=== PATIENT | male | born 1935 | race Caucasian/White ===

== ENCOUNTER 2017-01-20 17:25 | Inpatient (IN) ==
[2017-01-20 19:16] LABS: Bilirubin,Urine Negative (Negative); Blood,Urine Negative (Negative); Clarity,Urine Clear (Clear); Color,Urine Yellow (Yellow); Glucose,Urine (UA) Normal (Normal); Ketones,Urine Negative (Negative); Leukocyte Esterase,Urine Negative (Negative); Nitrite,Urine Negative (Negative); PH,Urine 5.5 pH Units (5.0-8.0); Protein,Urine Negative (Neg-Trace); Urobilinogen,Urine Normal (Normal)
[2017-01-20] MEDS ORDERED: 0.9 % Sodium Chloride 1,000 ML IVC ONE ×2 (19:27→20:50)
[2017-01-20 20:10] LABS: Basophils % 0.1 %; Eosinophils % 0.2 %; Hematocrit 43.6 % (37.5-50.1); Hemoglobin 13.7 g/dL (12.9-16.9); Immature Granulocytes % 0.8 % (0-4); Immature Platelets 3.8 % (1.1-6.1); Lymphocytes # 0.7 K/mcL (0.6-4.6); Lymphocytes % 7.2 %; Mean Corpuscular HGB Conc 31.4 g/dL (31.6-35.5); Mean Corpuscular Hemoglobin 28.7 pg (28.0-33.3); Mean Corpuscular Volume 91.4 fL (83.0-100.0); Mean Platelet Volume 9.4 fL (9.4-12.4); Monocytes # 0.4 K/mcL (0.0-1.3); Monocytes % 4.6 %; Neutrophils # 8.3 K/mcL (1.6-8.9); Platelet Count 202 K/mcL (140-400); Red Blood Count 4.77 M/mcL (4.19-5.50); Segmented Neutrophils % 87.1 %
[2017-01-20 20:21] LABS: Activated Partial Thrombo Time 44.4 Seconds (26.0-36.0)
[2017-01-20 20:22] LABS: Prothrombin Time 63.8 Seconds (9.4-12.1)
[2017-01-20 20:23] LABS: INR 5.6
[2017-01-20 20:25] LABS: Albumin 3.6 g/dL (3.5-5.0); Albumin/Globulin Ratio 1.1 (1.1-2.2); Bilirubin,Direct 0.4 mg/dL (0.0-0.5); Bilirubin,Indirect 0.3 mg/dL (0.0-1.2); Bilirubin,Total 0.7 mg/dL (0.2-1.2); Calcium 8.6 mg/dL (8.6-10.8); Globulin 3.3 g/dL (2.4-3.5); Total Protein 6.9 g/dL (6.0-8.3)
--- NOTE | 2017-01-20 20:48 | Emergency Department Note ---
Disposition Clinical Impression: Elevated INR, Dehydration Acute renal failure Qualifiers: Acute renal failure type: unspecified Qualified Code(s): N17.9 - Acute kidney failure, unspecified Disposition: Admitted As Inpatient Condition: Good Time of Disposition: 22:11 Nausea/Vomiting/Diarrhea HPI - General Chief complaint: ED Nausea/Vomiting/Diarrhea Stated complaint: General Time Seen by Provider: 01/20/17 20:40 Source: patient Limitations: no limitations Nursing Notes Reviewed: Yes Vital Signs Reviewed: Yes - History of Present Illness HPI Narrative: 81 year old male with HX of rate controlled atrial fibrillation has been experiencing 3 days of diarrhea NBNB associated with nausea and no vomitting or fevers. Patient has not been around other individuals with simliar symptoms and states that he is passing watery diarrhea every 15 minutes since Wednesday at 1000 without relief. Patient states that this is a first time occurance and is not experiencing increased abdominal pain and describes it as cramps. Michael states he has not tried over the counter medications to help with his diarrhea and overall feels dehydrated and weak. Caprice otherwise has a CAD historu but is not experiencing chest pain or shortness of breath. Denies uti symptoms or bloody stools. - Related Data Home Medications Medication Instructions Recorded Confirmed Ascorbate Calcium [Vitamin C] 1,000 mg PO QAM 12/23/15 01/20/17 Aspirin [Adult Low Dose Aspirin EC] 81 mg PO QPM 12/23/15 01/20/17 Budesonide/Formoterol 80/4.5 2 puff IH BID 12/23/15 01/20/17 [Symbicort 80/4.5] Fenofibrate [Lofibra] 160 mg PO QAM 12/23/15 01/20/17 Lisinopril [Zestril] 20 mg PO QAM 12/23/15 01/20/17 Lovastatin 40 mg PO QAM 12/23/15 01/20/17 Multivit-Min/FA/Lycopen/Lutein 1 each PO QAM 12/23/15 01/20/17 [Centrum Silver Tablet] Omeprazole [PriLOSEC] 20 mg PO QAM 12/23/15 01/20/17 Warfarin [Coumadin] 2 mg PO SUMOTUWESA 12/23/15 01/20/17 Albuterol Sulfate [Ventolin Hfa] 2 puff IH Q4H PRN 01/20/17 01/20/17 Furosemide [Lasix] 60 mg PO DAILY 01/20/17 01/20/17 Isosorbide MONOnitrate (24 HR) 30 mg PO DAILY 01/20/17 01/20/17 [Imdur] Latanoprost [Xalatan] 1 drop BOTH EYES HS 01/20/17 01/20/17 PredniSONE [PredniSONE] 20 mg PO DAILY 01/20/17 01/20/17 Warfarin [Coumadin] 1 mg PO TH 01/20/17 01/20/17 Warfarin [Coumadin] 3 mg PO FR 01/20/17 01/20/17 Allergies Allergy/AdvReac Type Severity Reaction Status Date / Time No Known Allergies Allergy Verified 01/05/17 07:31 Constitutional: Denies: fever, chills, weakness, weight change Eyes: Denies: eye pain, eye discharge, vision change ENT ED: Denies: ear pain, throat pain, dental pain, hearing loss, epistaxis, congestion, dysphagia Cardiovascular: Denies: chest pain, palpitations, dyspnea on exertion, edema, syncope Respiratory: Denies: cough, dyspnea, wheezes, hemoptysis, stridor Gastrointestinal: Reports: abdominal pain, nausea, diarrhea. Denies: vomiting, constipation, hematemesis, melena, hematochezia Genitourinary: Denies: urgency, dysuria, frequency, hematuria Musculoskeletal: Denies: back pain, neck pain, arthralgia, myalgia Integumentary: Denies: rash, abrasion, lesions Neurological: Denies: headache, weakness, numbness, paresthesias, confusion, abnormal gait, vertigo Psychiatric: Denies: anxiety, depression, suicidal thoughts, homicidal thoughts , auditory hallucinations, visual hallucinations Endocrine: Denies: fatigue Hematological/Lymphatic: Denies: easy bleeding, easy bruising Allergic/Immunologic: Denies: facial swelling, urticaria Past Medical History - Past Medical History Medical history: Reports: CHF, COPD, DVT, hypertension, myocardial infarction, pulmonary embolus Surgical history: Reports: appendectomy, colectomy, knee replacement, LE stent(s ), sinus surgery Psychiatric history: Reports: no psych history - Social History Smoking Status: Never smoker Smokeless Tobacco Status: No Alcohol use: Reports: none Drug use: Reports: none Physical Exam - General Limitations: no limitations General appearance: alert - Head Head exam: atraumatic, normocephalic, normal inspection - Eye Eye exam: Present: normal appearance, PERRL, EOMI - Expanded Eye Exam Pupils: Left: reactive - ENT ENT exam: normal exam, normal oropharynx, mucous membranes moist - Expanded ENT Exam External ear exam: Present: normal external inspection Mouth exam: Present: normal external inspection Teeth exam: Present: normal inspection Throat exam: Present: normal inspection - Neck Neck exam: Present: normal inspection, full ROM, trachea midline - Chest Chest inspection: Present: normal inspection, symmetric chest wall rise - Respiratory Respiratory exam: Present: normal lung sounds bilaterally - Cardiovascular Cardiovascular exam: Present: regular rate, normal rhythm, normal heart sounds - Abdominal Exam Abdominal exam: Present: soft, Non-Tender. Absent: tenderness, distention, guarding, rebound, rigidity - Rectal Exam Rectal exam: Present: normal inspection, normal rectal tone, heme (-) stool - Extremities Exam Extremities exam: Present: normal inspection, full ROM. Absent: tenderness, pedal edema - Expanded Upper Extremity Exam Shoulder exam: Present: normal inspection, full ROM Arm exam: Present: normal inspection, full ROM Elbow exam: Present: normal inspection, full ROM Forearm/Wrist exam: Present: normal inspection, full ROM Hand exam: Present: normal inspection, full ROM Vascular exam: Normal: capillary refill, radial pulse - Expanded Lower Extremity Exam Hip/Pelvis exam: Present: normal inspection, full ROM Upper leg exam: Present: normal inspection, full ROM Knee exam: Present: normal inspection, full ROM Lower leg exam: Present: normal inspection, full ROM Ankle exam: Present: normal inspection, full ROM Foot/toe exam: Present: normal inspection, full ROM Neurovascular/Tendon exam: Absent: motor deficit, sensory deficit, tendon deficit - Back Exam Back exam: Present: normal inspection, full ROM. Absent: tenderness - Neurological Exam Neurological exam: Present: alert, oriented X3 - Expanded Neurological Exam Patient oriented to: Present: person, place, time Coma Scale Eye Opening: Spontaneous Coma Scale Motor Response: Obeys Commands Coma Scale Verbal Response: Oriented Coma Scale Total: 15 - Psychiatric Psychiatric exam: Present: normal affect, normal mood - Skin Skin exam: Present: warm, dry, intact, normal color Course Course Narrative: we will do abdominal labs with ABCT for futher evaluation due to elevated INR and CRN. likely from dehydration. will do a rectal exam to assess for rectal bleeding. - Consultations Consultation #1: Dr. Rodríguez accepts patient to his service. Time: 22:11 Vital Signs Temperature 97.3 F L 01/20/17 17:31 Pulse Rate 71 01/20/17 17:31 Respiratory Rate 16 01/20/17 17:31 Blood Pressure 96/64 01/20/17 17:31 O2 Sat by Pulse Oximetry 96 01/20/17 17:31 Temperature 97.3 F L 01/20/17 17:31 Pulse Rate 73 01/20/17 19:12 Respiratory Rate 18 01/20/17 19:12 Blood Pressure 120/53 01/20/17 19:12 O2 Sat by Pulse Oximetry 97 01/20/17 19:12 Oxygen Delivery Oxygen Delivery Room Air Nausea/Vomiting/Diarrhea - Lab Data Result diagrams: 01/20/17 20:03 01/20/17 20:03 Lab Results 01/20/17 01/20/17 01/20/17 Range/Units 19:08 20:03 20:03 WBC 9.6 (4.3-11.1) K/mcL RBC 4.77 (4.19-5.50) M/mcL Hgb 13.7 (12.9-16.9) g/dL Hct 43.6 (37.5-50.1) % MCV 91.4 (83.0-100.0) fL MCH 28.7 (28.0-33.3) pg MCHC 31.4 L (31.6-35.5) g/dL RDW 14.0 (11.5-14.5) % Plt Count 202 (140-400) K/mcL MPV 9.4 (9.4-12.4) fL Immature Gran % 0.8 (0-4) % Seg Neutrophils % 87.1 % Lymphocytes % 7.2 % Monocytes % 4.6 % Eosinophils % 0.2 % Basophils % 0.1 % Neutrophils # 8.3 (1.6-8.9) K/mcL Lymphocytes # 0.7 (0.6-4.6) K/mcL Monocytes # 0.4 (0.0-1.3) K/mcL Eosinophils # 0.0 (0.0-0.6) K/mcL Basophils # 0.0 (0.0-0.2) K/mcL Immature Plt Fraction 3.8 (1.1-6.1) % PT 63.8 H* (9.4-12.1) Seconds INR 5.6 H* APTT 44.4 H (26.0-36.0) Seconds Sodium (136-145) mEq/L Potassium (3.5-4.5) mEq/L Chloride (98-109) mEq/L Carbon Dioxide (19-29) mEq/L BUN (8-26) mg/dL Creatinine (0.72-1.25) mg/dL Est GFR ( Amer) (> 60) Est GFR (Non-Af Amer) (> 60) BUN/Creatinine Ratio (6-26) Glucose (70-99) mg/dL Calculated Osmolality (280-300) Lactic Acid (0.5-2.2) mmol/L Calcium (8.6-10.8) mg/dL Total Bilirubin (0.2-1.2) mg/dL Direct Bilirubin (0.0-0.5) mg/dL Indirect Bilirubin (0.0-1.2) mg/dL AST (5-34) Units/L ALT (0-55) Units/L Alkaline Phosphatase (38-126) Units/L Troponin I (0-0.03) ng/mL Serum Total Protein (6.0-8.3) g/dL Albumin (3.5-5.0) g/dL Globulin (2.4-3.5) g/dL Albumin/Globulin Ratio (1.1-2.2) Amylase (25-125) Units/L Lipase (8-78) Units/L Urine Color Yellow (Yellow) Urine Clarity Clear (Clear) Urine pH 5.5 (5.0-8.0) pH Units Ur Specific Central 1.020 (1.010-1.025) Urine Protein Negative (Neg-Trace) mg/dL Urine Glucose (UA) Normal (Normal) mg/dL Urine Ketones Negative (Negative) mg/dL Urine Blood Negative (Negative) Urine Nitrite Negative (Negative) Urine Bilirubin Negative (Negative) Urine Urobilinogen Normal (Normal) mg/dL Ur Leukocyte Esterase Negative (Negative) Ur Culture Indicated? NO (NO) 01/20/17 01/20/17 01/20/17 Range/Units 20:03 20:03 20:03 WBC (4.3-11.1) K/mcL RBC (4.19-5.50) M/mcL Hgb (12.9-16.9) g/dL Hct (37.5-50.1) % MCV (83.0-100.0) fL MCH (28.0-33.3) pg MCHC (31.6-35.5) g/dL RDW (11.5-14.5) % Plt Count (140-400) K/mcL MPV (9.4-12.4) fL Immature Gran % (0-4) % Seg Neutrophils % % Lymphocytes % % Monocytes % % Eosinophils % % Basophils % % Neutrophils # (1.6-8.9) K/mcL Lymphocytes # (0.6-4.6) K/mcL Monocytes # (0.0-1.3) K/mcL Eosinophils # (0.0-0.6) K/mcL Basophils # (0.0-0.2) K/mcL Immature Plt Fraction (1.1-6.1) % PT (9.4-12.1) Seconds INR APTT (26.0-36.0) Seconds Sodium 135 L (136-145) mEq/L Potassium 4.0 (3.5-4.5) mEq/L Chloride 105 (98-109) mEq/L Carbon Dioxide 21 (19-29) mEq/L BUN 71 H (8-26) mg/dL Creatinine 2.21 H (0.72-1.25) mg/dL Est GFR ( Amer) 35 L (> 60) Est GFR (Non-Af Amer) 29 L (> 60) BUN/Creatinine Ratio 32 H (6-26) Glucose 152 H (70-99) mg/dL Calculated Osmolality 304 H (280-300) Lactic Acid 0.9 (0.5-2.2) mmol/L Calcium 8.6 (8.6-10.8) mg/dL Total Bilirubin 0.7 (0.2-1.2) mg/dL Direct Bilirubin 0.4 (0.0-0.5) mg/dL Indirect Bilirubin 0.3 (0.0-1.2) mg/dL AST 29 (5-34) Units/L ALT 29 (0-55) Units/L Alkaline Phosphatase 43 (38-126) Units/L Troponin I 0.01 (0-0.03) ng/mL Serum Total Protein 6.9 (6.0-8.3) g/dL Albumin 3.6 (3.5-5.0) g/dL Globulin 3.3 (2.4-3.5) g/dL Albumin/Globulin Ratio 1.1 (1.1-2.2) Amylase 81 (25-125) Units/L Lipase 46 (8-78) Units/L Urine Color (Yellow) Urine Clarity (Clear) Urine pH (5.0-8.0) pH Units Ur Specific Central (1.010-1.025) Urine Protein (Neg-Trace) mg/dL Urine Glucose (UA) (Normal) mg/dL Urine Ketones (Negative) mg/dL Urine Blood (Negative) Urine Nitrite (Negative) Urine Bilirubin (Negative) Urine Urobilinogen (Normal) mg/dL Ur Leukocyte Esterase (Negative) Ur Culture Indicated? (NO) - EKG Data EKG attestation: Yes I reviewed and interpreted this EKG. EKG results narrative: atrial fibrillation with rate of 62. NO STEMI. LAD. LBBB. no change from . 1946 Attestation Statement - Attestation Attestation: I performed a history and physical examination of the patient and discussed his management with the resident. I reviewed the residents note and agree with the documented findings and plan of care. This 81-year-old male with an persistent diarrhea for several days and was found to have some evidence of renal failure. He felt dehydrated. We have given him fluids. We have arranged for hospitalist admission.
--- NOTE | 2017-01-20 23:31 | Internal Med History&Physical ---
<Henry Moreira - Last Filed: 01/21/17 08:38> Date of Encounter: 01/20/17 Time of Encounter: 23:31 Assessment and Plan (1) Diarrhea Current visit: Yes Status: Acute -Stomach discomfort the day before diarrhea started, mild nausea, no vomiting, no fever. Symptoms are improving and he feels better today compared to yesterday. Will get stool studies. -Denies recent abx use and low WBC/symptoms improving. Cdiff low on ddx. -No critical electrolyte abnormalities, will continue to monitor -Been on finofibrate for years. -Unclear etiology of diarrhea -Will not prescribe antimotility agent because of risk of infectious source/ toxin. -Unknown last colonoscopy. Colectomy in 2005 for polyp. Unable to find other records -CT: diverticulosis without diverticulitis, hepatic steotosis. Plan -Lipid Panel -Stool studies-hemmocult, cdiff, stool culture -zofran for nausea -Consider out patient colonoscopy As a side note. Unable to add Hypertension to the CDI code. The System wont let me sign the chart with this diagnosis. Plan is we are going to start his home medications. Qualifiers: Diarrhea type: unspecified type Qualified Code(s): R19.7 - Diarrhea, unspecified (2) Acute renal failure Current visit: Yes Status: Acute -Likely secondary to dehydration -No CVA tenderness. Is producing "normal gold color urine" -2L bolus in ED Plan -Hold nephrotoxic agents: Lasixs, MINO -Get urine na and osmo -Continue fluids 125 for 1L Qualifiers: Acute renal failure type: unspecified Qualified Code(s): N17.9 - Acute kidney failure, unspecified (3) Elevated INR Current visit: Yes Status: Acute For abib, dvt, pe. -Seen in [facility] on 01/14 -Hold Coumadin -Patient not actively bleeding, H and H stable. No need for vitamin K Plan -Occult stool test -Hold Coumadin -Consult to Coumadin clinic-unable to order. Will call personally....spoke with coumadin clinic (the inspector outside [employer]), they are [facility]. Patient had appointment today. They will contact patient regarding rescheduling appointment. (4) Atrial fibrillation Current visit: Yes Status: Chronic -currently rate controlled -Excessive diarrhea. Concern for future electrolyte abnormality. Keep on Tele PLan -Tele -Resume home med. Qualifiers: Atrial fibrillation type: chronic Qualified Code(s): I48.2 - Chronic atrial fibrillation (5) COPD (chronic obstructive pulmonary disease) Current visit: Yes Status: Chronic Qualifiers: COPD type: chronic bronchitis Chronic bronchitis type: unspecified Qualified Code(s): J42 - Unspecified chronic bronchitis Internal Medicine - H&P: HPI Chief complaint: Diarrhea Admitted From: Emergency Dept Plans for Post Hospital Care: Home History of present illness: Mr. Sequeira is a 81 year old male, PMH Afib rate controlled, CHF, COPD, DVT, PE , HTN, OR, PE, being admitted for diarrhea, ANGEL, Elevated INR. Diarrhea Started a few days ago. Woke up from sleep. Going to the bathroom every 15-30 min. Worsen with eating and drinking. NOthing seems to help. Has not tried any OTC medications. Has not had this problem before. States the night before he felt like his "stomach was rumbling and growling". Abdominal pain described as diffused and cramping when he goes to the bathroom. Otherwise, not in pain. Admits to mild nausea. Denies F/V/PEREZ/Blurry vision or confusion/CP/SOB/Melena/ Hematochezia/excessive bruising. Denies recent travel, adventurous foods, recent abx use. Concerning ANGEL. States he has no known history of ANGEL. He feels dehyrdated and hasnt drank or eaten much the past few days. Is producing urine that is monroy brown. Denies hematuria. No dysuria or flank pain. Concerning INR elevation: On Coumadin for afib and DVT/PE hx. Previous admittance for elevated INR in 2016. Seen at [facility] on 01/14. Patient has had flu shot. Denies any medication changes. Is currently taking predisone for "a long problem or inflammation my PCP says", denies recent abx use or laxative. Taking Vitamin C because "my PCP told me too and I've been taking it for years". Past Med Surg Social Fam HX - Past Medical History Medical history: CHF, COPD, DVT, hypertension, myocardial infarction, pulmonary embolus Psychiatric history: no psych history - Past Surgical History Surgical History: appendectomy, colectomy, knee replacement, LE stent(s), sinus surgery - Social History Smoking Status: Never smoker Smokeless Tobacco Status: No Alcohol use: none Drug use: none - Family History Mother Living Status: Hx Family Cardiac Disorders: Yes Sister Living Status: Hx Family Cancer: Yes Father Hx Family Cardiac Disorders: Yes Internal Medicine - H&P: Meds Ascorbate Calcium [Vitamin C] 1,000 mg PO QAM 12/23/15 [History] Aspirin [Adult Low Dose Aspirin EC] 81 mg PO QPM 12/23/15 [History] Budesonide/Formoterol 80/4.5 [Symbicort 80/4.5] 2 puff IH BID 12/23/15 [History ] Fenofibrate [Lofibra] 160 mg PO QAM 12/23/15 [History] Lisinopril [Zestril] 20 mg PO QAM 12/23/15 [History] Lovastatin 40 mg PO QAM 12/23/15 [History] Multivit-Min/FA/Lycopen/Lutein [Centrum Silver Tablet] 1 each PO QAM 12/23/15 [ History] Omeprazole [PriLOSEC] 20 mg PO QAM 12/23/15 [History] Warfarin [Coumadin] 2 mg PO SUMOTUWESA 12/23/15 [History] Albuterol Sulfate [Ventolin Hfa] 2 puff IH Q4H PRN 01/20/17 [History] Furosemide [Lasix] 60 mg PO DAILY 01/20/17 [History] Isosorbide MONOnitrate (24 HR) [Imdur] 30 mg PO DAILY 01/20/17 [History] Latanoprost [Xalatan] 1 drop BOTH EYES HS 01/20/17 [History] PredniSONE [PredniSONE] 20 mg PO DAILY 01/20/17 [History] Warfarin [Coumadin] 1 mg PO TH 01/20/17 [History] Warfarin [Coumadin] 3 mg PO FR 01/20/17 [History] Allergies No Known Allergies Allergy (Verified 01/05/17 07:31) All Systems PM: A 10-system review of systems was performed and is negative for pertinent findings except as documented above in the HPI. - EENT Eyes: no change in vision, no discharge, no pain, no photophobia - Cardiovascular Cardiovascular ROS IM: irregular heart rhythm, no chest pain, no diaphoresis, no dyspnea, no lightheadedness, no palpitations, no syncope - Respiratory Respiratory: no cough, no dyspnea, no wheezing, no excessive phlegm production - Gastrointestinal Gastrointestinal: as per HPI - Genitourinary Genitourinary ROS male: as per HPI - Neurological Neurological ROS: no confusion, no convulsions, no focal weakness, no numbness, no tingling, no tremor(s) - Constitutional Vitals: Temp Pulse Resp BP Pulse Ox 97.3 F L 73 18 124/83 97 01/20/17 17:31 01/20/17 19:12 01/20/17 23:07 01/20/17 23:07 01/20/17 19:12 General appearance: Present: A&O X 3, pleasant, no acute distress, answers questions appropriately - Head Head exam: Present: atraumatic, normocephalic - Eye Eye exam: Present: PERRL, conjuntiva pink, sclera anicteric Pupils: Present: PERRL - Neck Neck exam general surgery: Present: supple, trachea midline. Absent: lymphadenopathy - Respiratory Respiratory exam: Present: CTAB. Absent: accessory muscle use, rales, rhonchi, wheezes - Cardiovascular Cardiovascular exam: Present: irregular rhythm - GI/Abdominal GI/Abdominal exam: Present: normal bowel sounds, soft, no peritoneal signs. Absent: distended, tenderness - Other Additional findings: No brusing, bleeding, open wounds noted. No petichi. Internal Med - H&P Results - Labs CBC & Chem 7: 01/21/17 06:42 01/21/17 06:42 <German Rodríguez - Last Filed: 01/21/17 10:39> Date of Encounter: 01/20/17 Internal Medicine - H&P: HPI History of present illness: Mr. Sequeira is a 81 year old male Patient was visited and interviewed and examined. I examined this patient and my medical decision-making was reviewed with the Resident Physician, Dr. Henry Moreira. For this encounter, I have reviewed the documentation, treatment plan, and medical decision making. I have had face to face time with this patient. Cumulative laboratory and radiographic database was reviewed, considered and discussed. I agree with the documented findings, disposition and treatment plan as described except to the extent set forth below. Given the patient's presenting concerns, past medical history, clinical findings and symptoms, he is admitted at this time to undergo further evaluation and disposition. Condition is serious. Prognosis is guarded. CODE STATUS is full. All Systems PM: A 10-system review of systems was performed and is negative for pertinent findings except as documented above in the HPI. - Constitutional Vitals: Temp Pulse Resp BP Pulse Ox 97.5 F L 63 16 121/76 94 01/21/17 06:55 01/21/17 06:55 01/21/17 08:32 01/21/17 06:55 01/21/17 08:32 Vital Signs Temp Pulse Resp BP Pulse Ox 01/21/17 08:32 16 94 01/21/17 06:55 97.5 F L 63 17 121/76 94 01/21/17 03:50 97.6 F 60 18 134/66 93 01/20/17 23:33 97.4 F L 63 16 139/60 97 01/20/17 23:07 18 124/83 01/20/17 19:12 73 18 120/53 97 01/20/17 17:31 97.3 F L 71 16 96/64 96 Intake and Output 01/20/17 01/21/17 01/21/17 23:59 07:59 15:59 Intake Total 1000 / 1000 1440 / 1440 970 / 970 Output Total 700 / 700 Balance 1000 / 1000 740 / 740 970 / 970 Intake: IV Fluids 1000 / 1000 440 / 440 610 / 610 0.9 % Sodium Chloride 1, 1000 / 1000 390 / 390 610 / 610 000 ML @ 125 mls/hr IVC . Q8H [facility] Rx#:[id number] Protonix 80 MG In 0.9 % 50 / 50 Sodium Chloride 50 ML @ 600 mls/hr IVPB ONCE STA Rx#:[id number] Oral 1000 / 1000 360 / 360 Output: Urine 700 / 700 Other: Meal Breakfast Percent of Meal Consumed 100% Stool Size Small Stool Color Brown Weight 105.778 kg Internal Med - H&P Results - Labs CBC & Chem 7: 01/21/17 06:42 01/21/17 06:42 Labs: Short CBC 01/21/17 01/21/17 Range/Units 01:10 06:42 WBC 10.2 (4.3-11.1) K/mcL Hgb 12.8 L 12.6 L (12.9-16.9) g/dL Hct 40.4 39.9 (37.5-50.1) % Plt Count 170 (140-400) K/mcL Neutrophils # 8.1 (1.6-8.9) K/mcL BMP 01/21/17 06:42 Sodium 139 Potassium 3.8 Chloride 111 H Carbon Dioxide 19 BUN 57 H Creatinine 1.53 H Glucose 99 Calcium 7.7 L Liver Function 01/21/17 Range/Units 01:10 Total Bilirubin 0.6 (0.2-1.2) mg/dL Direct Bilirubin 0.3 (0.0-0.5) mg/dL AST 24 (5-34) Units/L ALT 26 (0-55) Units/L Alkaline Phosphatase 40 (38-126) Units/L Albumin 3.2 L (3.5-5.0) g/dL Abnormal lab results Hgb 12.6 g/dL (12.9-16.9) L 01/21/17 06:42 PT 63.8 Seconds (9.4-12.1) H* 01/20/17 20:03 INR 5.6 H* 01/20/17 20:03 APTT 44.4 Seconds (26.0-36.0) H 01/20/17 20:03 VBG pCO2 33 mmHg (41-51) L 01/21/17 01:10 VBG pO2 115 mmHg (25-40) H 01/21/17 01:10 VBG HCO3 17.8 mEq/L (21-27) L 01/21/17 01:10 Chloride 111 mEq/L (98-109) H 01/21/17 06:42 BUN 57 mg/dL (8-26) H 01/21/17 06:42 Creatinine 1.53 mg/dL (0.72-1.25) H 01/21/17 06:42 Est GFR ( Amer) 53 (> 60) L 01/21/17 06:42 Est GFR (Non-Af Amer) 44 (> 60) L 01/21/17 06:42 BUN/Creatinine Ratio 37 (6-26) H 01/21/17 06:42 Calculated Osmolality 304 (280-300) H 01/21/17 06:42 Calcium 7.7 mg/dL (8.6-10.8) L 01/21/17 06:42 Ionized Calcium 1.07 mmol/L (1.15-1.35) L 01/21/17 01:10 Serum Total Protein 5.9 g/dL (6.0-8.3) L 01/21/17 01:10 Albumin 3.2 g/dL (3.5-5.0) L 01/21/17 01:10 Laboratory Results WBC 10.2 K/mcL (4.3-11.1) 01/21/17 06:42 RBC 4.35 M/mcL (4.19-5.50) 01/21/17 06:42 Hgb 12.6 g/dL (12.9-16.9) L 01/21/17 06:42 Hct 39.9 % (37.5-50.1) 01/21/17 06:42 MCV 91.7 fL (83.0-100.0) 01/21/17 06:42 MCH 29.0 pg (28.0-33.3) 01/21/17 06:42 MCHC 31.6 g/dL (31.6-35.5) 01/21/17 06:42 RDW 14.0 % (11.5-14.5) 01/21/17 06:42 Plt Count 170 K/mcL (140-400) 01/21/17 06:42 MPV 9.8 fL (9.4-12.4) 01/21/17 06:42 Immature Gran % 0.9 % (0-4) 01/21/17 06:42 Seg Neutrophils % 79.3 % 01/21/17 06:42 Lymphocytes % 11.2 % 01/21/17 06:42 Monocytes % 7.4 % 01/21/17 06:42 Eosinophils % 1.0 % 01/21/17 06:42 Basophils % 0.2 % 01/21/17 06:42 Neutrophils # 8.1 K/mcL (1.6-8.9) 01/21/17 06:42 Lymphocytes # 1.1 K/mcL (0.6-4.6) 01/21/17 06:42 Monocytes # 0.8 K/mcL (0.0-1.3) 01/21/17 06:42 Eosinophils # 0.1 K/mcL (0.0-0.6) 01/21/17 06:42 Basophils # 0.0 K/mcL (0.0-0.2) 01/21/17 06:42 Immature Plt Fraction 3.8 % (1.1-6.1) 01/20/17 20:03 PT 63.8 Seconds (9.4-12.1) H* 01/20/17 20:03 INR 5.6 H* 01/20/17 20:03 APTT 44.4 Seconds (26.0-36.0) H 01/20/17 20:03 VBG pH 7.34 pH Units (7.32-7.42) 01/21/17 01:10 VBG pCO2 33 mmHg (41-51) L 01/21/17 01:10 VBG pO2 115 mmHg (25-40) H 01/21/17 01:10 VBG HCO3 17.8 mEq/L (21-27) L 01/21/17 01:10 Sodium 139 mEq/L (136-145) 01/21/17 06:42 Potassium 3.8 mEq/L (3.5-4.5) 01/21/17 06:42 Chloride 111 mEq/L (98-109) H 01/21/17 06:42 Carbon Dioxide 19 mEq/L (19-29) 01/21/17 06:42 BUN 57 mg/dL (8-26) H 01/21/17 06:42 Creatinine 1.53 mg/dL (0.72-1.25) H 01/21/17 06:42 Est GFR ( Amer) 53 (> 60) L 01/21/17 06:42 Est GFR (Non-Af Amer) 44 (> 60) L 01/21/17 06:42 BUN/Creatinine Ratio 37 (6-26) H 01/21/17 06:42 Glucose 99 mg/dL (70-99) 01/21/17 06:42 Calculated Osmolality 304 (280-300) H 01/21/17 06:42 Lactic Acid 0.9 mmol/L (0.5-2.2) 01/20/17 20:03 Calcium 7.7 mg/dL (8.6-10.8) L 01/21/17 06:42 Ionized Calcium 1.07 mmol/L (1.15-1.35) L 01/21/17 01:10 Phosphorus 3.4 mg/dL (2.3-4.7) 01/21/17 06:42 Magnesium 1.9 mg/dL (1.6-2.6) 01/21/17 06:42 Total Bilirubin 0.6 mg/dL (0.2-1.2) 01/21/17 01:10 Direct Bilirubin 0.3 mg/dL (0.0-0.5) 01/21/17 01:10 Indirect Bilirubin 0.3 mg/dL (0.0-1.2) 01/21/17 01:10 AST 24 Units/L (5-34) 01/21/17 01:10 ALT 26 Units/L (0-55) 01/21/17 01:10 Alkaline Phosphatase 40 Units/L (38-126) 01/21/17 01:10 Troponin I 0.01 ng/mL (0-0.03) 01/20/17 20:03 Serum Total Protein 5.9 g/dL (6.0-8.3) L 01/21/17 01:10 Albumin 3.2 g/dL (3.5-5.0) L 01/21/17 01:10 Globulin 2.7 g/dL (2.4-3.5) 01/21/17 01:10 Albumin/Globulin Ratio 1.2 (1.1-2.2) 01/21/17 01:10 Amylase 81 Units/L (25-125) 01/20/17 20:03 Lipase 46 Units/L (8-78) 01/20/17 20:03 Urine Color Yellow (Yellow) 01/20/17 19:08 Urine Clarity Clear (Clear) 01/20/17 19:08 Urine pH 5.5 pH Units (5.0-8.0) 01/20/17 19:08 Ur Specific [place] 1.020 (1.010-1.025) 01/20/17 19:08 Urine Protein Negative mg/dL (Neg-Trace) 01/20/17 19:08 Urine Glucose (UA) Normal mg/dL (Normal) 01/20/17 19:08 Urine Ketones Negative mg/dL (Negative) 01/20/17 19:08 Urine Blood Negative (Negative) 01/20/17 19:08 Urine Nitrite Negative (Negative) 01/20/17 19:08 Urine Bilirubin Negative (Negative) 01/20/17 19:08 Urine Urobilinogen Normal mg/dL (Normal) 01/20/17 19:08 Ur Leukocyte Esterase Negative (Negative) 01/20/17 19:08 Ur Culture Indicated? NO (NO) 01/20/17 19:08 Impressions Chest X-Ray 01/20/17 19:27 IMPRESSION: Chronic interstitial lung disease. No gross consolidation or acute radiographic findings. D/ / 01/20/2017 20:11:23 Marguerite Prince MD / bcarter Interpreting Provider: Marguerite Prince MD Abdomen/Pelvis CT 01/20/17 20:33 IMPRESSION: 1. Colonic diverticulosis without evidence for acute diverticulitis. 2. Borderline hepatic steatosis. 3. Bilateral renal cysts measuring up to 4.9 cm. 4. Fibrotic changes at the lung bases with mild traction bronchiectasis. D/ / Natanael Starks MD / Natanael Starks MD Interpreting Provider: Natanael Starks MD - ABG Interpretation ABG results: 01/21/17 01:10 VBG pH 7.34 VBG pCO2 33 L VBG pO2 115 H VBG HCO3 17.8 L - Attending Attestation My signature below is to certify that this patient is under my care and that I, or Resident Physician working with me, has had a [id number] encounter with this patient.
[2017-01-21] MEDS ORDERED: Ondansetron 4 MG/2 ML VIAL IVP PRN (00:02)
[2017-01-21] MEDS ORDERED: Pantoprazole 80 MG in 0.9 % Sodium Chloride 50 ML IVPB STA (00:47)
[2017-01-21] MEDS: 0.9 % Sodium Chloride 1,000 ML IVC SCH ×3 (01:12→17:16)
[2017-01-21 01:19] LABS: Hematocrit 40.4 % (37.5-50.1); Hemoglobin 12.8 g/dL (12.9-16.9)
[2017-01-21 01:22] LABS: Ionized Calcium 1.07 mmol/L (1.15-1.35)
[2017-01-21 01:25] LABS: VBG HCO3 17.8 mEq/L (21-27); VBG PH 7.34 pH Units (7.32-7.42)
[2017-01-21 01:31] LABS: Albumin 3.2 g/dL (3.5-5.0); Albumin/Globulin Ratio 1.2 (1.1-2.2); Bilirubin,Direct 0.3 mg/dL (0.0-0.5); Bilirubin,Indirect 0.3 mg/dL (0.0-1.2); Bilirubin,Total 0.6 mg/dL (0.2-1.2); Globulin 2.7 g/dL (2.4-3.5); Total Protein 5.9 g/dL (6.0-8.3)
[2017-01-21 07:35] LABS: Calcium 7.7 mg/dL (8.6-10.8); Magnesium 1.9 mg/dL (1.6-2.6); Phosphorous 3.4 mg/dL (2.3-4.7); Potassium 3.8 mEq/L (3.5-4.5)
[2017-01-21 07:43] LABS: Basophils % 0.2 %; Eosinophils # 0.1 K/mcL (0.0-0.6); Hematocrit 39.9 % (37.5-50.1); Hemoglobin 12.6 g/dL (12.9-16.9); Immature Granulocytes % 0.9 % (0-4); Lymphocytes # 1.1 K/mcL (0.6-4.6); Lymphocytes % 11.2 %; Mean Corpuscular HGB Conc 31.6 g/dL (31.6-35.5); Mean Corpuscular Volume 91.7 fL (83.0-100.0); Mean Platelet Volume 9.8 fL (9.4-12.4); Monocytes # 0.8 K/mcL (0.0-1.3); Monocytes % 7.4 %; Neutrophils # 8.1 K/mcL (1.6-8.9); Platelet Count 170 K/mcL (140-400); Red Blood Count 4.35 M/mcL (4.19-5.50); Segmented Neutrophils % 79.3 %
[2017-01-21] MEDS: Fenofibrate 54 MG TABLET PO SCH (08:27)
[2017-01-21] MEDS: Isosorbide MONOnitrate (24 HR) 30 MG TAB.ER.24H PO SCH (08:28)
[2017-01-21] MEDS: predniSONE 20 MG TABLET PO SCH (08:28)
[2017-01-21] MEDS: Pantoprazole 40 MG VIAL IVP SCH (08:28)
[2017-01-21] MEDS: Budesonide/Formoterol 80/4.5 MDI IH SCH ×2 (08:32→19:43)
[2017-01-21] MEDS ORDERED: Lisinopril 20 MG TABLET PO SCH (09:00)
[2017-01-21] MEDS ORDERED: Furosemide 40 MG TABLET PO SCH (09:00)
[2017-01-21] MEDS ORDERED: Ascorbic Acid 500 MG TABLET PO SCH (09:00)
[2017-01-21] MEDS ORDERED: Acetaminophen 325 MG TABLET PO PRN (10:40)
[2017-01-21] MEDS ORDERED: *HR* Morphine 2 MG/ML SYRINGE IVP PRN (10:40)
[2017-01-21] MEDS ORDERED: Naloxone 0.4 MG/ML INJ IVP PRN (10:40)
[2017-01-21] MEDS ORDERED: *HR* OxyCODONE Immed Rel 5 MG TABLET PO PRN (10:40)
[2017-01-21 12:52] LABS: Activated Partial Thrombo Time 44.3 Seconds (26.0-36.0)
[2017-01-21] MEDS ORDERED: *HR* Phytonadione 5 MG TABLET PO ONE (12:57)
[2017-01-21 12:58] LABS: INR 5.5
[2017-01-21 13:06] LABS: Hemoglobin 12.8 g/dL (12.9-16.9)
[2017-01-21 14:30] LABS: Adenovirus F 40/41 PCR Not detected (Not detect); Astrovirus PCR ***DETECTED*** (Not detect); Campylobacter by PCR Not detected (Not detect); Cryptosporidium by PCR Not detected (Not detect); Cyclospora cayetanensis PCR Not detected (Not detect); E. coli O157 by PCR Not detected (Not detect); Entamoeba histolytica PCR Not detected (Not detect); Enteroaggregative E.coli(EAEC) Not detected (Not detect); Enteropathogenic E.coli(EPEC) Not detected (Not detect); Enterotoxigenic E.coli (ETEC) Not detected (Not detect); Giardia lamblia PCR Not detected (Not detect); Norovirus GI/GII PCR Not detected (Not detect); Plesiomonas shigelloides PCR Not detected (Not detect); Rotavirus A PCR Not detected (Not detect); Salmonella PCR Not detected (Not detect); Sapovirus PCR Not detected (Not detect); Shig/EnteroinvasiveE coli EIEC Not detected (Not detect); Shigalike tox-prod E coli STEC Not detected (Not detect); Vibrio PCR Not detected (Not detect); Vibrio cholerae PCR Not detected (Not detect); Yersinia enterocolitica PCR Not detected (Not detect)
--- NOTE | 2017-01-21 15:57 | Internal Med Progress Note ---
<Purvi Calzada Khurram - Last Filed: 01/21/17 16:54> Date of Encounter: 01/21/17 Time of Encounter: 10:00 - Assessment and plan (1) Diarrhea Current Visit: Yes Status: Acute Assessment and plan: Stool panel is positive for Astrovirus No leukocytosis Patient had one small brown stool today Will continue to monitor Qualifiers: Diarrhea type: unspecified type Qualified Code(s): R19.7 - Diarrhea, unspecified (2) [id number] kidney injury Current Visit: Yes Status: Acute Assessment and plan: Resolved Patient presented to hospital with Cr 2.21 likely elevated to dehydration secondary to diarrhea He was given IVF resuscitation Cr has decreased today to 1.53 Patient's baseline Cr is 1.5-1.6 Will continue to monitor (3) Chronic diastolic heart failure Current Visit: No Status: Chronic Assessment and plan: ECHO 12/10/16 LVEF 55%, normal LV size/function, indeterminate LV diastolic function, normal right ventricular size and function, mild TR, no pulmonary HTN Hold Lisinopril due to dehydration Continue ASA (4) GI bleeding Current Visit: No Status: Acute Assessment and plan: Stool occult is positive, however no gross blood visible in stool May be secondary to GI bleed versus swallowing of hemoptysis Will correct INR Will continue to monitor stools for signs of bleeding Qualifiers: GI bleed type/associated pathology: unspecified gastrointestinal hemorrhage type Qualified Code(s): K92.2 - Gastrointestinal hemorrhage, unspecified (5) COPD (chronic obstructive pulmonary disease) Current Visit: Yes Status: Chronic Assessment and plan: Patient follows with Dr. Lira Continue home medications Qualifiers: COPD type: chronic bronchitis Chronic bronchitis type: unspecified Qualified Code(s): J42 - Unspecified chronic bronchitis (6) Atrial fibrillation Current Visit: Yes Status: Chronic Qualifiers: Atrial fibrillation type: chronic Qualified Code(s): I48.2 - Chronic atrial fibrillation (7) DVT prophylaxis Current Visit: Yes Status: Acute Assessment and plan: SCIDs - Subjective Interval history: Patient states that he began having hemoptysis this morning. He previously had hemoptysis when INR was elevated. Coumadin was held at that time. Dr. Lira performed bronchioalveolar lavage on 01/05/17 which demonstrated inflammatory and bronchial cells. Patient states that he started having episode of watery diarrhea on the evening of 01/16/17 with occurrences every 15-30 minutes. Patient states that diarrhea continued to worsen. Patient states that diarrhea was bedoya-colored. He denies hematochezia or melena. Patient had a colectomy due to what patient calls a "perforated bowel". Although patient denies fever or chills. Denies abdominal pain. Denies hematuria. - Constitutional Vitals: Temp Pulse Resp BP Pulse Ox 97.8 F 66 20 115/70 97 01/21/17 14:18 01/21/17 14:18 01/21/17 14:18 01/21/17 14:18 01/21/17 14:18 General appearance: Present: A&O X 3, pleasant, no acute distress, answers questions appropriately - Head Head exam: Present: atraumatic, normocephalic - Eye Eye exam: Present: PERRL, conjuntiva pink, sclera anicteric - Neck Neck exam general surgery: Present: supple, trachea midline. Absent: lymphadenopathy - Respiratory Respiratory exam: Present: CTAB. Absent: accessory muscle use, rales, rhonchi, wheezes Additional comments: Patient coughing up nickel-sized amounts of bright-red blood during physical exam. - Cardiovascular Cardiovascular exam: Present: irregular rhythm, +S1, +S2. Absent: diastolic murmur, gallop, rubs, systolic murmur - GI/Abdominal GI/Abdominal exam: Present: normal bowel sounds, soft, no peritoneal signs. Absent: distended, tenderness - Extremities Exam Extremities exam: Present: warm, radial pulses palpable and symetrical. Absent : calf tenderness, cyanotic, pedal edema - Neurological Exam Neurological exam: Present: CN II-XII intact, oriented X3, no focal deficits. Absent: facial droop, speech deficit - Skin Skin exam: Present: dry, intact Internal Medicine: Result - Labs CBC & Chem 7: 01/21/17 12:31 01/21/17 06:42 Labs: Short CBC 01/21/17 01/21/17 01/21/17 Range/Units 01:10 06:42 12:31 WBC 10.2 (4.3-11.1) K/mcL Hgb 12.8 L 12.6 L 12.8 L (12.9-16.9) g/dL Hct 40.4 39.9 40.0 (37.5-50.1) % Plt Count 170 (140-400) K/mcL Neutrophils # 8.1 (1.6-8.9) K/mcL BMP 01/21/17 06:42 Sodium 139 Potassium 3.8 Chloride 111 H Carbon Dioxide 19 BUN 57 H Creatinine 1.53 H Glucose 99 Calcium 7.7 L Liver Function 01/21/17 Range/Units 01:10 Total Bilirubin 0.6 (0.2-1.2) mg/dL Direct Bilirubin 0.3 (0.0-0.5) mg/dL AST 24 (5-34) Units/L ALT 26 (0-55) Units/L Alkaline Phosphatase 40 (38-126) Units/L Albumin 3.2 L (3.5-5.0) g/dL - ABG Interpretation ABG results: PT/INR, D-dimer PT 63.0 Seconds (9.4-12.1) H* 01/21/17 12:31 - Impressions Chest X-Ray 01/20/17 19:27 IMPRESSION: Chronic interstitial lung disease. No gross consolidation or acute radiographic findings. D/ / 01/20/2017 20:11:23 Marguerite Prince MD / [email or web address] Interpreting Provider: Marguerite Prince MD Abdomen/Pelvis CT 01/20/17 20:33 IMPRESSION: 1. Colonic diverticulosis without evidence for acute diverticulitis. 2. Borderline hepatic steatosis. 3. Bilateral renal cysts measuring up to 4.9 cm. 4. Fibrotic changes at the lung bases with mild traction bronchiectasis. D/ / Natanael Starks MD / Natanael Starks MD Interpreting Provider: Natanael Starsk MD Consult Discharge Plan - Plan Referrals: Jose A Hernandez DO [Primary Care Provider] - <CharisseAbdoul - Last Filed: 01/21/17 18:54> Date of Encounter: 01/21/17 - Constitutional Vitals: Temp Pulse Resp BP Pulse Ox 97.8 F 66 14 115/70 94 01/21/17 14:18 01/21/17 14:18 01/21/17 16:39 01/21/17 14:18 01/21/17 16:39 Internal Medicine: Result - Labs CBC & Chem 7: 01/21/17 18:08 01/21/17 06:42 Labs: Short CBC 01/21/17 01/21/17 01/21/17 Range/Units 01:10 06:42 12:31 WBC 10.2 (4.3-11.1) K/mcL Hgb 12.8 L 12.6 L 12.8 L (12.9-16.9) g/dL Hct 40.4 39.9 40.0 (37.5-50.1) % Plt Count 170 (140-400) K/mcL Neutrophils # 8.1 (1.6-8.9) K/mcL 01/21/17 Range/Units 18:08 WBC (4.3-11.1) K/mcL Hgb 11.5 L (12.9-16.9) g/dL Hct 35.9 L (37.5-50.1) % Plt Count (140-400) K/mcL Neutrophils # (1.6-8.9) K/mcL BMP 01/21/17 06:42 Sodium 139 Potassium 3.8 Chloride 111 H Carbon Dioxide 19 BUN 57 H Creatinine 1.53 H Glucose 99 Calcium 7.7 L Liver Function 01/21/17 Range/Units 01:10 Total Bilirubin 0.6 (0.2-1.2) mg/dL Direct Bilirubin 0.3 (0.0-0.5) mg/dL AST 24 (5-34) Units/L ALT 26 (0-55) Units/L Alkaline Phosphatase 40 (38-126) Units/L Albumin 3.2 L (3.5-5.0) g/dL - ABG Interpretation ABG results: PT/INR, D-dimer PT 63.0 Seconds (9.4-12.1) H* 01/21/17 12:31 - Attending Attestation I examined this patient and my medical decision-making was reviewed with the Resident Physician, Dr Purvi Calzada. I agree with the documented findings, disposition and treatment plan as described except as detailed below. Patient requires inpatient admission for at least 2 midnights due to new onset of worsening hemoptysis. While was in the room he coughed up about a teaspoonful of sputum mixed with dark blood. He denies chest pain. He says he started this morning with small amounts of blood-streaked clear sputum and it has been getting worse over the last 6 hours. He does have a supratherapeutic INR of 5.6. He is at high risk of respiratory failure and massive hemoptysis if not treated in the hospital and they are sore for we will admit him as an inpatient. We will treat him with oral vitamin K 2.5 mg once and monitor clinically, monitor INR and hemoglobin daily. GI panel revealed Laci virus, making the diagnosis is viral gastroenteritis which also makes him at a high risk for dehydration, renal failure and coagulopathy in the context of Coumadin use.
[2017-01-21] MEDS: Aspirin Enteric Coated 81 MG Tablet PO SCH (17:15)
[2017-01-21 18:50] LABS: Hematocrit 35.9 % (37.5-50.1); Hemoglobin 11.5 g/dL (12.9-16.9)
[2017-01-21 18:58] LABS: INR 6.4; Prothrombin Time 72.8 Seconds (9.4-12.1)
--- NOTE | 2017-01-21 19:31 | Electrocardiograph Report ---
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
[2017-01-21] MEDS: Latanoprost 2.5 ML BOTTLE BOTH EYES SCH (21:47)
[2017-01-21] MEDS ORDERED: 0.9 % Sodium Chloride 250 ML ONE (22:56)
[2017-01-22] MEDS ORDERED: 0.9 % Sodium Chloride 250 ML ONE (02:18)
[2017-01-22 06:16] LABS: Basophils % 0.1 %; Eosinophils # 0.2 K/mcL (0.0-0.6); Eosinophils % 1.5 %; Hematocrit 33.9 % (37.5-50.1); Hemoglobin 10.9 g/dL (12.9-16.9); Immature Granulocytes % 0.9 % (0-4); Lymphocytes # 1.2 K/mcL (0.6-4.6); Lymphocytes % 10.2 %; Mean Corpuscular HGB Conc 32.2 g/dL (31.6-35.5); Mean Corpuscular Hemoglobin 29.5 pg (28.0-33.3); Mean Corpuscular Volume 91.6 fL (83.0-100.0); Mean Platelet Volume 9.9 fL (9.4-12.4); Monocytes # 0.7 K/mcL (0.0-1.3); Monocytes % 5.8 %; Neutrophils # 9.7 K/mcL (1.6-8.9); Platelet Count 144 K/mcL (140-400); Red Cell Distribution Width 14.2 % (11.5-14.5); Segmented Neutrophils % 81.5 %
[2017-01-22 06:21] LABS: INR 2.4
[2017-01-22 06:23] LABS: Activated Partial Thrombo Time 33.8 Seconds (26.0-36.0)
[2017-01-22 06:31] LABS: Alanine Aminotransferase 22 Units/L (0-55); Albumin/Globulin Ratio 1.1 (1.1-2.2); Alkaline Phosphatase 46 Units/L (38-126); Aspartate Amino Transferase 19 Units/L (5-34); BUN/Creatinine Ratio 27 (6-26); Bilirubin,Total 0.7 mg/dL (0.2-1.2); Calcium 8.3 mg/dL (8.6-10.8); Carbon Dioxide 22 mEq/L (19-29); Chloride 114 mEq/L (98-109); Globulin 2.7 g/dL (2.4-3.5); Glucose 99 mg/dL (70-99); Magnesium 2.1 mg/dL (1.6-2.6); Osmolality,Calculated 301 (280-300); Sodium 142 mEq/L (136-145); Total Protein 5.7 g/dL (6.0-8.3); eGFR For African Americans > 60 (> 60); eGFR For Non-African Americans > 60 (> 60)
[2017-01-22 06:32] LABS: Blood Urea Nitrogen 31 mg/dL (8-26)
[2017-01-22] MEDS: Budesonide/Formoterol 80/4.5 MDI IH SCH ×2 (08:01→19:49)
[2017-01-22] MEDS: 0.9 % Sodium Chloride 1,000 ML IVC SCH ×2 (08:10→08:13)
[2017-01-22] MEDS ORDERED: Sodium Phosphate 15 MMOL in D5% in Water 100 ML IVPB ONE (08:36)
[2017-01-22] MEDS: Isosorbide MONOnitrate (24 HR) 30 MG TAB.ER.24H PO SCH (08:56)
[2017-01-22] MEDS: Fenofibrate 54 MG TABLET PO SCH (08:56)
[2017-01-22] MEDS: Pantoprazole 40 MG VIAL IVP SCH (08:57)
[2017-01-22] MEDS: predniSONE 20 MG TABLET PO SCH (08:57)
--- NOTE | 2017-01-22 13:29 | Internal Med Progress Note ---
<Purvi Calzada Khurram - Last Filed: 01/22/17 18:31> Date of Encounter: 01/22/17 Time of Encounter: 09:30 - Assessment and plan (1) Hemoptysis Current Visit: Yes Status: Acute Assessment and plan: Patient began having hemoptysis yesterday with INR at 5.6 Patient has been seen by Dr. Guallap recently for hemoptysis Patient has received 2u FFP and 2.5mg Vitamin K INR is now 2.4, however patient continues to have episodes of hemoptysis Hb 10.9 today down from 11.5 yesterday Cough may be exacerbated by fluid overload CXR today demonstrates increased pulmonary vascular congestion Will give Lasix Iv 40mg once Will reevaluate tomorrow and consider restarted home dose of lasix (2) Diarrhea Current Visit: Yes Status: Acute Assessment and plan: Resolved Stool panel is positive for Astrovirus No leukocytosis Will continue to monitor Qualifiers: Diarrhea type: unspecified type Qualified Code(s): R19.7 - Diarrhea, unspecified (3) [id number] kidney injury Current Visit: Yes Status: Resolved Assessment and plan: Resolved Patient presented to hospital with Cr 2.21 likely elevated to dehydration secondary to diarrhea He was given IVF resuscitation Will continue to monitor (4) Chronic diastolic heart failure Current Visit: No Status: Chronic Assessment and plan: ECHO 12/10/16 LVEF 55%, normal LV size/function, indeterminate LV diastolic function, normal right ventricular size and function, mild TR, no pulmonary HTN Hold Lisinopril due to dehydration Continue ASA (5) GI bleeding Current Visit: No Status: Acute Assessment and plan: Stool occult is positive, however no gross blood visible in stool May be secondary to GI bleed versus swallowing of hemoptysis Will correct INR Will continue to monitor stools for signs of bleeding Qualifiers: GI bleed type/associated pathology: unspecified gastrointestinal hemorrhage type Qualified Code(s): K92.2 - Gastrointestinal hemorrhage, unspecified (6) COPD (chronic obstructive pulmonary disease) Current Visit: Yes Status: Chronic Assessment and plan: Patient follows with Dr. Guallpa Continue home medications Qualifiers: COPD type: chronic bronchitis Chronic bronchitis type: unspecified Qualified Code(s): J42 - Unspecified chronic bronchitis (7) Atrial fibrillation Current Visit: Yes Status: Chronic Qualifiers: Atrial fibrillation type: chronic Qualified Code(s): I48.2 - Chronic atrial fibrillation (8) DVT prophylaxis Current Visit: Yes Status: Acute Assessment and plan: SCIDs - Subjective Interval history: 01/22/17 Patient continues to have hemoptysis this morning. He is also complaining of increased dyspnea on exertion. He states that his oxygen desaturated while he walked a few feet to the bathroom. Admits an episode of diaphoresis last night. Admits abdominal pain due to cough. 01/21/17 Patient states that he began having hemoptysis this morning. He previously had hemoptysis when INR was elevated. Coumadin was held at that time. Dr. Lira performed bronchioalveolar lavage on 01/05/17 which demonstrated inflammatory and bronchial cells. Patient states that he started having episode of watery diarrhea on the evening of 01/16/17 with occurrences every 15-30 minutes. Patient states that diarrhea continued to worsen. Patient states that diarrhea was bedoya-colored. He denies hematochezia or melena. Patient had a colectomy due to what patient calls a "perforated bowel". Although patient denies fever or chills. Denies abdominal pain. Denies hematuria. - Constitutional Vitals: Temp Pulse Resp BP Pulse Ox 98.0 F 72 18 129/75 91 01/22/17 12:26 01/22/17 12:26 01/22/17 12:26 01/22/17 12:26 01/22/17 12:26 General appearance: Present: A&O X 3, pleasant, no acute distress, answers questions appropriately - Head Head exam: Present: atraumatic, normocephalic - Eye Eye exam: Present: PERRL, sclera anicteric Additional comments: Conjunctiva pale pink - Neck Neck exam general surgery: Present: supple, trachea midline. Absent: lymphadenopathy Additional comments: No carotid bruit - Respiratory Respiratory exam: Present: decreased breath sounds, prolonged expiratory phase. Absent: accessory muscle use, rales, rhonchi, wheezes Additional comments: Increased work of breathing, tachypnea, patient having multiple coughs productive of bright red blood during physical exam - Cardiovascular Cardiovascular exam: Present: irregular rhythm, +S1, +S2. Absent: diastolic murmur, gallop, rubs, systolic murmur - GI/Abdominal GI/Abdominal exam: Present: normal bowel sounds, soft, tenderness, no peritoneal signs. Absent: distended - Extremities Exam Extremities exam: Present: warm, radial pulses palpable and symetrical. Absent : calf tenderness, cyanotic, pedal edema - Neurological Exam Neurological exam: Present: CN II-XII intact, oriented X3, no focal deficits. Absent: facial droop, speech deficit - Skin Skin exam: Present: dry, intact Internal Medicine: Result - Labs CBC & Chem 7: 01/22/17 05:43 01/22/17 05:43 Labs: Short CBC 01/22/17 Range/Units 05:43 WBC 11.9 H (4.3-11.1) K/mcL Hgb 10.9 L (12.9-16.9) g/dL Hct 33.9 L (37.5-50.1) % Plt Count 144 (140-400) K/mcL Neutrophils # 9.7 H (1.6-8.9) K/mcL BMP 01/22/17 05:43 Sodium 142 Potassium 4.0 Chloride 114 H Carbon Dioxide 22 BUN 31 H D Creatinine 1.13 Glucose 99 Calcium 8.3 L Liver Function 01/22/17 Range/Units 05:43 Total Bilirubin 0.7 (0.2-1.2) mg/dL AST 19 (5-34) Units/L ALT 22 (0-55) Units/L Alkaline Phosphatase 46 (38-126) Units/L Albumin 3.0 L (3.5-5.0) g/dL - ABG Interpretation ABG results: PT/INR, D-dimer PT 27.0 Seconds (9.4-12.1) H D 01/22/17 05:43 Consult Discharge Plan - Plan Referrals: Jose A Hernandez DO [Primary Care Provider] - <Abdoul Mcqueen - Last Filed: 01/22/17 20:29> Date of Encounter: 01/22/17 - Constitutional Vitals: Temp Pulse Resp BP Pulse Ox 98.2 F 68 18 135/75 91 01/22/17 18:50 01/22/17 18:50 01/22/17 18:50 01/22/17 18:50 01/22/17 18:50 Internal Medicine: Result - Labs CBC & Chem 7: 01/22/17 05:43 01/22/17 05:43 Labs: Short CBC 01/22/17 Range/Units 05:43 WBC 11.9 H (4.3-11.1) K/mcL Hgb 10.9 L (12.9-16.9) g/dL Hct 33.9 L (37.5-50.1) % Plt Count 144 (140-400) K/mcL Neutrophils # 9.7 H (1.6-8.9) K/mcL BMP 01/22/17 05:43 Sodium 142 Potassium 4.0 Chloride 114 H Carbon Dioxide 22 BUN 31 H D Creatinine 1.13 Glucose 99 Calcium 8.3 L Liver Function 01/22/17 Range/Units 05:43 Total Bilirubin 0.7 (0.2-1.2) mg/dL AST 19 (5-34) Units/L ALT 22 (0-55) Units/L Alkaline Phosphatase 46 (38-126) Units/L Albumin 3.0 L (3.5-5.0) g/dL - ABG Interpretation ABG results: PT/INR, D-dimer PT 22.5 Seconds (9.4-12.1) H 01/22/17 16:09 - Impressions Impressions Chest X-Ray 01/22/17 16:32 IMPRESSION: Increasing vascular congestion is identified. Please correlate for any signs of heart failure. D/ / Marcus Pena / Marcus Pena Interpreting Provider: Marcus Pena - Attending Attestation I examined this patient and my medical decision-making was reviewed with the Resident Physician, Dr. Purvi Calzada. I agree with the documented findings, disposition and treatment plan as described except to the extent set forth below. Patient is in no acute distress. Heart is regular rate and rhythm S1-S2. Lungs are clear. Abdomen is soft. For hemoptysis will monitor INR. Hold Coumadin. Monitor clinically and check hemoglobin and hematocrit in the morning. Consult pulmonary service.
[2017-01-22 16:34] LABS: Prothrombin Time 22.5 Seconds (9.4-12.1)
[2017-01-22] MEDS: Aspirin Enteric Coated 81 MG Tablet PO SCH (17:17)
[2017-01-22] MEDS ORDERED: Furosemide 40 MG/4 ML VIAL IVP ONE (18:27)
[2017-01-22] MEDS: Latanoprost 2.5 ML BOTTLE BOTH EYES SCH (21:43)
[2017-01-23 04:08] LABS: Basophils % 0.1 %; Eosinophils # 0.1 K/mcL (0.0-0.6); Eosinophils % 0.4 %; Hematocrit 36.3 % (37.5-50.1); Hemoglobin 11.6 g/dL (12.9-16.9); Immature Granulocytes % 1.2 % (0-4); Immature Platelets 3.7 % (1.1-6.1); Lymphocytes # 0.8 K/mcL (0.6-4.6); Lymphocytes % 4.8 %; Mean Corpuscular Hemoglobin 28.9 pg (28.0-33.3); Mean Corpuscular Volume 90.5 fL (83.0-100.0); Mean Platelet Volume 9.5 fL (9.4-12.4); Monocytes # 0.7 K/mcL (0.0-1.3); Monocytes % 4.4 %; Neutrophils # 13.9 K/mcL (1.6-8.9); Platelet Count 159 K/mcL (140-400); Red Blood Count 4.01 M/mcL (4.19-5.50); Red Cell Distribution Width 14.1 % (11.5-14.5); Segmented Neutrophils % 89.1 %
[2017-01-23 04:13] LABS: INR 1.8; Prothrombin Time 20.1 Seconds (9.4-12.1)
[2017-01-23 04:23] LABS: BUN/Creatinine Ratio 19 (6-26); Blood Urea Nitrogen 21 mg/dL (8-26); Calcium 8.5 mg/dL (8.6-10.8); Carbon Dioxide 24 mEq/L (19-29); Chloride 108 mEq/L (98-109); Glucose 128 mg/dL (70-99); Osmolality,Calculated 295 (280-300); Potassium 3.5 mEq/L (3.5-4.5); Sodium 140 mEq/L (136-145); eGFR For African Americans > 60 (> 60); eGFR For Non-African Americans > 60 (> 60)
[2017-01-23] MEDS: Fenofibrate 54 MG TABLET PO SCH (07:47)
[2017-01-23] MEDS: predniSONE 20 MG TABLET PO SCH (07:48)
[2017-01-23] MEDS: Potassium Chloride Elixir 20 MEQ/15 ML UDC PO SCH ×2 (07:49→20:07)
[2017-01-23] MEDS: Isosorbide MONOnitrate (24 HR) 30 MG TAB.ER.24H PO SCH (07:49)
[2017-01-23] MEDS: Pantoprazole 40 MG VIAL IVP SCH (07:49)
[2017-01-23] MEDS: Budesonide/Formoterol 80/4.5 MDI IH SCH ×2 (08:07→19:42)
[2017-01-23] MEDS: Furosemide 40 MG/4 ML VIAL IVP SCH ×2 (12:35→20:07)
--- NOTE | 2017-01-23 13:32 | Pulmonology Consult Note ---
Date of Encounter: 01/23/17 Time of Encounter: 13:30 Assessment and Plan (1) Hemoptysis Current Visit: Yes Status: Acute Hemoptysis is multifactorial in etiology. I suspect that hemoptysis is in part related to mild pulmonary venous hypertension in this individual with diastolic heart disease and may also in part be due to occult pulmonary arterial hypertension. 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 I believe it is reasonable to provide empiric diuretic therapy for treatment of possible pulmonary venous hypertension due to acute decompensated diastolic congestive heart failure. I would recommend holding anticoagulation for an approximate 5-6 day. Once hemoptysis has resolved, reintroducing systemic anticoagulation given the need to provide the same in light of patient's atrial fibrillation risk factors for stroke and prior venous thromboembolic disease. In reference to interstitial lung disease, based on this patient's age and findings of limited views of the lung parenchyma at the bases (from review of the recent CT scan of the abdomen), more likely, this patient has IPF. Other than perhaps providing a several week course of prednisone with taper (assuming that perhaps he does currently have an exacerbation of the same), I do not believe he would be a candidate for any additional therapeutic trials of medication. Obviously, this could be reviewed with this patient in an upcoming outpatient evaluation with pulmonary service. Thank you for this consultation and please feel free to contact me should you have any questions E Dixie [phone] Code(s): R04.2 - Hemoptysis SNOMED Code(s): 99440928 History of Present Illness Consult date: 01/23/17 Chief complaint: Hemoptysis and dyspnea History of present illness: This is a pleasant 81-year-old male nonsmoker who was admitted to the hospital with complaints of dyspnea and hemoptysis. 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 Reportedly, his INR was fairly elevated at the time of admission, he experienced several episodes of bright red blood expectoration and in conjunction with this mild progressive worsening of exertional breathlessness. Given these findings and the patient's complaints , pulmonary consultation requested. I note that the patient was evaluated by outpatient pulmonary for hemoptysis during the earlier part of this month. A bronchoscopy was performed on January 08 which reportedly did not reveal any obvious endobronchial abnormalities as etiology for hemoptysis. The patient's a lifelong nonsmoker. However, he has had secondhand smoke exposure during his youth. During his work years, he was exposed to various chemicals and solvents but otherwise had no significant pulmonary or occupational exposures. Mr. Sequeira does admit to exertional breathlessness. He admits to intermittent nonproductive cough as well. Breathlessness and activity intolerance of worsened over the past several months. Past Med Surg Social Fam HX - Past Medical History Medical history: CHF, COPD, DVT, hypertension, myocardial infarction, pulmonary embolus Psychiatric history: no psych history - Past Surgical History Surgical History: appendectomy, colectomy, knee replacement, LE stent(s), sinus surgery - Social History Smoking Status: Never smoker Smokeless Tobacco Status: No Alcohol use: none Drug use: none - Family History Mother Living Status: Hx Family Cardiac Disorders: Yes Hx Family Cancer: Yes Sister Living Status: Hx Family Cancer: Yes Father Living Status: Hx Family Cardiac Disorders: Yes Medications and Allergies Ascorbate Calcium [Vitamin C] 1,000 mg PO QAM 12/23/15 [History] Aspirin [Adult Low Dose Aspirin EC] 81 mg PO QPM 12/23/15 [History] Budesonide/Formoterol 80/4.5 [Symbicort 80/4.5] 2 puff IH BID 12/23/15 [History ] Fenofibrate [Lofibra] 160 mg PO QAM 12/23/15 [History] Lisinopril [Zestril] 20 mg PO QAM 12/23/15 [History] Lovastatin 40 mg PO QAM 12/23/15 [History] Multivit-Min/FA/Lycopen/Lutein [Centrum Silver Tablet] 1 each PO QAM 12/23/15 [ History] Omeprazole [PriLOSEC] 20 mg PO QAM 12/23/15 [History] Warfarin [Coumadin] 2 mg PO SUMOTUWESA 12/23/15 [History] Albuterol Sulfate [Ventolin Hfa] 2 puff IH Q4H PRN 01/20/17 [History] Furosemide [Lasix] 60 mg PO DAILY 01/20/17 [History] Isosorbide MONOnitrate (24 HR) [Imdur] 30 mg PO DAILY 01/20/17 [History] Latanoprost [Xalatan] 1 drop BOTH EYES HS 01/20/17 [History] PredniSONE [PredniSONE] 20 mg PO DAILY 01/20/17 [History] Warfarin [Coumadin] 1 mg PO TH 01/20/17 [History] Warfarin [Coumadin] 3 mg PO FR 01/20/17 [History] Allergies No Known Allergies Allergy (Verified 01/05/17 07:31) All Systems: A 10-system review of systems was performed and is negative for pertinent findings except as documented above in the HPI. - Respiratory Respiratory: as per HPI Physical Examination Vital Signs: Vital Signs, Last 4 Hours Temp Pulse Resp BP Pulse Ox 01/23/17 12:26 92 01/23/17 11:40 14 89 01/23/17 10:41 98.0 F 74 18 118/65 93 General appearance: no acute distress, other (Elderly male moderately obese who appears his stated age, vitals reviewed) Eyes: nonicteric ENT: oropharynx moist Neck: no JVD Auscultation: bilateral: diminished breath sounds (I note very faint crackles over the lung bases left greater than right. The crackles have a somewhat Velcro nature appreciated during auscultation.) Cardiovascular: irregular rhythm Gastrointestinal: normoactive bowel sounds, non-distended Integumentary: normal Extremities: no cyanosis, edema (Trace lower extremity edema) normal mental status, non-focal exam Results - Laboratory Findings CBC and BMP: 01/23/17 03:36 01/23/17 03:36 PT/INR, D-dimer PT 20.1 Seconds (9.4-12.1) H 01/23/17 03:36 Abnormal lab findings: Abnormal lab results WBC 15.6 K/mcL (4.3-11.1) H 01/23/17 03:36 RBC 4.01 M/mcL (4.19-5.50) L 01/23/17 03:36 Hgb 11.6 g/dL (12.9-16.9) L 01/23/17 03:36 Hct 36.3 % (37.5-50.1) L 01/23/17 03:36 Neutrophils # 13.9 K/mcL (1.6-8.9) H 01/23/17 03:36 PT 20.1 Seconds (9.4-12.1) H 01/23/17 03:36 VBG pCO2 33 mmHg (41-51) L 01/21/17 01:10 VBG pO2 115 mmHg (25-40) H 01/21/17 01:10 VBG HCO3 17.8 mEq/L (21-27) L 01/21/17 01:10 Glucose 128 mg/dL (70-99) H 01/23/17 03:36 Calcium 8.5 mg/dL (8.6-10.8) L 01/23/17 03:36 Ionized Calcium 1.07 mmol/L (1.15-1.35) L 01/21/17 01:10 Phosphorus 2.1 mg/dL (2.3-4.7) L 01/22/17 16:09 Serum Total Protein 5.7 g/dL (6.0-8.3) L 01/22/17 05:43 Albumin 3.0 g/dL (3.5-5.0) L 01/22/17 05:43 Stool Occult Blood Positive (Negative) A 01/21/17 11:50 Stool Astrovirus (PCR) DETECTED (Not detect) A 01/21/17 11:50 - Diagnostic Findings Additional studies: I reviewed recently performed chest imaging as well as a recently performed CT scan of the abdomen. Of note, the chest x-ray for approximately 48 hours ago revealed mild cardiomegaly but in addition increased interstitial markings with peripheral location of cystic changes suggesting honeycomb lung. The follow-up chest radiograph revealed these findings but in addition mild prominence of interstitial pulmonary vascular markings suggesting mild pulmonary interstitial edema the abdominal CT scan, lower lung windows reviewed notable for cystic changes within the periphery suggestive of honeycomb lung mild interstitial prominence of septal lines and airway prominence suggesting circatricial bronchiectasis. In total, the chest radiographic findings in tempo with the auscultatory findings of the chest bespeak of interstitial fibrotic lung disease. - Clinical Findings Intake & Output: Intake & Output 01/22/17 01/23/17 01/23/17 23:59 07:59 15:59 Intake Total 1705 / 1705 640 / 640 Output Total 1850 / 1850 300 / 300 300 / 300 Balance -145 / -145 -300 / -300 340 / 340 Weight 103.419 kg Consult Discharge Plan - Plan Referrals: ColJose A more DO [Primary Care Provider] -
[2017-01-23 14:45] LABS: Hematocrit 39.7 % (37.5-50.1); Hemoglobin 12.7 g/dL (12.9-16.9); Mean Corpuscular Hemoglobin 29.1 pg (28.0-33.3); Mean Corpuscular Volume 90.8 fL (83.0-100.0); Mean Platelet Volume 9.9 fL (9.4-12.4); Platelet Count 177 K/mcL (140-400); Red Blood Count 4.37 M/mcL (4.19-5.50); Red Cell Distribution Width 14.2 % (11.5-14.5); Segmented Neutrophils % 92.8 %
[2017-01-23 14:46] LABS: Basophils % 0.1 %; Immature Granulocytes % 1.5 % (0-4); Lymphocytes # 0.5 K/mcL (0.6-4.6); Lymphocytes % 2.6 %; Monocytes # 0.6 K/mcL (0.0-1.3); Neutrophils # 17.7 K/mcL (1.6-8.9)
[2017-01-23] MEDS: Aspirin Enteric Coated 81 MG Tablet PO SCH (17:26)
--- NOTE | 2017-01-23 19:18 | Event Note ---
Date of Encounter: 01/23/17 Time of Encounter: 14:00 subjective: The patient continues to report small amounts of hemoptysis, diminished over the last 24 hours, without chest pain, no fever. He does report shortness of breath worse with minimal exertion such as sitting up in bed. Physical exam: Awake alert oriented 3. Heart irregular S1-S2, no murmurs. Lungs clear to auscultation bilaterally, abdomen soft nontender nondistended with normoactive bowel sounds. Extremities with 1+ pitting edema. Laboratory data: INR 1.8, creatinine 1.09 from 2.21 on admission, hemoglobin 12.2 Chest x-ray from yesterday and today was personally reviewed by myself shows increasing vascular congestion compared to the x-ray 2 days ago. There is no infiltrate or significant pleural effusion. Plan: #1: Hemoptysis: Continue to monitor clinically, hold anticoagulation, I appreciate pulmonary input. Continue with steroids. #2: Acute renal failure on chronic kidney disease stage III present on admission , now improved: Avoid nephrotoxins, restart Lasix. Monitor GFR. #3: Anticoagulation with Coumadin with supratherapeutic INR: Status post with vitamin K administration and FFP's, currently INR 1.8. Continue to hold Coumadin and monitor daily INR. #4: Acute hypoxic respiratory failure secondary to fluid overload in the context of chronic diastolic heart failure secondary to IV fluid resuscitation during this admission for acute renal failure: Continue with increased dose of Lasix 40 mg IV twice a day for diuresis. Continue with oxygen by nasal cannula to maintain saturation above 92%. Monitor kidney function closely. #5: DVT prophylaxis: We will use SCDs. Hold warfarin for now.
[2017-01-23] MEDS: Latanoprost 2.5 ML BOTTLE BOTH EYES SCH (20:07)
--- NOTE | 2017-01-23 21:08 | Internal Med Progress Note ---
<Kumar Marcelo - Last Filed: 01/23/17 21:06> Date of Encounter: 01/23/17 Time of Encounter: 14:05 - Assessment and plan (1) Other hemoptysis Current Visit: Yes Status: Acute Assessment and plan: Patient has mild hemoptysis. I do not think this is a posterior nose bleed. Likely the etiology is secondary to inlfamation in the setting of Supratherapeutic INR. May also have some bleeding from traction bronchiectesis/ ILD/ 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. Currently the patient is hemodynamically stable and Hg is trending up. I discussed this patient with Our De[employer] Cad[employer] Dr. Colin. We will plan to resume his anticoagulation 5 days after resolution of his bleeding. He dose have a history of spontaneous DVT and Has an IVC filter in place So I think he will have to resume anticoagulation. (2) Diarrhea Current Visit: Yes Status: Acute Assessment and plan: resolved (3) Ewxys-wz-abparoc kidney injury Current Visit: Yes Status: Acute Assessment and plan: resolved (4) Acute on chronic diastolic heart failure Current Visit: Yes Status: Acute Assessment and plan: likely from a combination of holding lasix, IV fluids and FFP. I have increased his Lasix. Strict I's and O's Fluid restriction O2 as needed. as this us diastolic heart failure we should focus on preventing exacerbation. Continue patient education. Blood pressure control. BRAYDEN testing if not performed in the past. Also likely has IPF and possibly Pulmonary HTN ( not commented on on last 2 echos) may consider repeat study as outpatient. (5) Heme positive stool Current Visit: Yes Status: Acute Assessment and plan: I think this is secondary to Hemoptysis. No active bleeding (6) Interstitial lung disease Current Visit: Yes Status: Acute Assessment and plan: Appears to have possible IPF Continue steroids at discharge and until he can follow up with pulmonology. (7) Atrial fibrillation Current Visit: Yes Status: Acute Assessment and plan: currently rate controlled (8) History of DVT (deep vein thrombosis) Current Visit: Yes Status: Acute Assessment and plan: will go back on Ac 5 days after resolution of hemoptysis. (9) Presence of IVC filter Current Visit: Yes Status: Acute (10) Acute hypoxemic respiratory failure Current Visit: Yes Status: Acute Assessment and plan: Likely from CHF and ILD. Diurese. O2 as needed. Patient dose have elvated WBC but has been afebrile. I am going to repeat CXR and have night team follow and start antibiotics if he has any consolidations. If WBC continue trending up in AM will start abx and atkins culture. Currently he is stable and recent steroids so we will hold off on adding antibitotics at this time. (11) Leukocytosis Current Visit: Yes Status: Acute Assessment and plan: as stated above. (12) Anemia Current Visit: Yes Status: Acute Assessment and plan: acute blood loss. Trending up (13) Astrovirus enteritis Current Visit: Yes Status: Acute Assessment and plan: resolved (14) Frail elderly Current Visit: Yes Status: Acute (15) DVT prophylaxis Current Visit: Yes Status: Acute Assessment and plan: EPCDs ordered. - Subjective Interval history: Today Mr. Sequeira states that he is feeling worse. He is having more dyspnea and also complaining of increasing lower extremity edema. He also complains of continued hemoptysis. He states this is a sputum strength and he has not coughed up large volumes of blood. He denies feeling low malaise, fevers, chills. Denies chest pain. He has no further complaints or concerns at this time. His daughter is here today and in the room. She is also updated with the plan care. - Constitutional Vitals: Temp Pulse Resp BP Pulse Ox 98.2 F 73 20 122/67 91 01/23/17 19:28 01/23/17 19:28 01/23/17 19:45 01/23/17 19:28 01/23/17 19:45 General appearance: Present: A&O X 3, pleasant, no acute distress, answers questions appropriately Exam: General: This is a 81 Year old male who is alert and orientated to person place time and situation. No acute distress. HEENT: Head is normocephalic atraumatic pupils are equally round reactive to light and accommodation, sclera are anicteric, nares are patent, normal external appearance of the nose and ears, the posterior pharynx is pink without cobblestoning or exudate. Uvula is midline, tongue is midline, dentition is intact. Specifically I do not see any bleeding blood in the back of the throat or any bleeding down the back of the throat I do not see any blood in the nose. Heart: Regular rate and rhythm without murmur rubs or gallops, S1, S2, without S3 or S4. Capillary refills less than 2 seconds. Radial pulses are 2 out of 4 and synchronous. No JVD with inspection of the neck. Lungs: He has a mildly increased work of breathing. He speaks in phrases. No accessory muscle use. Lungs do have some audible crepitus at the bases of the lungs bilaterally. Abdomen: Bowel sounds are normoactive, no bruits, abdomen is soft, no tenderness to palpation, no organomegaly noted, no guarding throughout the exam. Musculoskeletal: No gross deformity noted, moves all limbs without difficulty. Integument: Cool, dry, normal turgor, no edema. Internal Medicine: Result - Labs CBC & Chem 7: 01/23/17 14:20 01/23/17 03:36 Labs: Short CBC 01/23/17 01/23/17 Range/Units 03:36 14:20 WBC 15.6 H 19.1 H (4.3-11.1) K/mcL Hgb 11.6 L 12.7 L (12.9-16.9) g/dL Hct 36.3 L 39.7 (37.5-50.1) % Plt Count 159 177 (140-400) K/mcL Neutrophils # 13.9 H 17.7 H (1.6-8.9) K/mcL BMP 01/23/17 03:36 Sodium 140 Potassium 3.5 Chloride 108 Carbon Dioxide 24 BUN 21 D Creatinine 1.09 Glucose 128 H Calcium 8.5 L - ABG Interpretation ABG results: PT/INR, D-dimer PT 20.1 Seconds (9.4-12.1) H 01/23/17 03:36 Consult Discharge Plan - Plan Referrals: Jose A Hernandez DO [Primary Care Provider] - <Abdoul Mcqueen - Last Filed: 01/24/17 17:38> Date of Encounter: 01/23/17 - Constitutional Vitals: Temp Pulse Resp BP Pulse Ox 98.1 F 83 24 112/62 92 01/24/17 15:04 01/24/17 15:04 01/24/17 15:04 01/24/17 15:04 01/24/17 15:15 Internal Medicine: Result - Labs CBC & Chem 7: 01/24/17 02:31 01/24/17 02:31 Labs: Short CBC 01/23/17 01/24/17 Range/Units 21:41 02:31 WBC 15.9 H 15.6 H (4.3-11.1) K/mcL Hgb 12.2 L 11.8 L (12.9-16.9) g/dL Hct 38.1 36.4 L (37.5-50.1) % Plt Count 162 153 (140-400) K/mcL Neutrophils # 14.1 H 14.0 H (1.6-8.9) K/mcL BMP 01/23/17 01/24/17 21:41 02:31 Sodium 140 138 Potassium 4.2 4.0 Chloride 103 103 Carbon Dioxide 27 25 BUN 20 20 Creatinine 1.41 H 1.18 Glucose 171 H 152 H Calcium 9.2 9.0 - ABG Interpretation ABG results: PT/INR, D-dimer PT 20.1 Seconds (9.4-12.1) H 01/23/17 03:36 - Impressions Impressions Chest X-Ray 01/23/17 21:04 IMPRESSION: Stable hazy opacity throughout both lungs is felt to represent mild pulmonary edema, however, superimposed pneumonia is a diagnostic consideration. D/ / 01/23/2017 22:40:40 Tony Bran MD / joanne Interpreting Provider: Tony Bran MD - Attending Attestation I examined this patient and my medical decision-making was reviewed with the Resident Physician, Dr. Marcelo. I agree with the documented findings, disposition and treatment plan as described except to the extent set forth below. Please refer to the event note dictated on 01/23/2017.
[2017-01-23 21:50] LABS: Basophils % 0.1 %; Eosinophils # 0.1 K/mcL (0.0-0.6); Eosinophils % 0.4 %; Hematocrit 38.1 % (37.5-50.1); Hemoglobin 12.2 g/dL (12.9-16.9); Immature Granulocytes % 1.1 % (0-4); Lymphocytes % 6.5 %; Mean Corpuscular Volume 90.7 fL (83.0-100.0); Mean Platelet Volume 9.3 fL (9.4-12.4); Monocytes # 0.5 K/mcL (0.0-1.3); Monocytes % 3.3 %; Neutrophils # 14.1 K/mcL (1.6-8.9); Platelet Count 162 K/mcL (140-400); Red Cell Distribution Width 14.2 % (11.5-14.5); Segmented Neutrophils % 88.6 %
[2017-01-23 22:03] LABS: Calcium 9.2 mg/dL (8.6-10.8); Potassium 4.2 mEq/L (3.5-4.5)
[2017-01-24 02:52] LABS: Basophils % 0.1 %; Eosinophils # 0.1 K/mcL (0.0-0.6); Eosinophils % 0.3 %; Hematocrit 36.4 % (37.5-50.1); Hemoglobin 11.8 g/dL (12.9-16.9); Immature Granulocytes % 1.1 % (0-4); Lymphocytes # 0.8 K/mcL (0.6-4.6); Lymphocytes % 5.2 %; Mean Corpuscular HGB Conc 32.4 g/dL (31.6-35.5); Mean Corpuscular Hemoglobin 28.8 pg (28.0-33.3); Mean Corpuscular Volume 88.8 fL (83.0-100.0); Mean Platelet Volume 9.8 fL (9.4-12.4); Monocytes # 0.6 K/mcL (0.0-1.3); Monocytes % 3.8 %; Platelet Count 153 K/mcL (140-400); Red Cell Distribution Width 14.4 % (11.5-14.5); Segmented Neutrophils % 89.5 %
[2017-01-24 03:05] LABS: BUN/Creatinine Ratio 17 (6-26); Blood Urea Nitrogen 20 mg/dL (8-26); Carbon Dioxide 25 mEq/L (19-29); Chloride 103 mEq/L (98-109); Glucose 152 mg/dL (70-99); Osmolality,Calculated 292 (280-300); Sodium 138 mEq/L (136-145); eGFR For African Americans > 60 (> 60); eGFR For Non-African Americans 59 (> 60)
[2017-01-24] MEDS: Furosemide 40 MG/4 ML VIAL IVP SCH ×2 (07:22→21:23)
[2017-01-24] MEDS: predniSONE 20 MG TABLET PO SCH (07:22)
[2017-01-24] MEDS: Potassium Chloride Elixir 20 MEQ/15 ML UDC PO SCH ×2 (07:22→21:23)
[2017-01-24] MEDS: Fenofibrate 54 MG TABLET PO SCH (07:22)
[2017-01-24] MEDS: Isosorbide MONOnitrate (24 HR) 30 MG TAB.ER.24H PO SCH (07:22)
[2017-01-24] MEDS: Pantoprazole 40 MG VIAL IVP SCH (07:22)
[2017-01-24] MEDS: Budesonide/Formoterol 80/4.5 MDI IH SCH ×2 (11:24→20:28)
--- NOTE | 2017-01-24 15:28 | Internal Med Progress Note ---
<Kumar Marcelo - Last Filed: 01/24/17 15:20> Date of Encounter: 01/24/17 Time of Encounter: 11:15 - Assessment and plan (1) Other hemoptysis Current Visit: Yes Status: Acute Assessment and plan: Patient has mild hemoptysis. I do not think this is a posterior nose bleed. Likely the etiology is secondary to inlfamation in the setting of Supratherapeutic INR. May also have some bleeding from traction bronchiectesis/ ILD/ 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. Currently the patient is hemodynamically stable and Hg is trending down slowly. I discussed this patient with Our [employer] Dr. Colin. We will plan to resume his anticoagulation 5 days after resolution of his bleeding. He dose have a history of spontaneous DVT and Has an IVC filter in place So I think he will have to resume anticoagulation. (2) Diarrhea Current Visit: Yes Status: Acute Assessment and plan: resolved (3) Zcwcg-hz-ykdczbw kidney injury Current Visit: Yes Status: Acute Assessment and plan: resolved continue to monitor closely. (4) Acute on chronic diastolic heart failure Current Visit: Yes Status: Acute Assessment and plan: likely from a combination of holding lasix, IV fluids and FFP. I have increased his Lasix. He is diuresing well Strict I's and O's Fluid restriction O2 as needed. as this us diastolic heart failure we should focus on preventing exacerbation. Continue patient education. Blood pressure control. BRAYDEN testing if not performed in the past. Also likely has IPF and possibly Pulmonary HTN ( not commented on on last 2 echos) may consider repeat study as outpatient. (5) Heme positive stool Current Visit: Yes Status: Acute Assessment and plan: I think this is secondary to Hemoptysis. No active bleeding (6) Interstitial lung disease Current Visit: Yes Status: Acute Assessment and plan: Appears to have possible IPF Continue steroids at discharge and until he can follow up with pulmonology. (7) Atrial fibrillation Current Visit: Yes Status: Acute Assessment and plan: currently rate controlled (8) History of DVT (deep vein thrombosis) Current Visit: Yes Status: Acute Assessment and plan: will go back on Ac 5 days after resolution of hemoptysis. (9) Presence of IVC filter Current Visit: Yes Status: Acute (10) Acute hypoxemic respiratory failure Current Visit: Yes Status: Acute Assessment and plan: Likely from CHF and ILD. continue to Diurese. Oxygen requirement is trending down. O2 as needed. Patient dose have elvated WBC but has been afebrile. Also this is tending down. (11) Leukocytosis Current Visit: Yes Status: Acute Assessment and plan: trending down. (12) Anemia Current Visit: Yes Status: Acute Assessment and plan: acute blood loss. Trending down slightly (13) Astrovirus enteritis Current Visit: Yes Status: Acute Assessment and plan: resolved (14) Frail elderly Current Visit: Yes Status: Acute (15) DVT prophylaxis Current Visit: Yes Status: Acute Assessment and plan: EPCDs ordered. - Subjective Interval history: Today Mr. Sequeira states that he is feeling better. He is breathing a little better but not back to baseline yet. He admits to continued hemoptysis but states it has slowed down and is very little. He denies feeling low malaise, fevers, chills. Denies chest pain. He has no further complaints or concerns at this time. - Constitutional Vitals: Temp Pulse Resp BP Pulse Ox 98.1 F 83 24 112/62 86 01/24/17 15:04 01/24/17 15:04 01/24/17 15:04 01/24/17 15:04 01/24/17 15:04 General appearance: Present: A&O X 3, pleasant, no acute distress, answers questions appropriately - Head Head exam: Present: atraumatic, normal inspection, normocephalic - Eye Eye exam: Present: PERRL, conjuntiva pink, sclera anicteric Pupils: Present: PERRL - Neck Neck exam general surgery: Present: supple, trachea midline. Absent: lymphadenopathy - Respiratory Additional comments: bilateral crackles in the lower lung quintanilla. - Cardiovascular Cardiovascular exam: Present: RRR, +S1, +S2. Absent: diastolic murmur, gallop, rubs, systolic murmur - GI/Abdominal GI/Abdominal exam: Present: normal bowel sounds, soft, no peritoneal signs. Absent: distended, tenderness - Extremities Exam Extremities exam: Present: pedal edema (1+ to the level of the knee. improving. ), warm, radial pulses palpable and symetrical. Absent: calf tenderness, cyanotic Internal Medicine: Result - Labs CBC & Chem 7: 01/24/17 02:31 01/24/17 02:31 Labs: Short CBC 01/23/17 01/24/17 Range/Units 21:41 02:31 WBC 15.9 H 15.6 H (4.3-11.1) K/mcL Hgb 12.2 L 11.8 L (12.9-16.9) g/dL Hct 38.1 36.4 L (37.5-50.1) % Plt Count 162 153 (140-400) K/mcL Neutrophils # 14.1 H 14.0 H (1.6-8.9) K/mcL BMP 01/23/17 01/24/17 21:41 02:31 Sodium 140 138 Potassium 4.2 4.0 Chloride 103 103 Carbon Dioxide 27 25 BUN 20 20 Creatinine 1.41 H 1.18 Glucose 171 H 152 H Calcium 9.2 9.0 - ABG Interpretation ABG results: PT/INR, D-dimer PT 20.1 Seconds (9.4-12.1) H 01/23/17 03:36 - Impressions Impressions Chest X-Ray 01/23/17 21:04 IMPRESSION: Stable hazy opacity throughout both lungs is felt to represent mild pulmonary edema, however, superimposed pneumonia is a diagnostic consideration. D/ / 01/23/2017 22:40:40 Tony Bran MD / joanne Interpreting Provider: Tony Bran MD - VTE Documentation of Mechanical Device: Intermittent pneumatic compression device Consult Discharge Plan - Plan Referrals: Jose A Hernandez DO [Primary Care Provider] - <Abdoul Mcqueen - Last Filed: 01/24/17 17:24> Date of Encounter: 01/24/17 - Constitutional Vitals: Temp Pulse Resp BP Pulse Ox 98.1 F 83 18 112/62 88 01/24/17 15:04 01/24/17 15:04 01/24/17 16:33 01/24/17 15:04 01/24/17 16:33 Internal Medicine: Result - Labs CBC & Chem 7: 01/24/17 02:31 01/24/17 02:31 Labs: Short CBC 01/23/17 01/24/17 Range/Units 21:41 02:31 WBC 15.9 H 15.6 H (4.3-11.1) K/mcL Hgb 12.2 L 11.8 L (12.9-16.9) g/dL Hct 38.1 36.4 L (37.5-50.1) % Plt Count 162 153 (140-400) K/mcL Neutrophils # 14.1 H 14.0 H (1.6-8.9) K/mcL BMP 01/23/17 01/24/17 21:41 02:31 Sodium 140 138 Potassium 4.2 4.0 Chloride 103 103 Carbon Dioxide 27 25 BUN 20 20 Creatinine 1.41 H 1.18 Glucose 171 H 152 H Calcium 9.2 9.0 - ABG Interpretation ABG results: PT/INR, D-dimer PT 20.1 Seconds (9.4-12.1) H 01/23/17 03:36 - Impressions Impressions Chest X-Ray 01/23/17 21:04 IMPRESSION: Stable hazy opacity throughout both lungs is felt to represent mild pulmonary edema, however, superimposed pneumonia is a diagnostic consideration. D/ / 01/23/2017 22:40:40 Tony Bran MD / joanne Interpreting Provider: Tony Bran MD - Attending Attestation I examined this patient and my medical decision-making was reviewed with the Resident Physician, Dr. Marcelo. I agree with the documented findings, disposition and treatment plan as described except to the extent set forth below. Patient appears short of breath, speaking in short sentences, appears to. Says that his shortness of breath is worse over the last 2 days, stable since yesterday. He reports continued hemoptysis albeit lower amount. Examination reveals bilateral crackles two thirds up the lung quintanilla. Lower extremity 1+ pitting edema and heart exam with normal regular rate and rhythm with no systolic murmur. I will add daily weights. Continue with Lasix 40 mg IV twice a day for diuresis. Continue with condom catheter and strict I's and O's. I suggested fluid restriction of 1400 mL daily.
[2017-01-24] MEDS: Aspirin Enteric Coated 81 MG Tablet PO SCH (17:15)
[2017-01-24] MEDS: Latanoprost 2.5 ML BOTTLE BOTH EYES SCH (21:28)
[2017-01-25 04:50] LABS: Basophils % 0.1 %; Eosinophils # 0.2 K/mcL (0.0-0.6); Eosinophils % 1.3 %; Hematocrit 36.8 % (37.5-50.1); Hemoglobin 11.7 g/dL (12.9-16.9); Immature Granulocytes % 0.7 % (0-4); Lymphocytes % 6.3 %; Mean Corpuscular HGB Conc 31.8 g/dL (31.6-35.5); Mean Corpuscular Volume 91.3 fL (83.0-100.0); Mean Platelet Volume 10.5 fL (9.4-12.4); Monocytes # 0.5 K/mcL (0.0-1.3); Neutrophils # 13.3 K/mcL (1.6-8.9); Platelet Count 180 K/mcL (140-400); Red Blood Count 4.03 M/mcL (4.19-5.50); Red Cell Distribution Width 14.6 % (11.5-14.5); Segmented Neutrophils % 88.6 %
[2017-01-25 04:55] LABS: INR 1.3; Prothrombin Time 14.6 Seconds (9.4-12.1)
[2017-01-25 05:02] LABS: Calcium 9.6 mg/dL (8.6-10.8); Potassium 4.9 mEq/L (3.5-4.5)
[2017-01-25] MEDS: Budesonide/Formoterol 80/4.5 MDI IH SCH ×2 (07:33→20:01)
[2017-01-25] MEDS: Fenofibrate 54 MG TABLET PO SCH (07:51)
[2017-01-25] MEDS: Isosorbide MONOnitrate (24 HR) 30 MG TAB.ER.24H PO SCH (07:52)
[2017-01-25] MEDS: predniSONE 20 MG TABLET PO SCH (07:52)
[2017-01-25] MEDS: Furosemide 40 MG/4 ML VIAL IVP SCH ×2 (07:52→21:00)
[2017-01-25] MEDS: Pantoprazole 40 MG VIAL IVP SCH (07:52)
[2017-01-25] MEDS: Potassium Chloride Elixir 20 MEQ/15 ML UDC PO SCH (07:53)
--- NOTE | 2017-01-25 10:23 | Internal Med Progress Note ---
<Purvi Calzada Alve - Last Filed: 01/25/17 17:29> Date of Encounter: 01/25/17 Time of Encounter: 10:00 - Assessment and plan (1) Acute hypoxemic respiratory failure Current Visit: Yes Status: Acute Assessment and plan: Likely from CHF and ILD CT today shows worsening bilateral ground-glass opacities Oxygen requirement is trending up. Patient is tachypnic with increased work of breathing. There is concern for infection, pulmonary hemorrhage, ARDS, and hypersensitivity pneumonitis Start solu-medrol 60mg IV TID, Vancomycin (day#1), Levaquin (day#1) Sputum culture and Respiratory infection panel are pending Start CPAP, continue CPAP at night Will continue diuresis Patient is high risk for worsening respiratory failure given underlying lung disease We will transfer patient to when a bed becomes available (2) Hemoptysis Current Visit: Yes Status: Acute Assessment and plan: Patient continues to have mild hemoptysis Hb stable at 11.7 This may be multifactorial due to traction bronchiectasis, ILD, 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 He was seen by pulmonology, we appreciate recommendations Will hold coumadin until 5 days after resolution of hemoptysis (3) Chronic diastolic heart failure Current Visit: No Status: Chronic Assessment and plan: ECHO 12/10/16 LVEF 55%, normal LV size/function, indeterminate LV diastolic function, normal right ventricular size and function, mild TR, no pulmonary HTN Hold Lisinopril due to dehydration Patient with increased pulmonary edema from previous Continue IV diuresis Continue ASA (4) GI bleeding Current Visit: No Status: Acute Assessment and plan: Hemoccult positive Likely secondary to swallowing hemoptysis Qualifiers: GI bleed type/associated pathology: unspecified gastrointestinal hemorrhage type Qualified Code(s): K92.2 - Gastrointestinal hemorrhage, unspecified (5) Halfj-el-hwtyxuq kidney injury Current Visit: Yes Status: Resolved Assessment and plan: Resolved Will continue to monitor (6) Diarrhea Current Visit: Yes Status: Resolved Assessment and plan: Resolved Stool panel was positive for Astrovirus Will continue to monitor Qualifiers: Diarrhea type: unspecified type Qualified Code(s): R19.7 - Diarrhea, unspecified (7) COPD (chronic obstructive pulmonary disease) Current Visit: Yes Status: Chronic Assessment and plan: Patient follows with Dr. Guallpa Continue home medications Continue O2 supplementation Will qualify for home O2 upon discharge Qualifiers: COPD type: chronic bronchitis Chronic bronchitis type: unspecified Qualified Code(s): J42 - Unspecified chronic bronchitis (8) Atrial fibrillation Current Visit: Yes Status: Chronic Assessment and plan: Will hold coumadin until 5 days after resolution of hemoptysis Qualifiers: Atrial fibrillation type: chronic Qualified Code(s): I48.2 - Chronic atrial fibrillation (9) DVT prophylaxis Current Visit: Yes Status: Acute Assessment and plan: SCIDs - Subjective Interval history: Per nursing staff, patient's breathing is better this am. Patient continues to have hemoptysis and cough productive of mucus this morning. Patient states that dyspnea on exertion is worse. He states that his oxygen desaturates each time that he tries to stand and walk. He did have a condom catheter in place, but patient states that it feel off. Admits abdominal pain due to cough. Denies fever or chills. Denies pain to inspiration. - Constitutional Vitals: Temp Pulse Resp BP Pulse Ox 98.0 F 73 20 118/76 88 01/25/17 06:53 01/25/17 06:53 01/25/17 07:33 01/25/17 06:53 01/25/17 07:33 General appearance: Present: A&O X 3, pleasant, no acute distress, answers questions appropriately - Head Head exam: Present: atraumatic, normocephalic - Eye Eye exam: Present: EOMI, conjuntiva pink, sclera anicteric - Neck Neck exam general surgery: Present: supple, trachea midline. Absent: lymphadenopathy - Respiratory Respiratory exam: Present: prolonged expiratory phase, rales (at bilateral lung bases). Absent: accessory muscle use, rhonchi, wheezes - Cardiovascular Cardiovascular exam: Present: irregular rhythm, +S1, +S2. Absent: diastolic murmur, gallop, rubs, systolic murmur - GI/Abdominal GI/Abdominal exam: Present: distended (in infraumbillical region bladder is firm and distended), firm, normal bowel sounds, soft, no peritoneal signs. Absent: tenderness - Extremities Exam Extremities exam: Present: warm, radial pulses palpable and symetrical. Absent : calf tenderness, cyanotic, pedal edema - Neurological Exam Neurological exam: Present: CN II-XII intact, oriented X3, no focal deficits. Absent: facial droop, speech deficit - Skin Skin exam: Present: dry, intact - Other Additional findings: Abdomen/Pelvis CT 01/20/17 20:33 IMPRESSION: 1. Colonic diverticulosis without evidence for acute diverticulitis. 2. Borderline hepatic steatosis. 3. Bilateral renal cysts measuring up to 4.9 cm. 4. Fibrotic changes at the lung bases with mild traction bronchiectasis. D/ / Natanael Starks MD / Natanael Starks MD Interpreting Provider: Natanael Starks MD Chest X-Ray 01/23/17 21:04 IMPRESSION: Stable hazy opacity throughout both lungs is felt to represent mild pulmonary edema, however, superimposed pneumonia is a diagnostic consideration. D/ / 01/23/2017 22:40:40 Tony Bran MD / joanne Interpreting Provider: Tony Bran MD Chest CT 01/25/17 11:53 IMPRESSION: 1. Significant worsening of ground-glass opacities in the lungs bilaterally. Differential includes atypical infection, pulmonary hemorrhage, diffuse alveolar damage in the setting of ARDS, and hypersensitivity pneumonitis. 2. 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 3. Mild cardiomegaly. 4. Coronary artery disease. D/ / 01/25/2017 13:18:43 Gurpreet Galloway MD / Susana Vicnent Interpreting Provider: Gurpreet Galloway MD Internal Medicine: Result - Labs CBC & Chem 7: 01/25/17 04:19 01/25/17 04:19 Labs: Short CBC 01/25/17 Range/Units 04:19 WBC 15.0 H (4.3-11.1) K/mcL Hgb 11.7 L (12.9-16.9) g/dL Hct 36.8 L (37.5-50.1) % Plt Count 180 (140-400) K/mcL Neutrophils # 13.3 H (1.6-8.9) K/mcL BMP 01/25/17 04:19 Sodium 140 Potassium 4.9 H Chloride 103 Carbon Dioxide 31 H BUN 33 H D Creatinine 1.39 H Glucose 158 H Calcium 9.6 - ABG Interpretation ABG results: PT/INR, D-dimer PT 14.6 Seconds (9.4-12.1) H 01/25/17 04:19 - Impressions Abdomen/Pelvis CT 01/20/17 20:33 IMPRESSION: 1. Colonic diverticulosis without evidence for acute diverticulitis. 2. Borderline hepatic steatosis. 3. Bilateral renal cysts measuring up to 4.9 cm. 4. Fibrotic changes at the lung bases with mild traction bronchiectasis. D/ / Natanael Starks MD / Natanael Starks MD Interpreting Provider: Natanael Starks MD Chest X-Ray 01/23/17 21:04 IMPRESSION: Stable hazy opacity throughout both lungs is felt to represent mild pulmonary edema, however, superimposed pneumonia is a diagnostic consideration. D/ / 01/23/2017 22:40:40 Tony Bran MD / joanne Interpreting Provider: Tony Bran MD Chest CT 01/25/17 11:53 IMPRESSION: 1. Significant worsening of ground-glass opacities in the lungs bilaterally. Differential includes atypical infection, pulmonary hemorrhage, diffuse alveolar damage in the setting of ARDS, and hypersensitivity pneumonitis. 2. 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 3. Mild cardiomegaly. 4. Coronary artery disease. D/ / 01/25/2017 13:18:43 Gurpreet Galloway MD / Susana Vincent Interpreting Provider: Gurpreet Galloway MD - VTE Documentation of Mechanical Device: Intermittent pneumatic compression device Consult Discharge Plan - Plan Referrals: Jose A Hernandez DO [Primary Care Provider] - <Abdoul Mcqueen - Last Filed: 01/25/17 19:56> Date of Encounter: 01/25/17 - Constitutional Vitals: Temp Pulse Resp BP Pulse Ox 98.0 F 83 22 126/65 90 01/25/17 19:09 01/25/17 19:09 01/25/17 19:09 01/25/17 19:09 01/25/17 19:09 Internal Medicine: Result - Labs CBC & Chem 7: 01/25/17 04:19 01/25/17 04:19 Labs: Short CBC 01/25/17 Range/Units 04:19 WBC 15.0 H (4.3-11.1) K/mcL Hgb 11.7 L (12.9-16.9) g/dL Hct 36.8 L (37.5-50.1) % Plt Count 180 (140-400) K/mcL Neutrophils # 13.3 H (1.6-8.9) K/mcL BMP 01/25/17 04:19 Sodium 140 Potassium 4.9 H Chloride 103 Carbon Dioxide 31 H BUN 33 H D Creatinine 1.39 H Glucose 158 H Calcium 9.6 - ABG Interpretation ABG results: PT/INR, D-dimer PT 14.6 Seconds (9.4-12.1) H 01/25/17 04:19 - Impressions Impressions Chest CT 01/25/17 11:53 IMPRESSION: 1. Significant worsening of ground-glass opacities in the lungs bilaterally. Differential includes atypical infection, pulmonary hemorrhage, diffuse alveolar damage in the setting of ARDS, and hypersensitivity pneumonitis. 2. 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 3. Mild cardiomegaly. 4. Coronary artery disease. D/ / 01/25/2017 13:18:43 Gurpreet Galloway MD / Susana Vincent Interpreting Provider: Gurpreet Galloway MD - Attending Attestation I examined this patient and my medical decision-making was reviewed with the Resident Physician, Dr Purvi Calzada. I agree with the documented findings, disposition and treatment plan as described except to the extent set forth below. Patient appears more to, lung auscultation reveals bilateral crackles. Abdomen is soft nontender nondistended. Extremities have trace pitting edema, improved from yesterday. Patient requires more oxygen. A chest CT was done and showed bilateral infiltrates. I have discussed the case with pulmonary. We will start IV antibiotics. Increase IV steroids. We will consult pulmonary service. He is at high risk due to worsening respiratory failure and IV vancomycin which requires level monitoring for toxicity.
[2017-01-25] MEDS: Magnesium Oxide 400 MG TABLET PO SCH ×2 (10:55→21:00)
[2017-01-25] MEDS ORDERED: Levofloxacin 750 MG/150 ML 750 MG/150 ML BAG IVPB SCH (15:00)
[2017-01-25] MEDS ORDERED: Vancomycin 1,500 MG in D5% in Water 250 ML IVPB SCH (15:00)
[2017-01-25] MEDS ORDERED: Vancomycin 1,500 MG in D5% in Water 250 ML IVPB ONE (16:00)
--- NOTE | 2017-01-25 17:45 | Pulmonology Progress Note ---
Date of Encounter: 01/25/17 Time of Encounter: 17:43 Assessment and Plan (1) Acute hypoxemic respiratory failure Current Visit: Yes Status: Acute This is an 81-year-old gentleman with a PMHx of HFpEF, Afib/VTE on anticoagulation with acute hypoxemic respiratory failure, minor hemoptysis and evidence of bilateral opacities with a background of fibrotic lung disease. Overall picture is concerning for progressive diffuse alveolar damage pattern on CT scan which would be consistent with ARDS possibly from insult to the lung from recent viral infection complicated by elevated pulmonary pressures from heart failure with preserved ejection fraction and could also represent a "flare " of ILD for which IPF is high on the differential. Alternatively patient may be experiencing diffuse alveolar hemorrhage and a pulmonary renal syndrome is not excluded given ANGEL although it has improved it appears to be slightly worse today (a pattern not classic for PRS). Clearly the use of anticoagulation in the form of Coumadin is up possible trigger/ behavior support specialist of this process although the last INR that I see was within normal limits Patient is at high risk of continued deterioration and would recommend transfer to higher level acuities such as (SDU) for possibility of use of positive airway pressure to assist with work of breathing and hypoxemia I recommend increasing frequency of IV steroids to 60 mg Solu-Medrol every 6 hours I recommend checking the following labs including respiratory infectious panel along with basic inflammatory labs such as CRP ESR ANCA and RADHA It would be reasonable to start empiric antimicrobial therapy pending cultures with a respiratory fluoroquinolone such as Levaquin Would continue diuresis as tolerated by creatinine consider Godwin catheter placement. Prior to placement would send U/A to evaluate for hematuria. Keep NPO at midnight and will consider bronchoscopy based upon clinical course. I updated the primary medicine service with my evaluation and recommendations (2) Tycru-ya-rynivpy kidney injury Current Visit: Yes Status: Resolved (3) DVT prophylaxis Current Visit: Yes Status: Acute (4) Hemoptysis Current Visit: Yes Status: Acute (5) Acute on chronic diastolic heart failure Current Visit: Yes Status: Acute (6) Interstitial lung disease Current Visit: Yes Status: Acute (7) Astrovirus enteritis Current Visit: Yes Status: Acute Subjective Principal diagnosis: Acute Hypoxic Respiratory Failure Interval history: I was called to evaluate the patient by the primary medicine service for worsening respiratory status for which a CT scan of [place] was ordered earlier in the day. When I saw the patient he was saturating in mid to high 80s on 5 L supplemental oxygen via nasal cannula. He was able to speak in full sentences although his breathing was mildly labored. He continues to have a small amount of minor hemoptysis in fact had a coughing bruxism for which he brought up a small amount of blood-tinged sputum. He reports had more earlier in the day. He denies fevers or chills he also denies any joint pains or rash Objective PUL Vital signs: Last Vital Signs Temp 98.1 F 01/25/17 15:42 Pulse 81 01/25/17 15:42 Resp 24 01/25/17 15:48 BP 129/71 01/25/17 15:42 Pulse Ox 89 01/25/17 15:48 General appearance: no acute distress Eyes: nonicteric ENT: oropharynx moist Effort: mildly labored Auscultation: bilateral: wheezes, rales Cardiovascular: regular rate and rhythm Gastrointestinal: normoactive bowel sounds, soft Extremities: no clubbing, edema (b/l symmetric LE edema ) mood appropriate Results - Laboratory Findings CBC and BMP: 01/25/17 04:19 01/25/17 04:19 PT/INR, D-dimer PT 14.6 Seconds (9.4-12.1) H 01/25/17 04:19 Abnormal lab findings: Abnormal lab results WBC 15.0 K/mcL (4.3-11.1) H 01/25/17 04:19 RBC 4.03 M/mcL (4.19-5.50) L 01/25/17 04:19 Hgb 11.7 g/dL (12.9-16.9) L 01/25/17 04:19 Hct 36.8 % (37.5-50.1) L 01/25/17 04:19 RDW 14.6 % (11.5-14.5) H 01/25/17 04:19 Neutrophils # 13.3 K/mcL (1.6-8.9) H 01/25/17 04:19 ESR >= 130 mm/hr (0-10) H 01/25/17 16:18 PT 14.6 Seconds (9.4-12.1) H 01/25/17 04:19 VBG pCO2 33 mmHg (41-51) L 01/21/17 01:10 VBG pO2 115 mmHg (25-40) H 01/21/17 01:10 VBG HCO3 17.8 mEq/L (21-27) L 01/21/17 01:10 Potassium 4.9 mEq/L (3.5-4.5) H 01/25/17 04:19 Carbon Dioxide 31 mEq/L (19-29) H 01/25/17 04:19 BUN 33 mg/dL (8-26) H D 01/25/17 04:19 Creatinine 1.39 mg/dL (0.72-1.25) H 01/25/17 04:19 Est GFR (Non-Af Amer) 49 (> 60) L 01/25/17 04:19 Glucose 158 mg/dL (70-99) H 01/25/17 04:19 Calculated Osmolality 301 (280-300) H 01/25/17 04:19 Ionized Calcium 1.07 mmol/L (1.15-1.35) L 01/21/17 01:10 Phosphorus 2.1 mg/dL (2.3-4.7) L 01/22/17 16:09 Serum Total Protein 5.7 g/dL (6.0-8.3) L 01/22/17 05:43 Albumin 3.0 g/dL (3.5-5.0) L 01/22/17 05:43 Stool Occult Blood Positive (Negative) A 01/21/17 11:50 Stool Astrovirus (PCR) DETECTED (Not detect) A 01/21/17 11:50 - Diagnostic Findings Chest x-ray: image reviewed CT scan - chest: image reviewed - Clinical Findings Intake & Output: Intake & Output 01/25/17 01/25/17 01/25/17 07:59 15:59 23:59 Intake Total 600 / 600 Output Total 500 / 500 450 / 450 Balance -500 / -500 150 / 150 Weight 105.04 kg - VTE Documentation of Mechanical Device: Intermittent pneumatic compression device Consult Discharge Plan - Plan Referrals: ColopyJose A DO [Primary Care Provider] -
[2017-01-25 17:49] LABS: Adenovirus Not Detected (Not Detect); Bordetella Pertussis Not Detected (Not Detect); Chlamydophila pneumoniae Not Detected (Not Detect); Coronavirus 229E Not Detected (Not Detect); Coronavirus HKU1 Not Detected (Not Detect); Coronavirus NL63 Not Detected (Not Detect); Coronavirus OC43 Not Detected (Not Detect); Human Metapneumovirus Not Detected (Not Detect); Human Rhinovirus/Enterovirus Not Detected (Not Detect); Influenza A Subtype 2009 H1 Not Detected (Not Detect); Influenza A Untypeable Not Detected (Not Detect); Influenza B Not Detected (Not Detect); Mycoplasma pneumoniae Not Detected (Not Detect); Parainfluenza Virus 1 Not Detected (Not Detect); Parainfluenza Virus 2 Not Detected (Not Detect); Parainfluenza Virus 3 Not Detected (Not Detect); Parainfluenza Virus 4 Not Detected (Not Detect); Respiratory Syncytial Virus Not Detected (Not Detect)
[2017-01-25] MEDS: methylPREDNISolone 125 MG/2 ML VIAL IVP SCH ×2 (19:00→23:56)
[2017-01-25] MEDS: Levofloxacin 750 MG/150 ML 750 MG/150 ML BAG IVPB SCH (19:01)
[2017-01-25] MEDS: Aspirin Enteric Coated 81 MG Tablet PO SCH (19:02)
[2017-01-25] MEDS: Latanoprost 2.5 ML BOTTLE BOTH EYES SCH (20:59)
[2017-01-25 21:41] LABS: Bilirubin,Urine Negative (Negative); Blood,Urine Negative (Negative); Clarity,Urine Clear (Clear); Color,Urine Yellow (Yellow); Glucose,Urine (UA) 500 mg/dL (Normal); Ketones,Urine Negative (Negative); Leukocyte Esterase,Urine Negative (Negative); Nitrite,Urine Negative (Negative); Protein,Urine Trace mg/dL (Neg-Trace); Specific Gravity,Urine 1.018 (1.010-1.025); Urobilinogen,Urine Normal (Normal)
[2017-01-25 21:44] LABS: Bacteria,Urine None Seen per hpf (None-Few); Hyaline Casts,Urine None Seen per lpf (None-Few); RBC,Urine 0-3 per hpf (0-3); Squamous Epithelial Cell,Urine Moderate per lpf (None-Few); WBC,Urine 0-3 per hpf (0-3)
[2017-01-26 06:17] LABS: Basophils % 0.1 %; Hematocrit 37.4 % (37.5-50.1); Hemoglobin 11.9 g/dL (12.9-16.9); Immature Granulocytes % 1.3 % (0-4); Lymphocytes # 0.5 K/mcL (0.6-4.6); Lymphocytes % 4.5 %; Mean Corpuscular HGB Conc 31.8 g/dL (31.6-35.5); Mean Corpuscular Hemoglobin 29.2 pg (28.0-33.3); Mean Corpuscular Volume 91.7 fL (83.0-100.0); Mean Platelet Volume 10.4 fL (9.4-12.4); Monocytes # 0.1 K/mcL (0.0-1.3); Monocytes % 0.9 %; Neutrophils # 9.4 K/mcL (1.6-8.9); Platelet Count 212 K/mcL (140-400); Red Blood Count 4.08 M/mcL (4.19-5.50); Red Cell Distribution Width 14.5 % (11.5-14.5); Segmented Neutrophils % 93.2 %
[2017-01-26 06:27] LABS: Ionized Calcium 1.12 mmol/L (1.15-1.35)
[2017-01-26 06:34] LABS: Albumin 2.7 g/dL (3.5-5.0); Albumin/Globulin Ratio 0.6 (1.1-2.2); Bilirubin,Total 0.8 mg/dL (0.2-1.2); Calcium 9.5 mg/dL (8.6-10.8); Globulin 4.3 g/dL (2.4-3.5); Magnesium 2.4 mg/dL (1.6-2.6); Phosphorous 2.8 mg/dL (2.3-4.7); Potassium 4.5 mEq/L (3.5-4.5)
[2017-01-26] MEDS: Budesonide/Formoterol 80/4.5 MDI IH SCH ×2 (07:49→19:40)
[2017-01-26] MEDS: Fenofibrate 54 MG TABLET PO SCH (07:51)
[2017-01-26] MEDS: Isosorbide MONOnitrate (24 HR) 30 MG TAB.ER.24H PO SCH (07:51)
[2017-01-26] MEDS: Pantoprazole 40 MG VIAL IVP SCH (07:51)
[2017-01-26] MEDS: methylPREDNISolone 125 MG/2 ML VIAL IVP SCH ×4 (07:51→22:22)
[2017-01-26] MEDS: Magnesium Oxide 400 MG TABLET PO SCH ×2 (07:51→20:44)
[2017-01-26] MEDS: Furosemide 40 MG/4 ML VIAL IVP SCH (07:52)
--- NOTE | 2017-01-26 08:40 | Pulmonology Progress Note ---
Date of Encounter: 01/26/17 Time of Encounter: 08:40 Assessment and Plan (1) Acute hypoxemic respiratory failure Current Visit: Yes Status: Acute This is an 81-year-old gentleman with a PMHx of HFpEF, Afib/VTE on anticoagulation with acute hypoxemic respiratory failure, minor hemoptysis and evidence of bilateral opacities with a background of fibrotic lung disease. Overall picture is concerning for progressive diffuse alveolar damage pattern on CT scan which would be consistent with ARDS possibly from insult to the lung from recent viral infection complicated by elevated pulmonary pressures from heart failure with preserved ejection fraction and could also represent a "flare " of ILD for which IPF is high on the differential. Would continue her venous steroid administration throughout today likely can de- escalate to enteral steroids tomorrow Continue antimicrobials to complete 7 day course Given improvement in overall status no urgent need for bronchoscopy Wean FiO2 to keep oxygen saturation around 92% Given bump in creatinine would favor holding additional aggressive diuresis at current time and aim for a net neutral fluid status DVT prophylaxis mechanical at present. If no hemoptysis tomorrow would resart anticoagulation (2) Zpati-sk-lgcffqd kidney injury Current Visit: Yes Status: Resolved (3) DVT prophylaxis Current Visit: Yes Status: Acute (4) Hemoptysis Current Visit: Yes Status: Acute (5) Acute on chronic diastolic heart failure Current Visit: Yes Status: Acute (6) Interstitial lung disease Current Visit: Yes Status: Acute (7) Astrovirus enteritis Current Visit: Yes Status: Acute Subjective Principal diagnosis: Acute Hypoxic Respiratory Failure Interval history: Overall he has done very well overnight. Says that oxygen level has been decreased he had no further episodes of hemoptysis. He generally feels much better despite not having received positive airway pressure support overnight. Objective PUL Vital signs: Last Vital Signs Temp 97.7 F 01/26/17 03:35 Pulse 75 01/26/17 03:35 Resp 22 01/26/17 07:50 BP 116/76 01/26/17 03:35 Pulse Ox 91 01/26/17 08:00 General appearance: no acute distress Effort: normal Auscultation: bilateral: diminished breath sounds, rales Cardiovascular: regular rate and rhythm normal mental status, non-focal exam Results - Laboratory Findings CBC and BMP: 01/26/17 05:43 01/26/17 05:43 PT/INR, D-dimer PT 14.6 Seconds (9.4-12.1) H 01/25/17 04:19 Abnormal lab findings: Abnormal lab results RBC 4.08 M/mcL (4.19-5.50) L 01/26/17 05:43 Hgb 11.9 g/dL (12.9-16.9) L 01/26/17 05:43 Hct 37.4 % (37.5-50.1) L 01/26/17 05:43 Neutrophils # 9.4 K/mcL (1.6-8.9) H 01/26/17 05:43 Lymphocytes # 0.5 K/mcL (0.6-4.6) L 01/26/17 05:43 ESR >= 130 mm/hr (0-10) H 01/25/17 16:18 PT 14.6 Seconds (9.4-12.1) H 01/25/17 04:19 VBG pCO2 33 mmHg (41-51) L 01/21/17 01:10 VBG pO2 115 mmHg (25-40) H 01/21/17 01:10 VBG HCO3 17.8 mEq/L (21-27) L 01/21/17 01:10 BUN 50 mg/dL (8-26) H D 01/26/17 05:43 Creatinine 1.48 mg/dL (0.72-1.25) H 01/26/17 05:43 Est GFR ( Amer) 55 (> 60) L 01/26/17 05:43 Est GFR (Non-Af Amer) 46 (> 60) L 01/26/17 05:43 BUN/Creatinine Ratio 34 (6-26) H 01/26/17 05:43 Glucose 250 mg/dL (70-99) H 01/26/17 05:43 POC Glucose 216 (58-89) H 01/26/17 05:12 Calculated Osmolality 310 (280-300) H 01/26/17 05:43 Ionized Calcium 1.12 mmol/L (1.15-1.35) L 01/26/17 05:43 C-Reactive Protein 269 mg/L (Less than 5) H 01/25/17 16:18 Albumin 2.7 g/dL (3.5-5.0) L 01/26/17 05:43 Globulin 4.3 g/dL (2.4-3.5) H 01/26/17 05:43 Albumin/Globulin Ratio 0.6 (1.1-2.2) L 01/26/17 05:43 Urine Glucose (UA) 500 mg/dL (Normal) H 01/25/17 21:35 Ur Squamous Epith Cells Moderate per lpf (None-Few) H 01/25/17 21:35 Stool Occult Blood Positive (Negative) A 01/21/17 11:50 Stool Astrovirus (PCR) DETECTED (Not detect) A 01/21/17 11:50 - Microbiology Findings Microbiology Findings: Microbiology, Last 48 Hours 01/25/17 14:17 Sputum Culture - Final Sputum - Clinical Findings Intake & Output: Intake & Output 01/25/17 01/26/17 01/26/17 23:59 07:59 15:59 Intake Total 650 / 650 30 / 30 Output Total 450 / 450 700 / 700 275 / 275 Balance 200 / 200 -700 / -700 -245 / -245 Weight 106.4 kg - VTE Documentation of Mechanical Device: Intermittent pneumatic compression device Consult Discharge Plan - Plan Referrals: ColJose A more DO [Primary Care Provider] -
[2017-01-26] MEDS ORDERED: Aminoglycoside Consult 1 EACH MC ONE (09:07)
[2017-01-26] MEDS: Furosemide 20 MG/2 ML VIAL IVP SCH (15:41)
[2017-01-26] MEDS ORDERED: Albuterol 2.5 MG/3 ML NEBULIZER IH PRN (16:14)
[2017-01-26] MEDS ORDERED: D5% in Water 1,000 ML IVC PRN (16:15)
[2017-01-26] MEDS ORDERED: Dextrose Gel 15 GM PO PRN ×2 (16:15)
[2017-01-26] MEDS ORDERED: *HR* Dextrose 50 % in Water (Syg) 50 ML SYRINGE IVP PRN (16:15)
--- NOTE | 2017-01-26 16:44 | Internal Med Progress Note ---
<Purvi Calzada Alve - Last Filed: 01/26/17 17:08> Date of Encounter: 01/26/17 Time of Encounter: 08:30 - Assessment and plan (1) Acute hypoxemic respiratory failure Current Visit: Yes Status: Acute Assessment and plan: 01/26/17 Patient is clinically improved today Leukocytosis has resolved Will increase solu-medrol to 60mg IV q6hr Continue Vancomycin (day#2), Levaquin (day#2) Decrease diuresis to Lasix IV 20mg BID Will encourage patient to wear CPAP tonight ANCA and RADHA are pending Closely monitor 01/25/17 Likely from CHF and ILD CT today shows worsening bilateral ground-glass opacities Oxygen requirement is trending up. Patient is tachypnic with increased work of breathing. There is concern for infection, pulmonary hemorrhage, ARDS, and hypersensitivity pneumonitis Start solu-medrol 60mg IV TID, Vancomycin (day#1), Levaquin (day#1) Sputum culture and Respiratory infection panel are pending Start CPAP, continue CPAP at night Will continue diuresis Patient is high risk for worsening respiratory failure given underlying lung disease We will transfer patient to when a bed becomes available (2) Hemoptysis Current Visit: Yes Status: Acute Assessment and plan: 01/26/17 Hemoptysis improved today Will continue to monitor See plan as above 01/25/17 Patient continues to have mild hemoptysis Hb stable at 11.7 This may be multifactorial due to traction bronchiectasis, ILD, 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 He was seen by pulmonology, we appreciate recommendations Will hold coumadin until 5 days after resolution of hemoptysis (3) Chronic diastolic heart failure Current Visit: No Status: Chronic Assessment and plan: ECHO 12/10/16 LVEF 55%, normal LV size/function, indeterminate LV diastolic function, normal right ventricular size and function, mild TR, no pulmonary HTN Hold Lisinopril due to dehydration Decrease Lasix IV diuresis to 20mg BID Hold ASA due to hemoptysis (4) GI bleeding Current Visit: No Status: Acute Assessment and plan: Hemoccult positive Likely secondary to swallowing hemoptysis Qualifiers: GI bleed type/associated pathology: unspecified gastrointestinal hemorrhage type Qualified Code(s): K92.2 - Gastrointestinal hemorrhage, unspecified (5) Diabetes mellitus Current Visit: Yes Status: Acute Assessment and plan: Hyperglycemia this morning Will initiate SS low-dose insulin correction ACHS Qualifiers: Diabetes mellitus type: type 2 Diabetes mellitus complication detail: with chronic kidney disease Diabetes mellitus terminal worker insulin use: without terminal worker use Chronic kidney disease stage: stage 3 (moderate) Qualified Code(s) : E11.22 - Type 2 diabetes mellitus with diabetic chronic kidney disease; N18.3 - Chronic kidney disease, stage 3 (moderate) (6) Vpdpk-to-yazwkyh kidney injury Current Visit: Yes Status: Resolved Assessment and plan: Resolved Patient's Cr1.48 today, which has been patient's baseline since 2013 Patient has CKD, stage 3 Will continue to monitor (7) Diarrhea Current Visit: Yes Status: Resolved Assessment and plan: Resolved Stool panel was positive for Astrovirus Will continue to monitor Qualifiers: Diarrhea type: unspecified type Qualified Code(s): R19.7 - Diarrhea, unspecified (8) COPD (chronic obstructive pulmonary disease) Current Visit: Yes Status: Chronic Assessment and plan: Patient follows with Dr. Guallpa Continue home medications Continue O2 supplementation Will qualify for home O2 upon discharge Qualifiers: COPD type: chronic bronchitis Chronic bronchitis type: unspecified Qualified Code(s): J42 - Unspecified chronic bronchitis (9) Atrial fibrillation Current Visit: Yes Status: Chronic Assessment and plan: Will hold coumadin until 5 days after resolution of hemoptysis HR is well-controlled Qualifiers: Atrial fibrillation type: chronic Qualified Code(s): I48.2 - Chronic atrial fibrillation (10) DVT prophylaxis Current Visit: Yes Status: Acute Assessment and plan: SCIDs - Subjective Interval history: Per night nursing staff, patient's breathing improved overnight. Patient used high-flow O2, but refused to use CPAP. Patient is found sitting on side of bed grooming at time of patient interview. Patient's breathing is improved. Patient is in no distress at this time and has decreased work of breathing. Patient states that the hemoptysis has decreased in the past day. - Constitutional Vitals: Temp Pulse Resp BP Pulse Ox 98.3 F 76 18 114/70 94 01/26/17 14:59 01/26/17 14:59 01/26/17 15:32 01/26/17 14:59 01/26/17 15:32 General appearance: Present: A&O X 3, pleasant, no acute distress, answers questions appropriately - Head Head exam: Present: atraumatic, normocephalic - Eye Eye exam: Present: EOMI, sclera anicteric - Neck Neck exam general surgery: Present: supple, trachea midline. Absent: lymphadenopathy, thyromegaly - Respiratory Respiratory exam: Present: CTAB, rales (mild dry rales to bilateral lung bases) . Absent: accessory muscle use, rhonchi, wheezes - Cardiovascular Cardiovascular exam: Present: irregular rhythm, +S1, +S2. Absent: diastolic murmur, gallop, rubs, systolic murmur - GI/Abdominal GI/Abdominal exam: Present: normal bowel sounds, soft, no peritoneal signs. Absent: distended, tenderness - Extremities Exam Extremities exam: Present: pedal edema (trace bilateral pedal edema), warm, radial pulses palpable and symetrical. Absent: calf tenderness, cyanotic - Neurological Exam Neurological exam: Present: CN II-XII intact, oriented X3, no focal deficits. Absent: facial droop, speech deficit - Skin Skin exam: Present: dry, intact Internal Medicine: Result - Labs CBC & Chem 7: 01/26/17 05:43 01/26/17 05:43 Labs: Short CBC 01/26/17 Range/Units 05:43 WBC 10.1 (4.3-11.1) K/mcL Hgb 11.9 L (12.9-16.9) g/dL Hct 37.4 L (37.5-50.1) % Plt Count 212 (140-400) K/mcL Neutrophils # 9.4 H (1.6-8.9) K/mcL BMP 01/26/17 05:43 Sodium 139 Potassium 4.5 Chloride 100 Carbon Dioxide 27 BUN 50 H D Creatinine 1.48 H Glucose 250 H Calcium 9.5 Liver Function 01/26/17 Range/Units 05:43 Total Bilirubin 0.8 (0.2-1.2) mg/dL AST 11 (5-34) Units/L ALT 21 (0-55) Units/L Alkaline Phosphatase 53 (38-126) Units/L Albumin 2.7 L (3.5-5.0) g/dL Urine 01/25/17 Range/Units 21:35 Urine Color Yellow (Yellow) Urine Clarity Clear (Clear) Urine pH 6.0 (5.0-8.0) pH Units Ur Specific [place] 1.018 (1.010-1.025) Urine Protein Trace (Neg-Trace) mg/dL Urine Glucose (UA) 500 H (Normal) mg/dL - ABG Interpretation ABG results: PT/INR, D-dimer PT 14.6 Seconds (9.4-12.1) H 01/25/17 04:19 - VTE Documentation of Mechanical Device: Intermittent pneumatic compression device Consult Discharge Plan - Plan Referrals: Jose A Hernandez DO [Primary Care Provider] - <Abdoul Mcqueen - Last Filed: 01/26/17 18:09> Date of Encounter: 01/26/17 - Constitutional Vitals: Temp Pulse Resp BP Pulse Ox 98.3 F 76 18 114/70 94 01/26/17 14:59 01/26/17 14:59 01/26/17 15:32 01/26/17 14:59 01/26/17 15:32 Internal Medicine: Result - Labs CBC & Chem 7: 01/26/17 05:43 01/26/17 05:43 Labs: Short CBC 01/26/17 Range/Units 05:43 WBC 10.1 (4.3-11.1) K/mcL Hgb 11.9 L (12.9-16.9) g/dL Hct 37.4 L (37.5-50.1) % Plt Count 212 (140-400) K/mcL Neutrophils # 9.4 H (1.6-8.9) K/mcL BMP 01/26/17 05:43 Sodium 139 Potassium 4.5 Chloride 100 Carbon Dioxide 27 BUN 50 H D Creatinine 1.48 H Glucose 250 H Calcium 9.5 Liver Function 01/26/17 Range/Units 05:43 Total Bilirubin 0.8 (0.2-1.2) mg/dL AST 11 (5-34) Units/L ALT 21 (0-55) Units/L Alkaline Phosphatase 53 (38-126) Units/L Albumin 2.7 L (3.5-5.0) g/dL Urine 01/25/17 Range/Units 21:35 Urine Color Yellow (Yellow) Urine Clarity Clear (Clear) Urine pH 6.0 (5.0-8.0) pH Units Ur Specific [place] 1.018 (1.010-1.025) Urine Protein Trace (Neg-Trace) mg/dL Urine Glucose (UA) 500 H (Normal) mg/dL - ABG Interpretation ABG results: PT/INR, D-dimer PT 14.6 Seconds (9.4-12.1) H 01/25/17 04:19 - Attending Attestation I examined this patient and my medical decision-making was reviewed with the Resident Physician, Purvi Calzada. I agree with the documented findings, disposition and treatment plan as described except to the extent set forth below. Pt is NAD, b/l rales and ronchi. Heart is regular. LE edema Plan: iv steroids, Levaquin, f/u with pulmonary.
[2017-01-26] MEDS: Aspirin Enteric Coated 81 MG Tablet PO SCH (16:45)
[2017-01-26] MEDS ORDERED: Vancomycin 1,500 MG in D5% in Water 250 ML IVPB SCH (17:00)
[2017-01-26] MEDS: Saline Nasal Spray 44 ML BOTTLE NS PRN (17:28)
[2017-01-26] MEDS: Insulin LISPRO 300 UNITS/3 ML VIAL SQ SCH (17:58)
[2017-01-26] MEDS: Ipratropium/Albuterol Neb 3 ML IH SCH ×2 (19:34→19:40)
[2017-01-26] MEDS: Latanoprost 2.5 ML BOTTLE BOTH EYES SCH (20:44)
[2017-01-26] MEDS ORDERED: Insulin LISPRO 300 UNITS/3 ML VIAL SQ SCH (21:00)
[2017-01-27] MEDS: Ipratropium/Albuterol Neb 3 ML IH SCH ×7 (00:02→23:45)
[2017-01-27] MEDS: methylPREDNISolone 125 MG/2 ML VIAL IVP SCH ×3 (04:08→19:29)
[2017-01-27 05:38] LABS: Hematocrit 36.9 % (37.5-50.1); Hemoglobin 11.9 g/dL (12.9-16.9); Immature Granulocytes % 1.3 % (0-4); Lymphocytes # 0.7 K/mcL (0.6-4.6); Mean Corpuscular HGB Conc 32.2 g/dL (31.6-35.5); Mean Corpuscular Hemoglobin 29.7 pg (28.0-33.3); Mean Platelet Volume 10.2 fL (9.4-12.4); Monocytes # 0.3 K/mcL (0.0-1.3); Monocytes % 2.7 %; Platelet Count 226 K/mcL (140-400); Red Blood Count 4.01 M/mcL (4.19-5.50); Red Cell Distribution Width 14.3 % (11.5-14.5)
[2017-01-27 05:58] LABS: Albumin 2.7 g/dL (3.5-5.0); Albumin/Globulin Ratio 0.6 (1.1-2.2); Bilirubin,Total 0.9 mg/dL (0.2-1.2); Calcium 9.4 mg/dL (8.6-10.8); Globulin 4.2 g/dL (2.4-3.5); Potassium 4.6 mEq/L (3.5-4.5); Total Protein 6.9 g/dL (6.0-8.3)
[2017-01-27] MEDS: Budesonide/Formoterol 80/4.5 MDI IH SCH ×2 (07:44→20:08)
[2017-01-27] MEDS: Insulin LISPRO 300 UNITS/3 ML VIAL SQ SCH ×3 (08:22→20:44)
[2017-01-27] MEDS: Isosorbide MONOnitrate (24 HR) 30 MG TAB.ER.24H PO SCH (08:22)
[2017-01-27] MEDS: Furosemide 20 MG/2 ML VIAL IVP SCH (08:22)
[2017-01-27] MEDS: Pantoprazole 40 MG VIAL IVP SCH (08:22)
[2017-01-27] MEDS: Magnesium Oxide 400 MG TABLET PO SCH ×2 (08:22→19:50)
[2017-01-27] MEDS: Fenofibrate 54 MG TABLET PO SCH (08:22)
--- NOTE | 2017-01-27 08:55 | Pulmonology Progress Note ---
Date of Encounter: 01/27/17 Time of Encounter: 08:52 Assessment and Plan (1) Acute hypoxemic respiratory failure Current Visit: Yes Status: Acute This is an 81-year-old gentleman with a PMHx of HFpEF, Afib/VTE on anticoagulation with acute hypoxemic respiratory failure, minor hemoptysis and evidence of bilateral opacities with a background of fibrotic lung disease. Overall picture is concerning for progressive diffuse alveolar damage pattern on CT scan which would be consistent with ARDS possibly from insult to the lung from recent viral infection complicated by elevated pulmonary pressures from heart failure with preserved ejection fraction and could also represent a "flare " of ILD for which IPF is high on the differential. -Given deterioration in renal function I favor no further diuresis would stop vancomycin and encourage by mouth intake -Recommend continuing Levaquin for 1 week -Transition to enteral steroids tomorrow 40 mg of prednisone which can be tapered over 2 weeks back to 20 mg prednisone for which she could follow up in outpatient pulmonary clinic -Continue ambulation as tolerated AND incentive spirometry -From pulmonary standpoint re-challenging with anticoagulation is acceptable at this time Please call with any questions (2) Dqhyz-sc-xdzlesx kidney injury Current Visit: Yes Status: Resolved (3) DVT prophylaxis Current Visit: Yes Status: Acute (4) Hemoptysis Current Visit: Yes Status: Acute (5) Acute on chronic diastolic heart failure Current Visit: Yes Status: Acute (6) Interstitial lung disease Current Visit: Yes Status: Acute (7) Astrovirus enteritis Current Visit: Yes Status: Acute Subjective Principal diagnosis: Acute Hypoxic Respiratory Failure Interval history: Mr Sequeira continues to do well. Oxygen requirement is being weaned down his had no further episodes of hemoptysis overnight he has had some normal blood glucoses related to administration of steroids via IV Objective PUL Vital signs: Last Vital Signs Temp 97.4 F L 01/27/17 06:53 Pulse 85 01/27/17 06:53 Resp 14 01/27/17 07:46 BP 126/74 01/27/17 06:53 Pulse Ox 99 01/27/17 07:46 General appearance: no acute distress Auscultation: bilateral: rales Cardiovascular: regular rate and rhythm Gastrointestinal: normoactive bowel sounds Extremities: no edema Results - Laboratory Findings CBC and BMP: 01/27/17 04:56 01/27/17 04:56 PT/INR, D-dimer PT 14.6 Seconds (9.4-12.1) H 01/25/17 04:19 Abnormal lab findings: Abnormal lab results WBC 11.2 K/mcL (4.3-11.1) H 01/27/17 04:56 RBC 4.01 M/mcL (4.19-5.50) L 01/27/17 04:56 Hgb 11.9 g/dL (12.9-16.9) L 01/27/17 04:56 Hct 36.9 % (37.5-50.1) L 01/27/17 04:56 Neutrophils # 10.0 K/mcL (1.6-8.9) H 01/27/17 04:56 ESR >= 130 mm/hr (0-10) H 01/25/17 16:18 PT 14.6 Seconds (9.4-12.1) H 01/25/17 04:19 VBG pCO2 33 mmHg (41-51) L 01/21/17 01:10 VBG pO2 115 mmHg (25-40) H 01/21/17 01:10 VBG HCO3 17.8 mEq/L (21-27) L 01/21/17 01:10 Potassium 4.6 mEq/L (3.5-4.5) H 01/27/17 04:56 Carbon Dioxide 32 mEq/L (19-29) H 01/27/17 04:56 BUN 70 mg/dL (8-26) H D 01/27/17 04:56 Creatinine 1.69 mg/dL (0.72-1.25) H 01/27/17 04:56 Est GFR ( Amer) 48 (> 60) L 01/27/17 04:56 Est GFR (Non-Af Amer) 39 (> 60) L 01/27/17 04:56 BUN/Creatinine Ratio 41 (6-26) H 01/27/17 04:56 Glucose 253 mg/dL (70-99) H 01/27/17 04:56 POC Glucose 209 (58-89) H 01/27/17 07:12 Calculated Osmolality 315 (280-300) H 01/27/17 04:56 Ionized Calcium 1.12 mmol/L (1.15-1.35) L 01/26/17 05:43 C-Reactive Protein 269 mg/L (Less than 5) H 01/25/17 16:18 Albumin 2.7 g/dL (3.5-5.0) L 01/27/17 04:56 Globulin 4.2 g/dL (2.4-3.5) H 01/27/17 04:56 Albumin/Globulin Ratio 0.6 (1.1-2.2) L 01/27/17 04:56 Urine Glucose (UA) 500 mg/dL (Normal) H 01/25/17 21:35 Ur Squamous Epith Cells Moderate per lpf (None-Few) H 01/25/17 21:35 Stool Occult Blood Positive (Negative) A 01/21/17 11:50 Stool Astrovirus (PCR) DETECTED (Not detect) A 01/21/17 11:50 - Microbiology Findings Microbiology Findings: Microbiology, Last 48 Hours 01/25/17 13:49 Blood Culture - Preliminary Peripheral Venipuncture No growth. 01/25/17 13:49 Blood Culture - Preliminary Peripheral Venipuncture No growth. 01/25/17 14:01 Legionella Antigen - Final Urine,Catheterized Streptococcus pneumoniae Antigen (M - Final 01/25/17 14:17 Sputum Culture - Final Sputum - Clinical Findings Intake & Output: Intake & Output 01/26/17 01/27/17 01/27/17 23:59 07:59 15:59 Intake Total 550 / 550 60 / 60 Output Total 0 / 0 0 / 0 Balance 550 / 550 60 / 60 Weight 105.3 kg - VTE Documentation of Mechanical Device: Intermittent pneumatic compression device Consult Discharge Plan - Plan Referrals: ColJose A more DO [Primary Care Provider] -
--- NOTE | 2017-01-27 10:12 | Internal Med Progress Note ---
<Purvi Calzada Alve - Last Filed: 01/27/17 10:10> Date of Encounter: 01/27/17 Time of Encounter: 09:45 - Assessment and plan (1) Acute hypoxemic respiratory failure Current Visit: Yes Status: Acute Assessment and plan: 01/27/17 Patient continues to improve daily Slight increase in WBC from 10.1 to 11.2 Per Pulmonology recommendations, we will discontinue Vancomycin Continue Levaquin (day#3) Decrease lasix to 40po daily Decrease solu-medrol to 60mg TID ANCA and RADHA are pending Closely monitor 01/26/17 Patient is clinically improved today Leukocytosis has resolved Will increase solu-medrol to 60mg IV q6hr Continue Vancomycin (day#2), Levaquin (day#2) Decrease diuresis to Lasix IV 20mg BID Will encourage patient to wear CPAP tonight ANCA and RADHA are pending Closely monitor 01/25/17 Likely from CHF and ILD CT today shows worsening bilateral ground-glass opacities Oxygen requirement is trending up. Patient is tachypnic with increased work of breathing. There is concern for infection, pulmonary hemorrhage, ARDS, and hypersensitivity pneumonitis Start solu-medrol 60mg IV TID, Vancomycin (day#1), Levaquin (day#1) Sputum culture and Respiratory infection panel are pending Start CPAP, continue CPAP at night Will continue diuresis Patient is high risk for worsening respiratory failure given underlying lung disease We will transfer patient to when a bed becomes available (2) Hemoptysis Current Visit: Yes Status: Acute Assessment and plan: 01/27/17 Patient reports no episodes of hemoptysis today 01/26/17 Hemoptysis improved today Will continue to monitor See plan as above 01/25/17 Patient continues to have mild hemoptysis Hb stable at 11.7 This may be multifactorial due to traction bronchiectasis, ILD, 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 He was seen by pulmonology, we appreciate recommendations Will hold coumadin until 5 days after resolution of hemoptysis (3) Chronic diastolic heart failure Current Visit: No Status: Chronic Assessment and plan: ECHO 12/10/16 LVEF 55%, normal LV size/function, indeterminate LV diastolic function, normal right ventricular size and function, mild TR, no pulmonary HTN Hold Lisinopril due to dehydration Decrease Lasix to 40mg po daily Hold ASA due to hemoptysis (4) GI bleeding Current Visit: No Status: Acute Assessment and plan: Hemoccult positive Likely secondary to swallowing hemoptysis Qualifiers: GI bleed type/associated pathology: unspecified gastrointestinal hemorrhage type Qualified Code(s): K92.2 - Gastrointestinal hemorrhage, unspecified (5) [id number] kidney injury Current Visit: Yes Status: Acute Assessment and plan: Patient's Cr1.69 today, which has been patient's baseline since 2013 Patient has CKD, stage 3 Will stop vancomycin Decrease lasix to 40mg po daily Will continue to monitor (6) Hyperglycemia Current Visit: Yes Status: Acute Assessment and plan: Hyperglycemia this morning likely secondary to to steroids Fasting glucose 209 today Continue SS low-dose insulin correction ACHS (7) Diarrhea Current Visit: Yes Status: Resolved Assessment and plan: Resolved Stool panel was positive for Astrovirus Will continue to monitor Qualifiers: Diarrhea type: unspecified type Qualified Code(s): R19.7 - Diarrhea, unspecified (8) COPD (chronic obstructive pulmonary disease) Current Visit: Yes Status: Chronic Assessment and plan: Patient follows with Dr. Guallpa Continue home medications Continue O2 supplementation Will qualify for home O2 upon discharge Qualifiers: COPD type: chronic bronchitis Chronic bronchitis type: unspecified Qualified Code(s): J42 - Unspecified chronic bronchitis (9) Atrial fibrillation Current Visit: Yes Status: Chronic Assessment and plan: Will hold coumadin until 5 days after resolution of hemoptysis HR is well-controlled Qualifiers: Atrial fibrillation type: chronic Qualified Code(s): I48.2 - Chronic atrial fibrillation (10) DVT prophylaxis Current Visit: Yes Status: Acute Assessment and plan: SCIDs - Subjective Interval history: Patient's O2 requirement has decreased to 5.5L. Patient states that he slept well overnight. He denies difficulty breathing at this time. Denies hemoptysis today. States that coughing has decreased. - Constitutional Vitals: Temp Pulse Resp BP Pulse Ox 98.1 F 82 19 111/66 95 01/27/17 09:55 01/27/17 09:55 01/27/17 09:55 01/27/17 09:55 01/27/17 09:55 General appearance: Present: A&O X 3, pleasant, no acute distress, answers questions appropriately - Head Head exam: Present: atraumatic, normocephalic - Eye Eye exam: Present: EOMI, PERRL, conjuntiva pink, sclera anicteric - Neck Neck exam general surgery: Present: supple, trachea midline. Absent: lymphadenopathy Additional comments: No carotid bruit - Respiratory Respiratory exam: Present: prolonged expiratory phase, rales (dry rales to bilateral lung bases). Absent: accessory muscle use, rhonchi, wheezes - Cardiovascular Cardiovascular exam: Present: irregular rhythm, +S1, +S2. Absent: diastolic murmur, gallop, rubs, systolic murmur - GI/Abdominal GI/Abdominal exam: Present: normal bowel sounds, soft, no peritoneal signs. Absent: distended, tenderness - Extremities Exam Extremities exam: Present: warm, radial pulses palpable and symetrical. Absent : calf tenderness, cyanotic, pedal edema - Neurological Exam Neurological exam: Present: CN II-XII intact, oriented X3, no focal deficits. Absent: facial droop, speech deficit - Skin Skin exam: Present: dry, intact Internal Medicine: Result - Labs CBC & Chem 7: 01/27/17 04:56 01/27/17 04:56 Labs: Short CBC 01/27/17 Range/Units 04:56 WBC 11.2 H (4.3-11.1) K/mcL Hgb 11.9 L (12.9-16.9) g/dL Hct 36.9 L (37.5-50.1) % Plt Count 226 (140-400) K/mcL Neutrophils # 10.0 H (1.6-8.9) K/mcL BMP 01/27/17 04:56 Sodium 138 Potassium 4.6 H Chloride 98 Carbon Dioxide 32 H BUN 70 H D Creatinine 1.69 H Glucose 253 H Calcium 9.4 Liver Function 01/27/17 Range/Units 04:56 Total Bilirubin 0.9 (0.2-1.2) mg/dL AST 10 (5-34) Units/L ALT 22 (0-55) Units/L Alkaline Phosphatase 46 (38-126) Units/L Albumin 2.7 L (3.5-5.0) g/dL - ABG Interpretation ABG results: PT/INR, D-dimer PT 14.6 Seconds (9.4-12.1) H 01/25/17 04:19 - VTE Documentation of Mechanical Device: Intermittent pneumatic compression device Consult Discharge Plan - Plan Referrals: Jose A Hernandez DO [Primary Care Provider] - <Abdoul Mcqueen - Last Filed: 01/27/17 18:50> Date of Encounter: 01/27/17 - Constitutional Vitals: Temp Pulse Resp BP Pulse Ox 97.5 F L 87 16 130/69 94 01/27/17 14:51 01/27/17 14:51 01/27/17 16:13 01/27/17 14:51 01/27/17 16:13 Internal Medicine: Result - Labs CBC & Chem 7: 01/27/17 04:56 01/27/17 04:56 Labs: Short CBC 01/27/17 Range/Units 04:56 WBC 11.2 H (4.3-11.1) K/mcL Hgb 11.9 L (12.9-16.9) g/dL Hct 36.9 L (37.5-50.1) % Plt Count 226 (140-400) K/mcL Neutrophils # 10.0 H (1.6-8.9) K/mcL BMP 01/27/17 04:56 Sodium 138 Potassium 4.6 H Chloride 98 Carbon Dioxide 32 H BUN 70 H D Creatinine 1.69 H Glucose 253 H Calcium 9.4 Liver Function 01/27/17 Range/Units 04:56 Total Bilirubin 0.9 (0.2-1.2) mg/dL AST 10 (5-34) Units/L ALT 22 (0-55) Units/L Alkaline Phosphatase 46 (38-126) Units/L Albumin 2.7 L (3.5-5.0) g/dL - ABG Interpretation ABG results: PT/INR, D-dimer PT 14.6 Seconds (9.4-12.1) H 01/25/17 04:19 - Attending Attestation I examined this patient and my medical decision-making was reviewed with the Resident Physician, Dr Calzada. I agree with the documented findings, disposition and treatment plan as described except to the extent set forth below. Patient reports improvement and shortness of breath. Denies chest pain. Denies any more hemoptysis over the last 24 hours. He is in no acute distress speaking in full sentences. Lung exam with bilateral rales. No wheezes. Plan: Taper steroids. Continue azithromycin. Decrease his Lasix since he is becoming more euvolemic.
[2017-01-27] MEDS: Saline Nasal Spray 44 ML BOTTLE NS PRN ×2 (11:33→19:49)
[2017-01-27] MEDS ORDERED: Insulin LISPRO 300 UNITS/3 ML VIAL SQ SCH ×2 (12:01)
[2017-01-27] MEDS: Levofloxacin 750 MG/150 ML 750 MG/150 ML BAG IVPB SCH (17:05)
[2017-01-27 17:51] LABS: Hemoglobin A1C 7.4 %
[2017-01-27] MEDS ORDERED: Warfarin perPT PO PRN (18:00)
[2017-01-27] MEDS ORDERED: *HR* Warfarin 4 MG TABLET PO ONE (18:00)
[2017-01-27] MEDS: Latanoprost 2.5 ML BOTTLE BOTH EYES SCH (19:49)
[2017-01-27] MEDS: Insulin DETEMIR 100 UNIT/ML X5UNITS SQ SCH (20:44)
[2017-01-28] MEDS: methylPREDNISolone 125 MG/2 ML VIAL IVP SCH ×3 (00:39→20:13)
[2017-01-28] MEDS: Ipratropium/Albuterol Neb 3 ML IH SCH ×5 (04:41→19:58)
[2017-01-28 05:01] LABS: Basophils % 0.1 %; Hematocrit 37.6 % (37.5-50.1); Hemoglobin 12.1 g/dL (12.9-16.9); Immature Granulocytes % 1.5 % (0-4); Lymphocytes # 0.3 K/mcL (0.6-4.6); Lymphocytes % 2.6 %; Mean Corpuscular HGB Conc 32.2 g/dL (31.6-35.5); Mean Corpuscular Hemoglobin 29.6 pg (28.0-33.3); Mean Corpuscular Volume 91.9 fL (83.0-100.0); Mean Platelet Volume 10.3 fL (9.4-12.4); Monocytes # 0.5 K/mcL (0.0-1.3); Neutrophils # 11.3 K/mcL (1.6-8.9); Platelet Count 250 K/mcL (140-400); Red Blood Count 4.09 M/mcL (4.19-5.50); Red Cell Distribution Width 14.3 % (11.5-14.5); Segmented Neutrophils % 91.8 %
[2017-01-28 05:04] LABS: INR 1.3; Prothrombin Time 14.5 Seconds (9.4-12.1)
[2017-01-28 05:25] LABS: BUN/Creatinine Ratio 50 (6-26); Blood Urea Nitrogen 68 mg/dL (8-26); Calcium 9.5 mg/dL (8.6-10.8); Carbon Dioxide 32 mEq/L (19-29); Chloride 103 mEq/L (98-109); Glucose 169 mg/dL (70-99); Osmolality,Calculated 318 (280-300); Potassium 4.6 mEq/L (3.5-4.5); Sodium 142 mEq/L (136-145); eGFR For African Americans > 60 (> 60); eGFR For Non-African Americans 50 (> 60)
[2017-01-28 07:41] LABS: ANA IgG by ELISA NONE DETECTED (None Detected)
[2017-01-28] MEDS: Budesonide/Formoterol 80/4.5 MDI IH SCH ×2 (08:08→19:58)
[2017-01-28] MEDS: Fenofibrate 54 MG TABLET PO SCH (08:40)
[2017-01-28] MEDS: Pantoprazole 40 MG VIAL IVP SCH (08:40)
[2017-01-28] MEDS: Furosemide 40 MG TABLET PO SCH (08:40)
[2017-01-28] MEDS: Insulin LISPRO 300 UNITS/3 ML VIAL SQ SCH ×4 (08:41→20:12)
[2017-01-28] MEDS: Isosorbide MONOnitrate (24 HR) 30 MG TAB.ER.24H PO SCH (08:42)
[2017-01-28] MEDS: Insulin DETEMIR 100 UNIT/ML X5UNITS SQ SCH ×2 (09:24→20:13)
--- NOTE | 2017-01-28 14:34 | Internal Med Progress Note ---
<ZhengPurvi Bhaktironnie Paulson - Last Filed: 01/28/17 14:31> Date of Encounter: 01/28/17 Time of Encounter: 13:15 - Assessment and plan (1) Acute hypoxemic respiratory failure Current Visit: Yes Status: Acute Assessment and plan: 01/28/17 Much improvement noted in patient today He is out of bed and walking in the hallway Continue Levaquin (day#4) Continue lasix to 40po daily Decrease solu-medrol to 60mg [id number] RF and RADHA are negative ANCA is pending Closely monitor 01/27/17 Patient continues to improve daily Slight increase in WBC from 10.1 to 11.2 Per Pulmonology recommendations, we will discontinue Vancomycin Continue Levaquin (day#3) Decrease lasix to 40po daily Decrease solu-medrol to 60mg TID ANCA and RADHA are pending Closely monitor 01/26/17 Patient is clinically improved today Leukocytosis has resolved Will increase solu-medrol to 60mg IV q6hr Continue Vancomycin (day#2), Levaquin (day#2) Decrease diuresis to Lasix IV 20mg BID Will encourage patient to wear CPAP tonight ANCA and RADHA are pending Closely monitor 01/25/17 Likely from CHF and ILD CT today shows worsening bilateral ground-glass opacities Oxygen requirement is trending up. Patient is tachypnic with increased work of breathing. There is concern for infection, pulmonary hemorrhage, ARDS, and hypersensitivity pneumonitis Start solu-medrol 60mg IV TID, Vancomycin (day#1), Levaquin (day#1) Sputum culture and Respiratory infection panel are pending Start CPAP, continue CPAP at night Will continue diuresis Patient is high risk for worsening respiratory failure given underlying lung disease We will transfer patient to when a bed becomes available (2) Hemoptysis Current Visit: Yes Status: Acute Assessment and plan: 01/28/17 Improved 01/27/17 Patient reports no episodes of hemoptysis today 01/26/17 Hemoptysis improved today Will continue to monitor See plan as above 01/25/17 Patient continues to have mild hemoptysis Hb stable at 11.7 This may be multifactorial due to traction bronchiectasis, ILD, 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 He was seen by pulmonology, we appreciate recommendations Will hold coumadin until 5 days after resolution of hemoptysis (3) Chronic diastolic heart failure Current Visit: No Status: Chronic Assessment and plan: ECHO 12/10/16 LVEF 55%, normal LV size/function, indeterminate LV diastolic function, normal right ventricular size and function, mild TR, no pulmonary HTN Hold Lisinopril due to dehydration Lasix to 40mg po daily Hold ASA due to hemoptysis (4) GI bleeding Current Visit: No Status: Acute Assessment and plan: Hemoccult positive Likely secondary to swallowing hemoptysis Qualifiers: GI bleed type/associated pathology: unspecified gastrointestinal hemorrhage type Qualified Code(s): K92.2 - Gastrointestinal hemorrhage, unspecified (5) [id number] kidney injury Current Visit: Yes Status: Acute Assessment and plan: Patient's Cr1.37 today This has been patient's baseline since 2013 Patient has CKD, stage 3 We will continue Lasix to 40mg po daily Will continue to monitor (6) Hyperglycemia Current Visit: Yes Status: Acute Assessment and plan: Hyperglycemia this morning likely secondary to to steroids Fasting glucose 169 today Levemir 5u BID Increase to med-dose SS insulin TIDAC Increase to high-dose SS insulin HS (7) Diarrhea Current Visit: Yes Status: Resolved Assessment and plan: Resolved Stool panel was positive for Astrovirus Will continue to monitor Qualifiers: Diarrhea type: unspecified type Qualified Code(s): R19.7 - Diarrhea, unspecified (8) COPD (chronic obstructive pulmonary disease) Current Visit: Yes Status: Chronic Assessment and plan: Patient follows with Dr. Guallpa Continue home medications Continue O2 supplementation Will qualify for home O2 upon discharge Qualifiers: COPD type: chronic bronchitis Chronic bronchitis type: unspecified Qualified Code(s): J42 - Unspecified chronic bronchitis (9) Atrial fibrillation Current Visit: Yes Status: Chronic Assessment and plan: Will hold coumadin until 5 days after resolution of hemoptysis HR is well-controlled Qualifiers: Atrial fibrillation type: chronic Qualified Code(s): I48.2 - Chronic atrial fibrillation (10) DVT prophylaxis Current Visit: Yes Status: Acute Assessment and plan: SCIDs - Subjective Interval history: Patient's O2 requirement has decreased to 2L. Patient walked in the hallway today. He states that his O2 saturation decreased during the walk, but recovered when he started breathing O2 mask. We discussed that patient would need home O2 upon discharge. - Constitutional Vitals: Temp Pulse Resp BP Pulse Ox 97.5 F L 72 20 117/76 98 01/28/17 11:40 01/28/17 11:40 01/28/17 11:40 01/28/17 11:40 01/28/17 11:40 General appearance: Present: A&O X 3, pleasant, no acute distress, answers questions appropriately - Head Head exam: Present: atraumatic, normocephalic - Eye Eye exam: Present: EOMI, PERRL, conjuntiva pink, sclera anicteric - Neck Neck exam general surgery: Present: supple, trachea midline. Absent: lymphadenopathy - Respiratory Respiratory exam: Present: rales (dry rales bilaterally). Absent: accessory muscle use, rhonchi, wheezes - Cardiovascular Cardiovascular exam: Present: irregular rhythm, +S1, +S2. Absent: diastolic murmur, gallop, rubs, systolic murmur - GI/Abdominal GI/Abdominal exam: Present: normal bowel sounds, soft, no peritoneal signs. Absent: distended, tenderness - Extremities Exam Extremities exam: Present: warm, radial pulses palpable and symetrical. Absent : calf tenderness, cyanotic, pedal edema - Neurological Exam Neurological exam: Present: CN II-XII intact, oriented X3, no focal deficits. Absent: facial droop, speech deficit - Skin Skin exam: Present: dry, intact Internal Medicine: Result - Labs CBC & Chem 7: 01/28/17 04:16 01/28/17 04:16 Labs: Short CBC 01/28/17 Range/Units 04:16 WBC 12.4 H (4.3-11.1) K/mcL Hgb 12.1 L (12.9-16.9) g/dL Hct 37.6 (37.5-50.1) % Plt Count 250 (140-400) K/mcL Neutrophils # 11.3 H (1.6-8.9) K/mcL BMP 01/28/17 04:16 Sodium 142 Potassium 4.6 H Chloride 103 Carbon Dioxide 32 H BUN 68 H Creatinine 1.37 H Glucose 169 H Calcium 9.5 - ABG Interpretation ABG results: PT/INR, D-dimer PT 14.5 Seconds (9.4-12.1) H 01/28/17 04:16 - Impressions Impressions Chest CT 01/25/17 11:53 IMPRESSION: 1. Significant worsening of ground-glass opacities in the lungs bilaterally. Differential includes atypical infection, pulmonary hemorrhage, diffuse alveolar damage in the setting of ARDS, and hypersensitivity pneumonitis. 2. 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 3. Mild cardiomegaly. 4. Coronary artery disease. D/ / 01/25/2017 13:18:43 Gurpreet Galloway MD / Susana Vincent Interpreting Provider: Gurpreet Galloway MD - VTE Documentation of Mechanical Device: Intermittent pneumatic compression device Consult Discharge Plan - Plan Referrals: Jose A Hernandez DO [Primary Care Provider] - Prescriptions: Oxygen 1 each .ROUTE AD #1 each <Abdoul Mcqueen - Last Filed: 01/28/17 18:00> Date of Encounter: 01/28/17 - Constitutional Vitals: Temp Pulse Resp BP Pulse Ox 97.9 F 83 18 115/71 95 01/28/17 15:16 01/28/17 15:16 01/28/17 16:59 01/28/17 15:16 01/28/17 16:59 Internal Medicine: Result - Labs CBC & Chem 7: 01/28/17 04:16 01/28/17 04:16 Labs: Short CBC 01/28/17 Range/Units 04:16 WBC 12.4 H (4.3-11.1) K/mcL Hgb 12.1 L (12.9-16.9) g/dL Hct 37.6 (37.5-50.1) % Plt Count 250 (140-400) K/mcL Neutrophils # 11.3 H (1.6-8.9) K/mcL BMP 01/28/17 04:16 Sodium 142 Potassium 4.6 H Chloride 103 Carbon Dioxide 32 H BUN 68 H Creatinine 1.37 H Glucose 169 H Calcium 9.5 - ABG Interpretation ABG results: PT/INR, D-dimer PT 14.5 Seconds (9.4-12.1) H 01/28/17 04:16 - Impressions Impressions Chest CT 01/25/17 11:53 IMPRESSION: 1. Significant worsening of ground-glass opacities in the lungs bilaterally. Differential includes atypical infection, pulmonary hemorrhage, diffuse alveolar damage in the setting of ARDS, and hypersensitivity pneumonitis. 2. 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 3. Mild cardiomegaly. 4. Coronary artery disease. D/ / 01/25/2017 13:18:43 Gurpreet Galloway MD / Susana Vincent Interpreting Provider: Gurpreet Galloway MD - Attending Attestation I examined this patient and my medical decision-making was reviewed with the Resident Physician, Dr Calzada. I agree with the documented findings, disposition and treatment plan as described except to the extent set forth below. On exam he is in no acute distress. Heart exam reveals regular S1-S2 with no murmurs. Lung exam with bilateral crackles. Plan: Even though his respiratory status has improved he continues to require high dose of oxygen by nasal cannula and he is on high-dose IV steroids. We will start tapering IV steroids. Wean oxygen by nasal cannula as tolerated. Continue with antibiotics.
[2017-01-28] MEDS ORDERED: *HR* Warfarin 2 MG TABLET PO ONE (18:00)
[2017-01-28] MEDS: Latanoprost 2.5 ML BOTTLE BOTH EYES SCH (20:13)
[2017-01-28] MEDS: Saline Nasal Spray 44 ML BOTTLE NS PRN (20:15)
[2017-01-29] MEDS: Ipratropium/Albuterol Neb 3 ML IH SCH ×4 (00:50→11:14)
[2017-01-29 04:43] LABS: Basophils % 0.2 %; Hematocrit 34.7 % (37.5-50.1); Hemoglobin 11.1 g/dL (12.9-16.9); Immature Granulocytes % 1.9 % (0-4); Lymphocytes # 0.4 K/mcL (0.6-4.6); Lymphocytes % 2.8 %; Mean Corpuscular Hemoglobin 29.3 pg (28.0-33.3); Mean Corpuscular Volume 91.6 fL (83.0-100.0); Mean Platelet Volume 10.2 fL (9.4-12.4); Monocytes # 0.6 K/mcL (0.0-1.3); Monocytes % 4.8 %; Neutrophils # 11.5 K/mcL (1.6-8.9); Platelet Count 246 K/mcL (140-400); Red Blood Count 3.79 M/mcL (4.19-5.50); Red Cell Distribution Width 14.6 % (11.5-14.5); Segmented Neutrophils % 90.3 %
[2017-01-29 04:45] LABS: INR 1.5; Prothrombin Time 15.8 Seconds (9.4-12.1)
[2017-01-29 04:55] LABS: Calcium 9.1 mg/dL (8.6-10.8); Potassium 4.8 mEq/L (3.5-4.5)
[2017-01-29 07:16] VITALS: BP 125/80
[2017-01-29] MEDS: Budesonide/Formoterol 80/4.5 MDI IH SCH (07:31)
[2017-01-29] MEDS: Insulin LISPRO 300 UNITS/3 ML VIAL SQ SCH ×2 (07:38→11:49)
[2017-01-29] MEDS: methylPREDNISolone 125 MG/2 ML VIAL IVP SCH (07:42)
[2017-01-29] MEDS: Isosorbide MONOnitrate (24 HR) 30 MG TAB.ER.24H PO SCH (07:42)
[2017-01-29] MEDS: Fenofibrate 54 MG TABLET PO SCH (07:42)
[2017-01-29] MEDS: Furosemide 40 MG TABLET PO SCH (07:42)
[2017-01-29] MEDS: Insulin DETEMIR 100 UNIT/ML X5UNITS SQ SCH (07:54)
[2017-01-29 08:04] LABS: Myeloperoxidase Ab 3 AU/mL (0-19); Serine Protease-3 Antibody 0 AU/mL (0-19)
--- NOTE | 2017-01-29 10:32 | Discharge Summary ---
<Purvi Calzada Khurram - Last Filed: 01/29/17 10:30> Date of Encounter: 01/29/17 Time of Encounter: 10:00 - Discharge Diagnosis (1) Acute hypoxemic respiratory failure Priority: Primary Status: Acute (2) Hemoptysis Priority: Primary Status: Acute (3) Chronic diastolic heart failure Priority: Secondary Status: Chronic (4) GI bleeding Priority: Secondary Status: Acute Comments: Positive hemoccult likely secondary to swallowed hemoptysis No evidence of BRBPR or melena Qualifiers: GI bleed type/associated pathology: unspecified gastrointestinal hemorrhage type Qualified Code(s): K92.2 - Gastrointestinal hemorrhage, unspecified (5) [id number] kidney injury Priority: Primary Status: Acute (6) Hyperglycemia Priority: Secondary Status: Acute (7) Diarrhea Priority: Secondary Status: Resolved Qualifiers: Diarrhea type: unspecified type Qualified Code(s): R19.7 - Diarrhea, unspecified (8) COPD (chronic obstructive pulmonary disease) Priority: Secondary Status: Chronic Qualifiers: COPD type: chronic bronchitis Chronic bronchitis type: unspecified Qualified Code(s): J42 - Unspecified chronic bronchitis (9) Atrial fibrillation Priority: Secondary Status: Chronic Qualifiers: Atrial fibrillation type: chronic Qualified Code(s): I48.2 - Chronic atrial fibrillation (10) Diabetes mellitus type 2 in obese Priority: Secondary Status: Acute (11) Elevated INR Priority: Primary Status: Resolved (12) DVT prophylaxis Priority: Secondary Status: Acute - Discharge Medications Prescriptions: Albuterol Neb [Proventil Neb] 2.5 mg IH [id number] PRN 30 Days PRN Reason: Shortness Of Breath/Wheezing Blood Sugar Diagnostic [Glucose Test Strip] 1 each MC BID #60 strip Docusate [Colace] 100 mg PO BID PRN #30 capsule PRN Reason: Constipation Glimepiride [Amaryl] 2 mg PO 0800 #30 tablet GuaiFENesin/Dextromethorphan [Mucinex Dm ER 600-30 mg Tablet] 1 each PO BID #60 tab.er.12h Levofloxacin [Levaquin] 750 mg PO Q48H #3 tablet Miscellaneous Medical Supply [Attachment Set] 1 each MC AD #1 miscell Miscellaneous Medical Supply [Attachment Set] 1 each MC BID #60 miscell Nebulizer [Aeroeclipse] 1 each MC AD #1 each Oxygen 1 each .ROUTE AD #1 each PredniSONE 10 mg PO BIDWM #80 tablet Home Medications: Ascorbate Calcium [Vitamin C] 1,000 mg PO QAM 12/23/15 [History] Aspirin [Adult Low Dose Aspirin EC] 81 mg PO QPM 12/23/15 [History] Budesonide/Formoterol 80/4.5 [Symbicort 80/4.5] 2 puff IH BID 12/23/15 [History ] Fenofibrate [Lofibra] 160 mg PO QAM 12/23/15 [History] Lisinopril [Zestril] 20 mg PO QAM 12/23/15 [History] Lovastatin 40 mg PO QAM 12/23/15 [History] Multivit-Min/FA/Lycopen/Lutein [Centrum Silver Tablet] 1 each PO QAM 12/23/15 [ History] Omeprazole [PriLOSEC] 20 mg PO QAM 12/23/15 [History] Warfarin [Coumadin] 2 mg PO SUMOTUWESA 12/23/15 [History] Albuterol Sulfate [Ventolin Hfa] 2 puff IH Q4H PRN 01/20/17 [History] Furosemide [Lasix] 60 mg PO DAILY 01/20/17 [History] Isosorbide MONOnitrate (24 HR) [Imdur] 30 mg PO DAILY 01/20/17 [History] Latanoprost [Xalatan] 1 drop BOTH EYES HS 01/20/17 [History] PredniSONE 20 mg PO DAILY 01/20/17 [History] Warfarin [Coumadin] 1 mg PO TH 01/20/17 [History] Warfarin [Coumadin] 3 mg PO FR 01/20/17 [History] Oxygen 1 each .ROUTE AD #1 each 01/28/17 [Rx] Albuterol Neb [Proventil Neb] 2.5 mg IH [id number] PRN 30 Days 01/29/17 [Rx] Blood Sugar Diagnostic [Glucose Test Strip] 1 each BID #60 strip 01/29/17 [Rx ] Docusate [Colace] 100 mg PO BID PRN #30 capsule 01/29/17 [Rx] Glimepiride [Amaryl] 2 mg PO 0800 #30 tablet 01/29/17 [Rx] GuaiFENesin/Dextromethorphan [Mucinex Dm ER 600-30 mg Tablet] 1 each PO BID #60 tab.er.12h 01/29/17 [Rx] Levofloxacin [Levaquin] 750 mg PO Q48H #3 tablet 01/29/17 [Rx] Miscellaneous Medical Supply [Attachment Set] 1 each AD #1 miscell 01/29/17 [ Rx] Miscellaneous Medical Supply [Attachment Set] 1 each MC BID #60 miscell [Rx] Nebulizer [Aeroeclipse] 1 each AD #1 each 01/29/17 [Rx] PredniSONE 10 mg PO BIDWM #80 tablet 01/29/17 [Rx] Allergies/Adverse Reactions: Allergies No Known Allergies Allergy (Verified 01/05/17 07:31) Date of admission: 01/21/17 18:55 Primary care physician: Jose A Hernandez Consults: 01/22/17 17:30 Consult to Pulmonology [CONS] Routine Consulting Provider: [facility] [place] Reason for Consult: hemoptysis Call Completed: Yes Discharging clinician: Abdoul Mcqueen Anticipated date of discharge: 01/29/17 - Patient Status Disposition: Home, Self-Care Condition: Good Functional capacity at discharge: uses cane/walker Overall status at discharge: patient is progressing back to baseline - Discharge Instructions Follow Up With: Jose A Hrenandez DO [Primary Care Provider] - 02/04/17 10:30 am George Olvera DO [Partnered Physician] - 02/18/17 11:00 am - Diet and Activity Activity: ambulate only with your walker Diet: diabetic diet, low salt diet (Fluid restriction 1.5 liters per day) Hospital course: Mr. Sequeira is a 81 year old male with past medical history significant for atrial fibrillation, myocardial infarction, chronic diastolic heart failure, history of PE, history of DVT, interstitial lung disease, COPD, CKDstage 3, hypertension who presented to [facility] with elevated INR of 5.6 associated with hemoptysis. Patient also admitted recent history of abdominal pain and diarrhea. Patient was admitted for diarrhea, ANGEL, Elevated INR. INR was corrected with 2.5 mg of vitamin K and 2 units of FFP. Coumadin was held. Patient INR improved following transfusion to 2.0. Patient was found to have increased vascular congestion on chest x-ray with cardiomegaly and blunting of right costophrenic angle. During the hospital stay patient demonstrated signs of acute respiratory failure. CT chest demonstrated groundglass opacities in all lobes concerning for atypical infection, pulmonary hemorrhage, diffuse alveolar damage, hypersensitivity pneumonitis. CT also demonstrated peripheral interstitial fibrosis suggestive of UIP. Patient has known interstitial lung disease and is previously been hospitalized for hemoptysis patient had bronchoscopy on 01/05/2011 with bronchial lavage demonstrating inflammatory cells, bronchial cells, alveolar macrophages. Patient patient was started on high-dose IV steroids, IV diuresis, Levaquin and vancomycin. Levaquin was subsequently discontinued due to acute kidney injury upper imposed on CKD3. Patient required up to 10 L of oxygen support, but refused to use CPAP/BiPAP at night. Patient's acute respiratory failure has resolved. Patient has been weaned to 2 L to 3 L of oxygen. Patient qualified for home oxygen. Patient will be instructed to resume Coumadin on Wednesday, February 01 and last patient has recurrent hemoptysis. Patient will be discharged on prednisone taper. Following completion of taper patient will resume 20 mg of prednisone daily as prescribed by Dr. Guallpa. Patient will also be discharged on glimepiride 2 mg every morning, and instructed to monitor blood sugars twice daily. He will be discharged on Mucinex, Levaquin, and home O2. Patient will complete a total of 7 days of Levaquin. Patient will be discharged to home with follow-up with PCP in 5-7 days. - Time Spent with Patient Total time spent providing and/or coordinating discharge services: - Constitutional Vitals: Temp Pulse Resp BP Pulse Ox 97.6 F 76 16 125/80 93 01/29/17 07:08 01/29/17 07:08 01/29/17 09:18 01/29/17 09:18 01/29/17 09:18 General appearance: Present: A&O X 3, pleasant, no acute distress, answers questions appropriately - Head Head exam: Present: atraumatic, normocephalic - Eye Eye exam: Present: EOMI, PERRL, conjuntiva pink, sclera anicteric - Neck Neck exam general surgery: Present: supple, trachea midline. Absent: lymphadenopathy - Respiratory Respiratory exam: Present: CTAB. Absent: accessory muscle use, rales, rhonchi, wheezes - Cardiovascular Cardiovascular exam: Present: irregular rhythm, +S1, +S2. Absent: diastolic murmur, gallop, rubs, systolic murmur - GI/Abdominal GI/Abdominal exam: Present: normal bowel sounds, soft, no peritoneal signs. Absent: distended, tenderness - Extremities Exam Extremities exam: Present: warm, radial pulses palpable and symetrical. Absent : calf tenderness, cyanotic, pedal edema - Neurological Exam Neurological exam: Present: CN II-XII intact, oriented X3, no focal deficits. Absent: facial droop, speech deficit - Skin Skin exam: Present: dry, intact - Other Additional findings: Abdomen/Pelvis CT 01/20/17 20:33 IMPRESSION: 1. Colonic diverticulosis without evidence for acute diverticulitis. 2. Borderline hepatic steatosis. 3. Bilateral renal cysts measuring up to 4.9 cm. 4. Fibrotic changes at the lung bases with mild traction bronchiectasis. D/ / Natanael Starks MD / Natanael Starks MD Interpreting Provider: Natanael Starks MD Chest X-Ray 01/23/17 21:04 IMPRESSION: Stable hazy opacity throughout both lungs is felt to represent mild pulmonary edema, however, superimposed pneumonia is a diagnostic consideration. D/ / 01/23/2017 22:40:40 Tony Bran MD / joanne Interpreting Provider: Tony Bran MD Chest CT 01/25/17 11:53 IMPRESSION: 1. Significant worsening of ground-glass opacities in the lungs bilaterally. Differential includes atypical infection, pulmonary hemorrhage, diffuse alveolar damage in the setting of ARDS, and hypersensitivity pneumonitis. 2. 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 3. Mild cardiomegaly. 4. Coronary artery disease. D/ / 01/25/2017 13:18:43 Gurpreet Galloway MD / Susana Vincent Interpreting Provider: Gurpreet Galloway MD - VTE Documentation of Mechanical Device: Intermittent pneumatic compression device <Abdoul Mcqueen - Last Filed: 01/29/17 18:01> Date of Encounter: 01/29/17 Date of admission: 01/21/17 18:55 Primary care physician: Jose A Kelly Colopy Consults: 01/22/17 17:30 Consult to Pulmonology [CONS] Routine Consulting Provider: [facility] [place] Reason for Consult: hemoptysis Call Completed: Yes Hospital course: Mr. Sequeira is a 81 year old male - Time Spent with Patient Total time spent providing and/or coordinating discharge services: - Constitutional Vitals: Temp Pulse Resp BP Pulse Ox 97.6 F 76 16 125/80 94 01/29/17 07:08 01/29/17 07:08 01/29/17 11:14 01/29/17 11:14 01/29/17 11:14 - Attending Attestation I examined this patient and my medical decision-making was reviewed with the Resident Physician, Dr. Purvi Calzada. I agree with the documented findings, disposition and treatment plan as described except to the extent set forth below. Patient reports improvement in his shortness of breath. He still has some dry cough today. We will prescribe some guaifenesin dextromethorphan. His lung exam reveals bilateral crackles, no wheezes, virtually no change from yesterday. His oxygen requirement has decreased since yesterday. Plan: We will discharge home with prednisone taper and Levaquin. He will use home oxygen continuously at 3 L/m. We recommend close follow-up with primary care physician and power lineman
[2017-01-29] MEDS ORDERED: Aminoglycoside Consult 1 EACH MC ONE (12:25)
[2017-01-29] MEDS ORDERED: *HR* Warfarin 2 MG TABLET PO ONE (18:00)
== END 2017-01-29 12:26 | disposition home or self-care (01) | DRG 391 ==
LOC: 3ANU 17:25 → EMEROO 17:25 → 3ANU 23:15
PROVIDERS: ADMIT Internal Medicine; ATTEND Internal Medicine

== ENCOUNTER 2017-06-25 17:13 | Inpatient (IN) ==
[2017-06-25 17:57] LABS: Basophils % 0.3 %; Hematocrit 38.7 % (37.5-50.1); Immature Granulocytes % 1.6 % (0-4); Lymphocytes # 0.6 K/mcL (0.6-4.6); Lymphocytes % 4.8 %; Mean Corpuscular Hemoglobin 29.4 pg (28.0-33.3); Mean Corpuscular Volume 94.9 fL (83.0-100.0); Mean Platelet Volume 9.1 fL (9.4-12.4); Monocytes # 0.4 K/mcL (0.0-1.3); Monocytes % 3.2 %; Neutrophils # 10.6 K/mcL (1.6-8.9); Platelet Count 180 K/mcL (140-400); Red Blood Count 4.08 M/mcL (4.19-5.50); Red Cell Distribution Width 14.1 % (11.5-14.5); Segmented Neutrophils % 90.1 %
--- NOTE | 2017-06-25 17:57 | Emergency Department Note ---
Disposition Clinical Impression: Hypoxemia Dyspnea Qualifiers: Dyspnea type: shortness of breath Qualified Code(s): R06.02 - Shortness of breath Disposition: Admitted As Inpatient Condition: Fair Time of Disposition: 22:01 SOB HPI - General Chief Complaint: ED Shortness of Breath/Dyspnea Stated Complaint: Blood in urine// MARIA M Time Seen by Provider: 06/25/17 17:26 Source: patient Limitations: no limitations Nursing Notes Reviewed: Yes Vital Signs Reviewed: Yes - History of Present Illness Patient is an 81-year-old male who presents to [facility] ED with a chief complaint of difficulty breathing. States that symptoms have been worsening over the last few days as the weather has changed. States that he gets short of breath walking around the house. He normally does not need to use oxygen but he does have in case he needs it. States he checks his oxygen off and it has been running lower than normal. Denies any nausea, vomiting, fever or chills. No chest pain. No abdominal pain. Pt Subjective Complaint: shortness of breath Onset (ago): day(s) Severity: moderate Consistency/Duration: gradually worsening Improves with: rest Worsens with: exertion Known history of: COPD Associated symptoms: Reports: denies other symptoms. Denies: chest pain, fever , cough, nausea/vomiting, abdominal pain Treatment prior to arrival: oxygen Cough present: No Sputum Amount: None - Related Data Home oxygen amount: 2 liters Home Medications Medication Instructions Recorded Confirmed Ascorbate Calcium [Vitamin C] 1,000 mg PO QAM 12/23/15 06/25/17 Aspirin [Adult Low Dose Aspirin EC] 81 mg PO QPM 12/23/15 06/25/17 Budesonide/Formoterol 80/4.5 2 puff IH BID 12/23/15 06/25/17 [Symbicort 80/4.5] Fenofibrate [Lofibra] 160 mg PO QAM 12/23/15 06/25/17 Lovastatin 40 mg PO QPM 12/23/15 06/25/17 Multivit-Min/FA/Lycopen/Lutein 1 each PO QAM 12/23/15 06/25/17 [Centrum Silver Tablet] Omeprazole [PriLOSEC] 20 mg PO QAM 12/23/15 06/25/17 Warfarin [Coumadin] 2 mg PO MOWEFR 12/23/15 06/25/17 Albuterol Sulfate [Ventolin Hfa] 2 puff IH Q4H PRN 01/20/17 06/25/17 Furosemide [Lasix] 60 mg PO DAILY 01/20/17 06/25/17 Isosorbide MONOnitrate (24 HR) 30 mg PO DAILY 01/20/17 06/25/17 [Imdur] Latanoprost [Xalatan] 1 drop BOTH EYES HS 01/20/17 06/25/17 Warfarin [Coumadin] 1 mg PO SUTUTHSA 01/20/17 06/25/17 predniSONE [PredniSONE] 20 mg PO DAILY 01/20/17 06/25/17 Nitroglycerin [Nitrostat] 0.4 mg SL Q5M PRN 06/25/17 06/25/17 Oxygen 2 l NS AD PRN 06/25/17 06/25/17 Previous Rx's Medication Instructions Recorded Albuterol Neb [Proventil Neb] 2.5 mg IH [id number] PRN 30 Days 01/29/17 inhsol Allergies Allergy/AdvReac Type Severity Reaction Status Date / Time No Known Allergies Allergy Verified 06/25/17 17:17 All systems ED: reviewed and negative except as stated. Past Medical History - Past Medical History Attestation: Yes The following information was validated with the patient. Source: patient Medical history: Reports: CHF, COPD, DVT, hypertension, myocardial infarction, pulmonary embolus Surgical history: Reports: appendectomy, colectomy, knee replacement, LE stent(s ), sinus surgery Psychiatric history: Reports: no psych history - Social History Smoking Status: Never smoker Smokeless Tobacco Status: No Alcohol use: Reports: none Drug use: Reports: none Physical Exam - General Limitations: no limitations General appearance: alert - Head Head exam: atraumatic, normocephalic, normal inspection - Eye Eye exam: Present: normal appearance, EOMI - ENT ENT exam: normal exam, normal oropharynx, mucous membranes moist - Neck Neck exam: Present: normal inspection, full ROM, trachea midline - Chest Chest inspection: Present: normal inspection, symmetric chest wall rise - Respiratory Respiratory exam: Present: normal lung sounds bilaterally, other (Tachypnea) - Cardiovascular Cardiovascular exam: Present: regular rate, normal rhythm, normal heart sounds - Abdominal Exam Abdominal exam: Present: soft, Non-Tender. Absent: tenderness, distention, guarding, rebound, rigidity - Male exam: Present: normal inspection - Extremities Exam Extremities exam: Present: normal inspection, full ROM. Absent: tenderness, pedal edema - Back Exam Back exam: Present: normal inspection, full ROM. Absent: tenderness - Neurological Exam Neurological exam: Present: alert - Psychiatric Psychiatric exam: Present: normal affect, normal mood - Skin Skin exam: Present: warm, dry, intact, normal color Course Course Narrative: Patient seen and examined. Difficulty breathing. He is to At rest. His oxygen saturations appear appropriate on room air around 95-96%. However we did get him up to walk and his oxygen saturations went down to the 70s. Cardiopulmonary workup initiated. Patient is moving good air. I do not hear any wheezes. Hold off on any breathing treatments at the moment. - Reevaluation(s) Reevaluation #1: Patient's lab work shows hemoglobin of 12. Mildly elevated white count, mildly elevated lactic acid at 2.3, BNP of 300. However he has not been having any orthopnea. His oxygen saturations are appropriate while he was sitting but more so decreased with his exertion. We did decide to order a CT of the chest to rule out pulmonary embolus. Results of the CT scan did show signs of prior pulmonary fibrosis but no signs of pulmonary embolus or pneumonia. I did go ahead and Upon talking to the patient about his results, he then mentioned that he has also been having dribbling of blood out of his penis. I examined his penis which does not show any obvious blood. We will get a urine analysis. His hemoglobin is stable however. I discussed admission for dyspnea and hypoxemia with the hospitalist. Patient has been accepted for admission by Dr. Francois. Time: 21:51 Vital Signs Temperature 97.8 F 06/25/17 17:18 Pulse Rate 67 06/25/17 17:18 Respiratory Rate 24 06/25/17 17:18 Blood Pressure 132/79 06/25/17 17:18 O2 Sat by Pulse Oximetry 96 06/25/17 17:18 Temperature 97.8 F 06/25/17 17:18 Pulse Rate 60 06/25/17 21:33 Respiratory Rate 20 06/25/17 21:33 Blood Pressure 152/90 06/25/17 21:33 O2 Sat by Pulse Oximetry 97 06/25/17 21:33 Oxygen Delivery Oxygen Delivery Room Air Shortness of Breath/Dyspnea - Medical Records Medical records reviewed: Yes I reviewed the patient's medical records. - Lab Data Lab results reviewed: Yes I reviewed the patient's lab results. Result diagrams: 06/25/17 17:47 06/25/17 17:47 Lab Results 06/25/17 06/25/17 06/25/17 Range/Units 17:47 17:47 17:47 WBC 11.8 H (4.3-11.1) K/mcL RBC 4.08 L (4.19-5.50) M/mcL Hgb 12.0 L (12.9-16.9) g/dL Hct 38.7 (37.5-50.1) % MCV 94.9 (83.0-100.0) fL MCH 29.4 (28.0-33.3) pg MCHC 31.0 L (31.6-35.5) g/dL RDW 14.1 (11.5-14.5) % Plt Count 180 (140-400) K/mcL MPV 9.1 L (9.4-12.4) fL Immature Gran % 1.6 (0-4) % Seg Neutrophils % 90.1 % Lymphocytes % 4.8 % Monocytes % 3.2 % Eosinophils % 0.0 % Basophils % 0.3 % Neutrophils # 10.6 H (1.6-8.9) K/mcL Lymphocytes # 0.6 (0.6-4.6) K/mcL Monocytes # 0.4 (0.0-1.3) K/mcL Eosinophils # 0.0 (0.0-0.6) K/mcL Basophils # 0.0 (0.0-0.2) K/mcL VBG pH (7.32-7.42) pH Units VBG pCO2 (41-51) mmHg VBG pO2 (25-40) mmHg VBG HCO3 (21-27) mEq/L Sodium 140 (136-145) mEq/L Potassium 4.1 (3.5-4.5) mEq/L Chloride 106 (98-109) mEq/L Carbon Dioxide 25 (19-29) mEq/L BUN 33 H (8-26) mg/dL Creatinine 1.20 (0.72-1.25) mg/dL Est GFR ( Amer) > 60 (> 60) Est GFR (Non-Af Amer) 58 L (> 60) BUN/Creatinine Ratio 28 H (6-26) Glucose 307 H (70-99) mg/dL Calculated Osmolality 309 H (280-300) Lactic Acid 2.8 H (0.5-2.2) mmol/L Calcium 9.1 (8.6-10.8) mg/dL Troponin I (0-0.03) ng/mL B-Natriuretic Peptide (0-100) pg/mL 06/25/17 06/25/17 06/25/17 Range/Units 17:47 17:47 17:47 WBC (4.3-11.1) K/mcL RBC (4.19-5.50) M/mcL Hgb (12.9-16.9) g/dL Hct (37.5-50.1) % MCV (83.0-100.0) fL MCH (28.0-33.3) pg MCHC (31.6-35.5) g/dL RDW (11.5-14.5) % Plt Count (140-400) K/mcL MPV (9.4-12.4) fL Immature Gran % (0-4) % Seg Neutrophils % % Lymphocytes % % Monocytes % % Eosinophils % % Basophils % % Neutrophils # (1.6-8.9) K/mcL Lymphocytes # (0.6-4.6) K/mcL Monocytes # (0.0-1.3) K/mcL Eosinophils # (0.0-0.6) K/mcL Basophils # (0.0-0.2) K/mcL VBG pH 7.42 (7.32-7.42) pH Units VBG pCO2 44 (41-51) mmHg VBG pO2 50 H (25-40) mmHg VBG HCO3 29 H (21-27) mEq/L Sodium (136-145) mEq/L Potassium (3.5-4.5) mEq/L Chloride (98-109) mEq/L Carbon Dioxide (19-29) mEq/L BUN (8-26) mg/dL Creatinine (0.72-1.25) mg/dL Est GFR ( Amer) (> 60) Est GFR (Non-Af Amer) (> 60) BUN/Creatinine Ratio (6-26) Glucose (70-99) mg/dL Calculated Osmolality (280-300) Lactic Acid (0.5-2.2) mmol/L Calcium (8.6-10.8) mg/dL Troponin I 0.02 (0-0.03) ng/mL B-Natriuretic Peptide 300 H (0-100) pg/mL - Radiology Data Radiology results reviewed: Yes I reviewed the patient's radiology results. Chest X-Ray 06/25/17 17:38 IMPRESSION: 1. Slight improvement in previously noted diffuse hazy/ground-glass opacities. 2. Redemonstration of diffuse reticular/interstitial markings, most compatible with chronic lung disease, as better demonstrated on prior CT study. 3. Minimal opacity at the left base may reflect atelectasis or consolidation. 4. Stable cardiomegaly. D/ / 06/25/2017 18:32:02 Julio Cesar Amato MD / [facility] Interpreting Provider: Julio Cesar Amato MD Chest CTA 06/25/17 18:59 IMPRESSION: 1. No evidence of pulmonary embolus. 2. The previously noted diffuse ground-glass opacities have resolved compared to prior study. 3. Redemonstration of interstitial fibrosis in a pattern most compatible with a UIP. 4. Ectasia of the ascending thoracic aorta to 4 cm. 5. Stable nonspecific slightly prominent lymph nodes in the mediastinum up to 18 mm. D/ / 06/25/2017 20:37:20 Julio Cesar Amato MD / [facility] Interpreting Provider: Julio Cesar Amato MD - EKG Data EKG attestation: Yes I reviewed and interpreted this EKG. EKG results narrative: EKG done at 1724 shows atrial fibrillation with a rate of [address] elevation or depression. There is an intraventricular conduction delay. Left axis deviation. Appears unchanged from prior EKG done on 01/20/2017. Attestation Statement - Attestation Attestation: I examined this patient and my medical decision-making was reviewed with the Resident Physician. I agree with the documented findings, disposition and treatment plan as described except to the extent set forth below. The patient to the emergency Department G shortness of breath. Patient states this began progressing over the past couple of months. He called his doctor who sent him in here. He states his pulse ox is been dropping home. On examination he is mildly tachypneic and visibly dyspneic. Lungs diminished but clear. Abdomen soft. Plan. The patient had a cardiac workup including a CTA of his chest. He has no PE. He has interstitial fibrosis. Patient admitted to medicine. He ambulates to the pulse in the 70s. 35 minutes of critical care exclusive of separately billable procedures.
[2017-06-25 18:05] LABS: VBG PH 7.42 pH Units (7.32-7.42)
[2017-06-25 18:09] LABS: BUN/Creatinine Ratio 28 (6-26); Blood Urea Nitrogen 33 mg/dL (8-26); Calcium 9.1 mg/dL (8.6-10.8); Carbon Dioxide 25 mEq/L (19-29); Chloride 106 mEq/L (98-109); Glucose 307 mg/dL (70-99); Osmolality,Calculated 309 (280-300); Potassium 4.1 mEq/L (3.5-4.5); Sodium 140 mEq/L (136-145); eGFR For African Americans > 60 (> 60); eGFR For Non-African Americans 58 (> 60)
[2017-06-25] MEDS ORDERED: 0.9 % Sodium Chloride 500 ML IVC ONE (19:01)
[2017-06-25] MEDS ORDERED: methylPREDNISolone 125 MG/2 ML VIAL IVP ONE (21:25)
[2017-06-25 22:25] LABS: Bilirubin,Urine Negative (Negative); Blood,Urine Trace (Negative); Clarity,Urine Clear (Clear); Color,Urine Yellow (Yellow); Glucose,Urine (UA) Normal (Normal); Ketones,Urine Negative (Negative); Leukocyte Esterase,Urine Negative (Negative); Nitrite,Urine Negative (Negative); Protein,Urine Negative (Neg-Trace); Specific Gravity,Urine > 1.030 (1.010-1.025); Urobilinogen,Urine Normal (Normal)
[2017-06-25 22:26] LABS: Bacteria,Urine None Seen per hpf (None-Few); Hyaline Casts,Urine None Seen per lpf (None-Few); RBC,Urine 0-3 per hpf (0-3); Squamous Epithelial Cell,Urine Many per lpf (None-Few); WBC,Urine 0-3 per hpf (0-3)
[2017-06-25] MEDS ORDERED: Ondansetron 4 MG/2 ML VIAL IVP PRN (23:01)
[2017-06-25] MEDS ORDERED: Acetaminophen 325 MG TABLET PO PRN (23:01)
[2017-06-25] MEDS ORDERED: Naloxone 0.4 MG/ML INJ IVP PRN (23:01)
--- NOTE | 2017-06-25 23:03 | Internal Med History&Physical ---
Date of Encounter: 06/25/17 Time of Encounter: 23:30 Assessment and Plan (1) Interstitial lung disease Current visit: No Status: Acute Interstitial lung disease - fibrosis - acute exacerbation - with probable pneumonia present on admission Continue DuoNeb breathing treatment, O2 via nasal cannula, Symbicort, IV Solu- Medrol Empiric IV Rocephin, IV Azithromycin CT chest - negative for PE, interstitial fibrosis, stable prominent lymph nodes in the mediastinum Troponin - 0.02 BNP - 300 EKG - atrial fibrillation with controlled rate, no acute ST-T changes Cultures - pending Cardiac telemetry, pulse ox, labs in a.m., monitor closely (2) COPD (chronic obstructive pulmonary disease) Current visit: No Status: Acute Acute exacerbation of COPD Continue DuoNeb breathing treatment, Symbicort Qualifiers: COPD type: chronic bronchitis Chronic bronchitis type: unspecified Qualified Code(s): J42 - Unspecified chronic bronchitis (3) Chronic diastolic heart failure Current visit: No Status: Chronic Chronic diastolic CHF, LVEF 55% - not in exacerbation Continue Lasix (4) Atrial fibrillation Current visit: No Status: Chronic Chronic atrial fibrillation, rate controlled Continue Coumadin for anticoagulation Qualifiers: Atrial fibrillation type: chronic Qualified Code(s): I48.2 - Chronic atrial fibrillation (5) DVT prophylaxis Current visit: Yes Status: Acute Continue Coumadin Internal Medicine - H&P: HPI Chief complaint: Shortness of breath Admitted From: Emergency Dept Plans for Post Hospital Care: Home History of present illness: Mr. Sequeira is a 81 year old male with past medical history of COPD, CHF, chronic kidney disease stage III, atrial fibrillation, diabetes and history of DVT and PE. He presents to the ED with complaints of shortness of breath. Examined in the room. Patient is awake and alert. Not in any distress. Able to provide all history. No family members at bedside. Patient states symptoms of shortness of breath and cough started about 4 days ago. Symptoms gradually worsened. Aggravated with exertion. States he does not normally use oxygen all the time, but uses it only when he needs it. Patient denies chest pain or palpitations. Denies fever or chills or nausea or vomiting or abdominal pain. No alleviating factors. No other associated symptoms. 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 Initial workup in the ED is fairly benign. CTA of the chest revealed no PE, previous groundglass opacities have resolved and there is interstitial fibrosis with stable prominent lymph nodes in the mediastinum. Patient is being admitted for COPD exacerbation and probable pneumonia. Patient has been explained about his condition and plan of care. He understood and agreed. No unanswered questions. CODE STATUS full code. Past Med Surg Social Fam HX - Past Medical History Medical history: CHF, COPD, DVT, hypertension, myocardial infarction, pulmonary embolus Psychiatric history: no psych history - Past Surgical History Surgical History: appendectomy, colectomy, knee replacement, LE stent(s), sinus surgery - Social History Smoking Status: Never smoker Smokeless Tobacco Status: No Alcohol use: none Drug use: none - Family History Mother Living Status: Hx Family Cardiac Disorders: Yes Hx Family Cancer: Yes Sister Living Status: Hx Family Cancer: Yes Father Living Status: Hx Family Cardiac Disorders: Yes Internal Medicine - H&P: Meds Ascorbate Calcium [Vitamin C] 1,000 mg PO QAM 12/23/15 [History] Aspirin [Adult Low Dose Aspirin EC] 81 mg PO QPM 12/23/15 [History] Budesonide/Formoterol 80/4.5 [Symbicort 80/4.5] 2 puff IH BID 12/23/15 [History ] Lovastatin 40 mg PO QPM 12/23/15 [History] Multivit-Min/FA/Lycopen/Lutein [Centrum Silver Tablet] 1 each PO QAM 12/23/15 [ History] Omeprazole [PriLOSEC] 20 mg PO QAM 12/23/15 [History] Warfarin [Coumadin] 2 mg PO MOWEFR 12/23/15 [History] Albuterol Sulfate [Ventolin Hfa] 2 puff IH Q4H PRN 01/20/17 [History] Furosemide [Lasix] 40 mg PO DAILY 01/20/17 [History] Latanoprost [Xalatan] 1 drop BOTH EYES HS 01/20/17 [History] Warfarin [Coumadin] 1 mg PO SUTUTHSA 01/20/17 [History] predniSONE [PredniSONE] 20 mg PO DAILY 01/20/17 [History] Albuterol Neb [Proventil Neb] 2.5 mg IH [id number] PRN 30 Days inhsol 01/29/17 [Rx ] Nitroglycerin [Nitrostat] 0.4 mg SL Q5M PRN 06/25/17 [History] Oxygen 2 l NS AD PRN 06/25/17 [History] 3 Allergy/AdvReac Type Severity Reaction Status Date / Time No Known Allergies Allergy Verified 06/25/17 17:17 All Systems PM: A 10-system review of systems was performed and is negative for pertinent findings except as documented above in the HPI. - Constitutional Constitutional: fatigue, no fever(s), no weakness - EENT Eyes: no blurry vision - Cardiovascular Cardiovascular ROS IM: dyspnea, dyspnea on exertion, orthopnea, no chest pain, no diaphoresis, no lightheadedness, no paroxysmal nocturnal dyspnea, no syncope - Respiratory Respiratory: dyspnea, dyspnea on exertion, wheezing, chest congestion, no excessive phlegm production - Gastrointestinal Gastrointestinal: no abdominal pain, no belching, no bloating, no cramping, no diarrhea, no hematemesis, no hematochezia, no nausea, no vomiting - Genitourinary Genitourinary ROS male: no dysuria - Neurological Neurological ROS: no abnormal gait, no confusion, no dizziness, no numbness, no tingling - Constitutional Vitals: Temp Pulse Resp BP Pulse Ox 97.8 F 60 18 153/127 97 06/25/17 17:18 06/25/17 21:33 06/25/17 22:42 06/25/17 22:42 06/25/17 21:33 General appearance: Present: cooperative, A&O X 3, pleasant, no acute distress, obese, answers questions appropriately - Head Head exam: Present: atraumatic - Eye Eye exam: Present: EOMI - ENT ENT exam: Present: mucous membranes moist - Respiratory Respiratory exam: Present: decreased breath sounds (Slightly decreased in both bases), rhonchi (Mild bilateral). Absent: accessory muscle use, chest wall tenderness, rales, wheezes, tachypnea - Cardiovascular Cardiovascular exam: Present: RRR, +S1, +S2 - GI/Abdominal GI/Abdominal exam: Present: soft. Absent: distended, firm, guarding, tenderness - Extremities Exam Extremities exam: Present: pedal edema (Bilateral 2+ edema), radial pulses palpable and symmetrical. Absent: calf tenderness, cyanotic - Neurological Exam Neurological exam: Present: alert, oriented X3, no focal deficits. Absent: facial droop, speech deficit Internal Med - H&P Results - Labs CBC & Chem 7: 06/25/17 17:47 06/25/17 17:47 Labs: Urine 06/25/17 Range/Units 22:10 Urine Color Yellow (Yellow) Urine Clarity Clear (Clear) Urine pH 5.0 (5.0-8.0) pH Units Ur Specific [place] > 1.030 H (1.010-1.025) Urine Protein Negative (Neg-Trace) mg/dL Urine Glucose (UA) Normal (Normal) mg/dL
[2017-06-25] MEDS ORDERED: NON-FORMULARY MEDICATION 1 EACH EACH (Oxygen [Oxygen] 2 L) NS PRN (23:05)
[2017-06-25] MEDS ORDERED: Nitroglycerin 0.4 MG TAB.SUBL SL PRN (23:05)
[2017-06-25] MEDS ORDERED: *HR* Warfarin 2 MG TABLET PO SCH (23:15)
[2017-06-25 23:29] LABS: INR 2.7; Prothrombin Time 29.2 Seconds (9.4-12.1)
[2017-06-25] MEDS: Ipratropium/Albuterol Neb 3 ML IH SCH (23:55)
[2017-06-26] MEDS: methylPREDNISolone 125 MG/2 ML VIAL IVP SCH ×3 (00:13→16:38)
[2017-06-26] MEDS: Aspirin Enteric Coated 81 MG Tablet PO SCH ×2 (00:23→17:10)
[2017-06-26] MEDS ORDERED: D5% in Water 1,000 ML IVC PRN (01:45)
[2017-06-26] MEDS ORDERED: Dextrose Gel 15 GM PO PRN ×2 (01:45)
[2017-06-26] MEDS ORDERED: *HR* Dextrose 50 % in Water (Syg) 50 ML SYRINGE IVP PRN (01:45)
[2017-06-26] MEDS: Azithromycin 500 MG in D5% in Water 250 ML IVPB SCH (03:12)
[2017-06-26] MEDS: Ipratropium/Albuterol Neb 3 ML IH SCH ×6 (03:38→23:41)
[2017-06-26 04:26] LABS: Basophils % 0.2 %; Hematocrit 37.2 % (37.5-50.1); Hemoglobin 11.9 g/dL (12.9-16.9); Immature Granulocytes % 1.4 % (0-4); Lymphocytes # 0.5 K/mcL (0.6-4.6); Lymphocytes % 4.8 %; Mean Corpuscular Hemoglobin 30.3 pg (28.0-33.3); Mean Corpuscular Volume 94.7 fL (83.0-100.0); Mean Platelet Volume 9.9 fL (9.4-12.4); Monocytes # 0.1 K/mcL (0.0-1.3); Monocytes % 1.4 %; Neutrophils # 8.8 K/mcL (1.6-8.9); Platelet Count 169 K/mcL (140-400); Red Blood Count 3.93 M/mcL (4.19-5.50); Segmented Neutrophils % 92.2 %
[2017-06-26 04:34] LABS: INR 2.8; Prothrombin Time 30.4 Seconds (9.4-12.1)
[2017-06-26 04:38] LABS: BUN/Creatinine Ratio 29 (6-26); Blood Urea Nitrogen 33 mg/dL (8-26); Carbon Dioxide 23 mEq/L (19-29); Chloride 106 mEq/L (98-109); Glucose 294 mg/dL (70-99); Osmolality,Calculated 306 (280-300); Potassium 3.9 mEq/L (3.5-4.5); Sodium 139 mEq/L (136-145); eGFR For African Americans > 60 (> 60); eGFR For Non-African Americans > 60 (> 60)
[2017-06-26] MEDS: Famotidine 20 MG/2 ML VIAL IVP SCH ×2 (05:16→17:11)
[2017-06-26] MEDS: Budesonide/Formoterol 80/4.5 MDI IH SCH ×2 (07:32→19:42)
[2017-06-26] MEDS: Fenofibrate 54 MG TABLET PO SCH (08:19)
[2017-06-26] MEDS: Insulin LISPRO 300 UNITS/3 ML VIAL SQ SCH ×4 (08:20→21:14)
[2017-06-26] MEDS: Furosemide 40 MG TABLET PO SCH (08:20)
[2017-06-26] MEDS: Multivit/Ca/Min/Fe/FA 1 TAB TABLET PO SCH (08:20)
[2017-06-26] MEDS: Isosorbide MONOnitrate (24 HR) 30 MG TAB.ER.24H PO SCH (08:20)
[2017-06-26] MEDS: Ascorbic Acid 500 MG TABLET PO SCH (08:20)
[2017-06-26] MEDS: *HR* Warfarin 1 MG TABLET PO SCH (17:11)
--- NOTE | 2017-06-26 18:01 | Internal Med Progress Note ---
Date of Encounter: 06/26/17 Time of Encounter: 11:00 - Assessment and plan (1) COPD exacerbation Current Visit: Yes Status: Acute Assessment and plan: Likely secondary to pneumonia. Continue Rocephin and azithromycin. Solumedrol, Duo nebs. (2) Atrial fibrillation Current Visit: No Status: Chronic Assessment and plan: Stable, on coumadin. HR is normal without medication. Qualifiers: Atrial fibrillation type: chronic Qualified Code(s): I48.2 - Chronic atrial fibrillation - Subjective Interval history: States breathing is okay at baseline. Still having trouble with minimal exertion. Denies cp, fevers/chills, n/v. - Constitutional Vitals: Temp Pulse Resp BP Pulse Ox 97.8 F 65 16 110/63 97 06/26/17 15:51 06/26/17 15:51 06/26/17 16:04 06/26/17 15:51 06/26/17 16:04 Exam: General appearance: Present: cooperative, A&O X 3, pleasant, no acute distress, obese, answers questions appropriately - Head Head exam: Present: atraumatic - Eye Eye exam: Present: EOMI - ENT ENT exam: Present: mucous membranes moist - Respiratory Respiratory exam: Present: decreased breath sounds in both bases Absent: accessory muscle use, chest wall tenderness, rales, wheezes, tachypnea - Cardiovascular Cardiovascular exam: Present: RRR, +S1, +S2 - GI/Abdominal GI/Abdominal exam: Present: soft. Absent: distended, firm, guarding, tenderness - Extremities Exam Extremities exam: Present: pedal edema (Bilateral 2+ edema), radial pulses palpable and symmetrical. Absent: calf tenderness, cyanotic - Neurological Exam Neurological exam: Present: alert, oriented X3, no focal deficits. Absent: facial droop, speech deficit Internal Medicine: Result - Labs CBC & Chem 7: 06/26/17 03:40 06/26/17 03:40 Labs: Short CBC 06/26/17 Range/Units 03:40 WBC 9.6 (4.3-11.1) K/mcL Hgb 11.9 L (12.9-16.9) g/dL Hct 37.2 L (37.5-50.1) % Plt Count 169 (140-400) K/mcL Neutrophils # 8.8 (1.6-8.9) K/mcL BMP 06/26/17 03:40 Sodium 139 Potassium 3.9 Chloride 106 Carbon Dioxide 23 BUN 33 H Creatinine 1.13 Glucose 294 H Calcium 9.0 - ABG Interpretation ABG results: PT/INR, D-dimer PT 30.4 Seconds (9.4-12.1) H 06/26/17 03:40 - VTE Documentation of Mechanical Device: Graduated compression elastic hosiery Consult Discharge Plan - Plan Referrals: Jose A Hernandez DO [Primary Care Provider] -
[2017-06-26] MEDS: Latanoprost 2.5 ML BOTTLE BOTH EYES SCH (20:13)
[2017-06-26] MEDS: *HR* Morphine 2 MG/ML SYRINGE IVP PRN (20:13)
[2017-06-27] MEDS: methylPREDNISolone 125 MG/2 ML VIAL IVP SCH ×3 (00:38→17:11)
[2017-06-27] MEDS: Azithromycin 500 MG in D5% in Water 250 ML IVPB SCH (02:15)
[2017-06-27] MEDS: *HR* Morphine 2 MG/ML SYRINGE IVP PRN ×2 (02:22→22:28)
[2017-06-27] MEDS: Ipratropium/Albuterol Neb 3 ML IH SCH ×2 (04:02→08:37)
[2017-06-27] MEDS: Famotidine 20 MG/2 ML VIAL IVP SCH ×2 (05:06→17:10)
[2017-06-27 07:36] LABS: BUN/Creatinine Ratio 30 (6-26); Blood Urea Nitrogen 41 mg/dL (8-26); Calcium 9.1 mg/dL (8.6-10.8); Carbon Dioxide 26 mEq/L (19-29); Chloride 103 mEq/L (98-109); Glucose 239 mg/dL (70-99); Osmolality,Calculated 302 (280-300); Potassium 4.2 mEq/L (3.5-4.5); Sodium 137 mEq/L (136-145); eGFR For African Americans > 60 (> 60); eGFR For Non-African Americans 50 (> 60)
[2017-06-27 07:45] LABS: Basophils % 0.1 %; Hematocrit 36.1 % (37.5-50.1); Hemoglobin 11.3 g/dL (12.9-16.9); Lymphocytes # 0.5 K/mcL (0.6-4.6); Mean Corpuscular HGB Conc 31.3 g/dL (31.6-35.5); Mean Corpuscular Hemoglobin 29.2 pg (28.0-33.3); Mean Corpuscular Volume 93.3 fL (83.0-100.0); Mean Platelet Volume 9.7 fL (9.4-12.4); Monocytes # 0.4 K/mcL (0.0-1.3); Monocytes % 3.2 %; Neutrophils # 10.7 K/mcL (1.6-8.9); Platelet Count 187 K/mcL (140-400); Red Blood Count 3.87 M/mcL (4.19-5.50); Red Cell Distribution Width 14.1 % (11.5-14.5); Segmented Neutrophils % 90.7 %
[2017-06-27] MEDS: Insulin LISPRO 300 UNITS/3 ML VIAL SQ SCH ×4 (09:19→20:40)
[2017-06-27] MEDS: Ascorbic Acid 500 MG TABLET PO SCH (09:19)
[2017-06-27] MEDS: Furosemide 40 MG TABLET PO SCH (09:19)
[2017-06-27] MEDS: Isosorbide MONOnitrate (24 HR) 30 MG TAB.ER.24H PO SCH (09:19)
[2017-06-27] MEDS: Multivit/Ca/Min/Fe/FA 1 TAB TABLET PO SCH (09:19)
[2017-06-27] MEDS: Fenofibrate 54 MG TABLET PO SCH (09:20)
[2017-06-27] MEDS: Budesonide/Formoterol 80/4.5 MDI IH SCH ×2 (09:27→19:45)
[2017-06-27] MEDS: *HR* Warfarin 1 MG TABLET PO SCH (17:10)
[2017-06-27] MEDS: Aspirin Enteric Coated 81 MG Tablet PO SCH (17:10)
--- NOTE | 2017-06-27 17:52 | Electrocardiograph Report ---
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
--- NOTE | 2017-06-27 18:04 | Electrocardiograph Report ---
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
--- NOTE | 2017-06-27 18:18 | Internal Med Progress Note ---
Date of Encounter: 06/27/17 Time of Encounter: 13:00 - Assessment and plan (1) COPD exacerbation Current Visit: Yes Status: Acute (2) Atrial fibrillation Current Visit: No Status: Chronic Qualifiers: Atrial fibrillation type: chronic Qualified Code(s): I48.2 - Chronic atrial fibrillation (3) Interstitial lung disease Current Visit: No Status: Acute (4) Atrial fibrillation Current Visit: No Status: Chronic Assessment and plan: On coumadin, check INR. Note INR may change due to antibiotics. Qualifiers: Atrial fibrillation type: chronic Qualified Code(s): I48.2 - Chronic atrial fibrillation (5) History of DVT (deep vein thrombosis) Current Visit: No Status: Acute Assessment and plan: as above (6) Diabetes mellitus type 2 in obese Current Visit: No Status: Acute Assessment and plan: Hyperglycemic from corticosteroids. Will add basal insulin - Subjective Interval history: Breathing not back at baseline. Feels fatigued. - Constitutional Vitals: Temp Pulse Resp BP Pulse Ox 97.6 F 70 15 145/76 94 06/27/17 16:01 06/27/17 16:01 06/27/17 16:01 06/27/17 16:01 06/27/17 16:01 General appearance: Present: cooperative, A&O X 3, pleasant, no acute distress, obese, answers questions appropriately - Head Head exam: Present: atraumatic, normocephalic - Respiratory Respiratory exam: Present: wheezes. Absent: accessory muscle use, rales, rhonchi Internal Medicine: Result - Labs CBC & Chem 7: 06/27/17 07:07 06/27/17 07:07 Labs: Short CBC 06/27/17 Range/Units 07:07 WBC 11.8 H (4.3-11.1) K/mcL Hgb 11.3 L (12.9-16.9) g/dL Hct 36.1 L (37.5-50.1) % Plt Count 187 (140-400) K/mcL Neutrophils # 10.7 H (1.6-8.9) K/mcL BMP 06/27/17 07:07 Sodium 137 Potassium 4.2 Chloride 103 Carbon Dioxide 26 BUN 41 H Creatinine 1.36 H Glucose 239 H Calcium 9.1 - ABG Interpretation ABG results: PT/INR, D-dimer PT 30.4 Seconds (9.4-12.1) H 06/26/17 03:40 - VTE Documentation of Mechanical Device: Graduated compression elastic hosiery Consult Discharge Plan - Plan Referrals: Jose A Hernandez DO [Primary Care Provider] -
[2017-06-27] MEDS: Latanoprost 2.5 ML BOTTLE BOTH EYES SCH (20:41)
[2017-06-28] MEDS: methylPREDNISolone 125 MG/2 ML VIAL IVP SCH ×3 (01:30→17:58)
[2017-06-28] MEDS: Azithromycin 500 MG in D5% in Water 250 ML IVPB SCH (01:33)
[2017-06-28 02:12] LABS: INR 3.7; Prothrombin Time 40.8 Seconds (9.4-12.1)
[2017-06-28] MEDS: *HR* Morphine 2 MG/ML SYRINGE IVP PRN ×2 (02:17→22:17)
[2017-06-28] MEDS: Famotidine 20 MG/2 ML VIAL IVP SCH ×2 (05:04→17:58)
[2017-06-28] MEDS: Budesonide/Formoterol 80/4.5 MDI IH SCH ×2 (08:03→22:49)
[2017-06-28] MEDS: Insulin LISPRO 300 UNITS/3 ML VIAL SQ SCH ×4 (09:12→22:12)
[2017-06-28] MEDS: Furosemide 40 MG TABLET PO SCH (09:13)
[2017-06-28] MEDS: Isosorbide MONOnitrate (24 HR) 30 MG TAB.ER.24H PO SCH (09:13)
[2017-06-28] MEDS: Fenofibrate 54 MG TABLET PO SCH (09:13)
[2017-06-28] MEDS: Multivit/Ca/Min/Fe/FA 1 TAB TABLET PO SCH (09:14)
[2017-06-28] MEDS: Ascorbic Acid 500 MG TABLET PO SCH (09:14)
[2017-06-28 10:39] LABS: Basophils % 0.4 %; Hematocrit 39.4 % (37.5-50.1); Hemoglobin 12.2 g/dL (12.9-16.9); Lymphocytes # 0.6 K/mcL (0.6-4.6); Lymphocytes % 5.7 %; Mean Corpuscular Hemoglobin 28.8 pg (28.0-33.3); Mean Corpuscular Volume 92.9 fL (83.0-100.0); Mean Platelet Volume 9.9 fL (9.4-12.4); Monocytes # 0.4 K/mcL (0.0-1.3); Monocytes % 3.3 %; Neutrophils # 9.5 K/mcL (1.6-8.9); Platelet Count 199 K/mcL (140-400); Red Blood Count 4.24 M/mcL (4.19-5.50); Red Cell Distribution Width 13.9 % (11.5-14.5); Segmented Neutrophils % 87.6 %
[2017-06-28] MEDS: Aspirin Enteric Coated 81 MG Tablet PO SCH (17:58)
--- NOTE | 2017-06-28 19:12 | Internal Med Progress Note ---
Date of Encounter: 06/29/17 Time of Encounter: 11:00 - Assessment and plan (1) COPD exacerbation Current Visit: Yes Status: Acute Assessment and plan: Likely secondary to pneumonia. Continue Rocephin and azithromycin. Solumedrol, Duo nebs. (2) Interstitial lung disease Current Visit: No Status: Acute Assessment and plan: Was on Prednisone 20 mg prior to admission. He states that his breathing is not improving and he is still fatigued. Given thr course of his disease this may be gradual progression. Solumedrol 40mg IV Q8H with no relief. Also taking Symbicort. States he is only on Oxygen prn at home. Currently he is sitting without supplemental O2. Patient may need O2 stress test in AM. (3) Atrial fibrillation Current Visit: No Status: Chronic Assessment and plan: Stable, on coumadin. HR is normal without medication. Qualifiers: Atrial fibrillation type: chronic Qualified Code(s): I48.2 - Chronic atrial fibrillation (4) History of DVT (deep vein thrombosis) Current Visit: No Status: Acute Assessment and plan: as above (5) Diabetes mellitus type 2 in obese Current Visit: No Status: Acute Assessment and plan: Hyperglycemic from corticosteroids. Will add basal insulin - Subjective Interval history: Still feeling fatigued, not as active though. Is not using IS. - Constitutional Vitals: Temp Pulse Resp BP Pulse Ox 97.5 F L 63 16 131/75 94 06/28/17 18:50 06/28/17 18:50 06/28/17 18:50 06/28/17 18:50 06/28/17 18:50 Exam: General appearance: Present: cooperative, A&O X 3, pleasant, no acute distress, obese, answers questions appropriately - Head Head exam: Present: atraumatic, normocephalic - Respiratory Respiratory exam: Present: wheezes. Absent: accessory muscle use, rales, rhonchi Internal Medicine: Result - Labs CBC & Chem 7: 06/28/17 09:44 06/27/17 07:07 Labs: Short CBC 06/28/17 Range/Units 09:44 WBC 10.8 (4.3-11.1) K/mcL Hgb 12.2 L (12.9-16.9) g/dL Hct 39.4 (37.5-50.1) % Plt Count 199 (140-400) K/mcL Neutrophils # 9.5 H (1.6-8.9) K/mcL - ABG Interpretation ABG results: PT/INR, D-dimer PT 40.8 Seconds (9.4-12.1) H 06/28/17 01:38 - VTE Documentation of Mechanical Device: Graduated compression elastic hosiery Consult Discharge Plan - Plan Referrals: Jose A Hernandez DO [Primary Care Provider] -
[2017-06-28] MEDS ORDERED: Insulin DETEMIR 100 UNIT/ML X5UNITS SQ SCH (21:00)
[2017-06-28] MEDS: Latanoprost 2.5 ML BOTTLE BOTH EYES SCH (22:12)
[2017-06-29] MEDS: methylPREDNISolone 125 MG/2 ML VIAL IVP SCH ×2 (02:03→07:51)
[2017-06-29] MEDS: Azithromycin 500 MG in D5% in Water 250 ML IVPB SCH (02:44)
[2017-06-29 04:33] LABS: Basophils % 0.3 %; Hematocrit 36.6 % (37.5-50.1); Hemoglobin 11.6 g/dL (12.9-16.9); Immature Granulocytes % 2.2 % (0-4); Lymphocytes # 0.4 K/mcL (0.6-4.6); Lymphocytes % 4.3 %; Mean Corpuscular HGB Conc 31.7 g/dL (31.6-35.5); Mean Corpuscular Hemoglobin 29.7 pg (28.0-33.3); Mean Corpuscular Volume 93.6 fL (83.0-100.0); Mean Platelet Volume 9.7 fL (9.4-12.4); Monocytes # 0.4 K/mcL (0.0-1.3); Monocytes % 3.6 %; Neutrophils # 8.8 K/mcL (1.6-8.9); Platelet Count 175 K/mcL (140-400); Red Blood Count 3.91 M/mcL (4.19-5.50); Red Cell Distribution Width 14.1 % (11.5-14.5); Segmented Neutrophils % 89.6 %
[2017-06-29 04:42] LABS: Prothrombin Time 44.2 Seconds (9.4-12.1)
[2017-06-29 04:46] LABS: BUN/Creatinine Ratio 43 (6-26); Blood Urea Nitrogen 54 mg/dL (8-26); Carbon Dioxide 28 mEq/L (19-29); Chloride 105 mEq/L (98-109); Glucose 317 mg/dL (70-99); Osmolality,Calculated 319 (280-300); Sodium 141 mEq/L (136-145); eGFR For African Americans > 60 (> 60); eGFR For Non-African Americans 56 (> 60)
[2017-06-29] MEDS: Famotidine 20 MG/2 ML VIAL IVP SCH (06:52)
[2017-06-29] MEDS: Ascorbic Acid 500 MG TABLET PO SCH (07:51)
[2017-06-29] MEDS: Isosorbide MONOnitrate (24 HR) 30 MG TAB.ER.24H PO SCH (07:51)
[2017-06-29] MEDS: Multivit/Ca/Min/Fe/FA 1 TAB TABLET PO SCH (07:51)
[2017-06-29] MEDS: Fenofibrate 54 MG TABLET PO SCH (07:51)
[2017-06-29] MEDS: Furosemide 40 MG TABLET PO SCH (07:51)
[2017-06-29] MEDS: Insulin LISPRO 300 UNITS/3 ML VIAL SQ SCH ×2 (07:52→13:55)
[2017-06-29] MEDS: Budesonide/Formoterol 80/4.5 MDI IH SCH (09:16)
[2017-06-29 11:48] VITALS: BP 125/69
--- NOTE | 2017-06-29 14:31 | Discharge Summary ---
Date of Encounter: 06/29/17 Time of Encounter: 12:15 - Discharge Diagnosis (1) Pneumonia Priority: Primary Status: Acute Qualifiers: Pneumonia type: due to unspecified organism Laterality: right Lung location: lower lobe of lung Qualified Code(s): J18.1 - Lobar pneumonia, unspecified organism (2) Acute exacerbation of chronic obstructive pulmonary disease Priority: Primary Status: Acute (3) Interstitial lung disease Priority: Primary Status: Acute (4) Atrial fibrillation Priority: Secondary Status: Chronic Qualifiers: Atrial fibrillation type: chronic Qualified Code(s): I48.2 - Chronic atrial fibrillation (5) History of DVT (deep vein thrombosis) Priority: Secondary Status: Chronic (6) Diabetes mellitus type 2 in obese Priority: Secondary Status: Chronic (7) Chronic diastolic heart failure Priority: Secondary Status: Chronic - Discharge Medications Prescriptions: levoFLOXacin [Levaquin] 500 mg PO DAILY #5 tablet predniSONE [PredniSONE] 60 mg PO DAILY 15 Days tablet Home Medications: Ascorbate Calcium [Vitamin C] 1,000 mg PO QAM 12/23/15 [History] Aspirin [Adult Low Dose Aspirin EC] 81 mg PO QPM 12/23/15 [History] Budesonide/Formoterol 80/4.5 [Symbicort 80/4.5] 2 puff IH BID 12/23/15 [History ] Lovastatin 40 mg PO QPM 12/23/15 [History] Multivit-Min/FA/Lycopen/Lutein [Centrum Silver Tablet] 1 each PO QAM 12/23/15 [ History] Omeprazole [PriLOSEC] 20 mg PO QAM 12/23/15 [History] Albuterol Sulfate [Ventolin Hfa] 2 puff IH Q4H PRN 01/20/17 [History] Furosemide [Lasix] 40 mg PO DAILY 01/20/17 [History] Latanoprost [Xalatan] 1 drop BOTH EYES HS 01/20/17 [History] Albuterol Neb [Proventil Neb] 2.5 mg IH [id number] PRN 30 Days inhsol 01/29/17 [Rx ] Nitroglycerin [Nitrostat] 0.4 mg SL Q5M PRN 06/25/17 [History] Oxygen 2 l NS AD PRN 06/25/17 [History] levoFLOXacin [Levaquin] 500 mg PO DAILY #5 tablet 06/29/17 [Rx] predniSONE [PredniSONE] 60 mg PO DAILY 15 Days tablet 06/29/17 [Rx] Allergies/Adverse Reactions: 3 Allergy/AdvReac Type Severity Reaction Status Date / Time No Known Allergies Allergy Verified 06/26/17 12:31 Date of admission: 06/25/17 23:01 Primary care physician: Jose A Hernandez Discharging clinician: Oxana Han Anticipated date of discharge: 06/29/17 - Patient Status Disposition: Home, Self-Care Condition: Fair Functional capacity at discharge: independent ambulation Overall status at discharge: patient is progressing back to baseline - Discharge Instructions Instructions: Prednisone (By mouth), Levofloxacin (By mouth) Follow Up With: Jose A Hernandez, [Primary Care Provider] - 07/05/17 2:00 pm Additional Instructions: F/up with Coumadin clinic in 2-3 days; hold Coumadin until INR check; F/up with in 2-3 weeks - Diet and Activity Activity: resume usual activities as tolerated, wear oxygen at all times Diet: diabetic diet, low fat, low cholesterol, low salt diet Hospital course: Mr. Sequeira is a 81 year old male with history of COPD and interstitial lung disease, was admitted with worsening shortness of breath and difficulty breathing. He was noted to have an acute exacerbation of COPD and underlying interstitial lung disease and was started on IV steroids, empiric IV antibiotics and bronchodilators along with supplemental oxygen. Chest x-ray showed possible right basal infiltrate. He gradually made progress in his respiratory status is much improved currently, he is noted to be saturating well on room air with improved tachypnea. He does have exertional dyspnea at baseline due to progressive COPD and interstitial lung disease. He likely requires long-term oral steroids and is currently being discharged on prolonged steroid taper and antibiotics. He is encouraged to keep his pulmonology appointment that is coming up in the next 10 days. Patient was also noted to have steroid-induced hyperglycemia and received insulin while in the hospital. He is encouraged to continue following the diabetic diet and monitor his blood sugars closely while on steroids. - Time Spent with Patient Total time spent providing and/or coordinating discharge services: Greater than 30 minutes (45 min) - Constitutional Vitals: Temp Pulse Resp BP Pulse Ox 97.2 F L 69 16 125/69 96 06/29/17 11:46 06/29/17 11:46 06/29/17 11:46 06/29/17 11:46 06/29/17 11:46 General appearance: Present: cooperative, A&O X 3, answers questions appropriately - Respiratory Respiratory exam: Present: CTAB, rales (dry faint crackles B/L bases). Absent: accessory muscle use, rhonchi, wheezes - Cardiovascular Cardiovascular exam: Present: irregular rhythm, +S1, +S2. Absent: diastolic murmur, gallop, rubs, systolic murmur - VTE Documentation of Mechanical Device: Graduated compression elastic hosiery
[2017-06-29] MEDS ORDERED: Insulin DETEMIR 100 UNIT/ML X5UNITS SQ SCH (21:00)
== END 2017-06-29 15:20 | disposition home or self-care (01) | DRG 190 ==
LOC: 3BNU 17:13 → EMEROO 17:13 → 3BNU 22:43 → SUATTDRO 23:01
PROVIDERS: ADMIT Family Medicine; ATTEND Internal Medicine

== ENCOUNTER 2017-07-04 18:44 | Inpatient (IN) ==
[2017-07-04] MEDS ORDERED: Furosemide 40 MG/4 ML VIAL IVP ONE (19:08)
[2017-07-04] MEDS ORDERED: methylPREDNISolone 125 MG/2 ML VIAL IVP ONE (19:08)
[2017-07-04] MEDS ORDERED: Ipratropium/Albuterol Neb 3 ML IH ONE (19:08)
--- NOTE | 2017-07-04 19:31 | Emergency Department Note ---
Disposition Clinical Impression: Lactic acidosis Acute and chronic respiratory failure Qualifiers: Respiratory failure complication: hypoxia Qualified Code(s): J96.21 - Acute and chronic respiratory failure with hypoxia Disposition: Admitted As Inpatient Condition: Serious Time of Disposition: 22:47 SOB HPI - General Chief Complaint: ED Shortness of Breath/Dyspnea Stated Complaint: SOB Time Seen by Provider: 07/04/17 18:53 Source: patient Mode of arrival: ambulatory Limitations: no limitations Nursing Notes Reviewed: Yes Vital Signs Reviewed: Yes - History of Present Illness 81-year-old male history of PE, CAD, DVT, CHF, A. fib, on Coumadin, presents with shortness of breath for the last few days. Recently discharged from the hospital one week ago for acute on chronic respiratory failure and pneumonia. Patient's on 5 L when necessary at home during activity, as well as nighttime oxygen but has not been taking this. Patient reports intermittent chills but denies recent fevers, denies worsening leg swelling, does have exertional dyspnea, but denies any chest pain. Patient denies hemoptysis, hematuria, melena Pt Subjective Complaint: shortness of breath Onset (ago): hour(s) Severity: mild Consistency/Duration: constant Improves with: nothing Worsens with: nothing Associated symptoms: Denies: chest pain, pain with inspiration, fever, cough, wheezing Treatment prior to arrival: none Cough present: No - Related Data Home Medications Medication Instructions Recorded Confirmed Ascorbate Calcium [Vitamin C] 1,000 mg PO QAM 12/23/15 06/26/17 Aspirin [Adult Low Dose Aspirin EC] 81 mg PO QPM 12/23/15 06/26/17 Budesonide/Formoterol 80/4.5 2 puff IH BID 12/23/15 06/26/17 [Symbicort 80/4.5] Lovastatin 40 mg PO QPM 12/23/15 06/26/17 Multivit-Min/FA/Lycopen/Lutein 1 each PO QAM 12/23/15 06/26/17 [Centrum Silver Tablet] Omeprazole [PriLOSEC] 20 mg PO QAM 12/23/15 06/26/17 Albuterol Sulfate [Ventolin Hfa] 2 puff IH Q4H PRN 01/20/17 06/26/17 Furosemide [Lasix] 40 mg PO DAILY 01/20/17 06/26/17 Latanoprost [Xalatan] 1 drop BOTH EYES HS 01/20/17 06/26/17 Nitroglycerin [Nitrostat] 0.4 mg SL Q5M PRN 06/25/17 06/26/17 Oxygen 2 l NS AD PRN 06/25/17 06/26/17 Previous Rx's Medication Instructions Recorded Albuterol Neb [Proventil Neb] 2.5 mg IH [id number] PRN 30 Days 01/29/17 inhsol levoFLOXacin [Levaquin] 500 mg PO DAILY #5 tablet 06/29/17 predniSONE [PredniSONE] 60 mg PO DAILY 15 Days tablet 06/29/17 Allergies Allergy/AdvReac Type Severity Reaction Status Date / Time No Known Allergies Allergy Verified 06/26/17 12:31 All systems ED: reviewed and negative except as stated. Review of Systems: As Per HPI Constitutional: Denies: fever, chills Eyes: Denies: eye pain ENT ED: Denies: ear pain Cardiovascular: Denies: chest pain Respiratory: Reports: as per HPI, dyspnea. Denies: cough Gastrointestinal: Denies: abdominal pain Genitourinary: Denies: urgency, dysuria Musculoskeletal: Denies: back pain Integumentary: Denies: rash Neurological: Denies: headache Psychiatric: Denies: anxiety Past Medical History - Past Medical History Attestation: Yes The following information was validated with the patient. Source: patient Medical history: Reports: CHF, COPD, DVT, hypertension, myocardial infarction, pulmonary embolus Surgical history: Reports: appendectomy, colectomy, knee replacement, LE stent(s ), sinus surgery Psychiatric history: Reports: no psych history - Social History Smoking Status: Never smoker Smokeless Tobacco Status: No Alcohol use: Reports: none Drug use: Reports: none Physical Exam Constitutional: NAD, vmild to moderate resp distress Eyes: PERRLA, sclera anicteric ENT & Mouth: MM dry Neck: normal inspection, neck is supple Resp: Diminished breath sounds bilaterally with bibasilar Rales, CV: Irregularly irregular rhythm GI: normal inspection, soft, no guarding or rigidity Neuro: A&O3, CNII-XII grossly intact, KELLY Skin: on limited exam, skin intact with no rashes or lesions - General Limitations: no limitations General appearance: alert, in no apparent distress Course Course Narrative: 81-year-old male with what appears to be acute on chronic respiratory failure with multifactorial etiology considered including pneumonia, pulmonary embolus, heart failure, and unanimous diuresis, check basic labwork with blood cultures lactate, patient this time so evidence of hypotension, no concerned for septic shock, however he is mildly tachypneic CBC BMP, troponin, blood cultures lactate chest x-ray, plan for CTA if good renal function - Reevaluation(s) Reevaluation #1: Patient with a lactic acidosis of 3.3, I think this is secondary to his CHF exacerbation, acute on chronic respiratory failure multifactorial, I will treat for healthcare associated pneumonia empirically with Zosyn and Levaquin, however even though he meets for severe sepsis he is not hypotense and is extremely labile, and at risk for pulmonary edema if given a 30 mL per kilogram bolus, for that reason we will repeat a lactate, no 30/kg bolus at this time does not meet for septic shock or is with hypotension, suspected his lactic acidosis secondary to chronic respiratory failure again plan is for CTA chest and admission Reevaluation #2: I did obtain an ABG that was within normal limits, no acidemia but the patient still appeared hypoxic with exertional and conversational dyspnea, will place on BiPAP CT with no evidence of pulmonary embolus, no evidence of pneumonia chronic fibrotic changes plan for admission for acute on chronic respiratory failure hospitalist paged. Reevaluation #3: Admitted to [facility] in serious but stable condition Time: 22:46 Vital Signs Temperature 97.7 F 07/04/17 18:45 Pulse Rate 69 07/04/17 18:45 Respiratory Rate 18 07/04/17 18:45 Blood Pressure 127/82 07/04/17 18:45 O2 Sat by Pulse Oximetry 96 07/04/17 18:45 Temperature 97.5 F L 07/04/17 23:20 Pulse Rate 68 07/04/17 23:20 Respiratory Rate 14 07/05/17 00:02 Blood Pressure 140/82 07/04/17 23:20 O2 Sat by Pulse Oximetry 96 07/05/17 00:02 Oxygen Delivery Oxygen Delivery Bipap Shortness of Breath/Dyspnea - Differential Diagnosis Likely: acute exacerbation of chronic obstructive airways disease, congestive heart failure, pulmonary embolism - Medical Records Medical records reviewed: Yes I reviewed the patient's medical records. - Lab Data Lab results reviewed: Yes I reviewed the patient's lab results. Result diagrams: 07/04/17 19:39 07/04/17 20:34 Lab Results 07/04/17 07/04/17 07/04/17 Range/Units 19:39 19:39 19:39 WBC 11.0 (4.3-11.1) K/mcL RBC 4.07 L (4.19-5.50) M/mcL Hgb 12.3 L (12.9-16.9) g/dL Hct 38.4 (37.5-50.1) % MCV 94.3 (83.0-100.0) fL MCH 30.2 (28.0-33.3) pg MCHC 32.0 (31.6-35.5) g/dL RDW 14.1 (11.5-14.5) % Plt Count 148 (140-400) K/mcL MPV 9.8 (9.4-12.4) fL Immature Gran % 3.9 (0-4) % Seg Neutrophils % 87.9 % Lymphocytes % 4.5 % Monocytes % 3.2 % Eosinophils % 0.0 % Basophils % 0.5 % Neutrophils # 9.7 H (1.6-8.9) K/mcL Lymphocytes # 0.5 L (0.6-4.6) K/mcL Monocytes # 0.4 (0.0-1.3) K/mcL Eosinophils # 0.0 (0.0-0.6) K/mcL Basophils # 0.1 (0.0-0.2) K/mcL PT (9.4-12.1) Seconds INR ABG pH (7.32-7.45) pH Units ABG pCO2 (35-45) mmHg ABG pO2 (85-104) mmHg ABG HCO3 (21-27) mEq/L ABG Total CO2 (20-26) mEq/L ABG O2 Saturation (95-98) % ABG Base Excess (-2 to 3) mEq/L Blood Gas Modality Inspired O2 (1-15=lpm [id number]=%) Sodium (136-145) mEq/L Potassium (3.5-4.5) mEq/L Chloride (98-109) mEq/L Carbon Dioxide (19-29) mEq/L BUN (8-26) mg/dL Creatinine (0.72-1.25) mg/dL Est GFR ( Amer) (> 60) Est GFR (Non-Af Amer) (> 60) BUN/Creatinine Ratio (6-26) Glucose (70-99) mg/dL Calculated Osmolality (280-300) Lactic Acid (0.5-2.2) mmol/L Calcium (8.6-10.8) mg/dL Troponin I 0.03 (0-0.03) ng/mL B-Natriuretic Peptide 183 H (0-100) pg/mL Specimen Rejected 07/04/17 07/04/17 07/04/17 Range/Units 20:00 20:34 20:34 WBC (4.3-11.1) K/mcL RBC (4.19-5.50) M/mcL Hgb (12.9-16.9) g/dL Hct (37.5-50.1) % MCV (83.0-100.0) fL MCH (28.0-33.3) pg MCHC (31.6-35.5) g/dL RDW (11.5-14.5) % Plt Count (140-400) K/mcL MPV (9.4-12.4) fL Immature Gran % (0-4) % Seg Neutrophils % % Lymphocytes % % Monocytes % % Eosinophils % % Basophils % % Neutrophils # (1.6-8.9) K/mcL Lymphocytes # (0.6-4.6) K/mcL Monocytes # (0.0-1.3) K/mcL Eosinophils # (0.0-0.6) K/mcL Basophils # (0.0-0.2) K/mcL PT (9.4-12.1) Seconds INR ABG pH (7.32-7.45) pH Units ABG pCO2 (35-45) mmHg ABG pO2 (85-104) mmHg ABG HCO3 (21-27) mEq/L ABG Total CO2 (20-26) mEq/L ABG O2 Saturation (95-98) % ABG Base Excess (-2 to 3) mEq/L Blood Gas Modality Inspired O2 (1-15=lpm [id number]=%) Sodium 139 (136-145) mEq/L Potassium 4.4 (3.5-4.5) mEq/L Chloride 104 (98-109) mEq/L Carbon Dioxide 22 (19-29) mEq/L BUN 35 H (8-26) mg/dL Creatinine 1.10 (0.72-1.25) mg/dL Est GFR ( Amer) > 60 (> 60) Est GFR (Non-Af Amer) > 60 (> 60) BUN/Creatinine Ratio 32 H (6-26) Glucose 345 H (70-99) mg/dL Calculated Osmolality 310 H (280-300) Lactic Acid 3.3 H (0.5-2.2) mmol/L Calcium 9.1 (8.6-10.8) mg/dL Troponin I (0-0.03) ng/mL B-Natriuretic Peptide (0-100) pg/mL Specimen Rejected Hemolyzed 07/04/17 07/04/17 Range/Units 20:34 21:16 WBC (4.3-11.1) K/mcL RBC (4.19-5.50) M/mcL Hgb (12.9-16.9) g/dL Hct (37.5-50.1) % MCV (83.0-100.0) fL MCH (28.0-33.3) pg MCHC (31.6-35.5) g/dL RDW (11.5-14.5) % Plt Count (140-400) K/mcL MPV (9.4-12.4) fL Immature Gran % (0-4) % Seg Neutrophils % % Lymphocytes % % Monocytes % % Eosinophils % % Basophils % % Neutrophils # (1.6-8.9) K/mcL Lymphocytes # (0.6-4.6) K/mcL Monocytes # (0.0-1.3) K/mcL Eosinophils # (0.0-0.6) K/mcL Basophils # (0.0-0.2) K/mcL PT 16.3 H D (9.4-12.1) Seconds INR 1.5 D ABG pH 7.46 H (7.32-7.45) pH Units ABG pCO2 38 (35-45) mmHg ABG pO2 100 (85-104) mmHg ABG HCO3 27 (21-27) mEq/L ABG Total CO2 29 H (20-26) mEq/L ABG O2 Saturation 98 (95-98) % ABG Base Excess 4 H (-2 to 3) mEq/L Blood Gas Modality [place] Inspired O2 28.0 (1-15=lpm [id number]=%) Sodium (136-145) mEq/L Potassium (3.5-4.5) mEq/L Chloride (98-109) mEq/L Carbon Dioxide (19-29) mEq/L BUN (8-26) mg/dL Creatinine (0.72-1.25) mg/dL Est GFR ( Amer) (> 60) Est GFR (Non-Af Amer) (> 60) BUN/Creatinine Ratio (6-26) Glucose (70-99) mg/dL Calculated Osmolality (280-300) Lactic Acid (0.5-2.2) mmol/L Calcium (8.6-10.8) mg/dL Troponin I (0-0.03) ng/mL B-Natriuretic Peptide (0-100) pg/mL Specimen Rejected - Radiology Data Radiology results reviewed: Yes I reviewed the patient's radiology results. Chest X-Ray 07/04/17 19:08 IMPRESSION: 1. No acute process. 2. Unchanged bilateral chronic pulmonary interstitial markings. D/ / George Vital MD / George Vital MD Interpreting Provider: George Vital MD Head CT 07/04/17 19:31 IMPRESSION: No acute intracranial abnormality. D/ / George Vital MD / George Vital MD Interpreting Provider: George Vital MD Chest CTA 07/04/17 20:05 IMPRESSION: 1. No acute cardiopulmonary abnormality or evidence of pulmonary embolism. 2. Stable chronic interstitial fibrotic changes. 3. Moderate cardiomegaly. D/ / Neil Ragsdale MD / Neil Ragsdale MD Interpreting Provider: Neil Ragsdale MD - EKG Data EKG attestation: Yes I reviewed and interpreted this EKG. Rhythm: Reports: A.Fib (A. fib 69 bpm no evidence of ST segment elevations or depressions.) Interpretation: Reports: no acute changes - Core Measures AMI Core Measures Followed: Yes Attestation Statement - Attestation Attestation: I examined this patient and my medical decision-making was reviewed with the Resident Physician. I agree with the documented findings, disposition and treatment plan as described except to the extent set forth below. Heart failure , lactic acidosis. Hypoxia. Plan to admit for evaluation of lactic acidosis in the setting of hypoxia. Antibiotic therapy initiated. We will provide gentle fluid bolus and recheck lactate. Patient had resolution of hypoxia time of admission. Blood gas without significant derangement. CT scan shows no evidence of pulmonary embolism. I spent greater than 35 minutes of critical care time resuscitating this acutely ill patient suffering from hypoxia in the setting of lactic acidosis. This is excluding billable procedures.
[2017-07-04 19:55] LABS: Basophils # 0.1 K/mcL (0.0-0.2); Basophils % 0.5 %; Hematocrit 38.4 % (37.5-50.1); Hemoglobin 12.3 g/dL (12.9-16.9); Immature Granulocytes % 3.9 % (0-4); Lymphocytes # 0.5 K/mcL (0.6-4.6); Lymphocytes % 4.5 %; Mean Corpuscular Hemoglobin 30.2 pg (28.0-33.3); Mean Corpuscular Volume 94.3 fL (83.0-100.0); Mean Platelet Volume 9.8 fL (9.4-12.4); Monocytes # 0.4 K/mcL (0.0-1.3); Monocytes % 3.2 %; Neutrophils # 9.7 K/mcL (1.6-8.9); Platelet Count 148 K/mcL (140-400); Red Blood Count 4.07 M/mcL (4.19-5.50); Red Cell Distribution Width 14.1 % (11.5-14.5); Segmented Neutrophils % 87.9 %
[2017-07-04 20:48] LABS: INR 1.5; Prothrombin Time 16.3 Seconds (9.4-12.1)
[2017-07-04] MEDS ORDERED: Levofloxacin 750 MG/150 ML 750 MG/150 ML BAG IVPB ONE (20:52)
[2017-07-04] MEDS ORDERED: Vancomycin 1,000 MG in D5% in Water 250 ML IVPB ONE (20:52)
[2017-07-04] MEDS ORDERED: Piperacillin/Tazobactam 3.375 GM in D5% in Water (Mini-Bag+) 100 ML IVPB ONE (20:52)
[2017-07-04] MEDS ORDERED: 0.9 % Sodium Chloride 250 ML IVC ONE (20:54)
[2017-07-04 20:57] LABS: BUN/Creatinine Ratio 32 (6-26); Blood Urea Nitrogen 35 mg/dL (8-26); Calcium 9.1 mg/dL (8.6-10.8); Carbon Dioxide 22 mEq/L (19-29); Chloride 104 mEq/L (98-109); Glucose 345 mg/dL (70-99); Osmolality,Calculated 310 (280-300); Potassium 4.4 mEq/L (3.5-4.5); Sodium 139 mEq/L (136-145); eGFR For African Americans > 60 (> 60); eGFR For Non-African Americans > 60 (> 60)
[2017-07-04 21:21] LABS: ABG Base Excess 4 mEq/L (-2 to 3); ABG HCO3 27 mEq/L (21-27); ABG Oxygen Saturation 98 % (95-98); ABG PCO2 38 mmHg (35-45); ABG PH 7.46 pH Units (7.32-7.45); ABG PO2 100 mmHg (85-104); ABG TCO2 29 mEq/L (20-26); Blood Gas Modality NC
[2017-07-04] MEDS ORDERED: Aspirin 325 MG TABLET PO ONE (21:25)
[2017-07-04] MEDS ORDERED: 0.9 % Sodium Chloride 250 ML ONE (21:46)
[2017-07-04] MEDS ORDERED: Acetaminophen 325 MG TABLET PO PRN (23:10)
[2017-07-04] MEDS ORDERED: *HR* HYDROcodone/Acet 5/325 mg TABLET PO PRN (23:10)
[2017-07-04] MEDS ORDERED: *HR* Morphine 2 MG/ML SYRINGE IVP PRN (23:10)
[2017-07-04] MEDS ORDERED: MOM Conc 10 ML UD.LIQ PO PRN (23:10)
[2017-07-04] MEDS ORDERED: *HR* Promethazine 25 MG/ML VIAL IVP PRN (23:10)
[2017-07-04] MEDS ORDERED: Ondansetron 4 MG/2 ML VIAL IVP PRN (23:10)
[2017-07-04] MEDS ORDERED: Naloxone 0.4 MG/ML INJ IVP PRN (23:10)
--- NOTE | 2017-07-04 23:22 | Internal Med History&Physical ---
Date of Encounter: 07/04/17 Time of Encounter: 22:50 Assessment and Plan (1) Acute and chronic respiratory failure Current visit: Yes Status: Acute Will admit the pt into Tele Reviewed ABG - does not show any hypercapnea will switch him to NC O2 from BiPAP since his symptoms improving Also started him on Q3 Duoneb IV Steroids SOlumedrol 40mg Q8hr Empirical abx Levofloxacin Qualifiers: Respiratory failure complication: hypoxia Qualified Code(s): J96.21 - Acute and chronic respiratory failure with hypoxia (2) Acute bronchitis Current visit: Yes Status: Acute Mostly bacterial reviewed CXR by myself - inc vascular congestion.. No acute infiltrates / consolidation Will start him on IV Levofloxacin send for sputum cx Qualifiers: Qualified Code(s): J20.9 - Acute bronchitis, unspecified (3) Lactic acidosis Current visit: Yes Status: Acute will cont trending (4) Acute exacerbation of chronic obstructive pulmonary disease Current visit: No Status: Acute on IV steroids + Duoneb + O2 (5) Acute on chronic diastolic heart failure Current visit: No Status: Acute He is also in acute CHF exacerbation cont IV Lasix 20mg BID (6) Interstitial lung disease Current visit: No Status: Acute (7) Atrial fibrillation Current visit: No Status: Chronic rate controlled on home meds on Coumadin for anticoag INR sub therapeutic, will give higher dose Qualifiers: Atrial fibrillation type: chronic Qualified Code(s): I48.2 - Chronic atrial fibrillation (8) History of DVT (deep vein thrombosis) Current visit: No Status: Chronic s/p IVC filter on coumadin too Internal Medicine - H&P: HPI Chief complaint: Shortness of breath Admitted From: Emergency Dept Plans for Post Hospital Care: Home History of present illness: Mr. Sequeira is a 81 year old male history of PE, CAD, DVT, diastolic CHF, A. fib , on Coumadin, COPD, interstitial lung disease who was recently admitted here for COPD exacerbation now he presented to ER with progressively worsening shortness of breath since he left the hospital 4 days ago. Patient's on 5 L when necessary at home during activity, as well as nighttime oxygen but has not been taking this. Patient reports intermittent chills but denies recent fevers , denies worsening leg swelling, does have exertional dyspnea, but denies any chest pain. Does c/o cough with yellowish sputum production Past Med Surg Social Fam HX - Past Medical History Medical history: CHF, COPD, DVT, hypertension, myocardial infarction, pulmonary embolus Psychiatric history: no psych history - Past Surgical History Surgical History: appendectomy, colectomy, knee replacement, LE stent(s), sinus surgery - Social History Smoking Status: Never smoker Smokeless Tobacco Status: No Alcohol use: none Drug use: none - Family History Mother Living Status: Hx Family Cardiac Disorders: Yes Hx Family Cancer: Yes Sister Living Status: Hx Family Cancer: Yes Father Living Status: Hx Family Cardiac Disorders: Yes Hx Family Respiratory Disorders: No Hx Family Cancer: No Hx Family GI Disorders: No Hx Family Endocrine Disorder: Yes (DM) Hx Family Neuromuscular Disorders: No Hx Family Neurologic Disorders: No Hx Family HEENT Disorders: No Hx Family Autoimmune Disorders: No Internal Medicine - H&P: Meds Ascorbate Calcium [Vitamin C] 1,000 mg PO QAM 12/23/15 [History] Aspirin [Adult Low Dose Aspirin EC] 81 mg PO QPM 12/23/15 [History] Budesonide/Formoterol 80/4.5 [Symbicort 80/4.5] 2 puff IH BID 12/23/15 [History ] Lovastatin 40 mg PO QPM 12/23/15 [History] Multivit-Min/FA/Lycopen/Lutein [Centrum Silver Tablet] 1 each PO QAM 12/23/15 [ History] Omeprazole [PriLOSEC] 20 mg PO QAM 12/23/15 [History] Albuterol Sulfate [Ventolin Hfa] 2 puff IH Q4H PRN 01/20/17 [History] Furosemide [Lasix] 40 mg PO DAILY 01/20/17 [History] Latanoprost [Xalatan] 1 drop BOTH EYES HS 01/20/17 [History] Albuterol Neb [Proventil Neb] 2.5 mg IH [id number] PRN 30 Days inhsol 01/29/17 [Rx ] Nitroglycerin [Nitrostat] 0.4 mg SL Q5M PRN 06/25/17 [History] Oxygen 2 l NS AD PRN 06/25/17 [History] levoFLOXacin [Levaquin] 500 mg PO DAILY #5 tablet 06/29/17 [Rx] predniSONE [PredniSONE] 60 mg PO DAILY 15 Days tablet 06/29/17 [Rx] 3 Allergy/AdvReac Type Severity Reaction Status Date / Time No Known Allergies Allergy Verified 06/26/17 12:31 All Systems PM: A 10-system review of systems was performed and is negative for pertinent findings except as documented above in the HPI. Review of systems: All the systems are reviewed everything is benign except the systems and symptoms I mentioned in the history of present illness - Constitutional Vitals: Temp Pulse Resp BP Pulse Ox 97.7 F 69 24 128/76 98 07/04/17 18:45 07/04/17 21:51 07/04/17 22:55 07/04/17 22:55 07/04/17 22:00 General appearance: Present: mild distress, A&O X 3, answers questions appropriately - Head Head exam: Present: atraumatic, normal inspection - Respiratory Respiratory exam: Present: decreased breath sounds, respiratory distress (mild) , wheezes (moderate). Absent: rales, rhonchi, stridor - Cardiovascular Cardiovascular exam: Present: irregular rhythm, +S1, +S2. Absent: systolic murmur - GI/Abdominal GI/Abdominal exam: Present: distended, normal bowel sounds, soft. Absent: rebound, rigid, tenderness - Extremities Exam Extremities exam: Present: pedal edema (1+). Absent: calf tenderness, tenderness - Back Exam Back exam: Absent: CVA tenderness (L), CVA tenderness (R) - Neurological Exam Neurological exam: Present: alert, oriented X3, no focal deficits - Psychiatric Psychiatric exam: Present: normal affect, normal mood Internal Med - H&P Results - Labs CBC & Chem 7: 07/04/17 19:39 07/04/17 20:34
[2017-07-04] MEDS ORDERED: *HR* Warfarin 2 MG TABLET PO ONE (23:45)
[2017-07-04] MEDS: Ipratropium/Albuterol Neb 3 ML IH SCH (23:59)
[2017-07-05] MEDS: MethylPREDNISolone 40 MG/ML VIAL IVP SCH ×3 (03:47→19:48)
[2017-07-05] MEDS: Ipratropium/Albuterol Neb 3 ML IH SCH ×6 (04:40→23:37)
[2017-07-05 05:26] LABS: Basophils % 0.3 %; Hematocrit 39.6 % (37.5-50.1); Hemoglobin 12.7 g/dL (12.9-16.9); Immature Granulocytes % 4.3 % (0-4); Immature Platelets 3.8 % (1.1-6.1); Lymphocytes # 0.6 K/mcL (0.6-4.6); Lymphocytes % 4.3 %; Mean Corpuscular HGB Conc 32.1 g/dL (31.6-35.5); Mean Corpuscular Hemoglobin 29.5 pg (28.0-33.3); Mean Corpuscular Volume 92.1 fL (83.0-100.0); Monocytes # 0.2 K/mcL (0.0-1.3); Monocytes % 1.6 %; Neutrophils # 11.5 K/mcL (1.6-8.9); Platelet Count 153 K/mcL (140-400); Red Cell Distribution Width 14.1 % (11.5-14.5); Segmented Neutrophils % 89.5 %
[2017-07-05 05:30] LABS: INR 1.5; Prothrombin Time 16.3 Seconds (9.4-12.1)
[2017-07-05 05:37] LABS: BUN/Creatinine Ratio 29 (6-26); Blood Urea Nitrogen 33 mg/dL (8-26); Calcium 8.9 mg/dL (8.6-10.8); Carbon Dioxide 26 mEq/L (19-29); Chloride 103 mEq/L (98-109); Glucose 306 mg/dL (70-99); Magnesium 2.1 mg/dL (1.6-2.6); Osmolality,Calculated 305 (280-300); Sodium 138 mEq/L (136-145); eGFR For African Americans > 60 (> 60); eGFR For Non-African Americans > 60 (> 60)
[2017-07-05] MEDS: Furosemide 20 MG/2 ML VIAL IVP SCH ×2 (09:45→16:22)
[2017-07-05] MEDS ORDERED: Perflutren Lipid Microsphere 1.3 ML in 0.9 % Sodium Chloride 8.7 ML IVP ONE (13:29)
[2017-07-05] MEDS ORDERED: Albuterol 2.5 MG/3 ML NEBULIZER IH PRN (13:31)
--- NOTE | 2017-07-05 13:32 | Electrocardiograph Report ---
[place] [id number] Test Date: 2017-07-04 Pat Name: David Sequeira Department: 102 Room: [id number] Gender: M Ends Down Checker: Jarret : 1935 Requested By: Villa Brown Order Number: [id number] Reading MD: Vladislav Arias Measurements Intervals [place] Rate: 69 P: [place]: 0 QRS: -54 QRSD: 122 T: 3 QT: 415 QTc: 434 Interpretive Statements ATRIAL FLUTTER/TACHYCARDIA WITH ABERRANT CONDUCTION OR VENTRICULAR PREMATURE COMPLEXES POSSIBLE ANTERIOR MYOCARDIAL INFARCTION [30 ms Q WAVE IN V3/V4, OR R < 0.2 mV IN V4], PROBABLY OLD Left bundle branch block Electronically Signed On 07-05-2017 13:30:44 EDT by Vladislav Arias
--- NOTE | 2017-07-05 13:38 | Pulmonology Consult Note ---
<Ignacio Garber - Last Filed: 07/05/17 13:53> Date of Encounter: 07/05/17 Time of Encounter: 13:32 Assessment and Plan (1) Acute and chronic respiratory failure Current Visit: Yes Status: Acute Secondary to COPD in setting of CHF Will add Symbicort at higher dose than what he takes at home, continue with scheduled Duonebs Supplemental oxygen and BiPAP as needed Continue with diuresis, steroids per primary team Qualifiers: Respiratory failure complication: hypoxia Qualified Code(s): J96.21 - Acute and chronic respiratory failure with hypoxia (2) Interstitial lung disease Current Visit: No Status: Chronic CT demonstrated stable chronic changes associated with fibrosis Continue supportive measures with breathing treatments and steroids (3) Acute on chronic diastolic heart failure Current Visit: No Status: Acute Agree with current diuresis, Lasix 20 IV BID Currently on fluid restricted diet Closely monitor kidney function and electrolytes while diuresing History of Present Illness Consult date: 07/05/17 Requesting physician: Rivas Patel Reason for consult: dyspnea Chief complaint: shortness of breath History of present illness: Pt is 81 M who presented with shortness of breath worse than his baseline. He states it occurred in rapid onset yesterday and was associated with inability to talk. He also reported chronic cough with brown sputum, but denies any pain in his chest with breathing or exertion. He does have history of COPD and follows with [facility] as outpatient. He is known to have usual interstitial pneumonitis and is on senior living steroids. In addition he has history of DVT and has IVC filter in place and is on Coumadin as well. He states he only uses oxygen at 5 L NC as needed, and does not use it daily. He also claims to sometimes use a breathing mask at night, but is unsure if it is a BiPAP or CPAP machine. Does admit to exposures when he was working at the [facility] [employer]. He has no personal history of smoking but does endorse significant second hand exposure from his parents. He denies fever, chills, nausea, vomiting , diarrhea, or constipation. Past Med Surg Social Fam HX - Past Medical History Medical history: CHF, COPD, DVT, hypertension, myocardial infarction, pulmonary embolus Psychiatric history: no psych history - Past Surgical History Surgical History: appendectomy, colectomy, knee replacement, LE stent(s), sinus surgery - Social History Smoking Status: Never smoker Smokeless Tobacco Status: No Alcohol use: none Drug use: none - Family History Mother Living Status: Hx Family Cardiac Disorders: Yes Hx Family Cancer: Yes Sister Living Status: Hx Family Cancer: Yes Father Living Status: Hx Family Cardiac Disorders: Yes Hx Family Respiratory Disorders: No Hx Family Cancer: No Hx Family GI Disorders: No Hx Family Endocrine Disorder: Yes (DM) Hx Family Neuromuscular Disorders: No Hx Family Neurologic Disorders: No Hx Family HEENT Disorders: No Hx Family Autoimmune Disorders: No Medications and Allergies Ascorbate Calcium [Vitamin C] 1,000 mg PO QAM 12/23/15 [History] Aspirin [Adult Low Dose Aspirin EC] 81 mg PO QPM 12/23/15 [History] Budesonide/Formoterol 80/4.5 [Symbicort 80/4.5] 2 puff IH BID 12/23/15 [History ] Lovastatin 40 mg PO QPM 12/23/15 [History] Multivit-Min/FA/Lycopen/Lutein [Centrum Silver Tablet] 1 each PO QAM 12/23/15 [ History] Omeprazole [PriLOSEC] 20 mg PO QAM 12/23/15 [History] Albuterol Sulfate [Ventolin Hfa] 2 puff IH Q4H PRN 01/20/17 [History] Furosemide [Lasix] 40 mg PO DAILY 01/20/17 [History] Latanoprost [Xalatan] 1 drop BOTH EYES HS 01/20/17 [History] Albuterol Neb [Proventil Neb] 2.5 mg IH [id number] PRN 30 Days inhsol 01/29/17 [Rx ] Nitroglycerin [Nitrostat] 0.4 mg SL Q5M PRN 06/25/17 [History] Oxygen 2 l NS AD PRN 06/25/17 [History] levoFLOXacin [Levaquin] 500 mg PO DAILY #5 tablet 06/29/17 [Rx] predniSONE [PredniSONE] 60 mg PO DAILY 15 Days tablet 06/29/17 [Rx] Warfarin [Coumadin] 1 mg PO DAILY 07/05/17 [History] 3 Allergy/AdvReac Type Severity Reaction Status Date / Time No Known Allergies Allergy Verified 06/26/17 12:31 All Systems: A 10-system review of systems was performed and is negative for pertinent findings except as documented above in the HPI. - Constitutional Constitutional: no chills, no fever(s), no frequent falls, no headache(s) - Cardiovascular Cardiovascular: dyspnea, dyspnea on exertion, edema, leg edema, no chest pain, no chest pain at rest, no chest pain with activity, no diaphoresis, no irregular heart rhythm - Respiratory Respiratory: cough, dyspnea, dyspnea on exertion, wheezing, no hemoptysis - Gastrointestinal Gastrointestinal: no abdominal pain, no diarrhea, no nausea, no vomiting - Genitourinary Genitourinary: no urinary frequency, no urinary hesitancy, no urinary incontinence, no urinary urgency - Musculoskeletal Musculoskeletal: no back pain, no neck pain, no numbness, no tingling - Neurological Neurological: no frequent falls, no headache(s) - Psychiatric Psychiatric: no anxiety, no depression Physical Examination Vital Signs: Vital Signs, Last 4 Hours Temp Pulse Resp BP Pulse Ox 07/05/17 11:16 98.4 F 81 16 115/70 99 07/05/17 11:02 20 96 General appearance: no acute distress, alert Eyes: nonicteric ENT: oropharynx moist Neck: supple Effort: normal Inspection: normal Auscultation: bilateral: rales Percussion: bilateral: not dull Tactile fremitus: bilateral: normal Cardiovascular: regular rate and rhythm Gastrointestinal: normoactive bowel sounds, non-distended Integumentary: other (ecchymosis noted bilaterally) Extremities: no cyanosis, no clubbing, edema Musculoskeletal: no deformities, ROM normal normal mental status, non-focal exam mood appropriate, affect normal Results - Laboratory Findings CBC and BMP: 07/05/17 05:18 07/05/17 05:18 ABG ABG pH 7.46 pH Units (7.32-7.45) H 07/04/17 21:16 ABG pCO2 38 mmHg (35-45) 07/04/17 21:16 ABG pO2 100 mmHg (85-104) 07/04/17 21:16 ABG O2 Saturation 98 % (95-98) 07/04/17 21:16 PT/INR, D-dimer PT 16.3 Seconds (9.4-12.1) H 07/05/17 05:18 Abnormal lab findings: Abnormal lab results WBC 12.9 K/mcL (4.3-11.1) H 07/05/17 05:18 Hgb 12.7 g/dL (12.9-16.9) L 07/05/17 05:18 Immature Gran % 4.3 % (0-4) H 07/05/17 05:18 Neutrophils # 11.5 K/mcL (1.6-8.9) H 07/05/17 05:18 PT 16.3 Seconds (9.4-12.1) H 07/05/17 05:18 ABG pH 7.46 pH Units (7.32-7.45) H 07/04/17 21:16 ABG Total CO2 29 mEq/L (20-26) H 07/04/17 21:16 ABG Base Excess 4 mEq/L (-2 to 3) H 07/04/17 21:16 BUN 33 mg/dL (8-26) H 07/05/17 05:18 BUN/Creatinine Ratio 29 (6-26) H 07/05/17 05:18 Glucose 306 mg/dL (70-99) H 07/05/17 05:18 Calculated Osmolality 305 (280-300) H 07/05/17 05:18 Lactic Acid 3.6 mmol/L (0.5-2.2) H 07/05/17 00:20 B-Natriuretic Peptide 228 pg/mL (0-100) H 07/05/17 05:18 - Clinical Findings Intake & Output: Intake & Output 07/04/17 07/05/17 07/05/17 23:59 07:59 15:59 Intake Total 0 / 350 0 / 0 240 / 240 Output Total 475 / 475 300 / 300 Balance 0 / 350 -475 / -475 -60 / -60 Weight 101.9 kg Consult Discharge Plan - Plan Referrals: Jose A Hernandez, DO [Primary Care Provider] - <Bonnie Guallpa - Last Filed: 07/05/17 22:08> Date of Encounter: 07/05/17 All Systems: A 10-system review of systems was performed and is negative for pertinent findings except as documented above in the HPI. Physical Examination Vital Signs: Vital Signs, Last 4 Hours Temp Pulse Resp BP Pulse Ox 07/05/17 16:12 18 97 07/05/17 15:28 97.6 F 73 20 133/72 95 Results - Laboratory Findings CBC and BMP: 07/05/17 05:18 07/05/17 05:18 ABG ABG pH 7.46 pH Units (7.32-7.45) H 07/04/17 21:16 ABG pCO2 38 mmHg (35-45) 07/04/17 21:16 ABG pO2 100 mmHg (85-104) 07/04/17 21:16 ABG O2 Saturation 98 % (95-98) 07/04/17 21:16 PT/INR, D-dimer PT 16.3 Seconds (9.4-12.1) H 07/05/17 05:18 Abnormal lab findings: Abnormal lab results WBC 12.9 K/mcL (4.3-11.1) H 07/05/17 05:18 Hgb 12.7 g/dL (12.9-16.9) L 07/05/17 05:18 Immature Gran % 4.3 % (0-4) H 07/05/17 05:18 Neutrophils # 11.5 K/mcL (1.6-8.9) H 07/05/17 05:18 PT 16.3 Seconds (9.4-12.1) H 07/05/17 05:18 ABG pH 7.46 pH Units (7.32-7.45) H 07/04/17 21:16 ABG Total CO2 29 mEq/L (20-26) H 07/04/17 21:16 ABG Base Excess 4 mEq/L (-2 to 3) H 07/04/17 21:16 BUN 33 mg/dL (8-26) H 07/05/17 05:18 BUN/Creatinine Ratio 29 (6-26) H 07/05/17 05:18 Glucose 306 mg/dL (70-99) H 07/05/17 05:18 Calculated Osmolality 305 (280-300) H 07/05/17 05:18 Lactic Acid 3.6 mmol/L (0.5-2.2) H 07/05/17 00:20 B-Natriuretic Peptide 228 pg/mL (0-100) H 07/05/17 05:18 - Clinical Findings Intake & Output: Intake & Output 07/05/17 07/05/17 07/05/17 07:59 15:59 23:59 Intake Total 0 / 0 240 / 240 Output Total 475 / 475 500 / 500 Balance -475 / -475 -260 / -260 - Attending Attestation I examined this patient and my medical decision-making was reviewed with the Resident Physician. I agree with the documented findings, disposition and treatment plan as described except to the extent set forth below. Patient seen and examined. Labs, radiology, chart personally reviewed. 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 Patient with idiopathic pulmonary fibrosis with worsening of dyspnea and possibility or an exacerbation versus pulmonary edema and patient's on appropriate treatment. I had extensive discussion with the family at the bedside regarding patient's using oxygen and suspect his mental status change could be secondary from hypoxia or side effect of medications since patient is on steroid. I became prognosis is poor especially with patient has multiple exacerbation and palliative care would be appropriate. Cardiovascular: stable. Follow-up echocardiogram. Diuresis as tolerated. discussed with primary team and thank you for consultation.
[2017-07-05] MEDS ORDERED: *HR* Dextrose 50 % in Water (Syg) 50 ML SYRINGE IVP PRN (14:16)
[2017-07-05] MEDS ORDERED: D5% in Water 1,000 ML IVC PRN (14:16)
[2017-07-05] MEDS ORDERED: Dextrose Gel 15 GM PO PRN ×2 (14:16)
[2017-07-05] MEDS: Budesonide/Formoterol 160/4.5 MDI IH SCH ×2 (15:34→19:59)
--- NOTE | 2017-07-05 16:11 | Internal Med Progress Note ---
<tSefan Blanco - Last Filed: 07/05/17 16:53> Date of Encounter: 07/05/17 - Assessment and plan (1) Acute and chronic respiratory failure Current Visit: Yes Status: Acute Qualifiers: Respiratory failure complication: hypoxia Qualified Code(s): J96.21 - Acute and chronic respiratory failure with hypoxia (2) Interstitial lung disease Current Visit: No Status: Chronic (3) Acute exacerbation of chronic obstructive pulmonary disease Current Visit: No Status: Acute (4) Atrial fibrillation Current Visit: No Status: Chronic Qualifiers: Atrial fibrillation type: chronic Qualified Code(s): I48.2 - Chronic atrial fibrillation (5) Acute bronchitis Current Visit: Yes Status: Acute Qualifiers: Bronchitis organism: other organism Qualified Code(s): J20.8 - Acute bronchitis due to other specified organisms (6) Acute on chronic diastolic heart failure Current Visit: No Status: Acute (7) Diabetes mellitus type 2 in obese Current Visit: No Status: Chronic - Constitutional Vitals: Temp Pulse Resp BP Pulse Ox 97.6 F 73 18 133/72 97 07/05/17 15:28 07/05/17 15:28 07/05/17 16:12 07/05/17 15:28 07/05/17 16:12 Internal Medicine: Result - Labs CBC & Chem 7: 07/05/17 05:18 07/05/17 05:18 Labs: Short CBC 07/05/17 Range/Units 05:18 WBC 12.9 H (4.3-11.1) K/mcL Hgb 12.7 L (12.9-16.9) g/dL Hct 39.6 (37.5-50.1) % Plt Count 153 (140-400) K/mcL Neutrophils # 11.5 H (1.6-8.9) K/mcL BMP 07/05/17 05:18 Sodium 138 Potassium 4.0 Chloride 103 Carbon Dioxide 26 BUN 33 H Creatinine 1.13 Glucose 306 H Calcium 8.9 Cardiac Enzymes 07/05/17 07/05/17 Range/Units 00:20 05:18 Troponin I 0.02 0.03 (0-0.03) ng/mL - ABG Interpretation ABG results: ABG ABG pH 7.46 pH Units (7.32-7.45) H 07/04/17 21:16 ABG pCO2 38 mmHg (35-45) 07/04/17 21:16 ABG pO2 100 mmHg (85-104) 07/04/17 21:16 ABG O2 Saturation 98 % (95-98) 07/04/17 21:16 PT/INR, D-dimer PT 16.3 Seconds (9.4-12.1) H 07/05/17 05:18 Consult Discharge Plan - Plan Referrals: Jose A Hernandez DO [Primary Care Provider] - - Attending Attestation I examined this patient and my medical decision-making was reviewed with the Resident Physician on 07/05/17. I agree with the documented findings, disposition and treatment plan as described except to the extent set forth below. Mr. Sequeira is currently admitted for acute on chronic hypoxic resp failure. He has hx of ILD and COPD. He remains moderate to high risk due to potential for worsening respiratory status. Mr Sequeira is doing OK. He did just get up and urinate in the corner of the room but is oriented at this time. He was off his oxygen. He is moderately dyspneic with movement. No fever or chills. No CP. No GI issues. Exam alert. Mod distress due to resp status Mucus membranes dry Heart distant Lungs with rales bilaterally. No wheeze Abd soft I/P 1. Hypoxia 2. ILD 3. COPD Further diagnoses and plan as above. <Cesia Dong - Last Filed: 07/05/17 21:57> Date of Encounter: 07/05/17 Time of Encounter: 10:00 - Assessment and plan (1) Acute and chronic respiratory failure Current Visit: Yes Status: Acute Assessment and plan: -likely 2/2 COPD in the setting of diastolic CHF -supplemental O2 and/or BiPAP as needed -continue IV Lasix for diuresis and continue solu-medrol -pulmonology on board Qualifiers: Respiratory failure complication: hypoxia Qualified Code(s): J96.21 - Acute and chronic respiratory failure with hypoxia (2) Interstitial lung disease Current Visit: Yes Status: Chronic Assessment and plan: -CXR shows unchanged b/l chronic pulmonary interstitial griffin -chest CTA shows stable, chronic interstitial fibrotic changes -supportive care with breathing treatments (proventil, duoneb, and symbicort) and steroids (40mg IVP q8h) (3) Acute on chronic diastolic heart failure Current Visit: Yes Status: Acute Assessment and plan: -diuresis with Lasix 20mg IV BID, continue to monitor kidneys (Cr today 1.13) -fluid restricted diet 1500 mL -monitor I's and O's. Current balance is -685 (In 290, out 975) (4) Atrial fibrillation Current Visit: No Status: Chronic Assessment and plan: -rate controlled -anticoagulated with coumadin -on telemetry Qualifiers: Atrial fibrillation type: chronic Qualified Code(s): I48.2 - Chronic atrial fibrillation (5) DVT prophylaxis Current Visit: Yes Status: Acute Assessment and plan: -Currently takes coumadin -h/o IVC filter placement -compression stockings - Subjective Interval history: Patient seen and examined at bedside this morning. Patient sitting up in bed, says his breathing is better than yesterday. He endorses no complaints today and denies fever, chills, orthopnea. He admits to productive cough, dyspnea on exertion, and LE edema. - Constitutional Vitals: Temp Pulse Resp BP Pulse Ox 97.6 F 73 20 133/72 95 07/05/17 15:28 07/05/17 15:28 07/05/17 15:28 07/05/17 15:28 07/05/17 15:28 General appearance: Present: mild distress, A&O X 3, answers questions appropriately Exam: Gen: Vitals noted. No acute distress. AAOx3 HEENT: normocephalic, atraumatic, EOMI Cardiac: RRR, no murmur, +S1/S2 Pulmonary: fine rales b/l, diminished airflow b/l, doesn't appear to be in respiratory distress, conversational dyspnea Abdomen: soft, nontender, BS noted Extremities: b/l +1 LE edema, b/l calf tenderness with palpation, no cyanosis, DP pulses present and equal Neuro: moves all extremities, no focal deficits Internal Medicine: Result - Labs CBC & Chem 7: 07/05/17 05:18 07/05/17 05:18 Labs: Short CBC 07/05/17 Range/Units 05:18 WBC 12.9 H (4.3-11.1) K/mcL Hgb 12.7 L (12.9-16.9) g/dL Hct 39.6 (37.5-50.1) % Plt Count 153 (140-400) K/mcL Neutrophils # 11.5 H (1.6-8.9) K/mcL BMP 07/05/17 05:18 Sodium 138 Potassium 4.0 Chloride 103 Carbon Dioxide 26 BUN 33 H Creatinine 1.13 Glucose 306 H Calcium 8.9 Cardiac Enzymes 07/05/17 07/05/17 Range/Units 00:20 05:18 Troponin I 0.02 0.03 (0-0.03) ng/mL - ABG Interpretation ABG results: ABG ABG pH 7.46 pH Units (7.32-7.45) H 07/04/17 21:16 ABG pCO2 38 mmHg (35-45) 07/04/17 21:16 ABG pO2 100 mmHg (85-104) 07/04/17 21:16 ABG O2 Saturation 98 % (95-98) 07/04/17 21:16 PT/INR, D-dimer PT 16.3 Seconds (9.4-12.1) H 07/05/17 05:18 - VTE Documentation of Mechanical Device: Graduated compression elastic hosiery
[2017-07-05] MEDS: Insulin LISPRO 300 UNITS/3 ML VIAL SQ SCH ×2 (16:22→20:58)
[2017-07-05] MEDS ORDERED: Warfarin perPT PO PRN (18:00)
[2017-07-05] MEDS ORDERED: *HR* Warfarin 3 MG TABLET PO SCH (18:00)
[2017-07-05] MEDS: Insulin DETEMIR 100 UNIT/ML X5UNITS SQ SCH (20:58)
[2017-07-06] MEDS: Ipratropium/Albuterol Neb 3 ML IH SCH ×6 (03:12→23:34)
[2017-07-06 03:49] LABS: Hematocrit 38.8 % (37.5-50.1); Hemoglobin 12.4 g/dL (12.9-16.9); Mean Corpuscular Volume 93.7 fL (83.0-100.0); Mean Platelet Volume 9.9 fL (9.4-12.4); Platelet Count 147 K/mcL (140-400); Red Blood Count 4.14 M/mcL (4.19-5.50)
[2017-07-06 03:51] LABS: INR 1.7
[2017-07-06 03:59] LABS: BUN/Creatinine Ratio 30 (6-26); Blood Urea Nitrogen 35 mg/dL (8-26); Calcium 9.1 mg/dL (8.6-10.8); Carbon Dioxide 28 mEq/L (19-29); Chloride 102 mEq/L (98-109); Glucose 249 mg/dL (70-99); Osmolality,Calculated 302 (280-300); Potassium 4.2 mEq/L (3.5-4.5); Sodium 138 mEq/L (136-145); eGFR For African Americans > 60 (> 60); eGFR For Non-African Americans > 60 (> 60)
[2017-07-06] MEDS: MethylPREDNISolone 40 MG/ML VIAL IVP SCH ×3 (04:07→22:03)
--- NOTE | 2017-07-06 07:30 | Internal Med Progress Note ---
<Amadou Maohney P - Last Filed: 07/06/17 10:11> Date of Encounter: 07/06/17 - Constitutional Vitals: Temp Pulse Resp BP Pulse Ox 98.0 F 78 18 133/83 97 07/06/17 07:54 07/06/17 07:54 07/06/17 07:54 07/06/17 07:54 07/06/17 08:27 Internal Medicine: Result - Labs CBC & Chem 7: 07/06/17 03:28 07/06/17 03:28 Labs: Short CBC 07/06/17 Range/Units 03:28 WBC 15.9 H (4.3-11.1) K/mcL Hgb 12.4 L (12.9-16.9) g/dL Hct 38.8 (37.5-50.1) % Plt Count 147 (140-400) K/mcL BMP 07/06/17 03:28 Sodium 138 Potassium 4.2 Chloride 102 Carbon Dioxide 28 BUN 35 H Creatinine 1.16 Glucose 249 H Calcium 9.1 - ABG Interpretation ABG results: ABG ABG pH 7.46 pH Units (7.32-7.45) H 07/04/17 21:16 ABG pCO2 38 mmHg (35-45) 07/04/17 21:16 ABG pO2 100 mmHg (85-104) 07/04/17 21:16 ABG O2 Saturation 98 % (95-98) 07/04/17 21:16 PT/INR, D-dimer PT 18.0 Seconds (9.4-12.1) H 07/06/17 03:28 - Impressions Impressions Echocardiogram 07/05/17 23:18 Impressions: LVEF 55-60%. Normal LV chamber size and function. Mild concentric left ventricular hypertrophy. Atypical septal motion consistent with bundle branch block. Indeterminate diastolic function. Normal right ventricular structure and function. No evidence of pulmonary hypertension. No significant valvular dysfunction. Left Ventricular Wall Motion: Rest Echo Findings All wall segments showed normal motion. Findings: Study Quality * Technically adequate exam. ECG Findings * Difficult to determine rhythm, bundle branch block noted. Left Ventricle * LVEF 55-60%. * Normal LV chamber size and function. * Mild concentric left ventricular hypertrophy. * Atypical septal motion consistent with bundle branch block. * Indeterminate diastolic function. Right Ventricle * Normal right ventricular structure and function. Left Atrium * Moderately dilated left atrium. Right Atrium * Mildly dilated right atrium. Interatrial Septum * Interatrial septum not well evaluated. Aortic Valve * Aortic valve not well visualized. * Grossly, appears to be mildly sclerotic and trileaflet. * No aortic regurgitation. * No aortic stenosis. Mitral Valve * Normal mitral valve structure and function. * No mitral regurgitation. * No mitral stenosis. Tricuspid Valve * Normal tricuspid valve structure and function. * Trace tricuspid regurgitation. * No evidence of pulmonary hypertension. Pulmonic Valve * Normal pulmonic valve structure and function. * Trace pulmonic regurgitation. Aorta * Normally sized aortic root. Pericardium * The pericardium appears normal. IVC * Normal IVC dimensions and inspiratory collapse. Pulmonary Artery * Normal visualized portions of the main pulmonary artery. Consult Discharge Plan - Plan Referrals: Jose A Hernandez DO [Primary Care Provider] - - Attending Attestation I examined this patient and my medical decision-making was reviewed with the Resident Physician. I agree with the documented findings, disposition and treatment plan as described except to the extent set forth below. Patient seen and examined by me. Background history of advanced interstitial lung disease/COPD. Admitted with multiple exacerbations in the past. This admission is for worsening COPD exacerbation. Presently on steroids/antibiotics/bronchodilator. Evaluated by pulmonary. Pulmonology recommended evaluation by palliative care. Spoke with the palliative care provider technical operations manager for evaluation. <Cesia Dong - Last Filed: 07/06/17 23:37> Date of Encounter: 07/06/17 Time of Encounter: 10:15 - Assessment and plan (1) Acute and chronic respiratory failure Current Visit: Yes Status: Acute Assessment and plan: -likely 2/2 COPD in the setting of diastolic CHF -supplemental O2 and/or BiPAP as needed -continue IV Lasix for diuresis and continue solu-medrol -pulmonology on board -palliative consulted Qualifiers: Respiratory failure complication: hypoxia Qualified Code(s): J96.21 - Acute and chronic respiratory failure with hypoxia (2) Interstitial lung disease Current Visit: Yes Status: Chronic Assessment and plan: -CT shows stable chronic changes associated with fibrosis -supportive care with breathing treatments (proventil, duoneb, and symbicort) and steroids (3) Acute on chronic diastolic heart failure Current Visit: Yes Status: Acute Assessment and plan: -Echo 07/05/17 shows LVEF of 55-60%; no valvular dysfunction; atypical septal wall motion consistent with BBB -diuresis with Lasix 20mg IV BID, continue to monitor kidneys and electrolytes with morning labs -fluid restricted diet 1500 mL -daily weight and monitor I's and O's. Current balance is 455 (4) Atrial fibrillation Current Visit: No Status: Chronic Assessment and plan: -rate controlled -anticoagulated with coumadin -on telemetry Qualifiers: Atrial fibrillation type: chronic Qualified Code(s): I48.2 - Chronic atrial fibrillation (5) DVT prophylaxis Current Visit: Yes Status: Acute Assessment and plan: -Currently takes coumadin -h/o IVC filter placement -compression stockings - Subjective Interval history: Patient seen and chart reviewed this morning. Patient's shortness of breath is improved over yesterday. He endorses no complaints today. - Constitutional Vitals: Temp Pulse Resp BP Pulse Ox 97.8 F 94 20 129/80 97 07/06/17 04:24 07/06/17 04:24 07/06/17 04:24 07/06/17 04:24 07/06/17 04:24 General appearance: Present: mild distress, A&O X 3, answers questions appropriately Exam: Gen: Vitals noted. Cardiac: regular rate, irregular rhythm Pulmonary: CTAB; no wheezes, rales, or rhonchi; no respiratory distress, equal chest rise Neuro: AAOx3, no focal deficits, no speech deficits Psych: Appropriately answers questions, cooperative, appropriate behavior Internal Medicine: Result - Labs CBC & Chem 7: 07/06/17 03:28 07/06/17 03:28 Labs: Short CBC 07/06/17 Range/Units 03:28 WBC 15.9 H (4.3-11.1) K/mcL Hgb 12.4 L (12.9-16.9) g/dL Hct 38.8 (37.5-50.1) % Plt Count 147 (140-400) K/mcL BMP 07/06/17 03:28 Sodium 138 Potassium 4.2 Chloride 102 Carbon Dioxide 28 BUN 35 H Creatinine 1.16 Glucose 249 H Calcium 9.1 - ABG Interpretation ABG results: ABG ABG pH 7.46 pH Units (7.32-7.45) H 07/04/17 21:16 ABG pCO2 38 mmHg (35-45) 07/04/17 21:16 ABG pO2 100 mmHg (85-104) 07/04/17 21:16 ABG O2 Saturation 98 % (95-98) 07/04/17 21:16 PT/INR, D-dimer PT 18.0 Seconds (9.4-12.1) H 07/06/17 03:28 - Impressions Impressions Echocardiogram 07/05/17 23:18 Impressions: LVEF 55-60%. Normal LV chamber size and function. Mild concentric left ventricular hypertrophy. Atypical septal motion consistent with bundle branch block. Indeterminate diastolic function. Normal right ventricular structure and function. No evidence of pulmonary hypertension. No significant valvular dysfunction. Left Ventricular Wall Motion: Rest Echo Findings All wall segments showed normal motion. Findings: Study Quality * Technically adequate exam. ECG Findings * Difficult to determine rhythm, bundle branch block noted. Left Ventricle * LVEF 55-60%. * Normal LV chamber size and function. * Mild concentric left ventricular hypertrophy. * Atypical septal motion consistent with bundle branch block. * Indeterminate diastolic function. Right Ventricle * Normal right ventricular structure and function. Left Atrium * Moderately dilated left atrium. Right Atrium * Mildly dilated right atrium. Interatrial Septum * Interatrial septum not well evaluated. Aortic Valve * Aortic valve not well visualized. * Grossly, appears to be mildly sclerotic and trileaflet. * No aortic regurgitation. * No aortic stenosis. Mitral Valve * Normal mitral valve structure and function. * No mitral regurgitation. * No mitral stenosis. Tricuspid Valve * Normal tricuspid valve structure and function. * Trace tricuspid regurgitation. * No evidence of pulmonary hypertension. Pulmonic Valve * Normal pulmonic valve structure and function. * Trace pulmonic regurgitation. Aorta * Normally sized aortic root. Pericardium * The pericardium appears normal. IVC * Normal IVC dimensions and inspiratory collapse. Pulmonary Artery * Normal visualized portions of the main pulmonary artery. - VTE Documentation of Mechanical Device: Graduated compression elastic hosiery
[2017-07-06] MEDS: Budesonide/Formoterol 160/4.5 MDI IH SCH ×2 (07:34→20:15)
[2017-07-06] MEDS: Insulin LISPRO 300 UNITS/3 ML VIAL SQ SCH ×4 (08:10→21:45)
[2017-07-06] MEDS: Furosemide 20 MG/2 ML VIAL IVP SCH ×2 (08:10→17:30)
--- NOTE | 2017-07-06 12:55 | Palliative - Consult Note ---
Date of Encounter: 07/06/17 Time of Encounter: 12:00 - Assessment and Plan (1) Dyspnea and respiratory abnormalities Current Visit: Yes Status: Acute Assessment and plan: Patient with COPD - interstitial pulmonary fibrosis. Patient is managed at home with PRN O2, CPAP/Bipap, steroid therapy and medications. Patient reports that he is active at home and still drives a car. He states that he uses home O2 PRN up to 5L O2. Plan: Donebs Proventil Symbicort Lasix - Combo Distolic HF/COPD Solumedrol Position for comfort and pursed chelo breathing. (2) Constipation Current Visit: No Status: Acute Assessment and plan: Patient reports some issues with bowel movements. Reports BM today and described as "hard to go". Reports relief at home if he takes his MOM as scheduled. Discussed patient on Colace PRN and MOM PRN. Will make Colace scheduled to assist with ease of going. Qualifiers: Constipation type: unspecified constipation type Qualified Code(s): K59.00 - Constipation, unspecified (3) Goals of care, counseling/discussion Current Visit: Yes Status: Acute Assessment and plan: Patient lives at home with his Dianne (Madison is legal name). Patient has been actively participating in PT here and agrees to transition home with home health services for PT. Patient has one daughter Melinda and she lives in [place], [place] and visits often. The patient has drafted DPOA and Living Will forms and will have family bring them in for filing in the medical record. The patient understands that he desires to be a FULL CODE. He is fine with short term intubation and mechanical ventilation. We discussed CPR, ACLS medications and defibrillation. The patient desires all these interventions and states that he has discussed his desires with his and daughter. I explained to the patient that his heart and lungs have chronic issues with how they function. I discussed that he is fragile and more likely to have complications (SOB, edema, dyspnea, weight gain) than someone who doesn't have these chronic conditions. The patient remains a FULL CODE, and will DC to home on the care of his . He also has a sister and [id number] who are engaged in his care. The patient has home O2 and CPAP/Bipap as needed at home. The patient also has a strong scientologist support and metal machine operator Ru Lima attended this meeting and offered his support. (4) COPD exacerbation Current Visit: No Status: Acute (5) Acute and chronic respiratory failure Current Visit: Yes Status: Acute Qualifiers: Respiratory failure complication: hypoxia Qualified Code(s): J96.21 - Acute and chronic respiratory failure with hypoxia (6) Chronic diastolic heart failure Current Visit: No Status: Chronic Palliative-CN HPI - Data of Consult Patient: new to practice Consult date: 07/06/17 Requesting Physician: Amadou Mahoney MD Primary Care Provider: Jose A Hernandez - Consult Narrative Palliative Care/Comfort Measures: Palliative care Reason for consult: Goals of Care discussion History of present illness: Mr. Sequeira is a 81 year old male with a history of COPD with Interstitial pulmonary fibrosis, PE, DVT, CAD, CHF, and Atrial Fibrillation. Patient was admitted with acute respiratory failure. The patient had been discharged 4 days prior to readmission. Upon this consult, the patient is sitting up in the chair at bedside. He is alert and oriented. He is currently on room air with O2 sats of 95%. He reports wearing PRN O2 at home up to 5L at times. he also states that he uses a CPAP or Bipap machine at home at night PRN but he is unclear as to what type of machine it is. The patient has a history of DVT, PE with past insertion of an IVC filter. The patent lives at home with his Dianne #[phone]. This palliative care consult is for goals of care discussion. CC: Amadou Mahoney MD Past Med Surg Social Fam HX - Past Medical History Attestation: Yes The following information was validated with the patient. Source: patient, old records reviewed, nursing notes reviewed Medical history: atrial fibrillation, CHF, COPD, coronary artery disease, DVT, hypertension, myocardial infarction, pulmonary embolus Psychiatric history: no psych history - Past Surgical History Surgical History: appendectomy, colectomy, knee replacement, LE stent(s), sinus surgery - Social History Smoking Status: Never smoker Smokeless Tobacco Status: No Alcohol use: none Drug use: none Occupational status: retired Current living situation: Home Activity Level: Independent ambulation, Mostly sedentary Recent Out of Country Travel Within the Last 8 Weeks: No Exposure or Possible Exposure to Illness During Travel: No - Family History Mother Living Status: Hx Family Cardiac Disorders: Yes Hx Family Cancer: Yes Sister Living Status: Hx Family Cancer: Yes Father Living Status: Hx Family Cardiac Disorders: Yes Hx Family Respiratory Disorders: No Hx Family Cancer: No Hx Family GI Disorders: No Hx Family Endocrine Disorder: Yes (DM) Hx Family Neuromuscular Disorders: No Hx Family Neurologic Disorders: No Hx Family HEENT Disorders: No Hx Family Autoimmune Disorders: No Medications and Allergies Ascorbate Calcium [Vitamin C] 1,000 mg PO QAM 12/23/15 [History] Aspirin [Adult Low Dose Aspirin EC] 81 mg PO QPM 12/23/15 [History] Budesonide/Formoterol 80/4.5 [Symbicort 80/4.5] 2 puff IH BID 12/23/15 [History ] Lovastatin 40 mg PO QPM 12/23/15 [History] Multivit-Min/FA/Lycopen/Lutein [Centrum Silver Tablet] 1 each PO QAM 12/23/15 [ History] Omeprazole [PriLOSEC] 20 mg PO QAM 12/23/15 [History] Albuterol Sulfate [Ventolin Hfa] 2 puff IH Q4H PRN 01/20/17 [History] Furosemide [Lasix] 40 mg PO DAILY 01/20/17 [History] Latanoprost [Xalatan] 1 drop BOTH EYES HS 01/20/17 [History] Albuterol Neb [Proventil Neb] 2.5 mg IH [id number] PRN 30 Days inhsol 01/29/17 [Rx ] Nitroglycerin [Nitrostat] 0.4 mg SL Q5M PRN 06/25/17 [History] Oxygen 2 l NS AD PRN 06/25/17 [History] levoFLOXacin [Levaquin] 500 mg PO DAILY #5 tablet 06/29/17 [Rx] predniSONE [PredniSONE] 60 mg PO DAILY 15 Days tablet 06/29/17 [Rx] Warfarin [Coumadin] 1 mg PO DAILY 07/05/17 [History] 3 Allergy/AdvReac Type Severity Reaction Status Date / Time No Known Allergies Allergy Verified 06/26/17 12:31 All systems: reviewed and no additional remarkable complaints except as stated Review of systems: SOB, dyspnea with exertion, and long conversation. - Constitutional Constitutional ROS PAL: malaise - EENT Eyes: requires corrective lenses - Cardiovascular Cardiovascular ROS: dyspnea on exertion, edema, pedal edema - Respiratory Respiratory: dyspnea, dyspnea on exertion - Gastrointestinal Gastrointestinal: constipation (occasional) - Genitourinary Genitourinary ROS male: urinary frequency - Musculoskeletal Musculoskeletal ROS IM: muscle weakness - Integumentary ROS Integumentary: dry skin, erythema, lesions (right forearm) - Neurological Neurological ROS: weakness - Psychiatric Psychiatric general PM: anxiety (from dyspnea) Palliative Care-Exam - Constitutional Vitals: Temp Pulse Resp BP Pulse Ox 98.0 F 78 18 133/83 94 07/06/17 07:54 07/06/17 07:54 07/06/17 11:20 07/06/17 07:54 07/06/17 11:20 General appearance: Present: cooperative, no acute distress - Head Head Exam: Present: atraumatic, normal inspection - Eye Eye exam: Present: PERRL Pupils: Present: PERRL - ENT ENT exam: Present: mucous membranes moist - Neck Neck exam: Present: full ROM - Respiratory Respiratory exam: Present: decreased breath sounds, wheezes - Expanded Respiratory Exam Location: decreased breath sounds: Left, Right, Lower - Cardiovascular Cardiovascular exam: Present: RRR, +S1, +S2 - Expanded Cardiovascular Exam Peripheral pulses: 1+: Femoral (L) PM, Femoral (R) PM, Posterior Tibialis (L), Posterior Tibialis (R), 2+: Carotid (L) PM, Carotid (R) PM, Radial (L), Radial ( R), Dorsalis Pedis (L) PM, Dorsalis Pedis (R) PM (compression stockings on) - GI/Abdominal Exam GI/Abdominal exam: Present: normal bowel sounds, soft - Additional comments: voids per urinal - Extremities Exam Extremities exam: Present: full ROM, pedal edema - Expanded Upper Extremities Exam Shoulder exam: Present: full ROM Upper Arm exam: Present: full ROM Forearm wrist exam: Present: full ROM - Expanded Lower Extremities Exam Upper Leg exam: Present: full ROM Lower Leg exam: Present: full ROM - Neurological Exam Neurological exam: Present: alert, oriented X3 Internal Medicine - CN: Reslt - Labs CBC & Chem 7: 07/06/17 03:28 07/06/17 03:28 Labs: Short CBC 07/06/17 Range/Units 03:28 WBC 15.9 H (4.3-11.1) K/mcL Hgb 12.4 L (12.9-16.9) g/dL Hct 38.8 (37.5-50.1) % Plt Count 147 (140-400) K/mcL [facility] [place] 07/06/17 03:28 Sodium 138 Potassium 4.2 Chloride 102 Carbon Dioxide 28 BUN 35 H Creatinine 1.16 Glucose 249 H Calcium 9.1 - ABG Interpretation ABG results: ABG ABG pH 7.46 pH Units (7.32-7.45) H 07/04/17 21:16 ABG pCO2 38 mmHg (35-45) 07/04/17 21:16 ABG pO2 100 mmHg (85-104) 07/04/17 21:16 ABG O2 Saturation 98 % (95-98) 07/04/17 21:16 PT/INR, D-dimer PT 18.0 Seconds (9.4-12.1) H 07/06/17 03:28 - Impressions Impressions Echocardiogram 07/05/17 23:18 Impressions: LVEF 55-60%. Normal LV chamber size and function. Mild concentric left ventricular hypertrophy. Atypical septal motion consistent with bundle branch block. Indeterminate diastolic function. Normal right ventricular structure and function. No evidence of pulmonary hypertension. No significant valvular dysfunction. Left Ventricular Wall Motion: Rest Echo Findings All wall segments showed normal motion. Findings: Study Quality * Technically adequate exam. ECG Findings * Difficult to determine rhythm, bundle branch block noted. Left Ventricle * LVEF 55-60%. * Normal LV chamber size and function. * Mild concentric left ventricular hypertrophy. * Atypical septal motion consistent with bundle branch block. * Indeterminate diastolic function. Right Ventricle * Normal right ventricular structure and function. Left Atrium * Moderately dilated left atrium. Right Atrium * Mildly dilated right atrium. Interatrial Septum * Interatrial septum not well evaluated. Aortic Valve * Aortic valve not well visualized. * Grossly, appears to be mildly sclerotic and trileaflet. * No aortic regurgitation. * No aortic stenosis. Mitral Valve * Normal mitral valve structure and function. * No mitral regurgitation. * No mitral stenosis. Tricuspid Valve * Normal tricuspid valve structure and function. * Trace tricuspid regurgitation. * No evidence of pulmonary hypertension. Pulmonic Valve * Normal pulmonic valve structure and function. * Trace pulmonic regurgitation. Aorta * Normally sized aortic root. Pericardium * The pericardium appears normal. IVC * Normal IVC dimensions and inspiratory collapse. Pulmonary Artery * Normal visualized portions of the main pulmonary artery. Consult Discharge Plan - Plan Referrals: Jose A Hernandez DO [Primary Care Provider] - Palliative Quality Palliative Quality: Screen for Code Status: Yes, Screen for Goals of Care: Yes, Screen for Pain: Yes, If Pain Regimen Started, Initiate Bowel Regimen: No, Screen for Nausea/Vomitting: Yes
[2017-07-06] MEDS ORDERED: *HR* Warfarin 1 MG TABLET PO ONE (18:00)
[2017-07-06] MEDS: Insulin DETEMIR 100 UNIT/ML X5UNITS SQ SCH (21:45)
[2017-07-07] MEDS: Ipratropium/Albuterol Neb 3 ML IH SCH ×3 (04:03→11:12)
[2017-07-07 04:44] LABS: Hematocrit 38.5 % (37.5-50.1); Hemoglobin 12.4 g/dL (12.9-16.9); Mean Corpuscular HGB Conc 32.2 g/dL (31.6-35.5); Mean Corpuscular Volume 93.2 fL (83.0-100.0); Mean Platelet Volume 10.2 fL (9.4-12.4); Platelet Count 146 K/mcL (140-400); Red Blood Count 4.13 M/mcL (4.19-5.50); Red Cell Distribution Width 14.3 % (11.5-14.5)
[2017-07-07 04:48] LABS: INR 1.9; Prothrombin Time 20.9 Seconds (9.4-12.1)
[2017-07-07] MEDS: MethylPREDNISolone 40 MG/ML VIAL IVP SCH ×2 (04:55→11:51)
[2017-07-07 05:03] LABS: BUN/Creatinine Ratio 36 (6-26); Blood Urea Nitrogen 42 mg/dL (8-26); Calcium 9.3 mg/dL (8.6-10.8); Carbon Dioxide 29 mEq/L (19-29); Chloride 103 mEq/L (98-109); Glucose 222 mg/dL (70-99); Osmolality,Calculated 309 (280-300); Potassium 4.3 mEq/L (3.5-4.5); Sodium 141 mEq/L (136-145); eGFR For African Americans > 60 (> 60); eGFR For Non-African Americans > 60 (> 60)
--- NOTE | 2017-07-07 07:13 | Internal Med Progress Note ---
Date of Encounter: 07/07/17 - Assessment and plan (1) Acute and chronic respiratory failure Current Visit: Yes Status: Acute Qualifiers: Respiratory failure complication: hypoxia Qualified Code(s): J96.21 - Acute and chronic respiratory failure with hypoxia (2) Interstitial lung disease Current Visit: Yes Status: Chronic (3) Acute on chronic diastolic heart failure Current Visit: Yes Status: Acute (4) Atrial fibrillation Current Visit: No Status: Chronic Qualifiers: Atrial fibrillation type: chronic Qualified Code(s): I48.2 - Chronic atrial fibrillation (5) DVT prophylaxis Current Visit: Yes Status: Acute - Subjective Interval history: Patient seen and chart reviewed this morning. Patient's shortness of breath is improved over yesterday. He endorses no complaints today. - Constitutional Vitals: Temp Pulse Resp BP Pulse Ox 97.7 F 79 16 164/93 97 07/07/17 06:31 07/07/17 06:31 07/07/17 06:31 07/07/17 06:31 07/07/17 06:31 General appearance: Present: mild distress, A&O X 3, answers questions appropriately Internal Medicine: Result - Labs CBC & Chem 7: 07/07/17 04:02 07/07/17 04:02 Labs: Short CBC 07/07/17 Range/Units 04:02 WBC 15.3 H (4.3-11.1) K/mcL Hgb 12.4 L (12.9-16.9) g/dL Hct 38.5 (37.5-50.1) % Plt Count 146 (140-400) K/mcL BMP 07/07/17 04:02 Sodium 141 Potassium 4.3 Chloride 103 Carbon Dioxide 29 BUN 42 H Creatinine 1.16 Glucose 222 H Calcium 9.3 - ABG Interpretation ABG results: ABG ABG pH 7.46 pH Units (7.32-7.45) H 07/04/17 21:16 ABG pCO2 38 mmHg (35-45) 07/04/17 21:16 ABG pO2 100 mmHg (85-104) 07/04/17 21:16 ABG O2 Saturation 98 % (95-98) 07/04/17 21:16 PT/INR, D-dimer PT 20.9 Seconds (9.4-12.1) H 07/07/17 04:02 - Impressions Impressions Echocardiogram 07/05/17 23:18 Impressions: LVEF 55-60%. Normal LV chamber size and function. Mild concentric left ventricular hypertrophy. Atypical septal motion consistent with bundle branch block. Indeterminate diastolic function. Normal right ventricular structure and function. No evidence of pulmonary hypertension. No significant valvular dysfunction. Left Ventricular Wall Motion: Rest Echo Findings All wall segments showed normal motion. Findings: Study Quality * Technically adequate exam. ECG Findings * Difficult to determine rhythm, bundle branch block noted. Left Ventricle * LVEF 55-60%. * Normal LV chamber size and function. * Mild concentric left ventricular hypertrophy. * Atypical septal motion consistent with bundle branch block. * Indeterminate diastolic function. Right Ventricle * Normal right ventricular structure and function. Left Atrium * Moderately dilated left atrium. Right Atrium * Mildly dilated right atrium. Interatrial Septum * Interatrial septum not well evaluated. Aortic Valve * Aortic valve not well visualized. * Grossly, appears to be mildly sclerotic and trileaflet. * No aortic regurgitation. * No aortic stenosis. Mitral Valve * Normal mitral valve structure and function. * No mitral regurgitation. * No mitral stenosis. Tricuspid Valve * Normal tricuspid valve structure and function. * Trace tricuspid regurgitation. * No evidence of pulmonary hypertension. Pulmonic Valve * Normal pulmonic valve structure and function. * Trace pulmonic regurgitation. Aorta * Normally sized aortic root. Pericardium * The pericardium appears normal. IVC * Normal IVC dimensions and inspiratory collapse. Pulmonary Artery * Normal visualized portions of the main pulmonary artery. - VTE Documentation of Mechanical Device: Graduated compression elastic hosiery Consult Discharge Plan - Plan Referrals: Jose A Hernandez DO [Primary Care Provider] -
[2017-07-07] MEDS: Budesonide/Formoterol 160/4.5 MDI IH SCH (07:31)
[2017-07-07] MEDS: Furosemide 20 MG/2 ML VIAL IVP SCH (08:40)
[2017-07-07] MEDS: Insulin LISPRO 300 UNITS/3 ML VIAL SQ SCH ×2 (08:40→11:23)
--- NOTE | 2017-07-07 09:22 | Palliative Progress Note ---
Date of Encounter: 07/07/17 Time of Encounter: 07:45 - Assessment and plan (1) Interstitial lung disease Current Visit: Yes Status: Chronic Assessment and plan: Appears to be slowly improving. Plan per hospitalist team possible discharge as early as tomorrow. (2) Atrial fibrillation Current Visit: No Status: Chronic Assessment and plan: Currently under good control, plan per hospitalist team Qualifiers: Atrial fibrillation type: chronic Qualified Code(s): I48.2 - Chronic atrial fibrillation (3) Acute exacerbation of chronic obstructive pulmonary disease Current Visit: No Status: Acute Assessment and plan: Improving, plan per hospitalist team patient would like to have home health care. Work is working on this. (4) Constipation Current Visit: No Status: Acute Assessment and plan: No BM recorded during this hospitalization. Start bowel regimen Qualifiers: Constipation type: unspecified constipation type Qualified Code(s): K59.00 - Constipation, unspecified (5) Goals of care, counseling/discussion Current Visit: Yes Status: Acute Assessment and plan: Per discussion yesterday with nurse practitioner she is to be a full code. He affirmed that with me this morning. Patient will remain a full code. Has home O2, he would like to go home with home health care. I understand from the treatment team that he is still driving though probably not much is also having a great deal of difficulty with getting lost again this is per the primary treatment team. Appears to be some element of dementia involved, per the treatment team therefore the overall recommendation is no more driving. Which would then make him homebound and eligible for home health care. - Time Spent With Patient Total time spent is greater than 50% in coordination of care (as documented) at patient's floor/unit and/or counseling patient: - Subjective Interval history: The patient feels that he is breathing better this morning and has no complaints except some pain in his back which he attributes to laying in bed and is better when he moves around in bed. Hoping that he may go home today. He would like to have home health care if this is at all possible. - Constitutional Vitals: Abnormal lab results WBC 15.3 K/mcL (4.3-11.1) H 07/07/17 04:02 RBC 4.13 M/mcL (4.19-5.50) L 07/07/17 04:02 Hgb 12.4 g/dL (12.9-16.9) L 07/07/17 04:02 Immature Gran % 4.3 % (0-4) H 07/05/17 05:18 Neutrophils # 11.5 K/mcL (1.6-8.9) H 07/05/17 05:18 PT 20.9 Seconds (9.4-12.1) H 07/07/17 04:02 ABG pH 7.46 pH Units (7.32-7.45) H 07/04/17 21:16 ABG Total CO2 29 mEq/L (20-26) H 07/04/17 21:16 ABG Base Excess 4 mEq/L (-2 to 3) H 07/04/17 21:16 BUN 42 mg/dL (8-26) H 07/07/17 04:02 BUN/Creatinine Ratio 36 (6-26) H 07/07/17 04:02 Glucose 222 mg/dL (70-99) H 07/07/17 04:02 POC Glucose 191 (58-89) H 07/07/17 07:30 Calculated Osmolality 309 (280-300) H 07/07/17 04:02 Lactic Acid 3.6 mmol/L (0.5-2.2) H 07/05/17 00:20 B-Natriuretic Peptide 228 pg/mL (0-100) H 07/05/17 05:18 General appearance: Present: no acute distress - Head Head exam: Present: atraumatic, normal inspection - Eye Eye exam: Present: normal appearance - ENT ENT exam: Present: mucous membranes moist - Respiratory Respiratory exam: Present: decreased breath sounds, rales (Dry crackles) - Cardiovascular Cardiovascular exam: Present: irregular rhythm (Slightly irregular) - GI/Abdominal GI/Abdominal exam: Present: normal bowel sounds, soft. Absent: tenderness - Extremities Exam Extremities exam: Present: pedal edema (Some) - Psychiatric Psychiatric exam: Present: normal affect, normal mood. Absent: agitated, anxious - Skin Skin exam: Present: dry, warm Palliative Quality Palliative Quality: Screen for Code Status: Yes, Screen for Goals of Care: Yes, Screen for Pain: Yes, If Pain Regimen Started, Initiate Bowel Regimen: No, Screen for Nausea/Vomitting: Yes - Labs CBC & Chem 7: 07/07/17 04:02 07/07/17 04:02 Labs: Laboratory Results - last 24 hr 07/05/17 07/06/17 07/06/17 20:02 12:11 16:00 WBC RBC Hgb Hct MCV MCH MCHC RDW Plt Count MPV PT INR Sodium Potassium Chloride Carbon Dioxide BUN Creatinine Est GFR ( Amer) Est GFR (Non-Af Amer) BUN/Creatinine Ratio Glucose POC Glucose 296 H 204 H 307 H Calculated Osmolality Calcium 07/06/17 07/07/17 07/07/17 20:33 04:02 04:02 WBC 15.3 H RBC 4.13 L Hgb 12.4 L Hct 38.5 MCV 93.2 MCH 30.0 MCHC 32.2 RDW 14.3 Plt Count 146 MPV 10.2 PT 20.9 H INR 1.9 Sodium Potassium Chloride Carbon Dioxide BUN Creatinine Est GFR ( Amer) Est GFR (Non-Af Amer) BUN/Creatinine Ratio Glucose POC Glucose 329 H Calculated Osmolality Calcium 07/07/17 07/07/17 04:02 07:30 WBC RBC Hgb Hct MCV MCH MCHC RDW Plt Count MPV PT INR Sodium 141 Potassium 4.3 Chloride 103 Carbon Dioxide 29 BUN 42 H Creatinine 1.16 Est GFR ( Amer) > 60 Est GFR (Non-Af Amer) > 60 BUN/Creatinine Ratio 36 H Glucose 222 H POC Glucose 191 H Calculated Osmolality 309 H Calcium 9.3 - ABG Interpretation ABG results: ABG ABG pH 7.46 pH Units (7.32-7.45) H 07/04/17 21:16 ABG pCO2 38 mmHg (35-45) 07/04/17 21:16 ABG pO2 100 mmHg (85-104) 07/04/17 21:16 ABG O2 Saturation 98 % (95-98) 07/04/17 21:16 PT/INR, D-dimer PT 20.9 Seconds (9.4-12.1) H 07/07/17 04:02 Consult Discharge Plan - Plan Referrals: Jose A Hernandez DO [Primary Care Provider] -
[2017-07-07 11:18] VITALS: BP 123/72
--- NOTE | 2017-07-07 11:39 | Discharge Summary ---
<Amadou Mahoney P - Last Filed: 07/07/17 18:52> Date of Encounter: 07/07/17 - Discharge Medications Home Medications: Ascorbate Calcium [Vitamin C] 1,000 mg PO QAM 12/23/15 [History] Aspirin [Adult Low Dose Aspirin EC] 81 mg PO QPM 12/23/15 [History] Budesonide/Formoterol 80/4.5 [Symbicort 80/4.5] 2 puff IH BID 12/23/15 [History ] Lovastatin 40 mg PO QPM 12/23/15 [History] Multivit-Min/FA/Lycopen/Lutein [Centrum Silver Tablet] 1 each PO QAM 12/23/15 [ History] Omeprazole [PriLOSEC] 20 mg PO QAM 12/23/15 [History] Albuterol Sulfate [Ventolin Hfa] 2 puff IH Q4H PRN 01/20/17 [History] Furosemide [Lasix] 40 mg PO DAILY 01/20/17 [History] Latanoprost [Xalatan] 1 drop BOTH EYES HS 01/20/17 [History] Albuterol Neb [Proventil Neb] 2.5 mg IH [id number] PRN 30 Days inhsol 01/29/17 [Rx ] Nitroglycerin [Nitrostat] 0.4 mg SL Q5M PRN 06/25/17 [History] Oxygen 2 l NS AD PRN 06/25/17 [History] levoFLOXacin [Levaquin] 500 mg PO DAILY #5 tablet 06/29/17 [Rx] predniSONE [PredniSONE] 60 mg PO DAILY 15 Days tablet 06/29/17 [Rx] Warfarin [Coumadin] 1 mg PO DAILY 07/05/17 [History] Allergies/Adverse Reactions: 3 Allergy/AdvReac Type Severity Reaction Status Date / Time No Known Allergies Allergy Verified 06/26/17 12:31 Procedures/tests Complete & Pending: Procedures Performed prior 72 hours Category Date Time Status EV echocardiogram w enhance Routine Y 07/05/17 23:18 Completed Date of admission: 07/04/17 23:10 Primary care physician: Jose A Kelly Colopy Consults: 07/04/17 23:32 Consult to Nutrition [CONS] Routine Comment: Consulting Provider: NUTRITION Reason for Dietary Consult: MST Score 07/05/17 12:58 Consult to Pulmonology [CONS] Routine Consulting Provider: [facility] Reason for Consult: UIP, readmission for acute on chronic respiratory failure Call Completed: Yes 07/05/17 13:44 Consult to Physical Therapy [CONS] Routine Comment: Evaluate, develop and implement POC Reason for Consult: weak falling alot at home OT [Consult to Occupational Therapy] [CONS] Routine Comment: Evaluate, develop and implement POC Reason for Consult: weak fallling alot at home 07/06/17 10:14 Consult to Palliative Care [CONS] Routine Comment: Consulting Provider: [facility] [place] Reason for Consult: advanced COPD Call Completed: Yes - Patient Status Disposition: Home, Self-Care Condition: Fair - Discharge Instructions Instructions: Acute Respiratory Distress Syndrome (DC), Acute Kidney Injury (DC ), Diabetes Mellitus Type 2 in Adults (DC), Anemia (GEN) Follow Up With: Jose A Hernandez DO [Primary Care Provider] - 07/13/17 1:30 pm Hospital course: Mr. Sequeira is a 81 year old male - Time Spent with Patient Total time spent providing and/or coordinating discharge services: - Constitutional Vitals: Temp Pulse Resp BP Pulse Ox 97.6 F 79 16 123/72 98 07/07/17 11:14 07/07/17 11:14 07/07/17 11:14 07/07/17 11:14 07/07/17 11:14 - Attending Attestation I examined this patient and my medical decision-making was reviewed with the Resident Physician. I agree with the documented findings, disposition and treatment plan as described except to the extent set forth below. Patient will go home today. Family has been instructed at length regarding not to allow patient to drive. mill worker has spent adequate time in education and appropriate material provided. We will inform patient's primary care physician regarding this hospitalization. Primary care physician to decide regarding further communication to the appropriate authorities, regarding patient's driving. <Cesia Dong - Last Filed: 07/07/17 21:13> Date of Encounter: 07/07/17 Time of Encounter: 11:37 - Discharge Diagnosis (1) Acute and chronic respiratory failure Priority: Primary Status: Acute Qualifiers: Respiratory failure complication: hypoxia Qualified Code(s): J96.21 - Acute and chronic respiratory failure with hypoxia (2) Interstitial lung disease Priority: Secondary Status: Chronic (3) Acute on chronic diastolic heart failure Priority: Secondary Status: Acute (4) Atrial fibrillation Priority: Secondary Status: Chronic Qualifiers: Atrial fibrillation type: chronic Qualified Code(s): I48.2 - Chronic atrial fibrillation (5) DVT prophylaxis Priority: Secondary Status: Acute Procedures/tests Complete & Pending: Procedures Performed prior 72 hours Category Date Time Status EV echocardiogram w enhance Routine Y 07/05/17 23:18 Completed Date of admission: 07/04/17 23:10 Primary care physician: Jose A Hernandez Consults: 07/04/17 23:32 Consult to Nutrition [CONS] Routine Comment: Consulting Provider: NUTRITION Reason for Dietary Consult: MST Score 07/05/17 12:58 Consult to Pulmonology [CONS] Routine Consulting Provider: [facility] Reason for Consult: UIP, readmission for acute on chronic respiratory failure Call Completed: Yes 07/05/17 13:44 Consult to Physical Therapy [CONS] Routine Comment: Evaluate, develop and implement POC Reason for Consult: weak falling alot at home OT [Consult to Occupational Therapy] [CONS] Routine Comment: Evaluate, develop and implement POC Reason for Consult: weak fallling alot at home 07/06/17 10:14 Consult to Palliative Care [CONS] Routine Comment: Consulting Provider: [facility] Reason for Consult: advanced COPD Call Completed: Yes Discharging clinician: Cesia Dong Anticipated date of discharge: 07/07/17 - Patient Status Functional capacity at discharge: uses cane/walker Overall status at discharge: patient is progressing back to baseline - Diet and Activity Activity: ambulate only with your walker, as per physical therapy, other (Wear oxygen as prescribed. ) Diet: diabetic diet, low fat, low cholesterol, low salt diet Hospital course: Mr. Sequeira is a 81 year old male Who presents to ED with a complaint of SOB x 3 days. He was recently discharged from the hospital week prior for acute on chronic respiratory failure with PNA. He also admitted to intermittent fevers, exertional dyspnea but denies lower extremity edema, chest pain. He uses home O2 but has been non-compliant with instructions. In the ED, vital signs were wnl with good O2 sats on BiPAP. Labs were significant for glucose of 345, BNP of 183, Troponin wnl, lactic acid of 3.3. ABG showed mild respiratory alkalosis. CXR in ED showed no acute process, head CT showed no acute process. Given concern for PE, CTA was performed and showed no evidence for embolism, with stable chronic interstitial fibrotic changes. He was admitted to hospital service for further management of acute on chronic respiratory failure secondary to acute bronchitis vs CHF exacerbation. During course of hospital stay, patient gradually improved. He received steroids , duonebs, symbicort, Lasix which improved his symptoms. He was taken off BiPAP and has been stable on room air. Lactic acid likely elevated in the setting of hypoxia. Echocardiogram showed EF of 55-60% with mild LVH, indeterminate diastolic dysfunction, and septal motion abnormality consistent with bundle branch block. On day of discharge, patient was medically stable. Vital signs all wnl. Labs back to baseline. He will be sent home with a short term steroid taper with Lasix. He was instructed to take his medications as prescribed and to follow up with PCP upon discharge for further management of his chronic medical conditions. He was instructed to use his home O2 as prescribed and to return to ED if symptoms worsen. Of note, family had concerns over patients driving during stay. Social work and palliative care were consulted. No further action at this time. Management per PCP and family for further decisions. - Time Spent with Patient Total time spent providing and/or coordinating discharge services: 40 minutes - Constitutional Vitals: Temp Pulse Resp BP Pulse Ox 97.6 F 79 16 123/72 98 07/07/17 11:14 07/07/17 11:14 07/07/17 11:14 07/07/17 11:14 07/07/17 11:14 General appearance: Present: mild distress, A&O X 3, answers questions appropriately Exam: Gen: Vitals noted. No acute distress. AAOx3 Cardiac: Irregularly irregular rhythm, no murmur, +S1/S2 Pulmonary: Fine rales in bases bilaterally, improved from previous. no respiratory distress, equal chest rise Abdomen: soft, nontender, nondistended, BS noted, no guarding Extremities: BLE non pitting edema R>L chronic, nontender calf, no cyanosis or clubbing Neuro: AAOx3, moves all extremities, no focal deficits, no speech deficits Psych: Appropriately answers questions, cooperative, appropriate behavior - VTE Documentation of Mechanical Device: Graduated compression elastic hosiery
[2017-07-07] MEDS ORDERED: FLUARIX QUAD 2017-18 36MOS UP/PF 0.5 ML SYRINGE IM ONE (13:56)
== END 2017-07-07 14:15 | disposition home or self-care (01) | DRG 190 ==
LOC: 2NENU 18:44 → EMEROO 18:44 → SUATTDRO 23:10 → 2NENU 23:10
PROVIDERS: ADMIT Pediatrics; ATTEND Internal Medicine

== ENCOUNTER 2017-07-12 15:34 | Observation (INO) ==
--- NOTE | 2017-07-12 16:48 | Emergency Department Note ---
Disposition Clinical Impression: Acute exacerbation of chronic obstructive airways disease Mental status alteration Qualifiers: Altered mental status type: unspecified Qualified Code(s): R41.82 - Altered mental status, unspecified Disposition: Admitted As Inpatient Condition: Fair Time of Disposition: 19:54 Altered Mental Status HPI - General Chief Complaint: ED Shortness of Breath/Dyspnea Stated Complaint: confusion Time Seen by Provider: 07/12/17 16:44 Source: patient Mode of arrival: wheelchair Limitations: no limitations Nursing Notes Reviewed: Yes Vital Signs Reviewed: Yes - History of Present Illness HPI Narrative: 81-year-old who presents with sister stating that he was confused. Patient complains of shortness of breath he does have a history COPD. Previous echocardiogram done 12/10/2016 shows an EF of 55%. MD complaint: altered mental status, confusion, other (Shortness of breath) Onset (ago): unknown Timing confirmed by: family member Pain Severity: none Consistency of Symptoms: waxing and waning Context: COPD Associated symptoms: Reports: shortness of breath, other (Confusion according to family) - Related Data Home Medications Medication Instructions Recorded Confirmed Ascorbate Calcium [Vitamin C] 1,000 mg PO QAM 12/23/15 07/12/17 Aspirin [Adult Low Dose Aspirin EC] 81 mg PO QPM 12/23/15 07/12/17 Budesonide/Formoterol 80/4.5 2 puff IH BID 12/23/15 07/12/17 [Symbicort 80/4.5] Lovastatin 40 mg PO QPM 12/23/15 07/12/17 Multivit-Min/FA/Lycopen/Lutein 1 each PO QAM 12/23/15 07/12/17 [Centrum Silver Tablet] Omeprazole [PriLOSEC] 20 mg PO QAM 12/23/15 07/12/17 Albuterol Sulfate [Ventolin Hfa] 2 puff IH Q4H PRN 01/20/17 07/12/17 Furosemide [Lasix] 40 mg PO DAILY 01/20/17 07/12/17 Latanoprost [Xalatan] 1 drop BOTH EYES HS 01/20/17 07/12/17 Nitroglycerin [Nitrostat] 0.4 mg SL Q5M PRN 06/25/17 07/12/17 Oxygen 2 l NS AD PRN 06/25/17 07/12/17 Warfarin [Coumadin] 1 mg PO DAILY 07/05/17 07/12/17 predniSONE [PredniSONE] 20 mg PO DAILY 07/12/17 07/12/17 Previous Rx's Medication Instructions Recorded Albuterol Neb [Proventil Neb] 2.5 mg IH [id number] PRN 30 Days 01/29/17 inhsol Allergies Allergy/AdvReac Type Severity Reaction Status Date / Time No Known Allergies Allergy Verified 06/26/17 12:31 All systems ED: reviewed and negative except as stated. Constitutional: Denies: fever, chills, weakness, weight change Eyes: Denies: eye pain, eye discharge, vision change ENT ED: Denies: ear pain, throat pain, dental pain, hearing loss, epistaxis, congestion, dysphagia Cardiovascular: Denies: chest pain, palpitations, dyspnea on exertion, edema, syncope Respiratory: Reports: dyspnea. Denies: cough, wheezes, hemoptysis, stridor Gastrointestinal: Denies: abdominal pain, nausea, vomiting, diarrhea, constipation, hematemesis, melena, hematochezia Genitourinary: Denies: urgency, dysuria, frequency, hematuria Musculoskeletal: Denies: back pain, neck pain, arthralgia, myalgia Integumentary: Denies: rash, abrasion, lesions Neurological: Reports: confusion. Denies: headache, weakness, numbness, paresthesias, abnormal gait, vertigo Psychiatric: Denies: anxiety, depression, suicidal thoughts, homicidal thoughts , auditory hallucinations, visual hallucinations Endocrine: Denies: fatigue Hematological/Lymphatic: Denies: easy bleeding, easy bruising Allergic/Immunologic: Denies: facial swelling, urticaria Past Medical History - Past Medical History Medical history: Reports: atrial fibrillation, CHF, COPD, coronary artery disease, DVT, hypertension, myocardial infarction, pulmonary embolus Surgical history: Reports: appendectomy, colectomy, knee replacement, LE stent(s ), sinus surgery Psychiatric history: Reports: no psych history - Social History Smoking Status: Never smoker Smokeless Tobacco Status: No Alcohol use: Reports: none Drug use: Reports: none Physical Exam - General Limitations: no limitations General appearance: alert, in no apparent distress - Head Head exam: atraumatic, normocephalic, normal inspection - Eye Eye exam: Present: normal appearance, PERRL, EOMI - ENT ENT exam: normal exam, normal oropharynx, mucous membranes moist - Neck Neck exam: Present: normal inspection, full ROM, trachea midline - Chest Chest inspection: Present: normal inspection, symmetric chest wall rise - Respiratory Respiratory exam: Present: wheezes, accessory muscle use, prolonged expiratory phase - Cardiovascular Cardiovascular exam: Present: regular rate, normal rhythm, normal heart sounds - Abdominal Exam Abdominal exam: Present: soft, Non-Tender. Absent: tenderness, distention, guarding, rebound, rigidity - Extremities Exam Extremities exam: Present: normal inspection, full ROM. Absent: tenderness, pedal edema - Expanded Lower Extremity Exam Neurovascular/Tendon exam: Absent: motor deficit, sensory deficit, tendon deficit Gait: not tested/not observed - Back Exam Back exam: Present: normal inspection, full ROM. Absent: tenderness - Neurological Exam Neurological exam: Present: alert. Absent: motor sensory deficit - Psychiatric Psychiatric exam: Present: normal affect, normal mood - Skin Skin exam: Present: warm, dry, intact, normal color Course - Reevaluation(s) Reevaluation #1: 81-year-old who comes in complaining of increasing shortness of breath with some complaints of confusion by family. Workup included a troponin that was positive at 0.05 that is new for him. EKG shows no acute change. His lactate is elevated at 3.4. On in November shows an EF of 55% we will give him some fluids. Time: 18:18 - Consultations Consultation #1: Discussed with Dr. Coto, admit Time: 20:17 Vital Signs Temperature 97.6 F 07/12/17 15:57 Pulse Rate 75 07/12/17 15:57 Respiratory Rate 16 07/12/17 15:57 Blood Pressure 126/85 07/12/17 15:57 O2 Sat by Pulse Oximetry 95 07/12/17 15:57 Temperature 97.6 F 07/12/17 15:57 Pulse Rate 75 07/12/17 19:29 Respiratory Rate 18 07/12/17 19:29 Blood Pressure 124/79 07/12/17 19:29 O2 Sat by Pulse Oximetry 97 07/12/17 19:29 Oxygen Delivery Oxygen Delivery Room Air Altered Mental Status - Lab Data Lab results reviewed: Yes I reviewed the patient's lab results. Result diagrams: 07/12/17 16:52 07/12/17 16:52 Lab Results 07/12/17 07/12/17 07/12/17 Range/Units 16:52 16:52 16:52 WBC 14.2 H (4.3-11.1) K/mcL RBC 4.45 (4.19-5.50) M/mcL Hgb 13.5 (12.9-16.9) g/dL Hct 41.1 (37.5-50.1) % MCV 92.4 (83.0-100.0) fL MCH 30.3 (28.0-33.3) pg MCHC 32.8 (31.6-35.5) g/dL RDW 13.8 (11.5-14.5) % Plt Count 155 (140-400) K/mcL MPV 10.1 (9.4-12.4) fL Immature Gran % 2.5 (0-4) % Seg Neutrophils % 92.0 % Lymphocytes % 2.5 % Monocytes % 2.6 % Eosinophils % 0.0 % Basophils % 0.4 % Neutrophils # 13.0 H (1.6-8.9) K/mcL Lymphocytes # 0.4 L (0.6-4.6) K/mcL Monocytes # 0.4 (0.0-1.3) K/mcL Eosinophils # 0.0 (0.0-0.6) K/mcL Basophils # 0.1 (0.0-0.2) K/mcL PT (9.4-12.1) Seconds INR APTT (26.0-36.0) Seconds ABG pH (7.32-7.45) pH Units ABG pCO2 (35-45) mmHg ABG pO2 (85-104) mmHg ABG HCO3 (21-27) mEq/L ABG Total CO2 (20-26) mEq/L ABG O2 Saturation (95-98) % ABG Base Excess (-2 to 3) mEq/L Sodium 135 L (136-145) mEq/L Potassium 4.4 (3.5-4.5) mEq/L Chloride 95 L (98-109) mEq/L Carbon Dioxide 28 (19-29) mEq/L BUN 47 H (8-26) mg/dL Creatinine 1.19 (0.72-1.25) mg/dL Est GFR ( Amer) > 60 (> 60) Est GFR (Non-Af Amer) 59 L (> 60) BUN/Creatinine Ratio 39 H (6-26) Glucose 323 H (70-99) mg/dL Calculated Osmolality 305 H (280-300) Lactic Acid (0.5-2.2) mmol/L Calcium 9.2 (8.6-10.8) mg/dL Ammonia (18-72) mcmol/L Troponin I 0.05 H* (0-0.03) ng/mL B-Natriuretic Peptide (0-100) pg/mL Urine Color (Yellow) Urine Clarity (Clear) Urine pH (5.0-8.0) pH Units Ur Specific [place] (1.010-1.025) Urine Protein (Neg-Trace) mg/dL Urine Glucose (UA) (Normal) mg/dL Urine Ketones (Negative) mg/dL Urine Blood (Negative) Urine Nitrite (Negative) Urine Bilirubin (Negative) Urine Urobilinogen (Normal) mg/dL Ur Leukocyte Esterase (Negative) Ur Culture Indicated? (NO) 07/12/17 07/12/17 07/12/17 Range/Units 16:52 16:52 17:21 WBC (4.3-11.1) K/mcL RBC (4.19-5.50) M/mcL Hgb (12.9-16.9) g/dL Hct (37.5-50.1) % MCV (83.0-100.0) fL MCH (28.0-33.3) pg MCHC (31.6-35.5) g/dL RDW (11.5-14.5) % Plt Count (140-400) K/mcL MPV (9.4-12.4) fL Immature Gran % (0-4) % Seg Neutrophils % % Lymphocytes % % Monocytes % % Eosinophils % % Basophils % % Neutrophils # (1.6-8.9) K/mcL Lymphocytes # (0.6-4.6) K/mcL Monocytes # (0.0-1.3) K/mcL Eosinophils # (0.0-0.6) K/mcL Basophils # (0.0-0.2) K/mcL PT (9.4-12.1) Seconds INR APTT (26.0-36.0) Seconds ABG pH (7.32-7.45) pH Units ABG pCO2 (35-45) mmHg ABG pO2 (85-104) mmHg ABG HCO3 (21-27) mEq/L ABG Total CO2 (20-26) mEq/L ABG O2 Saturation (95-98) % ABG Base Excess (-2 to 3) mEq/L Sodium (136-145) mEq/L Potassium (3.5-4.5) mEq/L Chloride (98-109) mEq/L Carbon Dioxide (19-29) mEq/L BUN (8-26) mg/dL Creatinine (0.72-1.25) mg/dL Est GFR ( Amer) (> 60) Est GFR (Non-Af Amer) (> 60) BUN/Creatinine Ratio (6-26) Glucose (70-99) mg/dL Calculated Osmolality (280-300) Lactic Acid 3.4 H (0.5-2.2) mmol/L Calcium (8.6-10.8) mg/dL Ammonia 16 L (18-72) mcmol/L Troponin I (0-0.03) ng/mL B-Natriuretic Peptide 93 (0-100) pg/mL Urine Color (Yellow) Urine Clarity (Clear) Urine pH (5.0-8.0) pH Units Ur Specific [place] (1.010-1.025) Urine Protein (Neg-Trace) mg/dL Urine Glucose (UA) (Normal) mg/dL Urine Ketones (Negative) mg/dL Urine Blood (Negative) Urine Nitrite (Negative) Urine Bilirubin (Negative) Urine Urobilinogen (Normal) mg/dL Ur Leukocyte Esterase (Negative) Ur Culture Indicated? (NO) 07/12/17 07/12/17 07/12/17 Range/Units 17:21 17:39 19:25 WBC (4.3-11.1) K/mcL RBC (4.19-5.50) M/mcL Hgb (12.9-16.9) g/dL Hct (37.5-50.1) % MCV (83.0-100.0) fL MCH (28.0-33.3) pg MCHC (31.6-35.5) g/dL RDW (11.5-14.5) % Plt Count (140-400) K/mcL MPV (9.4-12.4) fL Immature Gran % (0-4) % Seg Neutrophils % % Lymphocytes % % Monocytes % % Eosinophils % % Basophils % % Neutrophils # (1.6-8.9) K/mcL Lymphocytes # (0.6-4.6) K/mcL Monocytes # (0.0-1.3) K/mcL Eosinophils # (0.0-0.6) K/mcL Basophils # (0.0-0.2) K/mcL PT 21.0 H (9.4-12.1) Seconds INR 1.9 APTT 27.5 (26.0-36.0) Seconds ABG pH 7.45 (7.32-7.45) pH Units ABG pCO2 43 (35-45) mmHg ABG pO2 80 L (85-104) mmHg ABG HCO3 30 H (21-27) mEq/L ABG Total CO2 31 H (20-26) mEq/L ABG O2 Saturation 96 (95-98) % ABG Base Excess 5 H (-2 to 3) mEq/L Sodium (136-145) mEq/L Potassium (3.5-4.5) mEq/L Chloride (98-109) mEq/L Carbon Dioxide (19-29) mEq/L BUN (8-26) mg/dL Creatinine (0.72-1.25) mg/dL Est GFR ( Amer) (> 60) Est GFR (Non-Af Amer) (> 60) BUN/Creatinine Ratio (6-26) Glucose (70-99) mg/dL Calculated Osmolality (280-300) Lactic Acid (0.5-2.2) mmol/L Calcium (8.6-10.8) mg/dL Ammonia (18-72) mcmol/L Troponin I (0-0.03) ng/mL B-Natriuretic Peptide (0-100) pg/mL Urine Color Yellow (Yellow) Urine Clarity Clear (Clear) Urine pH 5.0 (5.0-8.0) pH Units Ur Specific [place] 1.010 (1.010-1.025) Urine Protein Negative (Neg-Trace) mg/dL Urine Glucose (UA) 250 H (Normal) mg/dL Urine Ketones Negative (Negative) mg/dL Urine Blood Negative (Negative) Urine Nitrite Negative (Negative) Urine Bilirubin Negative (Negative) Urine Urobilinogen Normal (Normal) mg/dL Ur Leukocyte Esterase Negative (Negative) Ur Culture Indicated? NO (NO) - Radiology Data Radiology results reviewed: Yes I reviewed the patient's radiology results. Chest X-Ray 07/12/17 16:03 IMPRESSION: No acute process. Stable cardiomegaly D/ / Jean Calloway MD / Jean Calloway MD Interpreting Provider: Jean Calloway MD Head CT 07/12/17 16:45 IMPRESSION: No acute intracranial abnormality. D/ / Marcus Pena / Marcus Pena Interpreting Provider: Marcus Pena - EKG Data EKG attestation: Yes I reviewed and interpreted this EKG. Rate: normal Rhythm: A.Fib Interpretation: no acute changes TPA Checklist - LKW: 3-4.5 hrs Add. Warnings/Precautions Patient/family understanding: The patient/family members have been counseled and understood the risk, benefit , and alternatives of treatment. NIH Stroke Scale - Level of Consciousness LOC: Alert - LOC Questions LOC Questions: Answers both correctly - LOC Commands LOC Commands: Performs both correctly - Best Gaze Best Gaze: Normal - Visual Visual: No visual loss - Facial Palsy Facial Palsy: Normal - Motor Arms Motor Arm-Left: No drift for 10 seconds Motor Arm-Right: No drift for 10 seconds - Motor Legs Motor Leg-Left: No drift for 5 seconds Motor Leg-Right: No drift for 5 seconds - Limb Ataxia Limb Ataxia: Normal, No Ataxia - Sensory Sensory: Normal - Best Language Best Language: No aphasia - Dysarthria Dysarthria: Normal - Extinction and Inattention Extinction and Inattention: Normal - NIHSS Total Score NIHSS Total Score: 0
[2017-07-12] MEDS ORDERED: Ipratropium/Albuterol Neb 3 ML IH ONE (17:10)
[2017-07-12] MEDS ORDERED: methylPREDNISolone 125 MG/2 ML VIAL IVP ONE (17:10)
[2017-07-12 17:12] LABS: Basophils # 0.1 K/mcL (0.0-0.2); Basophils % 0.4 %; Hematocrit 41.1 % (37.5-50.1); Hemoglobin 13.5 g/dL (12.9-16.9); Immature Granulocytes % 2.5 % (0-4); Lymphocytes # 0.4 K/mcL (0.6-4.6); Lymphocytes % 2.5 %; Mean Corpuscular HGB Conc 32.8 g/dL (31.6-35.5); Mean Corpuscular Hemoglobin 30.3 pg (28.0-33.3); Mean Corpuscular Volume 92.4 fL (83.0-100.0); Mean Platelet Volume 10.1 fL (9.4-12.4); Monocytes # 0.4 K/mcL (0.0-1.3); Monocytes % 2.6 %; Platelet Count 155 K/mcL (140-400); Red Blood Count 4.45 M/mcL (4.19-5.50); Red Cell Distribution Width 13.8 % (11.5-14.5)
[2017-07-12 17:23] LABS: BUN/Creatinine Ratio 39 (6-26); Blood Urea Nitrogen 47 mg/dL (8-26); Calcium 9.2 mg/dL (8.6-10.8); Carbon Dioxide 28 mEq/L (19-29); Chloride 95 mEq/L (98-109); Glucose 323 mg/dL (70-99); Osmolality,Calculated 305 (280-300); Potassium 4.4 mEq/L (3.5-4.5); Sodium 135 mEq/L (136-145); eGFR For African Americans > 60 (> 60); eGFR For Non-African Americans 59 (> 60)
[2017-07-12 17:39] LABS: INR 1.9
[2017-07-12 17:41] LABS: Activated Partial Thrombo Time 27.5 Seconds (26.0-36.0)
[2017-07-12 17:42] LABS: ABG Base Excess 5 mEq/L (-2 to 3); ABG HCO3 30 mEq/L (21-27); ABG Oxygen Saturation 96 % (95-98); ABG PCO2 43 mmHg (35-45); ABG PH 7.45 pH Units (7.32-7.45); ABG PO2 80 mmHg (85-104); ABG TCO2 31 mEq/L (20-26)
[2017-07-12] MEDS: 0.9 % Sodium Chloride 1,000 ML IVC SCH (19:25)
[2017-07-12 19:47] LABS: Bilirubin,Urine Negative (Negative); Blood,Urine Negative (Negative); Clarity,Urine Clear (Clear); Color,Urine Yellow (Yellow); Glucose,Urine (UA) 250 mg/dL (Normal); Ketones,Urine Negative (Negative); Leukocyte Esterase,Urine Negative (Negative); Nitrite,Urine Negative (Negative); Protein,Urine Negative (Neg-Trace); Urobilinogen,Urine Normal (Normal)
[2017-07-13] MEDS ORDERED: Albuterol 2.5 MG/3 ML NEBULIZER IH PRN (02:54)
[2017-07-13] MEDS ORDERED: NON-FORMULARY MEDICATION 1 EACH EACH (Oxygen [Oxygen] 2 L) NS PRN (02:54)
--- NOTE | 2017-07-13 03:07 | Internal Med History&Physical ---
Date of Encounter: 07/13/17 Time of Encounter: 03:05 Assessment and Plan (1) Acute bronchitis Current visit: Yes Status: Acute We will keep patient on levofloxacin. Continue as needed nebulizer treatment and prednisone. Qualifiers: Qualified Code(s): J20.9 - Acute bronchitis, unspecified (2) Lactic acidosis Current visit: Yes Status: Acute We monitor. Etiology unclear. Maybe related to hypoxia. (3) Acute on chronic diastolic heart failure Current visit: No Status: Acute *The patient on Lasix 40 mg IV daily Internal Medicine - H&P: HPI Chief complaint: sob History of present illness: Mr. Sequeira is a 81 year old male with multiple medical problems including COPD , interstitial fibrosis, diastolic CHF presents at the emergency room today with a main complain of shortness of breath. Patient recently discharged from the hospital after presentation for acute bronchitis and was discharged on Levaquin and steroids presents to the emergency room with worsening shortness of breath. For the past few days has been more short of breath than usual that any minimal activity. Notices swelling in both lower extremities. Reportedly patient was also confusing arrival to emergency room. he denies any focal weakness. No fever or chills. Past Med Surg Social Fam HX - Past Medical History Medical history: atrial fibrillation, CHF, COPD, coronary artery disease, DVT, hypertension, myocardial infarction, pulmonary embolus Psychiatric history: no psych history - Past Surgical History Surgical History: appendectomy, colectomy, knee replacement, LE stent(s), sinus surgery - Social History Smoking Status: Never smoker Smokeless Tobacco Status: No Alcohol use: none Drug use: none - Family History Mother Living Status: Hx Family Cardiac Disorders: Yes Hx Family Cancer: Yes Sister Living Status: Hx Family Cancer: Yes Father Living Status: Hx Family Cardiac Disorders: Yes Hx Family Respiratory Disorders: No Hx Family Cancer: No Hx Family GI Disorders: No Hx Family Endocrine Disorder: Yes (DM) Hx Family Neuromuscular Disorders: No Hx Family Neurologic Disorders: No Hx Family HEENT Disorders: No Hx Family Autoimmune Disorders: No Internal Medicine - H&P: Meds Ascorbate Calcium [Vitamin C] 1,000 mg PO QAM 12/23/15 [History] Aspirin [Adult Low Dose Aspirin EC] 81 mg PO QPM 12/23/15 [History] Budesonide/Formoterol 80/4.5 [Symbicort 80/4.5] 2 puff IH BID 12/23/15 [History ] Lovastatin 40 mg PO QPM 12/23/15 [History] Multivit-Min/FA/Lycopen/Lutein [Centrum Silver Tablet] 1 each PO QAM 12/23/15 [ History] Omeprazole [PriLOSEC] 20 mg PO QAM 12/23/15 [History] Albuterol Sulfate [Ventolin Hfa] 2 puff IH Q4H PRN 01/20/17 [History] Furosemide [Lasix] 40 mg PO DAILY 01/20/17 [History] Latanoprost [Xalatan] 1 drop BOTH EYES HS 01/20/17 [History] Albuterol Neb [Proventil Neb] 2.5 mg IH [id number] PRN 30 Days inhsol 01/29/17 [Rx ] Nitroglycerin [Nitrostat] 0.4 mg SL Q5M PRN 06/25/17 [History] Oxygen 2 l NS AD PRN 06/25/17 [History] Warfarin [Coumadin] 1 mg PO DAILY 07/05/17 [History] predniSONE [PredniSONE] 20 mg PO DAILY 07/12/17 [History] 3 Allergy/AdvReac Type Severity Reaction Status Date / Time No Known Allergies Allergy Verified 06/26/17 12:31 All Systems PM: A 10-system review of systems was performed and is negative for pertinent findings except as documented above in the HPI. Review of systems: 10 point review of systems is negative except for HPI - Constitutional Vitals: Temp Pulse Resp BP Pulse Ox 97.8 F 67 14 117/76 96 07/12/17 21:56 07/12/17 21:56 07/12/17 21:56 07/12/17 21:56 07/12/17 21:56 Exam: Gen.: patient is alert oriented times 3 not in distress. Cardiac: normal S1 S2 no additional sounds or murmurs chest: fine rales in bases (interstitial fibrosis) abdomen: soft nontender nondistended normal bowel sounds neuro: no focal deficit LE: 1 + swelling Internal Med - H&P Results - Labs CBC & Chem 7: 07/12/17 16:52 07/12/17 16:52
[2017-07-13] MEDS: 0.9 % Sodium Chloride 1,000 ML IVC SCH (03:21)
[2017-07-13 03:59] LABS: Basophils % 0.4 %; Hematocrit 37.6 % (37.5-50.1); Hemoglobin 12.3 g/dL (12.9-16.9); Immature Granulocytes % 4.9 % (0-4); Lymphocytes # 0.4 K/mcL (0.6-4.6); Lymphocytes % 4.6 %; Mean Corpuscular HGB Conc 32.7 g/dL (31.6-35.5); Mean Corpuscular Hemoglobin 29.9 pg (28.0-33.3); Mean Corpuscular Volume 91.5 fL (83.0-100.0); Mean Platelet Volume 9.5 fL (9.4-12.4); Monocytes # 0.1 K/mcL (0.0-1.3); Monocytes % 1.4 %; Neutrophils # 8.3 K/mcL (1.6-8.9); Platelet Count 122 K/mcL (140-400); Red Blood Count 4.11 M/mcL (4.19-5.50); Red Cell Distribution Width 13.7 % (11.5-14.5); Segmented Neutrophils % 88.7 %
[2017-07-13 04:11] LABS: BUN/Creatinine Ratio 39 (6-26); Blood Urea Nitrogen 37 mg/dL (8-26); Calcium 8.7 mg/dL (8.6-10.8); Carbon Dioxide 29 mEq/L (19-29); Chloride 98 mEq/L (98-109); Glucose 294 mg/dL (70-99); Magnesium 2.1 mg/dL (1.6-2.6); Osmolality,Calculated 304 (280-300); Potassium 4.1 mEq/L (3.5-4.5); Sodium 137 mEq/L (136-145); eGFR For African Americans > 60 (> 60); eGFR For Non-African Americans > 60 (> 60)
[2017-07-13] MEDS: Furosemide 40 MG/4 ML VIAL IVP SCH ×2 (05:33→07:56)
[2017-07-13] MEDS: predniSONE 10 MG TABLET PO SCH (08:01)
[2017-07-13] MEDS: Levofloxacin 750 MG/150 ML 750 MG/150 ML BAG IVPB SCH (08:02)
[2017-07-13] MEDS: Budesonide/Formoterol 80/4.5 MDI IH SCH ×2 (11:50→19:48)
[2017-07-13] MEDS ORDERED: Dextrose Gel 15 GM PO PRN ×2 (11:57)
[2017-07-13] MEDS ORDERED: D5% in Water 1,000 ML IVC PRN (11:57)
[2017-07-13] MEDS ORDERED: *HR* Dextrose 50 % in Water (Syg) 50 ML SYRINGE IVP PRN (11:57)
--- NOTE | 2017-07-13 11:59 | Event Note ---
Date of Encounter: 07/13/17 Time of Encounter: 10:54 David Sequeira is a 81 y/o male with PMH a-fib and COPD recently hospitalized for COPD exacerbation who presented to [facility] on 07/12/2017 with complaints of SOB. He was found to have another URI and with lactic acidosis. He was admitted for IV ATB. 1. CAD: hx remote stent. Troponin peaked at 0.05, EKG with a-fib. Denies chest pain. Last stress 11/2015 with evidence of previous infarct, negative for ischemia. With elevated troponin and dyspnea, repeat stress test in AM. Cont home ASA, statin 2. COPD exacerbation: presented with increasing SOB. CXR non-acute. Cont steroids, levaquin started on admission. 3. Acute encephalopathy: details unclear but apparently was confused in ED, no family at bedside for collateral. Head CT non-acute. Suspect he has underlying dementia, mentation appears to be improving, hold on further work-up at this time. 4. Lactic acidosis: lactic acid 3.4, WBC 14K (on steroids at home). Suspect secondary to hypoxia. Repeat lactic acid normal. 5. Atrial fibrillation: per hx. Rate controlled. Cont home coumadin 6. DVT prophylaxis: coumadin 7. Hyperglycemia: blood sugars elevated secondary to steroid use. SSI. Monitor blood sugar and titrate PRN. Hgb A1c pending
--- NOTE | 2017-07-13 12:47 | Electrocardiograph Report ---
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
[2017-07-13 13:04] LABS: INR 2.3
[2017-07-13 13:37] LABS: Hemoglobin A1C 8.6 %
[2017-07-13] MEDS: Aspirin Enteric Coated 81 MG Tablet PO SCH (17:03)
[2017-07-13] MEDS: Insulin LISPRO 300 UNITS/3 ML VIAL SQ SCH ×2 (17:03→21:50)
[2017-07-13] MEDS ORDERED: Warfarin perPT PO PRN (18:00)
[2017-07-13] MEDS ORDERED: *HR* Warfarin 1 MG TABLET PO ONE (18:00)
[2017-07-13] MEDS: Latanoprost 2.5 ML BOTTLE BOTH EYES SCH (21:50)
[2017-07-14 04:21] LABS: Hematocrit 34.9 % (37.5-50.1); Hemoglobin 11.6 g/dL (12.9-16.9); Mean Corpuscular HGB Conc 33.2 g/dL (31.6-35.5); Mean Corpuscular Hemoglobin 30.6 pg (28.0-33.3); Mean Corpuscular Volume 92.1 fL (83.0-100.0); Platelet Count 138 K/mcL (140-400); Red Blood Count 3.79 M/mcL (4.19-5.50); Red Cell Distribution Width 13.7 % (11.5-14.5)
[2017-07-14 04:33] LABS: Alanine Aminotransferase 20 Units/L (0-55); Albumin 2.7 g/dL (3.5-5.0); Albumin/Globulin Ratio 1.2 (1.1-2.2); Alkaline Phosphatase 75 Units/L (38-126); Aspartate Amino Transferase 11 Units/L (5-34); BUN/Creatinine Ratio 38 (6-26); Bilirubin,Total 0.4 mg/dL (0.2-1.2); Blood Urea Nitrogen 41 mg/dL (8-26); Calcium 8.6 mg/dL (8.6-10.8); Carbon Dioxide 30 mEq/L (19-29); Chloride 100 mEq/L (98-109); Globulin 2.3 g/dL (2.4-3.5); Glucose 297 mg/dL (70-99); Osmolality,Calculated 305 (280-300); Potassium 3.6 mEq/L (3.5-4.5); Sodium 137 mEq/L (136-145); eGFR For African Americans > 60 (> 60); eGFR For Non-African Americans > 60 (> 60)
[2017-07-14] MEDS ORDERED: Regadenoson 0.4 MG/5 ML SYRINGE IVP ONE (06:01)
[2017-07-14] MEDS: Insulin LISPRO 300 UNITS/3 ML VIAL SQ SCH ×4 (09:45→20:34)
[2017-07-14] MEDS: predniSONE 10 MG TABLET PO SCH (09:45)
[2017-07-14] MEDS: Furosemide 40 MG/4 ML VIAL IVP SCH (09:46)
[2017-07-14] MEDS: Levofloxacin 750 MG/150 ML 750 MG/150 ML BAG IVPB SCH (09:49)
[2017-07-14] MEDS: Budesonide/Formoterol 80/4.5 MDI IH SCH ×2 (10:46→22:25)
[2017-07-14 11:43] LABS: INR 2.6; Prothrombin Time 28.6 Seconds (9.4-12.1)
--- NOTE | 2017-07-14 16:45 | Internal Med Progress Note ---
Date of Encounter: 07/14/17 Time of Encounter: 11:15 - Assessment and plan (1) CAD (coronary artery disease) Current Visit: Yes Status: Acute Assessment and plan: David Sequeira is a 81 y/o male with PMH a-fib and COPD recently hospitalized for COPD exacerbation who presented to [facility] on 07/12/2017 with complaints of SOB. He was found to have another URI and with lactic acidosis. He was admitted for IV ATB. 1. CAD: hx remote stent. Troponin peaked at 0.05, EKG with a-fib. Denies chest pain. 07/14/2017 stress test with medium size, mild to moderate intensity perfusion defect to the inferior lateral wall; possibly artifact however prior infarct could not be ruled out. Denies chest pain. Continue home ASA, warfarin , statin. Can follow up with cardiology outpatient. 2. COPD exacerbation: presented with increasing SOB. With scattered wheezing on exam. CXR non-acute. Cont steroids, levaquin started on admission. 3. Acute encephalopathy: details unclear but apparently was confused in ED, no family at bedside for collateral. Head CT non-acute. Suspect he has underlying dementia, mentation appears to be improving, hold on further work-up at this time. 4. Lactic acidosis: lactic acid 3.4, WBC 14K (on steroids at home). Suspect secondary to hypoxia. Repeat lactic acid normal. 5. Diabetes: Hgb A1c 8.6%; blood sugars elevated secondary to steroid use. Not on treatment for diabetes at home. We will need to clarify. Continue SSI. Monitor blood sugar and titrate PRN. 6. Atrial fibrillation: per hx. Rate controlled. Cont home coumadin 7. DVT prophylaxis: coumadin Qualifiers: Qualified Code(s): I25.10 - Atherosclerotic heart disease of [place] coronary artery without angina pectoris (2) Atrial fibrillation Current Visit: No Status: Chronic Qualifiers: Atrial fibrillation type: chronic Qualified Code(s): I48.2 - Chronic atrial fibrillation (3) COPD exacerbation Current Visit: No Status: Acute (4) DVT prophylaxis Current Visit: No Status: Acute - Subjective Interval history: Seen and examined at bedside. He is sitting up in chair. This returned from stress test. Says he still has a little shortness of breath but feels better overall. Denies chest pain. not at bedside. Awaiting PT/OT eval - Constitutional Vitals: Temp Pulse Resp BP Pulse Ox 96.4 F L 66 16 115/79 98 07/14/17 15:23 07/14/17 15:23 07/14/17 15:23 07/14/17 15:23 07/14/17 15:23 General appearance: Present: A&O X 2, A&O X 3, pleasant, answers questions appropriately Exam: Intermittently confused - Head Head exam: Present: atraumatic, normocephalic - Eye Eye exam: Present: PERRL, conjuntiva pink, sclera anicteric Pupils: Present: PERRL - Neck Neck exam general surgery: Present: supple, trachea midline. Absent: lymphadenopathy - Respiratory Respiratory exam: Present: wheezes. Absent: accessory muscle use, rales, rhonchi - Cardiovascular Cardiovascular exam: Present: RRR, +S1, +S2. Absent: diastolic murmur, gallop, rubs, systolic murmur - GI/Abdominal GI/Abdominal exam: Present: normal bowel sounds, soft, no peritoneal signs. Absent: distended, tenderness - Extremities Exam Extremities exam: Present: warm, radial pulses palpable and symmetrical. Absent : calf tenderness, cyanotic, pedal edema - Neurological Exam Neurological exam: Present: CN II-XII intact, oriented X3, no focal deficits. Absent: pronater drift, facial droop, speech deficit - Skin Skin exam: Present: dry, intact Internal Medicine: Result - Labs CBC & Chem 7: 07/14/17 02:48 07/14/17 02:48 Labs: Short CBC 07/14/17 Range/Units 02:48 WBC 12.8 H (4.3-11.1) K/mcL Hgb 11.6 L (12.9-16.9) g/dL Hct 34.9 L (37.5-50.1) % Plt Count 138 L (140-400) K/mcL BMP 07/14/17 02:48 Sodium 137 Potassium 3.6 Chloride 100 Carbon Dioxide 30 H BUN 41 H Creatinine 1.07 Glucose 297 H Calcium 8.6 Liver Function 07/14/17 Range/Units 02:48 Total Bilirubin 0.4 (0.2-1.2) mg/dL AST 11 (5-34) Units/L ALT 20 (0-55) Units/L Alkaline Phosphatase 75 (38-126) Units/L Albumin 2.7 L (3.5-5.0) g/dL - ABG Interpretation ABG results: ABG ABG pH 7.45 pH Units (7.32-7.45) 07/12/17 17:39 ABG pCO2 43 mmHg (35-45) 07/12/17 17:39 ABG pO2 80 mmHg (85-104) L 07/12/17 17:39 ABG O2 Saturation 96 % (95-98) 07/12/17 17:39 PT/INR, D-dimer PT 28.6 Seconds (9.4-12.1) H 07/14/17 11:17 Consult Discharge Plan - Plan Referrals: ColopyJose A DO [Primary Care Provider] -
[2017-07-14] MEDS: Aspirin Enteric Coated 81 MG Tablet PO SCH (16:56)
[2017-07-14] MEDS ORDERED: *HR* Warfarin 1 MG TABLET PO ONE (18:00)
[2017-07-14] MEDS: Latanoprost 2.5 ML BOTTLE BOTH EYES SCH (20:35)
[2017-07-15 05:37] LABS: Mean Corpuscular HGB Conc 32.4 g/dL (31.6-35.5); Mean Corpuscular Hemoglobin 30.2 pg (28.0-33.3); Mean Corpuscular Volume 93.2 fL (83.0-100.0); Mean Platelet Volume 10.1 fL (9.4-12.4); Platelet Count 140 K/mcL (140-400); Red Blood Count 3.97 M/mcL (4.19-5.50); Red Cell Distribution Width 13.8 % (11.5-14.5)
[2017-07-15 06:00] LABS: Alanine Aminotransferase 20 Units/L (0-55); Albumin 2.9 g/dL (3.5-5.0); Albumin/Globulin Ratio 1.3 (1.1-2.2); Alkaline Phosphatase 63 Units/L (38-126); Aspartate Amino Transferase 13 Units/L (5-34); BUN/Creatinine Ratio 31 (6-26); Bilirubin,Total 0.5 mg/dL (0.2-1.2); Blood Urea Nitrogen 33 mg/dL (8-26); Calcium 8.7 mg/dL (8.6-10.8); Carbon Dioxide 30 mEq/L (19-29); Chloride 101 mEq/L (98-109); Globulin 2.3 g/dL (2.4-3.5); Glucose 198 mg/dL (70-99); Osmolality,Calculated 301 (280-300); Potassium 3.8 mEq/L (3.5-4.5); Sodium 139 mEq/L (136-145); Total Protein 5.2 g/dL (6.0-8.3); eGFR For African Americans > 60 (> 60); eGFR For Non-African Americans > 60 (> 60)
[2017-07-15] MEDS: Insulin LISPRO 300 UNITS/3 ML VIAL SQ SCH ×2 (07:35→11:47)
[2017-07-15] MEDS: Budesonide/Formoterol 80/4.5 MDI IH SCH (07:47)
[2017-07-15] MEDS: predniSONE 10 MG TABLET PO SCH (08:43)
[2017-07-15] MEDS: Levofloxacin 750 MG/150 ML 750 MG/150 ML BAG IVPB SCH (08:44)
[2017-07-15] MEDS ORDERED: Furosemide 40 MG TABLET PO SCH (09:00)
[2017-07-15 11:27] LABS: INR 2.4; Prothrombin Time 26.1 Seconds (9.4-12.1)
--- NOTE | 2017-07-15 13:39 | Discharge Summary ---
Date of Encounter: 07/15/17 Time of Encounter: 13:35 - Discharge Diagnosis (1) CAD (coronary artery disease) Priority: Primary Status: Acute Comments: David Sequeira is a 81 y/o male with PMH a-fib and COPD recently hospitalized for COPD exacerbation who presented to [facility] on 07/12/2017 with complaints of SOB. He was found to have another URI and with lactic acidosis. He was admitted for IV ATB. His symptoms improved with short course of prednisone and IV Levaquin. He was discharged home in stable condition with outpatient follow-up. 1. CAD: hx remote stent. Troponin peaked at 0.05, EKG with a-fib. Denies chest pain. 07/14/2017 stress test with medium size, mild to moderate intensity perfusion defect to the inferior lateral wall; possibly artifact however prior infarct could not be ruled out. Denies chest pain. Continue home ASA, warfarin , statin. Can follow up with cardiology outpatient. 2. COPD exacerbation: presented with increasing SOB. CXR non-acute. Received 3 doses of prednisone and 3 doses IV Levaquin. Discharge home with 4 more days of PO Levaquin. Stop steroids as no wheezing. Recommend follow-up with PCP within one week. Continue home inhalers 3. Acute encephalopathy: details unclear but apparently was confused in ED, no family at bedside for collateral. Head CT non-acute. Suspect he has underlying dementia, mentation improved to baseline without intervention. No further workup at this time 4. Lactic acidosis: lactic acid 3.4, WBC 14K (on steroids at home). Suspect secondary to hypoxia. Repeat lactic acid normal. 5. Diabetes: Hgb A1c 8.6%; blood sugars elevated secondary to steroid use. Not on treatment for diabetes at home. Steroids stopped. Start metformin. Recommend follow-up with PCP within one week. 6. Chronic atrial fibrillation: per hx. Rate controlled. Cont home coumadin. Will need repeat PT/INR on 07/16/2017 7. Chronic diastolic heart failure: 11/2015 TTE with evidence of diastolic dysfunction. Initially diuresed with IV Lasix. Appears compensated. Continue home Lasix. Qualifiers: Coronary Disease-Associated Artery/Lesion type: [place] artery [place] vs. transplanted heart: [place] heart Associated angina: without angina Qualified Code(s): I25.10 - Atherosclerotic heart disease of [place] coronary artery without angina pectoris (2) Atrial fibrillation Priority: Primary Status: Chronic Qualifiers: Atrial fibrillation type: chronic Qualified Code(s): I48.2 - Chronic atrial fibrillation (3) COPD exacerbation Priority: Primary Status: Acute - Discharge Medications Prescriptions: levoFLOXacin [Levaquin] 750 mg PO PREOP #4 tablet metFORMIN [Glucophage] 850 mg PO 0800 #30 tablet Home Medications: Ascorbate Calcium [Vitamin C] 1,000 mg PO QAM 12/23/15 [History] Aspirin [Adult Low Dose Aspirin EC] 81 mg PO QPM 12/23/15 [History] Budesonide/Formoterol 80/4.5 [Symbicort 80/4.5] 2 puff IH BID 12/23/15 [History ] Lovastatin 40 mg PO QPM 12/23/15 [History] Multivit-Min/FA/Lycopen/Lutein [Centrum Silver Tablet] 1 each PO QAM 12/23/15 [ History] Omeprazole [PriLOSEC] 20 mg PO QAM 12/23/15 [History] Albuterol Sulfate [Ventolin Hfa] 2 puff IH Q4H PRN 01/20/17 [History] Furosemide [Lasix] 40 mg PO DAILY 01/20/17 [History] Latanoprost [Xalatan] 1 drop BOTH EYES HS 01/20/17 [History] Albuterol Neb [Proventil Neb] 2.5 mg IH [id number] PRN 30 Days inhsol 01/29/17 [Rx ] Nitroglycerin [Nitrostat] 0.4 mg SL Q5M PRN 06/25/17 [History] Oxygen 2 l NS AD PRN 06/25/17 [History] Warfarin [Coumadin] 1 mg PO DAILY 07/05/17 [History] levoFLOXacin [Levaquin] 750 mg PO PREOP #4 tablet 07/15/17 [Rx] metFORMIN [Glucophage] 850 mg PO 0800 #30 tablet 07/15/17 [Rx] Allergies/Adverse Reactions: 3 Allergy/AdvReac Type Severity Reaction Status Date / Time No Known Allergies Allergy Verified 06/26/17 12:31 Procedures/tests Complete & Pending: Procedures Performed prior 72 hours Category Date Time Status NM rosamaria perf SPECT multi [NM] Routine Exams 07/14/17 07:30 Taken SP pharm nuclear stress Routine Y 07/14/17 07:00 Completed Date of admission: 07/12/17 20:30 Primary care physician: Jose A Hernandez Consults: 07/12/17 22:02 Consult to Or Assistant [CONS] Routine Reason for SW Consult: Discharge planning 07/13/17 12:04 Consult to Physical Therapy [CONS] Routine Comment: Evaluate, develop and implement POC Reason for Consult: general weakness OT [Consult to Occupational Therapy] [CONS] Routine Comment: Evaluate, develop and implement POC Reason for Consult: general weakness Discharging clinician: Jes Olsen Anticipated date of discharge: 07/15/17 - Patient Status Disposition: Home Health Service Condition: Good Functional capacity at discharge: uses cane/walker Overall status at discharge: patient is progressing back to baseline - Discharge Instructions Instructions: Warfarin (By mouth), Acute Bronchitis (DC) Follow Up With: Coumadin, Clinic [Other] - 07/16/17 9:15 am Jose A Hernandez, DO [Primary Care Provider] - - Diet and Activity Activity: ambulate only with your walker, resume usual activities as tolerated Diet: diabetic diet, low fat, low cholesterol Interval History: Seen and examined at bedside. Patient sitting up on edge of bed eating breakfast. Says he feels better only to go home. He is not taking any medication for diabetes, does not check his blood sugar at home he is agreeable to start metformin. No chest pain, no shortness of breath. Disposition: Evaluated by physical therapy and occupational therapy who recommended home health care at discharge. Discussed case with social worker aide and patient would [place] benefit from SNF however he does not meet placement criteria. Furthermore patient does not have financial means to pay for SNF [id number] and patient does not want to go to SNF. Hospital course: See assessment and plan for hospital course - Time Spent with Patient Total time spent providing and/or coordinating discharge services: Greater than 30 minutes (54 minutes spent on discharge) - Constitutional Vitals: Temp Pulse Resp BP Pulse Ox 97.3 F L 74 18 112/62 98 07/15/17 11:33 07/15/17 11:33 07/15/17 11:33 07/15/17 11:33 07/15/17 11:33 General appearance: Present: A&O X 3, pleasant, answers questions appropriately - Head Head exam: Present: atraumatic, normocephalic - Eye Eye exam: Present: PERRL, conjuntiva pink, sclera anicteric Pupils: Present: PERRL - Neck Neck exam general surgery: Present: supple, trachea midline. Absent: lymphadenopathy - Respiratory Respiratory exam: Present: CTAB. Absent: accessory muscle use, rales, rhonchi, wheezes - Cardiovascular Cardiovascular exam: Present: RRR, +S1, +S2. Absent: diastolic murmur, gallop, rubs, systolic murmur - GI/Abdominal GI/Abdominal exam: Present: normal bowel sounds, soft, no peritoneal signs. Absent: distended, tenderness - Extremities Exam Extremities exam: Present: warm, radial pulses palpable and symmetrical. Absent : calf tenderness, cyanotic, pedal edema - Neurological Exam Neurological exam: Present: CN II-XII intact, oriented X3, no focal deficits. Absent: pronater drift, facial droop, speech deficit - Skin Skin exam: Present: dry, intact - VTE Documentation of Mechanical Device: Graduated compression elastic hosiery
[2017-07-15 15:16] VITALS: BP 103/65
[2017-07-15 17:44] LABS: CK-MB (CK isoenzymes) 0 % (0-4); CK-MM (CK-isoenzymes) 100 % (96-100)
[2017-07-15 17:44] LABS: CK-MB (CK isoenzymes) 0 % (0-4); CK-MM (CK-isoenzymes) 100 % (96-100)
[2017-07-15] MEDS ORDERED: *HR* Warfarin 1 MG TABLET PO ONE (18:00)
[2017-07-16 07:13] LABS: CK Total (Ck Isoenzymes) 28 U/L (20-200); CK-BB (CK isoenzymes) 0 % (0-0)
[2017-07-16 07:13] LABS: CK Total (Ck Isoenzymes) 28 U/L (20-200); CK-BB (CK isoenzymes) 0 % (0-0)
== END 2017-07-15 16:55 | disposition home health service (06) ==
LOC: 3BNU 15:34 → EMEROO 15:34 → 3BNU 21:26
PROVIDERS: ADMIT Internal Medicine; ATTEND Registered Nurse

== ENCOUNTER 2017-12-27 16:10 | Inpatient (IN) ==
[2017-12-27] MEDS ORDERED: Aspirin 81 MG TAB.CHEW PO ONE (16:37)
--- NOTE | 2017-12-27 16:50 | Emergency Department Note ---
Disposition Clinical Impression: Congestive heart failure Qualifiers: Heart failure type: other Qualified Code(s): I50.9 - Heart failure, unspecified Disposition: Admitted As Inpatient Condition: Good Referrals: Jose A Hernandez DO [Primary Care Provider] - Forms: ED Satisfaction Letter Time of Disposition: 18:00 General Adult HPI - General Chief complaint: ED Shortness of Breath/Dyspnea Stated complaint: MARIA M,CP, weight gain Time Seen by Provider: 12/27/17 16:12 Nursing Notes Reviewed: Yes Vital Signs Reviewed: Yes - History of Present Illness HPI Narrative: Increasing shortness of breath over the past week. Intermittent chest pressure. Pleasantly demented. Does have a 38 pound weight gain over the past month. History of CHF and COPD. No fevers or chills. Productive cough. Pain Scale: 5 - Related Data Home Medications Medication Instructions Recorded Confirmed Ascorbate Calcium [Vitamin C] 500 mg PO QAM 12/23/15 12/27/17 Aspirin [Adult Low Dose Aspirin EC] 81 mg PO QPM 12/23/15 12/27/17 Lovastatin 40 mg PO QPM 12/23/15 12/27/17 Multivit-Min/FA/Lycopen/Lutein 1 each PO QAM 12/23/15 12/27/17 [Centrum Silver Tablet] Omeprazole [PriLOSEC] 20 mg PO QAM 12/23/15 12/27/17 Albuterol Sulfate [Ventolin Hfa] 2 puff IH Q4H PRN 01/20/17 12/27/17 Furosemide [Lasix] 80 mg PO DAILY 01/20/17 12/27/17 Oxygen 2 l NS AD PRN 06/25/17 12/27/17 Acetylcysteine [Nac] 600 mg PO DAILY 08/05/17 12/27/17 Budesonide/Formoterol 160/4.5 2 puff IH BIDR 08/05/17 12/27/17 [Symbicort 160/4.5] Fenofibrate 160 mg PO DAILY 08/05/17 12/27/17 Glimepiride [Amaryl] 2 mg PO DAILY 12/27/17 12/27/17 Latanoprost [Xalatan] 1 drop OP DAILY 12/27/17 12/27/17 Warfarin [Coumadin] 1 mg PO DAILY 12/27/17 12/27/17 predniSONE [PredniSONE] 20 mg PO DAILY 12/27/17 12/27/17 Previous Rx's Medication Instructions Recorded metFORMIN [Glucophage] 850 mg PO 0800 #30 tablet 07/15/17 Allergies Allergy/AdvReac Type Severity Reaction Status Date / Time No Known Allergies Allergy Verified 12/27/17 18:29 All systems ED: reviewed and negative except as stated. Constitutional: Denies: fever, chills ENT ED: Denies: congestion Cardiovascular: Reports: chest pain (Pressure). Denies: syncope Respiratory: Reports: cough, dyspnea, sputum production. Denies: wheezes, hemoptysis Gastrointestinal: Denies: abdominal pain, nausea, vomiting, diarrhea, hematemesis, melena, hematochezia Genitourinary: Denies: urgency, dysuria, frequency Musculoskeletal: Denies: back pain, neck pain Integumentary: Denies: rash Neurological: Denies: headache, weakness Past Medical History - Past Medical History Attestation: Yes The following information was validated with the patient. Source: patient Medical history: Reports: atrial fibrillation, CHF, COPD, coronary artery disease, DVT, diabetes, GERD, hyperlipidemia, hypertension, myocardial infarction, pulmonary embolus, renal disease Surgical history: Reports: appendectomy, colectomy, knee replacement, LE stent(s ), sinus surgery Psychiatric history: Reports: no psych history - Social History Smoking Status: Never smoker Smokeless Tobacco Status: No Alcohol use: Reports: none Drug use: Reports: none Physical Exam - General Limitations: other (Pleasantly demented) General appearance: alert - Head Head exam: atraumatic, normocephalic, normal inspection - Eye Eye exam: Present: normal appearance, PERRL, EOMI - ENT ENT exam: normal exam, normal oropharynx, mucous membranes moist - Neck Neck exam: Present: normal inspection, full ROM, trachea midline - Chest Chest inspection: Present: normal inspection, symmetric chest wall rise. Absent : tenderness - Respiratory Respiratory exam: Present: other. Absent: respiratory distress, accessory muscle use (Mild Rales and lower lobes.) - Cardiovascular Cardiovascular exam: Present: regular rate, normal rhythm, normal heart sounds - Abdominal Exam Abdominal exam: Present: soft, Non-Tender. Absent: distention, guarding, rebound, rigidity, organomegaly - Extremities Exam Extremities exam: Present: normal inspection, full ROM, pedal edema (Pitting to mid calf). Absent: tenderness - Back Exam Back exam: Present: normal inspection, full ROM. Absent: tenderness - Neurological Exam Neurological exam: Present: alert, other (Pleasantly demented) - Psychiatric Psychiatric exam: Present: normal affect, normal mood - Skin Skin exam: Present: warm, dry, intact, normal color Course Course Narrative: Male patient presenting to emergency with family complaining of a 38 pound weight gain in the past month. Was seen by his primary care physician today and told him the emergency department. He reports shortness of breath and chest pressure. States the shortness breath is been going on for about a week. Her chest. Has significant edema that is pitting to his lower extremities. reports that he does take a fluid pill and has been urinating normally. Patient is pleasantly demented. He describes the chest pain as a pressure sensation on the left part of his chest. Sometimes it radiates to his neck. He appears to be resting comfortably this time and does not appear to be in gross distress. He is on 4 L of oxygen which she also was at home. Lung sounds have mild Rales in the lower lobes. We will get a cardiac workup on the patient and do a nitroglycerin trial. I anticipate admission for this patient. - Reevaluation(s) Reevaluation #1: Patient's BNP is elevated. He does have a significant weight gain. Due to his shortness of breath and intermittent chest pain we will admit him to the hospital. Time: 18:00 Reevaluation #2: Patient's DVT study is negative. We will admit patient for a CHF exacerbation. He has been given 40 Lasix. Time: 18:41 Vital Signs Temperature 98 F 12/27/17 16:16 Pulse Rate 71 12/27/17 16:16 Respiratory Rate 27 12/27/17 16:16 Blood Pressure 135/75 12/27/17 16:16 O2 Sat by Pulse Oximetry 100 12/27/17 16:16 Temperature 98 F 12/27/17 16:24 Pulse Rate 79 12/27/17 17:55 Respiratory Rate 22 12/27/17 17:55 Blood Pressure 115/59 12/27/17 17:55 O2 Sat by Pulse Oximetry 99 12/27/17 17:55 Oxygen Delivery Oxygen Delivery Nasal Cannula Medical Decision Making - Lab Data Result diagrams: 12/27/17 16:47 12/27/17 16:47 Lab Results 12/27/17 12/27/17 12/27/17 Range/Units 16:35 16:37 16:47 WBC 8.1 (4.3-11.1) K/mcL RBC 3.71 L (4.19-5.50) M/mcL Hgb 11.4 L (12.9-16.9) g/dL Hct 36.2 L (37.5-50.1) % MCV 97.6 (83.0-100.0) fL MCH 30.7 (28.0-33.3) pg MCHC 31.5 L (31.6-35.5) g/dL RDW 14.6 H (11.5-14.5) % Plt Count 251 (140-400) K/mcL MPV 9.0 L (9.4-12.4) fL Immature Gran % 2.2 (0-4) % Seg Neutrophils % 88.4 % Lymphocytes % 6.9 % Monocytes % 2.0 % Eosinophils % 0.1 % Basophils % 0.4 % Neutrophils # 7.1 (1.6-8.9) K/mcL Lymphocytes # 0.6 (0.6-4.6) K/mcL Monocytes # 0.2 (0.0-1.3) K/mcL Eosinophils # 0.0 (0.0-0.6) K/mcL Basophils # 0.0 (0.0-0.2) K/mcL PT 15.8 H (9.4-12.1) Seconds INR 1.5 APTT 30.5 (26.0-36.0) Seconds Sodium (136-145) mEq/L Potassium (3.5-5.1) mEq/L Chloride (98-107) mEq/L Carbon Dioxide (23-29) mEq/L BUN (8-23) mg/dL Creatinine (0.70-1.30) mg/dL Est GFR ( Amer) (> 60) Est GFR (Non-Af Amer) (> 60) BUN/Creatinine Ratio (6-26) Glucose (70-105) mg/dL Calculated Osmolality (280-300) Calcium (8.6-10.3) mg/dL Troponin I (< 0.04) ng/mL B-Natriuretic Peptide 230 H (Less than 100) pg/mL 12/27/17 Range/Units 16:47 WBC (4.3-11.1) K/mcL RBC (4.19-5.50) M/mcL Hgb (12.9-16.9) g/dL Hct (37.5-50.1) % MCV (83.0-100.0) fL MCH (28.0-33.3) pg MCHC (31.6-35.5) g/dL RDW (11.5-14.5) % Plt Count (140-400) K/mcL MPV (9.4-12.4) fL Immature Gran % (0-4) % Seg Neutrophils % % Lymphocytes % % Monocytes % % Eosinophils % % Basophils % % Neutrophils # (1.6-8.9) K/mcL Lymphocytes # (0.6-4.6) K/mcL Monocytes # (0.0-1.3) K/mcL Eosinophils # (0.0-0.6) K/mcL Basophils # (0.0-0.2) K/mcL PT (9.4-12.1) Seconds INR APTT (26.0-36.0) Seconds Sodium 138 (136-145) mEq/L Potassium 4.1 (3.5-5.1) mEq/L Chloride 103 (98-107) mEq/L Carbon Dioxide 28 (23-29) mEq/L BUN 27 H (8-23) mg/dL Creatinine 1.31 H (0.70-1.30) mg/dL Est GFR ( Amer) > 60 (> 60) Est GFR (Non-Af Amer) 53 L (> 60) BUN/Creatinine Ratio 21 (6-26) Glucose 310 H (70-105) mg/dL Calculated Osmolality 303 H (280-300) Calcium 9.1 (8.6-10.3) mg/dL Troponin I 0.04 H* (< 0.04) ng/mL B-Natriuretic Peptide (Less than 100) pg/mL
--- NOTE | 2017-12-27 16:50 | Emergency Department Note ---
Disposition Clinical Impression: Congestive heart failure Disposition: Admitted As Inpatient Condition: Good Referrals: Jose A Hernandez DO [Primary Care Provider] - Forms: ED Satisfaction Letter General Adult HPI - General Chief complaint: ED Shortness of Breath/Dyspnea Stated complaint: MARIA M,CP, weight gain Time Seen by Provider: 12/27/17 16:12 Nursing Notes Reviewed: Yes Vital Signs Reviewed: Yes - History of Present Illness Pain Scale: 5 - Related Data Home Medications Medication Instructions Recorded Confirmed Ascorbate Calcium [Vitamin C] 500 mg PO QAM 12/23/15 12/27/17 Aspirin [Adult Low Dose Aspirin EC] 81 mg PO QPM 12/23/15 12/27/17 Lovastatin 40 mg PO QPM 12/23/15 12/27/17 Multivit-Min/FA/Lycopen/Lutein 1 each PO QAM 12/23/15 12/27/17 [Centrum Silver Tablet] Omeprazole [PriLOSEC] 20 mg PO QAM 12/23/15 12/27/17 Albuterol Sulfate [Ventolin Hfa] 2 puff IH Q4H PRN 01/20/17 12/27/17 Furosemide [Lasix] 80 mg PO DAILY 01/20/17 12/27/17 Oxygen 2 l NS AD PRN 06/25/17 12/27/17 Acetylcysteine [Nac] 600 mg PO DAILY 08/05/17 12/27/17 Budesonide/Formoterol 160/4.5 2 puff IH BIDR 08/05/17 12/27/17 [Symbicort 160/4.5] Fenofibrate 160 mg PO DAILY 08/05/17 12/27/17 Glimepiride [Amaryl] 2 mg PO DAILY 12/27/17 12/27/17 Latanoprost [Xalatan] 1 drop OP DAILY 12/27/17 12/27/17 Warfarin [Coumadin] 1 mg PO DAILY 12/27/17 12/27/17 predniSONE [PredniSONE] 20 mg PO DAILY 12/27/17 12/27/17 Previous Rx's Medication Instructions Recorded metFORMIN [Glucophage] 850 mg PO 0800 #30 tablet 07/15/17 Allergies Allergy/AdvReac Type Severity Reaction Status Date / Time No Known Allergies Allergy Verified 12/27/17 18:29 Past Medical History - Past Medical History Medical history: Reports: atrial fibrillation, CHF, COPD, coronary artery disease, DVT, diabetes, GERD, hyperlipidemia, hypertension, myocardial infarction, pulmonary embolus, renal disease Surgical history: Reports: appendectomy, colectomy, knee replacement, LE stent(s ), sinus surgery Psychiatric history: Reports: no psych history - Social History Smoking Status: Never smoker Smokeless Tobacco Status: No Alcohol use: Reports: none Drug use: Reports: none Physical Exam - General General appearance: alert Course Vital Signs Temperature 98 F 12/27/17 16:16 Pulse Rate 71 12/27/17 16:16 Respiratory Rate 27 12/27/17 16:16 Blood Pressure 135/75 12/27/17 16:16 O2 Sat by Pulse Oximetry 100 12/27/17 16:16 Temperature 98 F 12/27/17 16:24 Pulse Rate 79 12/27/17 17:55 Respiratory Rate 22 12/27/17 17:55 Blood Pressure 115/59 12/27/17 17:55 O2 Sat by Pulse Oximetry 99 12/27/17 17:55 Oxygen Delivery Oxygen Delivery Nasal Cannula Medical Decision Making - MDM Narrative Medical decision making narrative: This documentation is done with the assistance of Dragon dictation. Despite efforts made to ensure accuracy, there may be inaccuracies in coal unloader or spelling and typographical errors. I examined this patient and my medical decision-making was reviewed with the Resident Physician. I agree with the documented findings, disposition and treatment plan as described except to the extent set forth below. Patient seen and evaluated by Dr. Mckeon and myself, agree with her evaluation management plan, supervise care the patient's stay. Patient presents with edema and dyspnea. History of CHF and COPD. Also history of DVT and lower extremity with swollen legs today. We will go ahead and get a DVT study cardiac workup and admission. He is in agreement with plan. 1617 hrs.: Patient in EKG performed which shows atrial fibrillation with a rate of 72 does have a left anterior fascicular block, has no signs of acute ischemia or PVCs. Compared this EKG that was done last year shows no changes except for rate. Chest X-Ray 12/27/17 16:13 IMPRESSION: Mild left basilar airspace disease, favored to represent atelectasis. D/ / Francis Garcia MD / Francis Garcia MD Interpreting Provider: Francis Garcia MD 1800 hrs.: Patient's BNP is elevated. We will go ahead bring him in to the hospital pending DVT study.. 1830 hrs.: Patient's DVT study is read by vascular as being negative. Paging hospitalist. - Lab Data Result diagrams: 12/27/17 16:47 12/27/17 16:47 Lab Results 12/27/17 12/27/17 12/27/17 Range/Units 16:35 16:37 16:47 WBC 8.1 (4.3-11.1) K/mcL RBC 3.71 L (4.19-5.50) M/mcL Hgb 11.4 L (12.9-16.9) g/dL Hct 36.2 L (37.5-50.1) % MCV 97.6 (83.0-100.0) fL MCH 30.7 (28.0-33.3) pg MCHC 31.5 L (31.6-35.5) g/dL RDW 14.6 H (11.5-14.5) % Plt Count 251 (140-400) K/mcL MPV 9.0 L (9.4-12.4) fL Immature Gran % 2.2 (0-4) % Seg Neutrophils % 88.4 % Lymphocytes % 6.9 % Monocytes % 2.0 % Eosinophils % 0.1 % Basophils % 0.4 % Neutrophils # 7.1 (1.6-8.9) K/mcL Lymphocytes # 0.6 (0.6-4.6) K/mcL Monocytes # 0.2 (0.0-1.3) K/mcL Eosinophils # 0.0 (0.0-0.6) K/mcL Basophils # 0.0 (0.0-0.2) K/mcL PT 15.8 H (9.4-12.1) Seconds INR 1.5 APTT 30.5 (26.0-36.0) Seconds Sodium (136-145) mEq/L Potassium (3.5-5.1) mEq/L Chloride (98-107) mEq/L Carbon Dioxide (23-29) mEq/L BUN (8-23) mg/dL Creatinine (0.70-1.30) mg/dL Est GFR ( Amer) (> 60) Est GFR (Non-Af Amer) (> 60) BUN/Creatinine Ratio (6-26) Glucose (70-105) mg/dL Calculated Osmolality (280-300) Calcium (8.6-10.3) mg/dL Troponin I (< 0.04) ng/mL B-Natriuretic Peptide 230 H (Less than 100) pg/mL 12/27/17 Range/Units 16:47 WBC (4.3-11.1) K/mcL RBC (4.19-5.50) M/mcL Hgb (12.9-16.9) g/dL Hct (37.5-50.1) % MCV (83.0-100.0) fL MCH (28.0-33.3) pg MCHC (31.6-35.5) g/dL RDW (11.5-14.5) % Plt Count (140-400) K/mcL MPV (9.4-12.4) fL Immature Gran % (0-4) % Seg Neutrophils % % Lymphocytes % % Monocytes % % Eosinophils % % Basophils % % Neutrophils # (1.6-8.9) K/mcL Lymphocytes # (0.6-4.6) K/mcL Monocytes # (0.0-1.3) K/mcL Eosinophils # (0.0-0.6) K/mcL Basophils # (0.0-0.2) K/mcL PT (9.4-12.1) Seconds INR APTT (26.0-36.0) Seconds Sodium 138 (136-145) mEq/L Potassium 4.1 (3.5-5.1) mEq/L Chloride 103 (98-107) mEq/L Carbon Dioxide 28 (23-29) mEq/L BUN 27 H (8-23) mg/dL Creatinine 1.31 H (0.70-1.30) mg/dL Est GFR ( Amer) > 60 (> 60) Est GFR (Non-Af Amer) 53 L (> 60) BUN/Creatinine Ratio 21 (6-26) Glucose 310 H (70-105) mg/dL Calculated Osmolality 303 H (280-300) Calcium 9.1 (8.6-10.3) mg/dL Troponin I 0.04 H* (< 0.04) ng/mL B-Natriuretic Peptide (Less than 100) pg/mL
[2017-12-27 17:01] LABS: Basophils % 0.4 %; Eosinophils % 0.1 %; Hematocrit 36.2 % (37.5-50.1); Hemoglobin 11.4 g/dL (12.9-16.9); Immature Granulocytes % 2.2 % (0-4); Lymphocytes # 0.6 K/mcL (0.6-4.6); Lymphocytes % 6.9 %; Mean Corpuscular HGB Conc 31.5 g/dL (31.6-35.5); Mean Corpuscular Hemoglobin 30.7 pg (28.0-33.3); Mean Corpuscular Volume 97.6 fL (83.0-100.0); Monocytes # 0.2 K/mcL (0.0-1.3); Neutrophils # 7.1 K/mcL (1.6-8.9); Platelet Count 251 K/mcL (140-400); Red Blood Count 3.71 M/mcL (4.19-5.50); Red Cell Distribution Width 14.6 % (11.5-14.5); Segmented Neutrophils % 88.4 %
[2017-12-27 17:10] LABS: INR 1.5; Prothrombin Time 15.8 Seconds (9.4-12.1)
[2017-12-27] MEDS: Nitroglycerin 0.4 MG TAB.SUBL SL ONE ×2 (17:12→17:16)
[2017-12-27 17:13] LABS: Activated Partial Thrombo Time 30.5 Seconds (26.0-36.0)
[2017-12-27 17:26] LABS: BUN/Creatinine Ratio 21 (6-26); Blood Urea Nitrogen 27 mg/dL (8-23); Calcium 9.1 mg/dL (8.6-10.3); Carbon Dioxide 28 mEq/L (23-29); Chloride 103 mEq/L (98-107); Glucose 310 mg/dL (70-105); Osmolality,Calculated 303 (280-300); Potassium 4.1 mEq/L (3.5-5.1); Sodium 138 mEq/L (136-145); eGFR For African Americans > 60 (> 60); eGFR For Non-African Americans 53 (> 60)
[2017-12-27 17:28] LABS: Troponin I 0.04 ng/mL (< 0.04)
[2017-12-27] MEDS ORDERED: Furosemide 40 MG/4 ML VIAL IVP ONE (18:40)
--- NOTE | 2017-12-27 19:48 | Internal Med History&Physical ---
Date of Encounter: 12/28/17 Time of Encounter: 19:46 Assessment and Plan (1) Acute on chronic diastolic heart failure Current visit: No Status: Acute 82 y M with NYHA class 3-4 HF, COPD, and atrial fibrillation, preserved ejection fraction, endorsing gradual increase in shortness of breath, weight gain of 1-month 38 pounds, edema, with acute rise in creatinine. Precipitant of acute heart failure, possibly secondary due to to COPD Pt hemodynamically stable - close monitoring of vital signs June 2017 nuclear stress test, ejection fraction 61% Reviewed CXR, EKG Reviewed labs: BNP, rise from last known BNP of 93. Patient's baseline approx. BNP 200. Trend BNPs. Corrected Na for hyperglycemia: 141 Goals to control pulmonary congestion and peripheral edema with diuresis Pt takes 80 mg PO daily. Inpatient: Dose trial with Lasix IV- 40 qh12. Adjust, as patient tolerates Monitor BMP daily for response to renal function Continuous telemetry, for control of heart rate, especially due to patient history of atrial fibrillation. Continuous pulse ox, Oxygen Head of Bed continuously elevated - sitting up, as tolerated in Chair Diet we will place on sodium and fluid restricted diet Should undergo Possible consideration of b-ray prior to discharge. (2) Elevated troponin I level Current visit: Yes Status: Acute Rise in troponin likely 2/2 to an ischemic imbalance ED Troponin 0.04. Troponin x 2 q6h EKG x 2 q6h Continuous tele (3) Atrial fibrillation Current visit: No Status: Chronic Rate controlled. Patient on telemetry Continue home medication, dosing per pharmacy, appreciate coordination of care Qualifiers: Atrial fibrillation type: chronic Qualified Code(s): I48.2 - Chronic atrial fibrillation (4) COPD (chronic obstructive pulmonary disease) Current visit: No Status: Acute Pt oxygen dependent DuoNeb q6h scheduled Albuterol prn Continuous pulse ox He will complete a sputum production or purulence, antibiotic not indicated Continue medication Qualifiers: COPD type: unspecified COPD Qualified Code(s): J44.9 - Chronic obstructive pulmonary disease, unspecified (5) Acute kidney injury superimposed on CKD Current visit: Yes Status: Acute Acute kidney injury likely secondary to reduce effective arterial blood volume, however cannot exclude medication effects Continue serial monitoring with BMP Plan to adjust diuretic management, as soon as possible (6) Hypertension Current visit: No Status: Chronic Continue home medications Qualifiers: Hypertension type: essential hypertension Qualified Code(s): I10 - Essential (primary) hypertension (7) CAD (coronary artery disease) Current visit: No Status: Chronic Continue home medication. Qualifiers: Coronary Disease-Associated Artery/Lesion type: [place] artery [place] vs. transplanted heart: [place] heart Associated angina: without angina Qualified Code(s): I25.10 - Atherosclerotic heart disease of [place] coronary artery without angina pectoris (8) Diabetes mellitus type 2 in obese Current visit: No Status: Chronic Hemoglobin A1c 8.6 in June 2017, Insulin sliding scale, will adjust as needed. Serial Accu-Cheks. Hypoglycemia protocol ordered. (9) DVT prophylaxis Current visit: No Status: Acute Patient on chronic anticoagulation. Internal Medicine - H&P: HPI Chief complaint: SOB, Acute weight gain Admitted From: Home History of present illness: Mr. Sequeira is a 82 year old male with a Hx of oxygen dependent COPD (2L) and CHF, presenting with gradual increase in shortness of breath. Patient presenting to the ED on recommendation of his primary care provider, following appointment today. Patient endorses gradual increase in shortness of breath even at rest and increased leg edema, with tenderness on palpation. Patient's family endorses a weight gain of about 38 pounds over the last month. Associated symptoms: Chronic abdominal discomfort, fatigue, orthopnea. Patient on home dose of 80 mg Lasix by mouth. Past Med Surg Social Fam HX - Past Medical History Medical history: atrial fibrillation, CHF, COPD, coronary artery disease, DVT, diabetes, GERD, hyperlipidemia, hypertension, myocardial infarction, pulmonary embolus, renal disease Psychiatric history: no psych history - Past Surgical History Surgical History: appendectomy, colectomy, knee replacement, LE stent(s), sinus surgery - Social History Smoking Status: Never smoker Smokeless Tobacco Status: No Alcohol use: none Drug use: none - Family History Mother Living Status: Hx Family Cardiac Disorders: Yes Hx Family Cancer: Yes Sister Living Status: Hx Family Cancer: Yes Father Living Status: Hx Family Cardiac Disorders: Yes (father, brother,sister,self) Hx Family Respiratory Disorders: Yes (self) Hx Family Cancer: Yes (sister,mother) Hx Family GI Disorders: Yes (brother) Hx Family Endocrine Disorder: Yes (father) Hx Family Neuromuscular Disorders: No Hx Family Neurologic Disorders: No Hx Family HEENT Disorders: No Hx Family Autoimmune Disorders: No Internal Medicine - H&P: Meds Ascorbate Calcium [Vitamin C] 500 mg PO QAM 12/23/15 [History] Aspirin [Adult Low Dose Aspirin EC] 81 mg PO QPM 12/23/15 [History] Lovastatin 40 mg PO QPM 12/23/15 [History] Multivit-Min/FA/Lycopen/Lutein [Centrum Silver Tablet] 1 each PO QAM 12/23/15 [ History] Omeprazole [PriLOSEC] 20 mg PO QAM 12/23/15 [History] Albuterol Sulfate [Ventolin Hfa] 2 puff IH Q4H PRN 01/20/17 [History] Furosemide [Lasix] 80 mg PO DAILY 01/20/17 [History] Oxygen 2 l NS AD PRN 06/25/17 [History] metFORMIN [Glucophage] 850 mg PO 0800 #30 tablet 07/15/17 [Rx] Acetylcysteine [Nac] 600 mg PO DAILY 08/05/17 [History] Budesonide/Formoterol 160/4.5 [Symbicort 160/4.5] 2 puff IH BIDR 08/05/17 [ History] Fenofibrate 160 mg PO DAILY 08/05/17 [History] Glimepiride [Amaryl] 2 mg PO DAILY 12/27/17 [History] Latanoprost [Xalatan] 1 drop OP DAILY 12/27/17 [History] Warfarin [Coumadin] 1 mg PO DAILY 12/27/17 [History] predniSONE [PredniSONE] 20 mg PO DAILY 12/27/17 [History] 3 Allergy/AdvReac Type Severity Reaction Status Date / Time No Known Allergies Allergy Verified 12/27/17 18:29 All Systems PM: A 10-system review of systems was performed and is negative for pertinent findings except as documented above in the HPI. - Constitutional Vitals: Temp Pulse Resp BP Pulse Ox 98 F 66 17 121/73 99 12/27/17 16:24 12/27/17 19:09 12/27/17 19:09 12/27/17 19:09 12/27/17 19:09 General appearance: Present: cooperative, pleasant, no acute distress Exam: alert - Respiratory Respiratory exam: Present: prolonged expiratory phase, rales, respiratory distress (mild). Absent: chest wall tenderness, wheezes - Cardiovascular Cardiovascular exam: Present: irregular rhythm, +S1, +S2 Additional comments: Positive Hepatojugular reflux - GI/Abdominal GI/Abdominal exam: Present: normal bowel sounds, soft, tenderness (mild), no peritoneal signs - Extremities Exam Extremities exam: Present: pedal edema, tenderness (Moderate on palpation), warm Additional comments: No erythema Internal Med - H&P Results - Labs CBC & Chem 7: 12/28/17 03:49 12/27/17 16:47 Labs: Short CBC 12/27/17 Range/Units 16:47 WBC 8.1 (4.3-11.1) K/mcL Hgb 11.4 L (12.9-16.9) g/dL Hct 36.2 L (37.5-50.1) % Plt Count 251 (140-400) K/mcL Neutrophils # 7.1 (1.6-8.9) K/mcL BMP 12/27/17 16:47 Sodium 138 Potassium 4.1 Chloride 103 Carbon Dioxide 28 BUN 27 H Creatinine 1.31 H Glucose 310 H Calcium 9.1 Cardiac Enzymes 12/27/17 Range/Units 16:47 Troponin I 0.04 H* (< 0.04) ng/mL - EKG Data EKG comments: 12/27/17 ED EKG 16:17:25 Atrial fibrillation.Ventricular rate 73. QRS 124. QT / QTc. 381/407 ms. Reviewed with Attending Jennifer - Impressions ITS Impressions Chest X-Ray 12/27/17 16:13 IMPRESSION: Mild left basilar airspace disease, favored to represent atelectasis. D/ / Francis Garcia MD / Francis Garcia MD Interpreting Provider: Francis Garcia MD Regadenoson Nuclear Stress Name: David Sequeira Date of Study: 07/14/2017 Date: 1935 Ht: 68.0 in Medical Record#: [id number] Age: 81 Wt: 223.0 lb Gender: Male Order #: [id number] Location: [facility] IP Room: 3B14 Supervising Provider: Paulina Espinoza CNP Reading Physician: Yelena Levin DO Ordering Physician: Esther Castañeda, LOURDES Stress Technologist: Hawk Beltran, LEAD JAVA DEVELOPER ARCHITECT, [facility] Summer Clerk: Claire Corrales Indications: Shortness of breath Impression: There is a fixed perfusion defect involving the inferolateral wall which may represent artifact although prior infarct cannot be ruled out. No evidence for ischemia. Pharmacologic ECG was non diagnostic for ischemia. Gated EF = 61%. History: Diabetes Hypercholesteremia Prior PCI Stress Test Summary: Stress Test Type: Pharmacologic Baseline Information: Initial Heart Rate: 64 Blood Pressure: 118/68 Stress Information: Stress Time: 4 min 00 sec Test Terminated Due to (primary): As per protocol Maximum Blood Pressure: 102/58 Maximum Heart Rate: 86 Percent Maximum Heart Rate Achieved: 61 Double Product: 8772 METS Reached: 1 Symptoms: Shortness of breath Nuclear Summary: SPECT myocardial perfusion imaging using Tc99m Sestamibi given intravenously was performed at rest and following cardiac stress testing. The resting images were obtained following initial dose of 10.8 mCi. Following stress an additional dose of 35.3 mCi was given at peak exercise or 30 seconds post regadenoson infusion. Medication Given: Time Medication Dose Units Route Findings: Stress Note * Atrial fibrillation with with controlled ventricular response and LBBB prior to exam beginning. * Pharmacologic stress ECG is non diagnostic for ischemia due to baseline LBBB. * Rare PVCs or aberrant conduction noted during testing. * Patient had no chest pain during stress. Hemodynamic responses * Normal hemodynamic responses to pharmacologic stress. Study Quality * Study quality is average. Gated EF % * Gated EF = 61%. Left Ventricle * The left ventricle is not dilated. TID * No evidence of transient ischemic dilatation. Lung Uptake * There is no evidence of increase lung uptake. PERFUSION * There is a medium sized, mild to moderate intensity perfusion defect involving the basal to distal inferolateral wall. Although findings may represent artifact, prior infarct cannot be ruled out. There may be some decreased wall thickening in this area. * Other segments demonstrate normal rest and stress perfusion. Updated by Yelena Levin on 07/14/2017 10:29:06 AM electronically signed on 07/14/2017 10:31:10 AM with status of Final
[2017-12-27] MEDS ORDERED: Naloxone 0.4 MG/ML INJ IVP PRN (20:26)
[2017-12-27] MEDS ORDERED: Dextrose Gel 15 GM/37.5 ML TUBE PO PRN ×2 (21:32)
[2017-12-27] MEDS ORDERED: *HR* Dextrose 50 % in Water (Syg) 50 ML SYRINGE IVP PRN (21:32)
[2017-12-27] MEDS ORDERED: D5% in Water 1,000 ML IVC PRN (21:32)
[2017-12-27] MEDS ORDERED: Insulin DETEMIR 100 UNIT/ML X5UNITS SQ SCH (21:45)
--- NOTE | 2017-12-28 03:23 | Event Note ---
Date of Encounter: 12/28/17 Time of Encounter: 03:20 Patient was seen and examined. Agree with the H&P as written by the Resident Physician. Patient will be admitted for CHF exacerbation. Has a history of diastolic failure. Been dealing with SOB x1 week and about 30Ibs weight gain. Has LE edema. Will diurese with 40mg IV lasix BID. Watch kidney function on this. Has mild ANGEL on CKD. Trend cardiac enzymes
[2017-12-28] MEDS ORDERED: Furosemide 40 MG/4 ML VIAL IVP SCH (04:00)
[2017-12-28 04:16] LABS: Basophils % 0.2 %; Eosinophils # 0.1 K/mcL (0.0-0.6); Hematocrit 32.4 % (37.5-50.1); Hemoglobin 10.1 g/dL (12.9-16.9); Immature Granulocytes % 1.2 % (0-4); Lymphocytes # 1.4 K/mcL (0.6-4.6); Lymphocytes % 17.3 %; Mean Corpuscular HGB Conc 31.2 g/dL (31.6-35.5); Mean Corpuscular Hemoglobin 29.7 pg (28.0-33.3); Mean Corpuscular Volume 95.3 fL (83.0-100.0); Monocytes # 0.8 K/mcL (0.0-1.3); Monocytes % 9.5 %; Neutrophils # 5.8 K/mcL (1.6-8.9); Platelet Count 214 K/mcL (140-400); Red Cell Distribution Width 14.6 % (11.5-14.5); Segmented Neutrophils % 70.8 %
[2017-12-28 04:20] LABS: INR 1.5; Prothrombin Time 16.2 Seconds (9.4-12.1)
[2017-12-28] MEDS: Ipratropium/Albuterol Neb 3 ML IH SCH ×5 (04:28→19:31)
[2017-12-28 04:37] LABS: Alanine Aminotransferase 12 Units/L (7-52); Albumin 3.4 g/dL (3.5-5.7); Albumin/Globulin Ratio 1.2 (1.1-2.2); Alkaline Phosphatase 44 Units/L (34-104); Aspartate Amino Transferase 14 Units/L (13-39); BUN/Creatinine Ratio 21 (6-26); Bilirubin,Total 0.4 mg/dL (0.3-1.0); Blood Urea Nitrogen 26 mg/dL (8-23); Calcium 8.6 mg/dL (8.6-10.3); Carbon Dioxide 27 mEq/L (23-29); Chloride 106 mEq/L (98-107); Globulin 2.8 g/dL (2.4-3.5); Glucose 192 mg/dL (70-105); Osmolality,Calculated 302 (280-300); Potassium 3.5 mEq/L (3.5-5.1); Sodium 141 mEq/L (136-145); Total Protein 6.2 g/dL (6.4-8.9); eGFR For African Americans > 60 (> 60); eGFR For Non-African Americans 58 (> 60)
[2017-12-28] MEDS: Furosemide 40 MG/4 ML VIAL IVP SCH ×2 (05:54→20:21)
[2017-12-28] MEDS: Aspirin Enteric Coated 81 MG Tablet PO SCH ×2 (05:54→19:58)
[2017-12-28] MEDS: Insulin LISPRO 300 UNITS/3 ML VIAL SQ SCH ×3 (07:47→20:21)
[2017-12-28] MEDS: predniSONE 20 MG TABLET PO SCH (07:48)
[2017-12-28] MEDS: Fenofibrate 54 MG TABLET PO SCH (07:49)
[2017-12-28] MEDS: Latanoprost 2.5 ML BOTTLE RIGHT EYE SCH (08:00)
--- NOTE | 2017-12-28 14:05 | Internal Med Progress Note ---
Date of Encounter: 12/28/17 Time of Encounter: 10:20 - Assessment and plan (1) Acute on chronic diastolic heart failure Current Visit: Yes Status: Acute Assessment and plan: Being treated with IV Lasix. Patient reports increased swelling in his right lower extremity compared to left. He has previously had saphenous vein stripping in both lower extremities for varicose veins. Venous Dopplers were negative for acute DVT. Will continue Lasix for now. Monitor input and output. Follow renal function closely. Moderate risk for complications. (2) Acute kidney injury superimposed on CKD Current Visit: Yes Status: Acute Assessment and plan: Improved. Creatinine 1.21 today. (3) Atrial fibrillation Current Visit: Yes Status: Chronic Assessment and plan: Rate controlled. On Coumadin for anticoagulation. INR is subtherapeutic. Will continue Coumadin. Monitor INR. Qualifiers: Atrial fibrillation type: chronic Qualified Code(s): I48.2 - Chronic atrial fibrillation (4) CAD (coronary artery disease) Current Visit: Yes Status: Chronic Assessment and plan: Continue aspirin, statin Qualifiers: Coronary Disease-Associated Artery/Lesion type: [place] artery [place] vs. transplanted heart: [place] heart Associated angina: without angina Qualified Code(s): I25.10 - Atherosclerotic heart disease of [place] coronary artery without angina pectoris (5) COPD (chronic obstructive pulmonary disease) Current Visit: Yes Status: Chronic Assessment and plan: Continue bronchodilators. O2 supplementation. On chronic prednisone therapy. We will continue Qualifiers: COPD type: unspecified COPD Qualified Code(s): J44.9 - Chronic obstructive pulmonary disease, unspecified (6) Diabetes mellitus type 2 in obese Current Visit: Yes Status: Chronic Assessment and plan: Blood sugars were low at 63 this morning. Have improved since then. We will continue to monitor blood sugars. Decrease Levemir dosage to 10 units at bedtime (7) Elevated troponin I level Current Visit: Yes Status: Acute Assessment and plan: Mild troponin elevation. Trended down. Likely from shortness of breath and hypoxia. (8) Hypertension Current Visit: Yes Status: Chronic Assessment and plan: Blood pressure is well controlled Qualifiers: Hypertension type: essential hypertension Qualified Code(s): I10 - Essential (primary) hypertension (9) Chronic respiratory failure with hypoxia Current Visit: Yes Status: Acute Assessment and plan: Chronic respiratory failure on home oxygen. (10) DVT prophylaxis Current Visit: Yes Status: Acute Assessment and plan: Continue Coumadin - Time Spent With Patient Total time spent is greater than 50% in coordination of care (as documented) at patient's floor/unit and/or counseling patient: - Subjective Interval history: Patient continues to have shortness of breath. Not much improved compared to yesterday. Especially worse with minimal exertion. Denies any chest pain at this time. No fever or chills overnight. - Constitutional Vitals: Temp Pulse Resp BP Pulse Ox 97.2 F L 67 18 112/73 92 12/28/17 10:59 12/28/17 10:59 12/28/17 11:09 12/28/17 10:59 12/28/17 12:24 General appearance: Present: cooperative, mild distress, A&O X 3, pleasant, no acute distress - Eye Eye exam: Present: EOMI, PERRL, conjuntiva pink, sclera anicteric - Neck Neck exam general surgery: Present: supple, trachea midline. Absent: lymphadenopathy - Respiratory Respiratory exam: Present: CTAB. Absent: accessory muscle use, rales, rhonchi, wheezes - Cardiovascular Cardiovascular exam: Present: RRR, +S1, +S2. Absent: diastolic murmur, gallop, rubs, systolic murmur - GI/Abdominal GI/Abdominal exam: Present: normal bowel sounds, soft, no peritoneal signs. Absent: distended, tenderness - Extremities Exam Extremities exam: Present: pedal edema, warm, radial pulses palpable and symmetrical. Absent: calf tenderness, cyanotic - Neurological Exam Neurological exam: Present: CN II-XII intact, oriented X3, no focal deficits. Absent: facial droop, speech deficit Internal Medicine: Result - Labs CBC & Chem 7: 12/28/17 03:49 12/28/17 03:49 Labs: Short CBC 12/28/17 Range/Units 03:49 WBC 8.2 (4.3-11.1) K/mcL Hgb 10.1 L (12.9-16.9) g/dL Hct 32.4 L (37.5-50.1) % Plt Count 214 (140-400) K/mcL Neutrophils # 5.8 (1.6-8.9) K/mcL BMP 12/28/17 03:49 Sodium 141 Potassium 3.5 Chloride 106 Carbon Dioxide 27 BUN 26 H Creatinine 1.21 Glucose 192 H Calcium 8.6 Cardiac Enzymes 12/27/17 Range/Units 22:57 Troponin I 0.03 (< 0.04) ng/mL Liver Function 12/28/17 Range/Units 03:49 Total Bilirubin 0.4 (0.3-1.0) mg/dL AST 14 (13-39) Units/L ALT 12 (7-52) Units/L Alkaline Phosphatase 44 (34-104) Units/L Albumin 3.4 L (3.5-5.7) g/dL - ABG Interpretation ABG results: PT/INR, D-dimer PT 16.2 Seconds (9.4-12.1) H 12/28/17 03:49 Consult Discharge Plan - Plan Referrals: Jose A Hernandez DO [Primary Care Provider] - (patient to make appointment per office)
[2017-12-28] MEDS ORDERED: Insulin DETEMIR 100 UNIT/ML X5UNITS SQ SCH (14:10)
[2017-12-28] MEDS ORDERED: *HR* Warfarin 1 MG TABLET PO ONE (18:00)
[2017-12-28] MEDS ORDERED: Warfarin perPT PO PRN (18:00)
--- NOTE | 2017-12-28 19:27 | Electrocardiograph Report ---
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
[2017-12-29] MEDS: Ipratropium/Albuterol Neb 3 ML IH SCH ×7 (00:07→23:01)
[2017-12-29] MEDS: Furosemide 40 MG/4 ML VIAL IVP SCH ×2 (04:43→14:31)
[2017-12-29 05:38] LABS: Basophils % 0.3 %; Eosinophils # 0.1 K/mcL (0.0-0.6); Eosinophils % 1.4 %; Hematocrit 32.6 % (37.5-50.1); Hemoglobin 10.1 g/dL (12.9-16.9); Immature Granulocytes % 0.9 % (0-4); Lymphocytes # 1.2 K/mcL (0.6-4.6); Lymphocytes % 13.3 %; Mean Corpuscular Hemoglobin 29.8 pg (28.0-33.3); Mean Corpuscular Volume 96.2 fL (83.0-100.0); Mean Platelet Volume 8.9 fL (9.4-12.4); Monocytes # 0.7 K/mcL (0.0-1.3); Monocytes % 7.5 %; Neutrophils # 6.6 K/mcL (1.6-8.9); Platelet Count 240 K/mcL (140-400); Red Blood Count 3.39 M/mcL (4.19-5.50); Red Cell Distribution Width 14.6 % (11.5-14.5); Segmented Neutrophils % 76.6 %
[2017-12-29] MEDS: Benzonatate 100 MG CAPSULE PO PRN ×2 (05:38→23:06)
[2017-12-29 05:40] LABS: INR 1.5; Prothrombin Time 16.1 Seconds (9.4-12.1)
[2017-12-29 05:55] LABS: BUN/Creatinine Ratio 24 (6-26); Blood Urea Nitrogen 27 mg/dL (8-23); Calcium 8.9 mg/dL (8.6-10.3); Carbon Dioxide 30 mEq/L (23-29); Chloride 105 mEq/L (98-107); Glucose 86 mg/dL (70-105); Osmolality,Calculated 300 (280-300); Potassium 3.5 mEq/L (3.5-5.1); Sodium 143 mEq/L (136-145); eGFR For African Americans > 60 (> 60); eGFR For Non-African Americans > 60 (> 60)
[2017-12-29] MEDS: Insulin LISPRO 300 UNITS/3 ML VIAL SQ SCH ×3 (09:05→16:45)
[2017-12-29] MEDS: Fenofibrate 54 MG TABLET PO SCH (09:15)
[2017-12-29] MEDS: predniSONE 20 MG TABLET PO SCH (09:15)
[2017-12-29] MEDS: Latanoprost 2.5 ML BOTTLE RIGHT EYE SCH (09:18)
--- NOTE | 2017-12-29 15:23 | Internal Med Progress Note ---
Date of Encounter: 12/29/17 Time of Encounter: 10:45 - Assessment and plan (1) Acute on chronic diastolic heart failure Current Visit: Yes Status: Acute Assessment and plan: Diastolic heart failure. Continue IV Lasix. Since patient continues to have pedal edema and dyspnea on exertion, will continue IV Lasix for the day. Monitor vital signs closely. Monitor urine output. Fluid restriction. Moderate risk for complications. (2) Acute kidney injury superimposed on CKD Current Visit: Yes Status: Acute Assessment and plan: Renal function stable. Creatinine 1.14 today. (3) Atrial fibrillation Current Visit: Yes Status: Chronic Qualifiers: Atrial fibrillation type: chronic Qualified Code(s): I48.2 - Chronic atrial fibrillation (4) CAD (coronary artery disease) Current Visit: Yes Status: Chronic Assessment and plan: Continue aspirin, statin. Qualifiers: Coronary Disease-Associated Artery/Lesion type: [place] artery [place] vs. transplanted heart: [place] heart Associated angina: without angina Qualified Code(s): I25.10 - Atherosclerotic heart disease of [place] coronary artery without angina pectoris (5) COPD (chronic obstructive pulmonary disease) Current Visit: Yes Status: Chronic Assessment and plan: not in acute exacerbation. Continue O2 supplementation and bronchodilators as needed. Qualifiers: COPD type: unspecified COPD Qualified Code(s): J44.9 - Chronic obstructive pulmonary disease, unspecified (6) Diabetes mellitus type 2 in obese Current Visit: Yes Status: Chronic Assessment and plan: Patient did have episode of hypoglycemia again this morning. Will stop long- acting insulin. We will use sliding scale coverage only. (7) Elevated troponin I level Current Visit: Yes Status: Acute Assessment and plan: Adynamic. Likely from demand ischemia (8) Hypertension Current Visit: Yes Status: Chronic Assessment and plan: Blood pressure is well controlled at this time Qualifiers: Hypertension type: essential hypertension Qualified Code(s): I10 - Essential (primary) hypertension (9) Chronic respiratory failure with hypoxia Current Visit: Yes Status: Acute Assessment and plan: Continue O2 supplementation (10) DVT prophylaxis Current Visit: Yes Status: Acute Assessment and plan: On Coumadin. INR remains subtherapeutic. Pharmacy dosing Coumadin therapy. - Time Spent With Patient Total time spent is greater than 50% in coordination of care (as documented) at patient's floor/unit and/or counseling patient: - Subjective Interval history: Patient continues to have dyspnea on exertion. He denies any chest pain or palpitations. No nausea or vomiting. He has been having good urine output. No fever or chills. - Constitutional Vitals: Temp Pulse Resp BP Pulse Ox 98.1 F 76 18 118/68 97 12/29/17 14:52 12/29/17 14:52 12/29/17 14:52 12/29/17 14:52 12/29/17 14:52 General appearance: Present: cooperative, mild distress, A&O X 3, pleasant, no acute distress - Eye Eye exam: Present: EOMI, PERRL, conjuntiva pink, sclera anicteric - Respiratory Respiratory exam: Present: decreased breath sounds (At both bases), CTAB. Absent: accessory muscle use, rales, rhonchi, wheezes - Cardiovascular Cardiovascular exam: Present: RRR, +S1, +S2. Absent: diastolic murmur, gallop, rubs, systolic murmur - GI/Abdominal GI/Abdominal exam: Present: normal bowel sounds, soft, no peritoneal signs. Absent: distended, tenderness - Extremities Exam Extremities exam: Present: pedal edema (Right greater than left. Improving), warm, radial pulses palpable and symmetrical. Absent: calf tenderness, cyanotic - Neurological Exam Neurological exam: Present: CN II-XII intact, oriented X3, no focal deficits. Absent: facial droop, speech deficit Internal Medicine: Result - Labs CBC & Chem 7: 12/29/17 05:02 12/29/17 05:02 Labs: Short CBC 12/29/17 Range/Units 05:02 WBC 8.6 (4.3-11.1) K/mcL Hgb 10.1 L (12.9-16.9) g/dL Hct 32.6 L (37.5-50.1) % Plt Count 240 (140-400) K/mcL Neutrophils # 6.6 (1.6-8.9) K/mcL BMP 12/29/17 05:02 Sodium 143 Potassium 3.5 Chloride 105 Carbon Dioxide 30 H BUN 27 H Creatinine 1.14 Glucose 86 Calcium 8.9 - ABG Interpretation ABG results: PT/INR, D-dimer PT 16.1 Seconds (9.4-12.1) H 12/29/17 05:02 Consult Discharge Plan - Plan Referrals: Mary,Jose A Kelly DO [Primary Care Provider] - (patient to make appointment per office)
[2017-12-29] MEDS: Aspirin Enteric Coated 81 MG Tablet PO SCH (16:46)
[2017-12-29] MEDS ORDERED: *HR* Warfarin 2 MG TABLET PO ONE (18:00)
[2017-12-29] MEDS ORDERED: Acetaminophen 325 MG TABLET PO PRN (21:51)
[2017-12-30] MEDS: Furosemide 40 MG/4 ML VIAL IVP SCH (02:35)
[2017-12-30] MEDS: Ipratropium/Albuterol Neb 3 ML IH SCH ×3 (04:06→10:55)
[2017-12-30 05:38] LABS: INR 1.6
[2017-12-30] MEDS: Insulin LISPRO 300 UNITS/3 ML VIAL SQ SCH ×2 (07:55→11:50)
[2017-12-30] MEDS: Fenofibrate 54 MG TABLET PO SCH (09:44)
[2017-12-30] MEDS: Latanoprost 2.5 ML BOTTLE RIGHT EYE SCH (09:44)
[2017-12-30] MEDS: predniSONE 20 MG TABLET PO SCH (09:44)
--- NOTE | 2017-12-30 10:05 | Discharge Summary ---
- NOTES TO OUTPATIENT PROVIDER Notes to Outpatient Provider: Patient treated for acute exacerbation of congestive heart failure. Needs outpatient follow up with cardiology within 1 week for further management. Also needs to stay compliant with home oxygen use all the time. Patient is also on chronic prednisone therapy. Unclear as to why. Consider decreasing dosage or tapering off prednisone. Date of Encounter: 12/30/17 Time of Encounter: 10:01 - Discharge Diagnosis (1) Acute on chronic diastolic heart failure Priority: Primary Status: Acute (2) Acute kidney injury superimposed on CKD Priority: Secondary Status: Acute (3) Atrial fibrillation Priority: Secondary Status: Chronic Qualifiers: Atrial fibrillation type: chronic Qualified Code(s): I48.2 - Chronic atrial fibrillation (4) CAD (coronary artery disease) Priority: Secondary Status: Chronic Qualifiers: Coronary Disease-Associated Artery/Lesion type: [place] artery [place] vs. transplanted heart: [place] heart Associated angina: without angina Qualified Code(s): I25.10 - Atherosclerotic heart disease of [place] coronary artery without angina pectoris (5) COPD (chronic obstructive pulmonary disease) Priority: Secondary Status: Chronic Qualifiers: COPD type: unspecified COPD Qualified Code(s): J44.9 - Chronic obstructive pulmonary disease, unspecified (6) Diabetes mellitus type 2 in obese Priority: Secondary Status: Chronic (7) Elevated troponin I level Priority: Secondary Status: Acute (8) Hypertension Priority: Secondary Status: Chronic Qualifiers: Hypertension type: essential hypertension Qualified Code(s): I10 - Essential (primary) hypertension (9) Chronic respiratory failure with hypoxia Priority: Secondary Status: Chronic (10) DVT prophylaxis Priority: Secondary Status: Acute Hospital course: Mr. Sequeira is a 82 year old male patient with history of chronic diastolic congestive heart failure, COPD, atrial fibrillation, chronic kidney disease stage III, hypertension who was hospitalized here after presenting with acute shortness of breath. He was diagnosed with exacerbation of congestive heart failure as he had been gaining weight and was also having increased lower extremities swelling. He is chronically dependent on home oxygen. He was started on treatment for congestive heart failure with intravenous Lasix. He has responded well to this treatment. He does continue to have shortness of breath especially with exertion mainly when he takes off his oxygen supplementation. As long as he is being his oxygen, he seems to be doing well. He does have chronic bilateral lower extremity edema right greater than left. This is possibly related to his prior surgeries for varicose veins in both lower extremities. At this time, since he is doing better overall, he can be discharged home. He does need to follow up with cardiology as outpatient for better management of his congestive heart failure. He will be on fluid restricted restriction. At presentation, his creatinine had been elevated above his baseline. As such I am and changing his Lasix scheduled to 40 mg twice daily instead of 80 mg once daily. His INR was subtherapeutic at 1.6 today. He will follow up with his Coumadin clinic to adjust his Coumadin regimen accordingly. He is strongly advised to wear his oxygen all the time to avoid shortness of breath. Given his multiple comorbidities and advanced age, I do recommend that he receive home health with nurse visits to manage his medications, blood pressure and congestive heart failure appropriately. Also, patient had couple episodes of hypoglycemia during his stay here early in the morning when he received long-acting insulin. Long-acting insulin was stopped and since then his blood sugars have been better in the morning. Discharge discussed with: patient, nurse - Time Spent with Patient Total time spent providing and/or coordinating discharge services: Greater than 30 minutes (45 min) - Discharge Medications Prescriptions: Benzonatate [Tessalon] 100 mg PO TID PRN #20 capsule PRN Reason: Cough Furosemide [Lasix] 40 mg PO BID #60 tablet Home Medications: Ascorbate Calcium [Vitamin C] 500 mg PO QAM 12/23/15 [History] Aspirin [Adult Low Dose Aspirin EC] 81 mg PO QPM 12/23/15 [History] Lovastatin 40 mg PO QPM 12/23/15 [History] Multivit-Min/FA/Lycopen/Lutein [Centrum Silver Tablet] 1 each PO QAM 12/23/15 [ History] Omeprazole [PriLOSEC] 20 mg PO QAM 12/23/15 [History] Albuterol Sulfate [Ventolin Hfa] 2 puff IH Q4H PRN 01/20/17 [History] Oxygen 2 l NS AD PRN 06/25/17 [History] metFORMIN [Glucophage] 850 mg PO 0800 #30 tablet 07/15/17 [Rx] Acetylcysteine [Nac] 600 mg PO DAILY 08/05/17 [History] Budesonide/Formoterol 160/4.5 [Symbicort 160/4.5] 2 puff IH BIDR 08/05/17 [ History] Fenofibrate 160 mg PO DAILY 08/05/17 [History] Glimepiride [Amaryl] 2 mg PO DAILY 12/27/17 [History] Latanoprost [Xalatan] 1 drop OP DAILY 12/27/17 [History] Warfarin [Coumadin] 1 mg PO DAILY 12/27/17 [History] predniSONE [PredniSONE] 20 mg PO DAILY 12/27/17 [History] Benzonatate [Tessalon] 100 mg PO TID PRN #20 capsule 12/30/17 [Rx] Furosemide [Lasix] 40 mg PO BID #60 tablet 12/30/17 [Rx] Allergies/Adverse Reactions: 3 Allergy/AdvReac Type Severity Reaction Status Date / Time No Known Allergies Allergy Verified 12/27/17 18:29 Date of admission: 12/29/17 15:19 Primary care physician: Jose A Kelly Colopy Discharging clinician: Ajith Hudson Anticipated date of discharge: 12/30/17 - Constitutional Vitals: Temp Pulse Resp BP Pulse Ox 97.8 F 80 18 138/77 96 12/30/17 03:27 12/30/17 03:27 12/30/17 07:43 12/30/17 03:27 12/30/17 07:43 General appearance: Present: cooperative, A&O X 3, pleasant, no acute distress, answers questions appropriately - Neck Neck exam general surgery: Present: supple, trachea midline. Absent: lymphadenopathy - Respiratory Respiratory exam: Present: CTAB. Absent: accessory muscle use, rales, rhonchi, wheezes - Cardiovascular Cardiovascular exam: Present: RRR, +S1, +S2. Absent: diastolic murmur, gallop, rubs, systolic murmur - GI/Abdominal GI/Abdominal exam: Present: normal bowel sounds, soft, no peritoneal signs. Absent: distended, tenderness - Extremities Exam Extremities exam: Present: warm, radial pulses palpable and symmetrical. Absent : calf tenderness, cyanotic, pedal edema - Neurological Exam Neurological exam: Present: CN II-XII intact, oriented X3, no focal deficits. Absent: facial droop, speech deficit - Skin Skin exam: Present: dry, intact - Patient Status Disposition: Home Health Service Condition: Good Functional capacity at discharge: uses cane/walker Overall status at discharge: patient is progressing back to baseline - Discharge Instructions Instructions: Heart Failure (DC) Follow Up With: Jose A Hernandez DO [Primary Care Provider] - (patient to make appointment per office) George Olvera DO [Partnered Physician] - (Within one week) - Diet and Activity Activity: as per physical therapy Diet: diabetic diet, low fat, low cholesterol, low salt diet, other (Fluid restriction to 1.5 L per day)
--- NOTE | 2017-12-30 10:13 | Physician Discharge Referral ---
Home Health/Hosp Referral Info Transfer to: Home Health Provider in Charge Post Discharge: PCP - Diagnosis (1) Acute on chronic diastolic heart failure Priority: Primary Status: Acute (2) Acute kidney injury superimposed on CKD Priority: Secondary Status: Acute (3) Atrial fibrillation Priority: Secondary Status: Chronic (4) CAD (coronary artery disease) Priority: Secondary Status: Chronic (5) COPD (chronic obstructive pulmonary disease) Priority: Secondary Status: Chronic (6) Diabetes mellitus type 2 in obese Priority: Secondary Status: Chronic (7) Elevated troponin I level Priority: Secondary Status: Acute (8) Hypertension Priority: Secondary Status: Chronic (9) Chronic respiratory failure with hypoxia Priority: Secondary Status: Chronic (10) DVT prophylaxis Priority: Secondary Status: Acute - Respiratory Orders Oxygen / L per min (2) Smoking Cessation: Smoking cessation has been advised. For more information, call the [employer] Quit Line at 8-525-VHJI-NOW. - Diet/Nutrition Diet/Nutrition Orders: Cardiac, No Concentrated Sweets (Diabetic) Diet/Nutrition: List: Fluid restriction to 1.5 L per day - Activity Activity Orders: Walker - Services Needed Following services are medically necessary services: Nursing - Transfer Medications Prescriptions: Benzonatate [Tessalon] 100 mg PO TID PRN #20 capsule PRN Reason: Cough Furosemide [Lasix] 40 mg PO BID #60 tablet Home Medications: Ascorbate Calcium [Vitamin C] 500 mg PO QAM 12/23/15 [History] Aspirin [Adult Low Dose Aspirin EC] 81 mg PO QPM 12/23/15 [History] Lovastatin 40 mg PO QPM 12/23/15 [History] Multivit-Min/FA/Lycopen/Lutein [Centrum Silver Tablet] 1 each PO QAM 12/23/15 [ History] Omeprazole [PriLOSEC] 20 mg PO QAM 12/23/15 [History] Albuterol Sulfate [Ventolin Hfa] 2 puff IH Q4H PRN 01/20/17 [History] Oxygen 2 l NS AD PRN 06/25/17 [History] metFORMIN [Glucophage] 850 mg PO 0800 #30 tablet 07/15/17 [Rx] Acetylcysteine [Nac] 600 mg PO DAILY 08/05/17 [History] Budesonide/Formoterol 160/4.5 [Symbicort 160/4.5] 2 puff IH BIDR 08/05/17 [ History] Fenofibrate 160 mg PO DAILY 08/05/17 [History] Glimepiride [Amaryl] 2 mg PO DAILY 12/27/17 [History] Latanoprost [Xalatan] 1 drop OP DAILY 12/27/17 [History] Warfarin [Coumadin] 1 mg PO DAILY 12/27/17 [History] predniSONE [PredniSONE] 20 mg PO DAILY 12/27/17 [History] Benzonatate [Tessalon] 100 mg PO TID PRN #20 capsule 12/30/17 [Rx] Furosemide [Lasix] 40 mg PO BID #60 tablet 12/30/17 [Rx] Allergies/Adverse Reactions: 3 Allergy/AdvReac Type Severity Reaction Status Date / Time No Known Allergies Allergy Verified 12/27/17 18:29 Certification: Further, I certify that my clinical findings support that this patient is homebound (i.e. absences from home require considerable and taxing effort and are for medical reasons or [employer] services or infrequently or short duration when for other reasons) because: Homebound Reason: Patient requires assistance of a person or device to safely leave home, Severity of cardiac or pulmonary status limits activity tolerance Attestation: My signature below is to certify that this patient is under my care and that I, or nurse practitioner, or a physician's physician assistant surgery working with me, has a face-to -face encounter with this patient.
[2017-12-30 10:23] VITALS: BP 143/86
[2017-12-30] MEDS ORDERED: *HR* Warfarin 2 MG TABLET PO ONE (18:00)
== END 2017-12-30 13:45 | disposition home or self-care (01) | DRG 291 ==
LOC: 2NNU 16:10 → EMEROO 16:10 → SUATTDRO 20:14 → 2NNU 21:27 → 3ANU 12-28 13:54
PROVIDERS: ADMIT Internal Medicine; ATTEND Internal Medicine

== ENCOUNTER 2018-02-18 18:54 | Inpatient (IN) ==
[2018-02-18 19:31] LABS: Basophils # 0.1 K/mcL (0.0-0.2); Basophils % 0.4 %; Hematocrit 36.7 % (37.5-50.1); Hemoglobin 11.8 g/dL (12.9-16.9); Immature Granulocytes % 2.7 % (0-4); Lymphocytes # 1.2 K/mcL (0.6-4.6); Lymphocytes % 8.1 %; Mean Corpuscular HGB Conc 32.2 g/dL (31.6-35.5); Mean Corpuscular Hemoglobin 30.2 pg (28.0-33.3); Mean Corpuscular Volume 93.9 fL (83.0-100.0); Mean Platelet Volume 8.9 fL (9.4-12.4); Monocytes # 0.7 K/mcL (0.0-1.3); Platelet Count 263 K/mcL (140-400); Red Blood Count 3.91 M/mcL (4.19-5.50); Red Cell Distribution Width 14.2 % (11.5-14.5); Segmented Neutrophils % 83.8 %
--- NOTE | 2018-02-18 19:33 | Emergency Department Note ---
Disposition Clinical Impression: Elevated INR, Elevated troponin GI bleed Qualifiers: GI bleed type/associated pathology: unspecified gastrointestinal hemorrhage type Qualified Code(s): K92.2 - Gastrointestinal hemorrhage, unspecified Anemia Qualifiers: Anemia type: unspecified type Qualified Code(s): D64.9 - Anemia, unspecified Disposition: Admitted As Inpatient Condition: Fair Referrals: Jose A Hernandez DO [Primary Care Provider] - Forms: ED Satisfaction Letter Time of Disposition: 22:19 General Adult HPI - General Chief complaint: ED Shortness of Breath/Dyspnea Stated complaint: Difficulty breathing Time Seen by Provider: 02/18/18 19:20 Source: patient, family Mode of arrival: ambulatory Limitations: no limitations Nursing Notes Reviewed: Yes Vital Signs Reviewed: Yes - History of Present Illness HPI Narrative: Patient is an 82-year-old male that since the emergency department with an elevated INR. Patient also reports that he has shortness of breath but this is his baseline. Patient states that he is currently on warfarin and is taking this for his atrial fibrillation. Patient states otherwise that he is feeling fine. Patient has any chest pain, abdominal pain or any other symptoms at this time. Patient does report that he had an episode of blood on his toilet paper when he wiped yesterday. does report that she also noticed some blood in the commode. Pain Scale: 0 - Related Data Home Medications Medication Instructions Recorded Confirmed Ascorbate Calcium [Vitamin C] 500 mg PO QAM 12/23/15 02/18/18 Aspirin [Adult Low Dose Aspirin EC] 81 mg PO QPM 12/23/15 02/18/18 Lovastatin 40 mg PO QPM 12/23/15 02/18/18 Multivit-Min/FA/Lycopen/Lutein 1 each PO QAM 12/23/15 02/18/18 [Centrum Silver Tablet] Omeprazole [PriLOSEC] 20 mg PO QAM 12/23/15 02/18/18 Albuterol Sulfate [Ventolin Hfa] 2 puff IH Q4H PRN 01/20/17 02/18/18 Oxygen 2 l NS AD PRN 06/25/17 02/18/18 Acetylcysteine [Nac] 600 mg PO DAILY 08/05/17 02/18/18 Budesonide/Formoterol 160/4.5 2 puff IH BIDR 08/05/17 02/18/18 [Symbicort 160/4.5] Fenofibrate 160 mg PO DAILY 08/05/17 02/18/18 Glimepiride [Amaryl] 2 mg PO DAILY 12/27/17 02/18/18 Latanoprost [Xalatan] 1 drop OP DAILY 12/27/17 02/18/18 Warfarin [Coumadin] 3.5 mg PO DAILY 12/27/17 02/18/18 predniSONE [PredniSONE] 20 mg PO DAILY 12/27/17 02/18/18 Previous Rx's Medication Instructions Recorded Furosemide [Lasix] 40 mg PO BID #60 tablet 12/30/17 Allergies Allergy/AdvReac Type Severity Reaction Status Date / Time No Known Allergies Allergy Verified 12/27/17 18:29 All systems ED: reviewed and negative except as stated. Constitutional: Denies: fever, chills Cardiovascular: Denies: chest pain Respiratory: Reports: dyspnea (baseline) Gastrointestinal: Reports: hematochezia. Denies: abdominal pain, nausea, vomiting Genitourinary: Denies: urgency, dysuria, frequency Neurological: Denies: headache, weakness, numbness, paresthesias Past Medical History - Past Medical History Medical history: Reports: atrial fibrillation, CHF, COPD, coronary artery disease, DVT, diabetes, GERD, hyperlipidemia, hypertension, myocardial infarction, pulmonary embolus, renal disease Surgical history: Reports: appendectomy, colectomy, knee replacement, LE stent(s ), sinus surgery Psychiatric history: Reports: no psych history - Social History Smoking Status: Never smoker Smokeless Tobacco Status: No Alcohol use: Reports: none Drug use: Reports: none Physical Exam - General Limitations: no limitations General appearance: alert, in no apparent distress - Head Head exam: atraumatic, normocephalic - Eye Eye exam: Present: normal appearance, EOMI - Neck Neck exam: Present: normal inspection, full ROM, trachea midline - Respiratory Respiratory exam: Present: normal lung sounds bilaterally. Absent: respiratory distress, wheezes - Cardiovascular Cardiovascular exam: Present: regular rate, normal rhythm, normal heart sounds, +S1, +S2 - Abdominal Exam Abdominal exam: Present: soft, Non-Tender, normal bowel sounds - Rectal Exam Mate Fishing Vessel present during exam: Yes Rectal exam: Present: normal inspection, normal rectal tone, heme (+) stool - Neurological Exam Neurological exam: Present: alert, oriented X3 - Psychiatric Psychiatric exam: Present: normal affect, normal mood - Skin Skin exam: Present: warm, dry, intact Course Vital Signs Temperature 98.1 F 02/18/18 18:56 Pulse Rate 74 02/18/18 18:56 Respiratory Rate 22 02/18/18 18:56 Blood Pressure 146/88 02/18/18 18:56 O2 Sat by Pulse Oximetry 100 02/18/18 18:56 Temperature 98.1 F 02/18/18 19:12 Pulse Rate 70 02/18/18 21:30 Respiratory Rate 18 02/18/18 21:30 Blood Pressure 111/65 02/18/18 21:30 O2 Sat by Pulse Oximetry 96 02/18/18 21:30 Oxygen Delivery Oxygen Delivery Nasal Cannula Medical Decision Making - MDM Narrative Medical decision making narrative: Due to the patient presenting to the emergency department with an elevated INR and having possible blood in his stool we will obtain a CBC, BMP, PT/INR, type and screen and will do a chest x-ray, troponin and EKG. We will also perform a bedside fecal occult. The patient's fecal occult was positive at bedside. Patient's INR was 9.4 here in the emergency department. Patient did have a mild anemia of 11.8 however this does appear to be better than his previous. Patient a mild elevation in his creatinine of 1.37 however it appears that he has had previous elevations of his creatinine in the past. Chest x-ray did not show any acute process. His troponin was 0.04 however it appears that he has had elevated troponins in the past. Patient denies any active chest pain at this time. There were no acute ischemic changes noted on this EKG. He was in atrial fibrillation however the patient has a chronic history of A. fib and is anticoagulated with warfarin. Due to the patient being stool occult positive we have contacted our endoscopy team for active GI bleeds and made them aware that the patient is going to be admitted to the hospital. The patient was given 5 mg of vitamin K. No fresh frozen plasma was given at this time due to the patient being hemodynamically stable and not actively hemorrhaging. A consult was placed for surgery due to them covering for active bleeds. I also called and talked to the admitting hospitalist Dr. Garber and he has accepted the patient to their service. The patient be admitted to the hospital this time for further evaluation and management. - Medical Records Medical records reviewed: Yes I reviewed the patient's medical records. - Lab Data Lab results reviewed: Yes I reviewed the patient's lab results. Result diagrams: 02/18/18 19:20 02/18/18 19:20 Lab Results 02/18/18 02/18/18 02/18/18 Range/Units 19:20 19:20 19:20 WBC 14.3 H (4.3-11.1) K/mcL RBC 3.91 L (4.19-5.50) M/mcL Hgb 11.8 L (12.9-16.9) g/dL Hct 36.7 L (37.5-50.1) % MCV 93.9 (83.0-100.0) fL MCH 30.2 (28.0-33.3) pg MCHC 32.2 (31.6-35.5) g/dL RDW 14.2 (11.5-14.5) % Plt Count 263 (140-400) K/mcL MPV 8.9 L (9.4-12.4) fL Immature Gran % 2.7 (0-4) % Seg Neutrophils % 83.8 % Lymphocytes % 8.1 % Monocytes % 5.0 % Eosinophils % 0.0 % Basophils % 0.4 % Neutrophils # 12.0 H (1.6-8.9) K/mcL Lymphocytes # 1.2 (0.6-4.6) K/mcL Monocytes # 0.7 (0.0-1.3) K/mcL Eosinophils # 0.0 (0.0-0.6) K/mcL Basophils # 0.1 (0.0-0.2) K/mcL PT 106.5 H* (9.4-12.1) Seconds INR 9.4 H* APTT 49.7 H (26.0-36.0) Seconds Sodium 140 (136-145) mEq/L Potassium 4.1 (3.5-5.1) mEq/L Chloride 101 (98-107) mEq/L Carbon Dioxide 28 (23-29) mEq/L BUN 38 H (8-23) mg/dL Creatinine 1.37 H (0.70-1.30) mg/dL Est GFR ( Amer) > 60 (> 60) Est GFR (Non-Af Amer) 50 L (> 60) BUN/Creatinine Ratio 28 H (6-26) Glucose 278 H (70-105) mg/dL Calculated Osmolality 309 H (280-300) Lactic Acid (0.5-2.2) mmol/L Calcium 9.0 (8.6-10.3) mg/dL Troponin I 0.04 H* (< 0.04) ng/mL B-Natriuretic Peptide (Less than 100) pg/mL Blood Type Antibody Screen 02/18/18 02/18/18 02/18/18 Range/Units 19:20 19:29 19:31 WBC (4.3-11.1) K/mcL RBC (4.19-5.50) M/mcL Hgb (12.9-16.9) g/dL Hct (37.5-50.1) % MCV (83.0-100.0) fL MCH (28.0-33.3) pg MCHC (31.6-35.5) g/dL RDW (11.5-14.5) % Plt Count (140-400) K/mcL MPV (9.4-12.4) fL Immature Gran % (0-4) % Seg Neutrophils % % Lymphocytes % % Monocytes % % Eosinophils % % Basophils % % Neutrophils # (1.6-8.9) K/mcL Lymphocytes # (0.6-4.6) K/mcL Monocytes # (0.0-1.3) K/mcL Eosinophils # (0.0-0.6) K/mcL Basophils # (0.0-0.2) K/mcL PT (9.4-12.1) Seconds INR APTT (26.0-36.0) Seconds Sodium (136-145) mEq/L Potassium (3.5-5.1) mEq/L Chloride (98-107) mEq/L Carbon Dioxide (23-29) mEq/L BUN (8-23) mg/dL Creatinine (0.70-1.30) mg/dL Est GFR ( Amer) (> 60) Est GFR (Non-Af Amer) (> 60) BUN/Creatinine Ratio (6-26) Glucose (70-105) mg/dL Calculated Osmolality (280-300) Lactic Acid 3.7 H (0.5-2.2) mmol/L Calcium (8.6-10.3) mg/dL Troponin I (< 0.04) ng/mL B-Natriuretic Peptide 224 H (Less than 100) pg/mL Blood Type O POSITIVE Antibody Screen NEGATIVE - Radiology Data Radiology results reviewed: Yes I reviewed the patient's radiology results. Chest X-Ray 02/18/18 19:20 IMPRESSION: Similar appearing chest with basilar atelectatic change, though no new infiltrate. D/ / Manohar De La Rosa MD / Manohar De La Rosa MD Interpreting Provider: Manohar De La Rosa MD - EKG Data EKG #1 EKG attestation: Yes I reviewed and interpreted this EKG. EKG results narrative: EKG shows atrial fibrillation at a rate of 70 bpm, QRS duration of 121, QTC of 396. This is compared to previous EKG on 02/02/18 which showed atrial fibrillation at a rate of 67 bpm. No STEMI is noted on EKG.
[2018-02-18 19:40] LABS: Activated Partial Thrombo Time 49.7 Seconds (26.0-36.0)
[2018-02-18 19:45] LABS: INR 9.4; Prothrombin Time 106.5 Seconds (9.4-12.1)
[2018-02-18 19:58] LABS: BUN/Creatinine Ratio 28 (6-26); Blood Urea Nitrogen 38 mg/dL (8-23); Carbon Dioxide 28 mEq/L (23-29); Chloride 101 mEq/L (98-107); Glucose 278 mg/dL (70-105); Osmolality,Calculated 309 (280-300); Potassium 4.1 mEq/L (3.5-5.1); Sodium 140 mEq/L (136-145); eGFR For African Americans > 60 (> 60); eGFR For Non-African Americans 50 (> 60)
[2018-02-18 20:00] LABS: Troponin I 0.04 ng/mL (< 0.04)
--- NOTE | 2018-02-18 20:38 | Emergency Department Note ---
Disposition Clinical Impression: Elevated INR, Elevated troponin GI bleed Qualifiers: GI bleed type/associated pathology: unspecified gastrointestinal hemorrhage type Qualified Code(s): K92.2 - Gastrointestinal hemorrhage, unspecified Anemia Qualifiers: Anemia type: unspecified type Qualified Code(s): D64.9 - Anemia, unspecified Disposition: Admitted As Inpatient Condition: Fair Referrals: Jose A Hernandez DO [Primary Care Provider] - Forms: ED Satisfaction Letter General Adult HPI - General Chief complaint: ED Shortness of Breath/Dyspnea Stated complaint: Difficulty breathing Time Seen by Provider: 02/18/18 19:20 Source: patient, family Mode of arrival: ambulatory Limitations: no limitations Nursing Notes Reviewed: Yes Vital Signs Reviewed: Yes - History of Present Illness Pain Scale: 0 - Related Data Home Medications Medication Instructions Recorded Confirmed Ascorbate Calcium [Vitamin C] 500 mg PO QAM 12/23/15 02/18/18 Aspirin [Adult Low Dose Aspirin EC] 81 mg PO QPM 12/23/15 02/18/18 Lovastatin 40 mg PO QPM 12/23/15 02/18/18 Multivit-Min/FA/Lycopen/Lutein 1 each PO QAM 12/23/15 02/18/18 [Centrum Silver Tablet] Omeprazole [PriLOSEC] 20 mg PO QAM 12/23/15 02/18/18 Albuterol Sulfate [Ventolin Hfa] 2 puff IH Q4H PRN 01/20/17 02/18/18 Oxygen 2 l NS AD PRN 06/25/17 02/18/18 Acetylcysteine [Nac] 600 mg PO DAILY 08/05/17 02/18/18 Budesonide/Formoterol 160/4.5 2 puff IH BIDR 08/05/17 02/18/18 [Symbicort 160/4.5] Fenofibrate 160 mg PO DAILY 08/05/17 02/18/18 Glimepiride [Amaryl] 2 mg PO DAILY 12/27/17 02/18/18 Latanoprost [Xalatan] 1 drop OP DAILY 12/27/17 02/18/18 Warfarin [Coumadin] 3.5 mg PO DAILY 12/27/17 02/18/18 predniSONE [PredniSONE] 20 mg PO DAILY 12/27/17 02/18/18 Previous Rx's Medication Instructions Recorded Furosemide [Lasix] 40 mg PO BID #60 tablet 12/30/17 Allergies Allergy/AdvReac Type Severity Reaction Status Date / Time No Known Allergies Allergy Verified 12/27/17 18:29 Constitutional: Denies: fever, chills Cardiovascular: Denies: chest pain Respiratory: Reports: dyspnea (baseline) Gastrointestinal: Reports: hematochezia. Denies: abdominal pain, nausea, vomiting Genitourinary: Denies: urgency, dysuria, frequency Neurological: Denies: headache, weakness, numbness, paresthesias Past Medical History - Past Medical History Medical history: Reports: atrial fibrillation, CHF, COPD, coronary artery disease, DVT, diabetes, GERD, hyperlipidemia, hypertension, myocardial infarction, pulmonary embolus, renal disease Surgical history: Reports: appendectomy, colectomy, knee replacement, LE stent(s ), sinus surgery Psychiatric history: Reports: no psych history - Social History Smoking Status: Never smoker Smokeless Tobacco Status: No Alcohol use: Reports: none Drug use: Reports: none Physical Exam - General Limitations: no limitations General appearance: alert, in no apparent distress Course Vital Signs Temperature 98.1 F 02/18/18 18:56 Pulse Rate 74 02/18/18 18:56 Respiratory Rate 22 02/18/18 18:56 Blood Pressure 146/88 02/18/18 18:56 O2 Sat by Pulse Oximetry 100 02/18/18 18:56 Temperature 98.1 F 02/18/18 19:12 Pulse Rate 70 02/18/18 21:30 Respiratory Rate 18 02/18/18 21:30 Blood Pressure 111/65 02/18/18 21:30 O2 Sat by Pulse Oximetry 96 02/18/18 21:30 Oxygen Delivery Oxygen Delivery Nasal Cannula Medical Decision Making - Lab Data Result diagrams: 02/18/18 19:20 02/18/18 19:20 Lab Results 02/18/18 02/18/18 02/18/18 Range/Units 19:20 19:20 19:20 WBC 14.3 H (4.3-11.1) K/mcL RBC 3.91 L (4.19-5.50) M/mcL Hgb 11.8 L (12.9-16.9) g/dL Hct 36.7 L (37.5-50.1) % MCV 93.9 (83.0-100.0) fL MCH 30.2 (28.0-33.3) pg MCHC 32.2 (31.6-35.5) g/dL RDW 14.2 (11.5-14.5) % Plt Count 263 (140-400) K/mcL MPV 8.9 L (9.4-12.4) fL Immature Gran % 2.7 (0-4) % Seg Neutrophils % 83.8 % Lymphocytes % 8.1 % Monocytes % 5.0 % Eosinophils % 0.0 % Basophils % 0.4 % Neutrophils # 12.0 H (1.6-8.9) K/mcL Lymphocytes # 1.2 (0.6-4.6) K/mcL Monocytes # 0.7 (0.0-1.3) K/mcL Eosinophils # 0.0 (0.0-0.6) K/mcL Basophils # 0.1 (0.0-0.2) K/mcL PT 106.5 H* (9.4-12.1) Seconds INR 9.4 H* APTT 49.7 H (26.0-36.0) Seconds Sodium 140 (136-145) mEq/L Potassium 4.1 (3.5-5.1) mEq/L Chloride 101 (98-107) mEq/L Carbon Dioxide 28 (23-29) mEq/L BUN 38 H (8-23) mg/dL Creatinine 1.37 H (0.70-1.30) mg/dL Est GFR ( Amer) > 60 (> 60) Est GFR (Non-Af Amer) 50 L (> 60) BUN/Creatinine Ratio 28 H (6-26) Glucose 278 H (70-105) mg/dL Calculated Osmolality 309 H (280-300) Lactic Acid (0.5-2.2) mmol/L Calcium 9.0 (8.6-10.3) mg/dL Troponin I 0.04 H* (< 0.04) ng/mL B-Natriuretic Peptide (Less than 100) pg/mL Blood Type Antibody Screen 02/18/18 02/18/18 02/18/18 Range/Units 19:20 19:29 19:31 WBC (4.3-11.1) K/mcL RBC (4.19-5.50) M/mcL Hgb (12.9-16.9) g/dL Hct (37.5-50.1) % MCV (83.0-100.0) fL MCH (28.0-33.3) pg MCHC (31.6-35.5) g/dL RDW (11.5-14.5) % Plt Count (140-400) K/mcL MPV (9.4-12.4) fL Immature Gran % (0-4) % Seg Neutrophils % % Lymphocytes % % Monocytes % % Eosinophils % % Basophils % % Neutrophils # (1.6-8.9) K/mcL Lymphocytes # (0.6-4.6) K/mcL Monocytes # (0.0-1.3) K/mcL Eosinophils # (0.0-0.6) K/mcL Basophils # (0.0-0.2) K/mcL PT (9.4-12.1) Seconds INR APTT (26.0-36.0) Seconds Sodium (136-145) mEq/L Potassium (3.5-5.1) mEq/L Chloride (98-107) mEq/L Carbon Dioxide (23-29) mEq/L BUN (8-23) mg/dL Creatinine (0.70-1.30) mg/dL Est GFR ( Amer) (> 60) Est GFR (Non-Af Amer) (> 60) BUN/Creatinine Ratio (6-26) Glucose (70-105) mg/dL Calculated Osmolality (280-300) Lactic Acid 3.7 H (0.5-2.2) mmol/L Calcium (8.6-10.3) mg/dL Troponin I (< 0.04) ng/mL B-Natriuretic Peptide 224 H (Less than 100) pg/mL Blood Type O POSITIVE Antibody Screen NEGATIVE Attestation Statement - Attestation Attestation: I, Francisco Benton MD, personally evaluated this patient and discussed their management with the resident physician. I reviewed the resident's note and agree with the documented findings, medical decision making, and plan of care. 82-year-old male presents to the emergency department for an elevated INR. Patient is on Coumadin. He has a history of DVT and atrial fibrillation. He had lab work this afternoon and was advised that his INR was very high and he needed to come to the emergency department. He states that he has had some rectal bleeding that started yesterday. He is unsure of the amount. He denies any abdominal pain. No other abnormal bleeding. No hematuria or epistaxis. On examination patient is a well-developed obese elderly male in no acute distress. He is alert and oriented. There is no cyanosis or diaphoresis. Breath sounds are equal bilaterally with some dry bibasilar crackles. No wheezes. Heart regular rate and rhythm. Abdomen is soft and nontender with normal bowel sounds. Stool was Hemoccult positive, rectal exam performed by Dr. Mcmillan. Labs reviewed. INR earlier this afternoon was 8.2. INR here in the emergency department tonight is now 9.4. Hemoglobin stable. EKG shows atrial fibrillation with ventricular rate is 70. No acute ST segment elevation or depression. No significant change from prior EKG dated 02/02/2018. Chest x-ray shows no acute infiltrate. Patient was given vitamin K [address] Mcmillan notified the endoscopist product control and logistics analyst, Dr. Joaquin, about this patient being admitted. The hospitalist, Dr. Garber, was consulted and accepted admission of the patient.
[2018-02-18] MEDS ORDERED: Acetaminophen 325 MG TABLET PO PRN (22:49)
[2018-02-18] MEDS ORDERED: Naloxone 0.4 MG/ML INJ IVP PRN (22:49)
[2018-02-18] MEDS ORDERED: NON-FORMULARY MEDICATION 1 EACH EACH (Oxygen [Oxygen] 2 L) NS PRN (22:54)
--- NOTE | 2018-02-18 22:58 | Internal Med History&Physical ---
Date of Encounter: 02/18/18 Time of Encounter: 22:49 Internal Medicine - H&P: HPI Chief complaint: Elevated INR Admitted From: Emergency Dept Plans for Post Hospital Care: Home History of present illness: Mr. Sequeira is a 82 year old male ith past medical history of hypertension, diverticulitis, DVT, PE, [place], COPD (where is 4 L oxygen at home), CAD (S/P stent placement), CKD, HLD, atrial fibrillation, pulmonary fibrosis. Patient arrived to the emergency department today after receiving a call that his INR was elevated. He arrived to the emergency department, and his INR was checked and it was 9.4. Patient denies having any recent changes to his medications, and denies any drastic changes in his diet. He is aware of the diet he should be on while taking Coumadin. He denies any recent sick contacts. He denies nausea, vomiting, diarrhea, fever, chills, chest pain, shortness of breath. was not present during questioning. However, according to ED note reports some possible blood in patient's stool that she remembers seeing the day prior. Patient does report having dark tarry stools as well. He cannot remember the last time he had a colonoscopy. He denies any new problems today. Past Med Surg Social Fam HX - Past Medical History Medical history: atrial fibrillation, CHF, COPD, coronary artery disease, DVT, diabetes, GERD, hyperlipidemia, hypertension, myocardial infarction, pulmonary embolus, renal disease Psychiatric history: no psych history - Past Surgical History Surgical History: appendectomy, colectomy, knee replacement, LE stent(s), sinus surgery - Social History Smoking Status: Never smoker Smokeless Tobacco Status: No Alcohol use: none Drug use: none - Family History Mother Living Status: Hx Family Cardiac Disorders: Yes Hx Family Cancer: Yes Sister Living Status: Hx Family Cancer: Yes Father Living Status: Hx Family Cardiac Disorders: Yes (father, brother,sister,self) Hx Family Respiratory Disorders: Yes (self) Hx Family Cancer: Yes (sister,mother) Hx Family GI Disorders: Yes (brother) Hx Family Endocrine Disorder: Yes (father) Hx Family Neuromuscular Disorders: No Hx Family Neurologic Disorders: No Hx Family HEENT Disorders: No Hx Family Autoimmune Disorders: No Internal Medicine - H&P: Meds Ascorbate Calcium [Vitamin C] 500 mg PO QAM 12/23/15 [History] Aspirin [Adult Low Dose Aspirin EC] 81 mg PO QPM 12/23/15 [History] Lovastatin 40 mg PO QPM 12/23/15 [History] Multivit-Min/FA/Lycopen/Lutein [Centrum Silver Tablet] 1 each PO QAM 12/23/15 [ History] Omeprazole [PriLOSEC] 20 mg PO QAM 12/23/15 [History] Albuterol Sulfate [Ventolin Hfa] 2 puff IH Q4H PRN 01/20/17 [History] Oxygen 2 l NS AD PRN 06/25/17 [History] Acetylcysteine [Nac] 600 mg PO DAILY 08/05/17 [History] Budesonide/Formoterol 160/4.5 [Symbicort 160/4.5] 2 puff IH BIDR 08/05/17 [ History] Fenofibrate 160 mg PO DAILY 08/05/17 [History] Glimepiride [Amaryl] 2 mg PO DAILY 12/27/17 [History] Latanoprost [Xalatan] 1 drop OP DAILY 12/27/17 [History] Warfarin [Coumadin] 3.5 mg PO DAILY 12/27/17 [History] predniSONE [PredniSONE] 20 mg PO DAILY 12/27/17 [History] Furosemide [Lasix] 40 mg PO BID #60 tablet 12/30/17 [Rx] 3 Allergy/AdvReac Type Severity Reaction Status Date / Time No Known Allergies Allergy Verified 12/27/17 18:29 All Systems PM: A 10-system review of systems was performed and is negative for pertinent findings except as documented above in the HPI. - Constitutional Constitutional: as per HPI - EENT Eyes: as per HPI Ears: as per HPI Nose, mouth and throat: as per HPI - Breasts Breasts: as per HPI - Cardiovascular Cardiovascular ROS IM: as per HPI - Respiratory Respiratory: as per HPI - Gastrointestinal Gastrointestinal: as per HPI - Genitourinary Genitourinary ROS male: as per HPI - Musculoskeletal Musculoskeletal ROS IM: as per HPI - Integumentary Integumentary IM: as per HPI - Neurological Neurological ROS: as per HPI - Psychiatric Psychiatric: as per HPI - Endocrine Endocrine IM: as per HPI - Hematologic/Lymphatic Hematologic/Lymphatic: as per HPI - Allergic/Immunologic Allergic/Immunologic: as per HPI - Constitutional Vitals: Temp Pulse Resp BP Pulse Ox 98.1 F 70 18 111/65 96 02/18/18 19:12 02/18/18 21:30 02/18/18 21:30 02/18/18 21:30 02/18/18 21:30 General appearance: Present: mild distress (Mild respiratory distress present.) , A&O X 3, morbidly obese - Head Head exam: Present: atraumatic, normocephalic - Respiratory Additional comments: Upper lobes sounded clear, however there were rales present and bilateral lower lobes. - Cardiovascular Cardiovascular exam: Present: distant heart sounds - GI/Abdominal GI/Abdominal exam: Present: distended, hypoactive bowel sounds. Absent: tenderness - Extremities Exam Additional comments: +2 bilateral lower extremity pitting edema. Bilateral upper extremity bruising present. - Neurological Exam Neurological exam: Present: alert, oriented X3, strengths equal and symetr throughout. Absent: facial droop, speech deficit - Psychiatric Psychiatric exam: Present: normal affect, normal mood Internal Med - H&P Results - Labs CBC & Chem 7: 02/18/18 19:20 02/18/18 19:20 Labs: Short CBC 02/18/18 Range/Units 19:20 WBC 14.3 H (4.3-11.1) K/mcL Hgb 11.8 L (12.9-16.9) g/dL Hct 36.7 L (37.5-50.1) % Plt Count 263 (140-400) K/mcL Neutrophils # 12.0 H (1.6-8.9) K/mcL BMP 02/18/18 19:20 Sodium 140 Potassium 4.1 Chloride 101 Carbon Dioxide 28 BUN 38 H Creatinine 1.37 H Glucose 278 H Calcium 9.0 Cardiac Enzymes 02/18/18 Range/Units 19:20 Troponin I 0.04 H* (< 0.04) ng/mL - Impressions ITS Impressions Chest X-Ray 02/18/18 19:20 IMPRESSION: Similar appearing chest with basilar atelectatic change, though no new infiltrate. D/ / Manohar De La Rosa MD / Manohar De La Rosa MD Interpreting Provider: Manohar De La Rosa MD - Assessment and plan (1) Elevated INR Current Visit: No Status: Resolved Assessment and plan: Patient was asked to come to the hospital due to elevated INR of 9.4. Etiology unclear at this time, patient denies recent changes in diet or medications. Lactic acid was 3.7. Hemoglobin was 11.8, but this could be hemoconcentration in setting of elevated creatinine and elevated lactic acid. Patient ports history of dark/tarry stools and blood with bowel movements so stool occult blood was done in the ED that was positive. Plan: leukocytosis likely secondary to prednisone use at home, no concern for infection at this time. NPO after midnight for possible scope-appreciate general surgery recommendations. IV PPI b.i.d. due to elevated lactic acid and elevated creatinine, concern for hypoperfusion, possible ischemic bowel in setting of atrial fibrillation- will order CT abdomen /pelvis LFTs pending hold Lasix for now and give 1 L fluid bolus due to concern for hypoperfusion, will then recheck lactic acid. Patient received vitamin K in the ED, will hold off on further reversal of INR, as patient H/H is stable currently. hold coumadin and ASA trend troponins (2) Heme positive stool Current Visit: No Status: Acute Assessment and plan: Stool occult blood done in the emergency department was positive plan as above (3) Interstitial lung disease Current Visit: No Status: Chronic Assessment and plan: Continue home medications (4) Atrial fibrillation Current Visit: No Status: Chronic Assessment and plan: Hold Coumadin for elevated INR. Qualifiers: Atrial fibrillation type: chronic Qualified Code(s): I48.2 - Chronic atrial fibrillation (5) Presence of IVC filter Current Visit: No Status: Acute Assessment and plan: Patient has [place] filter in place for history of DVT and PE. (6) History of DVT (deep vein thrombosis) Current Visit: No Status: Chronic Assessment and plan: Plan as above (7) Leukocytosis Current Visit: No Status: Acute Assessment and plan: Patient's WBCs 14.3. No signs of infection at this time. Chest x-ray shows no evidence of new consolidation. Patient does take prednisone at home for interstitial lung disease, and this could be contributing to his leukocytosis. Plan: continue to monitor. Qualifiers: Leukocytosis type: unspecified Qualified Code(s): D72.829 - Elevated white blood cell count, unspecified (8) Diabetes mellitus type 2 in obese Current Visit: No Status: Chronic Assessment and plan: Hold Amaryl, basil and high dose sliding scale insulin (9) CAD (coronary artery disease) Current Visit: No Status: Chronic Assessment and plan: History of stent placement. Continue statin Qualifiers: Coronary Disease-Associated Artery/Lesion type: [place] artery [place] vs. transplanted heart: [place] heart Associated angina: without angina Qualified Code(s): I25.10 - Atherosclerotic heart disease of [place] coronary artery without angina pectoris (10) Congestive heart failure Current Visit: No Status: Acute Assessment and plan: History of diastolic CHF, patient takes Lasix at home. Will hold Lasix for now and give IV fluids, as there is concern for hypoperfusion in setting of lactic acidosis, and possible G.I. bleed as well. Qualifiers: Heart failure type: unspecified Heart failure chronicity: chronic Qualified Code(s): I50.9 - Heart failure, unspecified (11) Elevated troponin I level Current Visit: No Status: Acute Assessment and plan: Mild troponin leak of 0.04. No chest pain present at this time. Troponin's have been elevated in the past. Trend troponin's, continue to monitor. (12) Chronic respiratory failure with hypoxia Current Visit: No Status: Chronic Assessment and plan: Secondary to COPD and pulmonary fibrosis. Continue home occasions and oxygen. (13) COPD (chronic obstructive pulmonary disease) Current Visit: No Status: Chronic Assessment and plan: Does not appear to be in acute exacerbation. Continue oxygen supplementation at home medications. PRN DuoNebs Qualifiers: COPD type: unspecified COPD Qualified Code(s): J44.9 - Chronic obstructive pulmonary disease, unspecified (14) Hypertension Current Visit: No Status: Chronic Assessment and plan: Hydralazine PRN Qualifiers: Hypertension type: essential hypertension Qualified Code(s): I10 - Essential (primary) hypertension (15) DVT prophylaxis Current Visit: No Status: Acute Assessment and plan: Hold warfarin due to elevated INR, EPCCDs - Time Spent With Patient Total time spent is greater than 50% in coordination of care (as documented) at patient's floor/unit and/or counseling patient:
[2018-02-18] MEDS ORDERED: D5% in Water 1,000 ML IVC PRN (23:06)
[2018-02-18] MEDS ORDERED: Dextrose Gel 15 GM/37.5 ML TUBE PO PRN ×2 (23:06)
[2018-02-18] MEDS ORDERED: Ipratropium/Albuterol Neb 3 ML IH PRN (23:18)
--- NOTE | 2018-02-18 23:29 | Event Note ---
Date of Encounter: 02/18/18 Time of Encounter: 23:20 Patient was seen and examined. I agree with the Resident Physician's note as written. Briefly, patient is 82 yo with extensive PMH including hypertension, DVT/PE in the past, COPD on home O2 CAD with stents, CKD, HLD, atrial fibrillation on coumadin, pulmonary fibrosis, DM who comes in after routine INR check was elevated and was advised to go to the ED. INR in the ED was 9.4. Unclear as to why it was elevated. Reports black tarry stools. Had scopes in the past but its been a long time. Hemodynamically stable in the ED. Gen surgery were consulted in the ED for scoping purposes and the patient is admitted. Hgb 11.8 and was 10.4 in December/2017. Back in june 2017 it was 13.5. Has leukocytosis but the patient is on prednisone. creatinine 1.37 (a little elevated compared to 1.14 in December but the patietn has been higher previously). Lactic acid at 3.7. Trops .04 but no chest pain and EKG with afib and no ischemic findings. A/Ox3, NAD Irregular, S1, S2, no m/r/g Diminished breath sounds but clear Abd soft, obese, mild lower abd tenderness, ND, +BS EXT 1+ edema, 2+ DP Nonfocal Will admit to tele c/s surgery for scopes IV PPI NPO after midnight Will give IV fluids and repeat lactic acid Check LFTs and CT abd/pelvis given lactic acidosis. Trend cardiac enzymes Given Vit K in the ED No need for FFP as patient is stable Hold coumadin and Aspirin. Resume rest of home meds SCDs
[2018-02-18] MEDS ORDERED: 0.9 % Sodium Chloride 1,000 ML IVC ONE (23:42)
[2018-02-19] MEDS: Insulin LISPRO 300 UNITS/3 ML VIAL SQ SCH ×5 (00:19→20:05)
[2018-02-19] MEDS: Insulin DETEMIR 100 UNIT/ML X5UNITS SQ SCH ×2 (00:20→20:06)
[2018-02-19 01:11] LABS: Alanine Aminotransferase 21 Units/L (7-52); Albumin 3.9 g/dL (3.5-5.7); Albumin/Globulin Ratio 1.6 (1.1-2.2); Alkaline Phosphatase 62 Units/L (34-104); Aspartate Amino Transferase 17 Units/L (13-39); Bilirubin,Direct 0.1 mg/dL (0.0-0.2); Bilirubin,Indirect 0.2 mg/dL (0.0-1.2); Bilirubin,Total 0.3 mg/dL (0.3-1.0); Globulin 2.5 g/dL (2.4-3.5); Total Protein 6.4 g/dL (6.4-8.9)
[2018-02-19 01:31] LABS: Basophils % 0.2 %; Eosinophils # 0.1 K/mcL (0.0-0.6); Eosinophils % 0.5 %; Hematocrit 33.9 % (37.5-50.1); Hemoglobin 10.9 g/dL (12.9-16.9); Immature Granulocytes % 2.1 % (0-4); Lymphocytes # 1.8 K/mcL (0.6-4.6); Lymphocytes % 12.7 %; Mean Corpuscular HGB Conc 32.2 g/dL (31.6-35.5); Mean Corpuscular Hemoglobin 29.9 pg (28.0-33.3); Mean Corpuscular Volume 92.9 fL (83.0-100.0); Mean Platelet Volume 9.1 fL (9.4-12.4); Monocytes # 1.1 K/mcL (0.0-1.3); Neutrophils # 10.8 K/mcL (1.6-8.9); Platelet Count 229 K/mcL (140-400); Red Blood Count 3.65 M/mcL (4.19-5.50); Red Cell Distribution Width 14.1 % (11.5-14.5); Segmented Neutrophils % 76.5 %
[2018-02-19 01:44] LABS: INR 4.7; Prothrombin Time 51.9 Seconds (9.4-12.1)
[2018-02-19 01:50] LABS: BUN/Creatinine Ratio 29 (6-26); Blood Urea Nitrogen 36 mg/dL (8-23); Calcium 8.9 mg/dL (8.6-10.3); Carbon Dioxide 29 mEq/L (23-29); Chloride 104 mEq/L (98-107); Glucose 170 mg/dL (70-105); Magnesium 2.3 mg/dL (1.6-2.6); Osmolality,Calculated 300 (280-300); Phosphorous 3.8 mg/dL (2.7-4.5); Potassium 3.9 mEq/L (3.5-5.1); Sodium 139 mEq/L (136-145); eGFR For African Americans > 60 (> 60); eGFR For Non-African Americans 55 (> 60)
[2018-02-19] MEDS: *HR* Dextrose 50 % in Water (Syg) 50 ML SYRINGE IVP PRN ×2 (07:45→12:38)
[2018-02-19] MEDS: Budesonide/Formoterol 160/4.5 MDI IH SCH ×2 (07:57→22:52)
[2018-02-19] MEDS: Fenofibrate 54 MG TABLET PO SCH (18:13)
[2018-02-19] MEDS: predniSONE 20 MG TABLET PO SCH (18:13)
[2018-02-19] MEDS: *HR* Acetylcysteine 20% 600 MG/3 ML ORAL SYRINGE PO SCH (18:13)
[2018-02-20] MEDS: Pantoprazole 40 MG VIAL IVP SCH ×2 (01:33→12:21)
[2018-02-20] MEDS: Budesonide/Formoterol 160/4.5 MDI IH SCH (07:58)
[2018-02-20 07:59] LABS: Hematocrit 36.6 % (37.5-50.1); Hemoglobin 11.1 g/dL (12.9-16.9); Mean Corpuscular HGB Conc 30.3 g/dL (31.6-35.5); Mean Corpuscular Hemoglobin 28.6 pg (28.0-33.3); Mean Corpuscular Volume 94.3 fL (83.0-100.0); Mean Platelet Volume 9.5 fL (9.4-12.4); Platelet Count 234 K/mcL (140-400); Red Blood Count 3.88 M/mcL (4.19-5.50); Red Cell Distribution Width 14.6 % (11.5-14.5)
[2018-02-20 08:13] LABS: INR 2.2; Prothrombin Time 23.8 Seconds (9.4-12.1)
[2018-02-20] MEDS: Insulin LISPRO 300 UNITS/3 ML VIAL SQ SCH ×3 (08:17→17:12)
[2018-02-20] MEDS: *HR* Acetylcysteine 20% 600 MG/3 ML ORAL SYRINGE PO SCH (08:18)
[2018-02-20] MEDS: Fenofibrate 54 MG TABLET PO SCH (08:18)
[2018-02-20] MEDS: predniSONE 20 MG TABLET PO SCH (08:18)
[2018-02-20 08:34] LABS: BUN/Creatinine Ratio 27 (6-26); Blood Urea Nitrogen 31 mg/dL (8-23); Calcium 8.8 mg/dL (8.6-10.3); Carbon Dioxide 27 mEq/L (23-29); Chloride 106 mEq/L (98-107); Glucose 146 mg/dL (70-105); Osmolality,Calculated 299 (280-300); Sodium 140 mEq/L (136-145); eGFR For African Americans > 60 (> 60); eGFR For Non-African Americans > 60 (> 60)
[2018-02-20 09:06] LABS: Potassium 4.5 mEq/L (3.5-5.1)
--- NOTE | 2018-02-20 16:24 | Internal Med Progress Note ---
Date of Encounter: 02/19/18 Time of Encounter: 17:00 - Assessment and plan (1) Elevated INR Status: Resolved Assessment and plan: There is no evidence for bleeding. His hemoglobin was 11.8 yesterday. It is 10.9 today. His last colonoscopy was about two years ago. I am going to start him on regular diet. Will check his hemoglobin tomorrow morning. Will keep his warfarin on hold. (2) Heme positive stool Status: Acute Assessment and plan: He has underlying diverticuloses of colon. He was taking warfarin recently. (3) Atrial fibrillation Status: Chronic Assessment and plan: The patient will restart warfarin soon. His Pro Time is supra therapeutic at this time. Qualifiers: Atrial fibrillation type: paroxysmal Qualified Code(s): I48.0 - Paroxysmal atrial fibrillation (4) Interstitial lung disease Status: Chronic Assessment and plan: He has chronic hypoxic respiratory failure. He uses supplemental oxygen all the time. (5) Respiratory failure with hypoxia Status: Acute Assessment and plan: As above. Qualifiers: Chronicity: chronic Qualified Code(s): J96.11 - Chronic respiratory failure with hypoxia - Time Spent With Patient Total time spent is greater than 50% in coordination of care (as documented) at patient's floor/unit and/or counseling patient: - Subjective Interval history: The patient feels hungry. Denies abdominal pain, nausea and vomiting. Denies chest pain and difficulty breathing. He has normal urination. He hasn't had any ball movements since the admission. - Constitutional Vitals: Temp Pulse Resp BP Pulse Ox 97.8 F 64 16 130/81 96 02/20/18 11:43 02/20/18 12:32 02/20/18 11:43 02/20/18 11:43 02/20/18 11:43 General appearance: Present: A&O X 3, morbidly obese, no acute distress, answers questions appropriately - Respiratory Respiratory exam: Present: CTAB. Absent: accessory muscle use, rales, rhonchi, wheezes - Cardiovascular Cardiovascular exam: Present: RRR, +S1, +S2. Absent: diastolic murmur, gallop, rubs, systolic murmur - GI/Abdominal GI/Abdominal exam: Present: normal bowel sounds, soft, no peritoneal signs. Absent: distended, tenderness - Skin Skin exam: Present: dry, intact Internal Medicine: Result - Labs CBC & Chem 7: 02/20/18 06:12 02/20/18 06:12 Labs: Short CBC 02/20/18 Range/Units 06:12 WBC 12.8 H (4.3-11.1) K/mcL Hgb 11.1 L (12.9-16.9) g/dL Hct 36.6 L (37.5-50.1) % Plt Count 234 (140-400) K/mcL BMP 02/20/18 06:12 Sodium 140 Potassium 4.5 Chloride 106 Carbon Dioxide 27 BUN 31 H Creatinine 1.16 Glucose 146 H Calcium 8.8 - ABG Interpretation ABG results: PT/INR, D-dimer PT 23.8 Seconds (9.4-12.1) H D 02/20/18 06:12 - Impressions Impressions Abdomen/Pelvis CT 02/19/18 23:43 IMPRESSION: 1. Borderline wall thickening of a segment of the transverse colon, though this is equivocal for mild colitis versus pseudo thickening from decompressed bowel. 2. Otherwise no acute findings within the abdomen and pelvis on this noncontrast CT examination. 3. Colonic diverticulosis without evidence of diverticulitis. 4. Mild hepatic steatosis. 5. IVC filter in place. D/ / 02/20/2018 06:32:00 Julio Cesar Amato MD / martinez Interpreting Provider: Julio Cesar Amato MD Consult Discharge Plan - Plan Instructions: Warfarin (By mouth), Vitamin K in Foods (DC), Elevated INR (DC) Additional Instructions: Decreased Coumadin to 3 mg by mouth daily. His next pro time should be in about 5 days. Then, it should be monthly plus if needed. The patient needs outpatient colonoscopy. -PLEASE HAVE A PT/INR CHECKED ON Wednesday02-25-18. -FOLLOW UP WITH PRIMARY CARE DOCTOR IN 1-2 WEEKS. -IF YOU NOTICE BLOOD IN STOOLS OR DARK TARRY STOOLS OR ANY BLEEDING, PLEASE NOTIFY YOUR PCP OR RETURN TO THE HOSPITAL. -PLEASE SPEAK TO YOUR PCP DR. LEON ABOUT SCHEDULING A APPOINTMENT FOR A COLONOSCOPY. Referrals: Jose A Leon DO [Primary Care Provider] - (request for appt submitted) Prescriptions: Warfarin [Coumadin] 3 mg PO DAILY #30 tablet
[2018-02-20 16:25] VITALS: BP 147/77
--- NOTE | 2018-02-20 16:33 | Discharge Summary ---
- NOTES TO OUTPATIENT PROVIDER Notes to Outpatient Provider: The patient came with an elevated ProTime INR of 9.4. It is 2.2 today. His hemoglobin at admission was 14.3. It is 12.8 today. He has not had an abdominal pain, nausea and vomiting recently. He will need outpatient colonoscopy. Date of Encounter: 02/20/18 Time of Encounter: 16:30 - Discharge Diagnosis (1) Elevated INR Priority: Primary Status: Resolved (2) Heme positive stool Priority: Primary Status: Acute (3) Atrial fibrillation Priority: Secondary Status: Chronic Qualifiers: Atrial fibrillation type: paroxysmal Qualified Code(s): I48.0 - Paroxysmal atrial fibrillation (4) Interstitial lung disease Priority: Secondary Status: Chronic (5) Respiratory failure with hypoxia Priority: Secondary Status: Acute Qualifiers: Chronicity: chronic Qualified Code(s): J96.11 - Chronic respiratory failure with hypoxia Hospital course: Mr. Sequeira is a 82 year old male. He was advised to come to the emergency room , after his Pro Time was found to be high 9.4. It was not associated with any particular symptoms. He denied abdominal pain. He denied the bleeding from his rectum. He received 5 mg of IV Vitamin K in the emergency room. His hemoglobinous was stable during this short hospitalization. I started feeding him on day two. I discharged him harming/stable condition. On the day of discharge his hemoglobin was 11.1; with Pro Time of 2.2. He takes warfarin for his atrial fibrillation. He tells me that his last colonoscopy was about two years ago. Follow-up with primary care physician. Discharge discussed with: patient, nurse - Time Spent with Patient Total time spent providing and/or coordinating discharge services: Greater than 30 minutes (40 minutes.) - Discharge Medications Prescriptions: Warfarin [Coumadin] 3 mg PO DAILY #30 tablet Home Medications: Ascorbate Calcium [Vitamin C] 500 mg PO QAM 12/23/15 [History] Lovastatin 40 mg PO QPM 12/23/15 [History] Multivit-Min/FA/Lycopen/Lutein [Centrum Silver Tablet] 1 each PO QAM 12/23/15 [ History] Omeprazole [PriLOSEC] 20 mg PO QAM 12/23/15 [History] Albuterol Sulfate [Ventolin Hfa] 2 puff IH Q4H PRN 01/20/17 [History] Oxygen 2 l NS AD PRN 06/25/17 [History] Acetylcysteine [Nac] 600 mg PO DAILY 08/05/17 [History] Budesonide/Formoterol 160/4.5 [Symbicort 160/4.5] 2 puff IH BIDR 08/05/17 [ History] Fenofibrate 160 mg PO DAILY 08/05/17 [History] Glimepiride [Amaryl] 2 mg PO DAILY 12/27/17 [History] Latanoprost [Xalatan] 1 drop OP DAILY 12/27/17 [History] predniSONE [PredniSONE] 20 mg PO DAILY 12/27/17 [History] Warfarin [Coumadin] 3 mg PO DAILY #30 tablet 02/20/18 [Rx] Aspirin [Lo-Dose Aspirin EC] 81 mg PO DAILY 02/26/18 [History] Furosemide [Lasix] 80 mg PO DAILY 02/26/18 [History] Allergies/Adverse Reactions: 3 Allergy/AdvReac Type Severity Reaction Status Date / Time No Known Allergies Allergy Verified 02/26/18 13:37 Date of admission: 02/18/18 22:35 Primary care physician: Jose A Kelly Colderik Discharging clinician: Raymundo Linda Anticipated date of discharge: 02/20/18 - Constitutional Vitals: Temp Pulse Resp BP Pulse Ox 98.0 F 63 16 147/77 98 02/20/18 16:24 02/20/18 16:24 02/20/18 16:24 02/20/18 16:24 02/20/18 16:24 General appearance: Present: A&O X 3, morbidly obese - Respiratory Respiratory exam: Present: CTAB. Absent: rales, rhonchi, wheezes - Cardiovascular Cardiovascular exam: Present: RRR. Absent: diastolic murmur, gallop, rubs, systolic murmur - GI/Abdominal GI/Abdominal exam: Present: normal bowel sounds, soft, no peritoneal signs. Absent: distended, tenderness - Patient Status Disposition: Home Health Service Condition: Fair - Discharge Instructions Instructions: Warfarin (By mouth), Vitamin K in Foods (DC), Elevated INR (DC) Follow Up With: Jose A Hernandez DO [Primary Care Provider] - (request for appt submitted) Additional Instructions: Decreased Coumadin to 3 mg by mouth daily. His next pro time should be in about 5 days. Then, it should be monthly plus if needed. The patient needs outpatient colonoscopy. -PLEASE HAVE A PT/INR CHECKED ON Wednesday02-25-18. -FOLLOW UP WITH PRIMARY CARE DOCTOR IN 1-2 WEEKS. -IF YOU NOTICE BLOOD IN STOOLS OR DARK TARRY STOOLS OR ANY BLEEDING, PLEASE NOTIFY YOUR PCP OR RETURN TO THE HOSPITAL. -PLEASE SPEAK TO YOUR PCP DR. HERNANDEZ ABOUT SCHEDULING A APPOINTMENT FOR A COLONOSCOPY. - Diet and Activity Activity: resume usual activities as tolerated Diet: diabetic diet - VTE Reasons for not Prescribing Prophylaxis: Not indicated-Anticoagulated or INR therapeutic Deep Vein Thrombosis/Pulmonary Embolism Present on Admission: No
--- NOTE | 2018-02-20 17:03 | Physician Discharge Referral ---
Home Health/Hosp Referral Info Attending Provider: Denise Linda MD - Diagnosis (1) Elevated INR Status: Resolved (2) Heme positive stool Status: Acute (3) Atrial fibrillation Status: Chronic (4) Interstitial lung disease Status: Chronic (5) Respiratory failure with hypoxia Status: Acute - Respiratory Orders Smoking Cessation: Smoking cessation has been advised. For more information, call the [place] Tobacco Quit Line at 7-647-AFDZ-NOW. - Diet/Nutrition Diet/Nutrition: List: He should be on diabetic diet. - Activity Activity Orders: Ambulate - Services Needed Following services are medically necessary services: Nursing - Transfer Medications Prescriptions: Warfarin [Coumadin] 3 mg PO DAILY #30 tablet Home Medications: Ascorbate Calcium [Vitamin C] 500 mg PO QAM 12/23/15 [History] Aspirin [Adult Low Dose Aspirin EC] 81 mg PO QPM 12/23/15 [History] Lovastatin 40 mg PO QPM 12/23/15 [History] Multivit-Min/FA/Lycopen/Lutein [Centrum Silver Tablet] 1 each PO QAM 12/23/15 [ History] Omeprazole [PriLOSEC] 20 mg PO QAM 12/23/15 [History] Albuterol Sulfate [Ventolin Hfa] 2 puff IH Q4H PRN 01/20/17 [History] Oxygen 2 l NS AD PRN 06/25/17 [History] Acetylcysteine [Nac] 600 mg PO DAILY 08/05/17 [History] Budesonide/Formoterol 160/4.5 [Symbicort 160/4.5] 2 puff IH BIDR 08/05/17 [ History] Fenofibrate 160 mg PO DAILY 08/05/17 [History] Glimepiride [Amaryl] 2 mg PO DAILY 12/27/17 [History] Latanoprost [Xalatan] 1 drop OP DAILY 12/27/17 [History] predniSONE [PredniSONE] 20 mg PO DAILY 12/27/17 [History] Furosemide [Lasix] 40 mg PO BID #60 tablet 12/30/17 [Rx] Warfarin [Coumadin] 3 mg PO DAILY #30 tablet 02/20/18 [Rx] Allergies/Adverse Reactions: 3 Allergy/AdvReac Type Severity Reaction Status Date / Time No Known Allergies Allergy Verified 12/27/17 18:29 Certification: Further, I certify that my clinical findings support that this patient is homebound (i.e. absences from home require considerable and taxing effort and are for medical reasons or zoroastrian services or infrequently or short duration when for other reasons) because: Homebound Reason: Patient requires assistance of a person or device to safely leave home Attestation: My signature below is to certify that this patient is under my care and that I, or nurse practitioner, or a physician's stores assistant working with me, has a face-to -face encounter with this patient.
--- NOTE | 2018-02-22 11:40 | Electrocardiograph Report ---
[place] [id number] Test Date: 2018-02-18 Pat Name: David Sequeira Department: 103 Room: 2N12 Gender: M Food Counselor: LRHowie : 1935 Requested By: Ti Mcmillan Order Number: [id number] Reading MD: George Olvera Measurements Intervals [place] Rate: 70 P: GA: 0 QRS: -52 QRSD: 121 T: 7 QT: 375 QTc: 396 Interpretive Statements ATRIAL FIBRILLATION LEFT ANTERIOR FASCICULAR BLOCK POSSIBLE ANTERIOR MYOCARDIAL INFARCTION, PROBABLY OLD Electronically Signed On 02-22-2018 11:39:17 EDT by George Olvera
== END 2018-02-20 18:40 | disposition home health service (06) | DRG 948 ==
LOC: EMEROO 18:54 → 2ANU 18:54 → SUATTDRO 22:35 → OBSVTOIN 22:44 → 2NNU 22:45
PROVIDERS: ADMIT Internal Medicine; ATTEND Internal Medicine

== ENCOUNTER 2018-02-26 12:03 | Inpatient (IN) ==
[2018-02-26] MEDS ORDERED: Furosemide 40 MG/4 ML VIAL IVP ONE (12:05)
[2018-02-26 12:39] LABS: Bilirubin,Urine Negative (Negative); Blood,Urine Negative (Negative); Clarity,Urine Clear (Clear); Color,Urine Yellow (Yellow); Glucose,Urine (UA) Normal (Normal); Ketones,Urine Negative (Negative); Leukocyte Esterase,Urine Negative (Negative); Nitrite,Urine Negative (Negative); PH,Urine 6.5 pH Units (5.0-8.0); Protein,Urine Negative (Neg-Trace); Specific Gravity,Urine 1.011 (1.010-1.025); Urobilinogen,Urine Normal (Normal)
[2018-02-26 12:39] LABS: Basophils % 0.3 %; Eosinophils # 0.2 K/mcL (0.0-0.6); Eosinophils % 1.8 %; Hematocrit 38.6 % (37.5-50.1); Immature Granulocytes % 1.3 % (0-4); Lymphocytes # 2.3 K/mcL (0.6-4.6); Lymphocytes % 18.9 %; Mean Corpuscular HGB Conc 31.1 g/dL (31.6-35.5); Mean Corpuscular Hemoglobin 29.5 pg (28.0-33.3); Mean Corpuscular Volume 94.8 fL (83.0-100.0); Mean Platelet Volume 9.1 fL (9.4-12.4); Monocytes # 0.8 K/mcL (0.0-1.3); Monocytes % 6.8 %; Neutrophils # 8.8 K/mcL (1.6-8.9); Platelet Count 227 K/mcL (140-400); Red Blood Count 4.07 M/mcL (4.19-5.50); Red Cell Distribution Width 14.5 % (11.5-14.5); Segmented Neutrophils % 70.9 %
[2018-02-26 12:47] LABS: Activated Partial Thrombo Time 64.5 Seconds (26.0-36.0)
[2018-02-26 12:56] LABS: INR 5.7; Prothrombin Time 63.2 Seconds (9.4-12.1)
[2018-02-26 12:58] LABS: Blood Urea Nitrogen 25 mg/dL (8-23); Calcium 8.9 mg/dL (8.6-10.3); Chloride 105 mEq/L (98-107); Glucose 153 mg/dL (70-105); Osmolality,Calculated 299 (280-300); Potassium 3.6 mEq/L (3.5-5.1); Sodium 141 mEq/L (136-145); Troponin I 0.04 ng/mL (< 0.04)
--- NOTE | 2018-02-26 13:04 | Emergency Department Note ---
Disposition Clinical Impression: Acute on chronic diastolic heart failure, Atrial fibrillation, Lactic acidosis , Elevated troponin I level, Elevated INR Disposition: Admitted As Inpatient Condition: Fair Time of Disposition: 14:22 Extremity Problem HPI - General Chief complaint: ED Extremity Problem,Nontraumatic Stated complaint: Fluid in Legs Time Seen by Provider: 02/26/18 12:05 Source: patient, EMS Mode of arrival: EMS Limitations: no limitations Nursing Notes Reviewed: Yes Vital Signs Reviewed: Yes - History of Present Illness HPI Narrative: Patient presents to the ED via EMS and was seen and evaluated upon arrival for swelling in his legs. Patient has a history of CHF and coronary artery disease as well as diabetes. States that his legs been swelling more so over the last week, but worse in the last few days. He has taken 80 mg of Lasix twice a day by mouth without much relief. is starting to have trouble walking due to pain from the swelling. He does have a Dion filter from previous PEs and is on Coumadin for A. fib and his thromboembolisms. He had his labs checked a few days ago and his INR was high 70s instructed to hold it for a few days. Denying any melena or hematochezia. No hematemesis or hemoptysis. No abdominal pain, nausea, vomiting or diarrhea. No chest pain, but is having some shortness of breath. Pain Scale: 0 - Related Data Home Medications Medication Instructions Recorded Confirmed Ascorbate Calcium [Vitamin C] 500 mg PO QAM 12/23/15 02/26/18 Lovastatin 40 mg PO QPM 12/23/15 02/26/18 Multivit-Min/FA/Lycopen/Lutein 1 each PO QAM 12/23/15 02/26/18 [Centrum Silver Tablet] Omeprazole [PriLOSEC] 20 mg PO QAM 12/23/15 02/26/18 Albuterol Sulfate [Ventolin Hfa] 2 puff IH Q4H PRN 01/20/17 02/26/18 Oxygen 2 l NS AD PRN 06/25/17 02/26/18 Acetylcysteine [Nac] 600 mg PO DAILY 08/05/17 02/26/18 Budesonide/Formoterol 160/4.5 2 puff IH BIDR 08/05/17 02/26/18 [Symbicort 160/4.5] Fenofibrate 160 mg PO DAILY 08/05/17 02/26/18 Glimepiride [Amaryl] 2 mg PO DAILY 12/27/17 02/26/18 Latanoprost [Xalatan] 1 drop OP DAILY 12/27/17 02/26/18 predniSONE [PredniSONE] 20 mg PO DAILY 12/27/17 02/26/18 Aspirin [Lo-Dose Aspirin EC] 81 mg PO DAILY 02/26/18 02/26/18 Furosemide [Lasix] 80 mg PO DAILY 02/26/18 02/26/18 Previous Rx's Medication Instructions Recorded Warfarin [Coumadin] 3 mg PO DAILY #30 tablet 02/20/18 Allergies Allergy/AdvReac Type Severity Reaction Status Date / Time No Known Allergies Allergy Verified 02/26/18 13:37 Review of Systems: As reviewed in the HPI. All other systems reviewed are negative or normal. Past Medical History - Past Medical History Attestation: Yes The following information was validated with the patient. Source: patient Medical history: Reports: atrial fibrillation, CHF, COPD, coronary artery disease, DVT, diabetes, GERD, hyperlipidemia, hypertension, myocardial infarction, pulmonary embolus, renal disease Surgical history: Reports: appendectomy, colectomy, knee replacement, LE stent(s ), sinus surgery Psychiatric history: Reports: no psych history - Social History Smoking Status: Never smoker Smokeless Tobacco Status: No Alcohol use: Reports: none Drug use: Reports: none Physical Exam CONSTITUTIONAL: [well appearing in no acute distress] SKIN: [Warm, dry, and intact without rash] EYES: [extraocular movements are grossly intact, clear conjunctiva] HENT: [Normocephalic, atraumatic, moist mucus membranes] NECK: [no obvious swelling, normal range of motion] PULMONARY: [normal chest rise and fall, no respiratory distress or stridor CARDIOVASCULAR: [regular rate, distal extremities are warm and well perfused, but are quite edematous with 3+ pitting edema bilaterally, no erythema or signs of infection] GASTROINSTESTINAL: [nondistended, non-tender] GENITOURINARY: [deferred] NEUROLOGIC: [normal speech, moves all extremities] MUSCULOSKELETAL: [no gross deformities, atraumatic] PSYCHIATRIC: [normal mood and affect] - General Limitations: no limitations General appearance: alert, in no apparent distress Course - Reevaluation(s) Reevaluation #1: Patient presenting with suspected CHF exacerbation. Was just discharged from the hospital 3 days ago. Does seem like his oral Lasix is not working. He is also having exertional dyspnea and now admits to exertional chest discomfort. His troponin is slightly, but chronically elevated. His INR is also supratherapeutic, but no signs of bleeding. Patient will be admitted Vital Signs Temperature 98.8 F 02/26/18 12:05 Pulse Rate 76 02/26/18 12:05 Respiratory Rate 18 02/26/18 12:05 Blood Pressure 132/76 02/26/18 12:05 O2 Sat by Pulse Oximetry 95 02/26/18 12:05 Temperature 98.8 F 02/26/18 12:05 Pulse Rate 74 02/26/18 13:54 Respiratory Rate 18 02/26/18 12:10 Blood Pressure 159/85 02/26/18 13:54 O2 Sat by Pulse Oximetry 97 02/26/18 13:54 Oxygen Delivery Oxygen Delivery Room Air Extremity Problem, Nontraumati - Medical Records Medical records reviewed: Yes I reviewed the patient's medical records. - Lab Data Lab results reviewed: Yes I reviewed the patient's lab results. Result diagrams: 02/26/18 12:23 02/26/18 12:23 Lab Results 02/26/18 02/26/18 02/26/18 Range/Units 12:18 12:23 12:23 WBC 12.4 H (4.3-11.1) K/mcL RBC 4.07 L (4.19-5.50) M/mcL Hgb 12.0 L (12.9-16.9) g/dL Hct 38.6 (37.5-50.1) % MCV 94.8 (83.0-100.0) fL MCH 29.5 (28.0-33.3) pg MCHC 31.1 L (31.6-35.5) g/dL RDW 14.5 (11.5-14.5) % Plt Count 227 (140-400) K/mcL MPV 9.1 L (9.4-12.4) fL Immature Gran % 1.3 (0-4) % Seg Neutrophils % 70.9 % Lymphocytes % 18.9 % Monocytes % 6.8 % Eosinophils % 1.8 % Basophils % 0.3 % Neutrophils # 8.8 (1.6-8.9) K/mcL Lymphocytes # 2.3 (0.6-4.6) K/mcL Monocytes # 0.8 (0.0-1.3) K/mcL Eosinophils # 0.2 (0.0-0.6) K/mcL Basophils # 0.0 (0.0-0.2) K/mcL PT 63.2 H* (9.4-12.1) Seconds INR 5.7 H* APTT 64.5 H (26.0-36.0) Seconds Sodium (136-145) mEq/L Potassium (3.5-5.1) mEq/L Chloride (98-107) mEq/L Carbon Dioxide (23-29) mEq/L BUN (8-23) mg/dL Creatinine (0.70-1.30) mg/dL Est GFR ( Amer) (> 60) Est GFR (Non-Af Amer) (> 60) BUN/Creatinine Ratio (6-26) Glucose (70-105) mg/dL Calculated Osmolality (280-300) Lactic Acid (0.5-2.2) mmol/L Calcium (8.6-10.3) mg/dL Troponin I (< 0.04) ng/mL B-Natriuretic Peptide (Less than 100) pg/mL Urine Color Yellow (Yellow) Urine Clarity Clear (Clear) Urine pH 6.5 (5.0-8.0) pH Units Ur Specific [place] 1.011 (1.010-1.025) Urine Protein Negative (Neg-Trace) mg/dL Urine Glucose (UA) Normal (Normal) mg/dL Urine Ketones Negative (Negative) mg/dL Urine Blood Negative (Negative) Urine Nitrite Negative (Negative) Urine Bilirubin Negative (Negative) Urine Urobilinogen Normal (Normal) mg/dL Ur Leukocyte Esterase Negative (Negative) Ur Culture Indicated? NO (NO) 02/26/18 02/26/18 02/26/18 Range/Units 12:23 12:23 12:23 WBC (4.3-11.1) K/mcL RBC (4.19-5.50) M/mcL Hgb (12.9-16.9) g/dL Hct (37.5-50.1) % MCV (83.0-100.0) fL MCH (28.0-33.3) pg MCHC (31.6-35.5) g/dL RDW (11.5-14.5) % Plt Count (140-400) K/mcL MPV (9.4-12.4) fL Immature Gran % (0-4) % Seg Neutrophils % % Lymphocytes % % Monocytes % % Eosinophils % % Basophils % % Neutrophils # (1.6-8.9) K/mcL Lymphocytes # (0.6-4.6) K/mcL Monocytes # (0.0-1.3) K/mcL Eosinophils # (0.0-0.6) K/mcL Basophils # (0.0-0.2) K/mcL PT (9.4-12.1) Seconds INR APTT (26.0-36.0) Seconds Sodium 141 (136-145) mEq/L Potassium 3.6 (3.5-5.1) mEq/L Chloride 105 (98-107) mEq/L Carbon Dioxide 26 (23-29) mEq/L BUN 25 H (8-23) mg/dL Creatinine 1.29 (0.70-1.30) mg/dL Est GFR ( Amer) > 60 (> 60) Est GFR (Non-Af Amer) 53 L (> 60) BUN/Creatinine Ratio 19 (6-26) Glucose 153 H (70-105) mg/dL Calculated Osmolality 299 (280-300) Lactic Acid 2.5 H (0.5-2.2) mmol/L Calcium 8.9 (8.6-10.3) mg/dL Troponin I 0.04 H* (< 0.04) ng/mL B-Natriuretic Peptide 188 H (Less than 100) pg/mL Urine Color (Yellow) Urine Clarity (Clear) Urine pH (5.0-8.0) pH Units Ur Specific [place] (1.010-1.025) Urine Protein (Neg-Trace) mg/dL Urine Glucose (UA) (Normal) mg/dL Urine Ketones (Negative) mg/dL Urine Blood (Negative) Urine Nitrite (Negative) Urine Bilirubin (Negative) Urine Urobilinogen (Normal) mg/dL Ur Leukocyte Esterase (Negative) Ur Culture Indicated? (NO) - Radiology Data Radiology results reviewed: Yes I reviewed the patient's radiology results. - EKG Data EKG attestation: Yes I reviewed and interpreted this EKG. EKG results narrative: A. fib, rate 72, QRS 122, QTC 375, left axis deviation, no acute ischemic changes
[2018-02-26 13:18] LABS: BUN/Creatinine Ratio 19 (6-26); Carbon Dioxide 26 mEq/L (23-29); eGFR For African Americans > 60 (> 60); eGFR For Non-African Americans 53 (> 60)
[2018-02-26] MEDS ORDERED: Naloxone 0.4 MG/ML INJ IVP PRN (14:10)
[2018-02-26] MEDS ORDERED: *HR* Promethazine 25 MG/ML VIAL IVP PRN (14:10)
[2018-02-26] MEDS ORDERED: Ondansetron 4 MG/2 ML VIAL IVP PRN (14:10)
[2018-02-26] MEDS ORDERED: NON-FORMULARY MEDICATION 1 EACH EACH (Oxygen [Oxygen] 2 L) NS PRN (14:35)
--- NOTE | 2018-02-26 14:46 | Internal Med History&Physical ---
Date of Encounter: 02/26/18 Time of Encounter: 14:20 Internal Medicine - H&P: HPI Chief complaint: Bilateral lower extremity edema Admitted From: Emergency Dept Plans for Post Hospital Care: Home History of present illness: Mr. 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 Patient is alert, awake , oriented X3. Denied any chest pain/shortness of breath. She was recently discharged from our facility 3 days ago with similar problem. Patient also happened to have supra therapeutic INR at the time too. As per he weighted 210 lbs in 09/12, later 230 in 10/14 and 270 lbs now. He gained totally 60 lbs. Past Med Surg Social Fam HX - Past Medical History Medical history: atrial fibrillation, CHF, COPD, coronary artery disease, DVT, diabetes, GERD, hyperlipidemia, hypertension, myocardial infarction, pulmonary embolus, renal disease Psychiatric history: no psych history - Past Surgical History Surgical History: appendectomy, colectomy, knee replacement, LE stent(s), sinus surgery Additional surgical history: green field filter, hemorrhoid procedure, 3 cardiac stents - Social History Smoking Status: Never smoker Smokeless Tobacco Status: No Alcohol use: none Drug use: none - Family History Mother Living Status: Hx Family Cardiac Disorders: Yes Hx Family Cancer: Yes Sister Living Status: Hx Family Cancer: Yes Father Living Status: Hx Family Cardiac Disorders: Yes (father, brother,sister,self) Hx Family Respiratory Disorders: Yes (self) Hx Family Cancer: Yes (sister,mother) Hx Family GI Disorders: Yes (brother) Hx Family Endocrine Disorder: Yes (father) Hx Family Neuromuscular Disorders: No Hx Family Neurologic Disorders: No Hx Family HEENT Disorders: No Hx Family Autoimmune Disorders: No Internal Medicine - H&P: Meds Ascorbate Calcium [Vitamin C] 500 mg PO QAM 12/23/15 [History] Lovastatin 40 mg PO QPM 12/23/15 [History] Multivit-Min/FA/Lycopen/Lutein [Centrum Silver Tablet] 1 each PO QAM 12/23/15 [ History] Omeprazole [PriLOSEC] 20 mg PO QAM 12/23/15 [History] Albuterol Sulfate [Ventolin Hfa] 2 puff IH Q4H PRN 01/20/17 [History] Oxygen 2 l NS AD PRN 06/25/17 [History] Acetylcysteine [Nac] 600 mg PO DAILY 08/05/17 [History] Budesonide/Formoterol 160/4.5 [Symbicort 160/4.5] 2 puff IH BIDR 08/05/17 [ History] Fenofibrate 160 mg PO DAILY 08/05/17 [History] Glimepiride [Amaryl] 2 mg PO DAILY 12/27/17 [History] Latanoprost [Xalatan] 1 drop OP DAILY 12/27/17 [History] predniSONE [PredniSONE] 20 mg PO DAILY 12/27/17 [History] Warfarin [Coumadin] 3 mg PO DAILY #30 tablet 02/20/18 [Rx] Aspirin [Lo-Dose Aspirin EC] 81 mg PO DAILY 02/26/18 [History] Furosemide [Lasix] 80 mg PO DAILY 02/26/18 [History] 3 Allergy/AdvReac Type Severity Reaction Status Date / Time No Known Allergies Allergy Verified 02/26/18 13:37 All Systems PM: A 10-system review of systems was performed and is negative for pertinent findings except as documented above in the HPI. Review of systems: All the systems are reviewed everything is benign except the systems and symptoms I mentioned in the history of present illness - Constitutional Vitals: Temp Pulse Resp BP Pulse Ox 98.8 F 74 18 159/85 97 02/26/18 12:05 02/26/18 13:54 02/26/18 12:10 02/26/18 13:54 02/26/18 13:54 General appearance: Present: cooperative, A&O X 3, no acute distress, answers questions appropriately - Head Head exam: Present: atraumatic - Neck Neck exam general surgery: Present: full ROM. Absent: tenderness, supple - Respiratory Respiratory exam: Present: decreased breath sounds, rales (++), wheezes. Absent : respiratory distress, rhonchi - Cardiovascular Cardiovascular exam: Present: irregular rhythm, +S1, +S2. Absent: systolic murmur, tachycardia - Extremities Exam Extremities exam: Present: pedal edema (3-4+ pitting edema). Absent: calf tenderness, mottling - Back Exam Back exam: Absent: CVA tenderness (L), CVA tenderness (R) - Neurological Exam Neurological exam: Present: alert, oriented X3 - Psychiatric Psychiatric exam: Present: depressed Internal Med - H&P Results - Labs CBC & Chem 7: 02/26/18 12:23 02/26/18 12:23 - Assessment and plan (1) Acute on chronic diastolic heart failure Current Visit: Yes Status: Acute Assessment and plan: Will admit the patient into Tele reviewed his 2D Echo from 06/2017 showed preserved LVEF at 55-60%. He does have mild concentric Levt ventricular hypertrophy, indeterminate diastolic function patient did gain total of 70 pounds weight within last 6 months started him on aggressive IV diureis with Lasix 40 mg Q8 hr Will add Metolazone 5 mg PO daily on air sampling and monitoring check serial troponin will obtain 2-D echo resumed other home medications (2) Elevated INR Current Visit: Yes Status: Acute Assessment and plan: Supra therapeutic INRl Cont holding Coumadin cont close monitoring for now not a good caadiate for anti coah with multiiple recurrent episodes supra therapeutic INR no signs of active bleeding (3) Atrial fibrillation Current Visit: Yes Status: Chronic Assessment and plan: Rate controlled Qualifiers: Atrial fibrillation type: paroxysmal Qualified Code(s): I48.0 - Paroxysmal atrial fibrillation (4) CAD (coronary artery disease) Current Visit: No Status: Chronic Assessment and plan: Resumed all home medications Qualifiers: Coronary Disease-Associated Artery/Lesion type: [place] artery [place] vs. transplanted heart: [place] heart Associated angina: without angina Qualified Code(s): I25.10 - Atherosclerotic heart disease of [place] coronary artery without angina pectoris (5) COPD (chronic obstructive pulmonary disease) Current Visit: No Status: Chronic Assessment and plan: Not in exacerbation resumed all home inhalers Qualifiers: COPD type: unspecified COPD Qualified Code(s): J44.9 - Chronic obstructive pulmonary disease, unspecified (6) DVT (deep venous thrombosis) Current Visit: No Status: Chronic Assessment and plan: INR supra therapeutic Qualifiers: DVT location: lower extremity Affected thrombotic vein of extremity: unspecified vein of extremity Chronicity: chronic Laterality: right Qualified Code(s): I82.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
--- NOTE | 2018-02-26 14:48 | Emergency Department Note ---
Disposition Clinical Impression: Acute on chronic diastolic heart failure, Lactic acidosis, Elevated troponin I level, Elevated INR Atrial fibrillation Qualifiers: Atrial fibrillation type: paroxysmal Qualified Code(s): I48.0 - Paroxysmal atrial fibrillation Disposition: Admitted As Inpatient Condition: Fair General Adult HPI - General Chief complaint: ED Extremity Problem,Nontraumatic Stated complaint: Fluid in Legs Time Seen by Provider: 02/26/18 12:05 Source: patient, EMS Mode of arrival: EMS Limitations: no limitations - History of Present Illness Pain Scale: 0 - Related Data Home Medications Medication Instructions Recorded Confirmed Ascorbate Calcium [Vitamin C] 500 mg PO QAM 12/23/15 02/26/18 Lovastatin 40 mg PO QPM 12/23/15 02/26/18 Multivit-Min/FA/Lycopen/Lutein 1 each PO QAM 12/23/15 02/26/18 [Centrum Silver Tablet] Omeprazole [PriLOSEC] 20 mg PO QAM 12/23/15 02/26/18 Albuterol Sulfate [Ventolin Hfa] 2 puff IH Q4H PRN 01/20/17 02/26/18 Oxygen 2 l NS AD PRN 06/25/17 02/26/18 Acetylcysteine [Nac] 600 mg PO DAILY 08/05/17 02/26/18 Budesonide/Formoterol 160/4.5 2 puff IH BIDR 08/05/17 02/26/18 [Symbicort 160/4.5] Fenofibrate 160 mg PO DAILY 08/05/17 02/26/18 Glimepiride [Amaryl] 2 mg PO DAILY 12/27/17 02/26/18 Latanoprost [Xalatan] 1 drop OP DAILY 12/27/17 02/26/18 predniSONE [PredniSONE] 20 mg PO DAILY 12/27/17 02/26/18 Aspirin [Lo-Dose Aspirin EC] 81 mg PO DAILY 02/26/18 02/26/18 Furosemide [Lasix] 80 mg PO DAILY 02/26/18 02/26/18 Previous Rx's Medication Instructions Recorded Warfarin [Coumadin] 3 mg PO DAILY #30 tablet 02/20/18 Allergies Allergy/AdvReac Type Severity Reaction Status Date / Time No Known Allergies Allergy Verified 02/26/18 13:37 Past Medical History - Past Medical History Medical history: Reports: atrial fibrillation, CHF, COPD, coronary artery disease, DVT, diabetes, GERD, hyperlipidemia, hypertension, myocardial infarction, pulmonary embolus, renal disease Surgical history: Reports: appendectomy, colectomy, knee replacement, LE stent(s ), sinus surgery Psychiatric history: Reports: no psych history - Social History Smoking Status: Never smoker Smokeless Tobacco Status: No Alcohol use: Reports: none Drug use: Reports: none Physical Exam - General Limitations: no limitations General appearance: alert, in no apparent distress Course Vital Signs Temperature 98.8 F 02/26/18 12:05 Pulse Rate 76 02/26/18 12:05 Respiratory Rate 18 02/26/18 12:05 Blood Pressure 132/76 02/26/18 12:05 O2 Sat by Pulse Oximetry 95 02/26/18 12:05 Temperature 98.8 F 02/26/18 12:05 Pulse Rate 69 02/26/18 15:00 Respiratory Rate 16 02/26/18 15:28 Blood Pressure 133/50 02/26/18 15:28 O2 Sat by Pulse Oximetry 100 02/26/18 15:00 Oxygen Delivery Oxygen Delivery Room Air Medical Decision Making - Lab Data Result diagrams: 02/26/18 12:23 02/26/18 12:23 Lab Results 02/26/18 02/26/18 02/26/18 Range/Units 12:18 12:23 12:23 WBC 12.4 H (4.3-11.1) K/mcL RBC 4.07 L (4.19-5.50) M/mcL Hgb 12.0 L (12.9-16.9) g/dL Hct 38.6 (37.5-50.1) % MCV 94.8 (83.0-100.0) fL MCH 29.5 (28.0-33.3) pg MCHC 31.1 L (31.6-35.5) g/dL RDW 14.5 (11.5-14.5) % Plt Count 227 (140-400) K/mcL MPV 9.1 L (9.4-12.4) fL Immature Gran % 1.3 (0-4) % Seg Neutrophils % 70.9 % Lymphocytes % 18.9 % Monocytes % 6.8 % Eosinophils % 1.8 % Basophils % 0.3 % Neutrophils # 8.8 (1.6-8.9) K/mcL Lymphocytes # 2.3 (0.6-4.6) K/mcL Monocytes # 0.8 (0.0-1.3) K/mcL Eosinophils # 0.2 (0.0-0.6) K/mcL Basophils # 0.0 (0.0-0.2) K/mcL PT 63.2 H* (9.4-12.1) Seconds INR 5.7 H* APTT 64.5 H (26.0-36.0) Seconds Sodium (136-145) mEq/L Potassium (3.5-5.1) mEq/L Chloride (98-107) mEq/L Carbon Dioxide (23-29) mEq/L BUN (8-23) mg/dL Creatinine (0.70-1.30) mg/dL Est GFR ( Amer) (> 60) Est GFR (Non-Af Amer) (> 60) BUN/Creatinine Ratio (6-26) Glucose (70-105) mg/dL Calculated Osmolality (280-300) Lactic Acid (0.5-2.2) mmol/L Calcium (8.6-10.3) mg/dL Troponin I (< 0.04) ng/mL B-Natriuretic Peptide (Less than 100) pg/mL Urine Color Yellow (Yellow) Urine Clarity Clear (Clear) Urine pH 6.5 (5.0-8.0) pH Units Ur Specific [place] 1.011 (1.010-1.025) Urine Protein Negative (Neg-Trace) mg/dL Urine Glucose (UA) Normal (Normal) mg/dL Urine Ketones Negative (Negative) mg/dL Urine Blood Negative (Negative) Urine Nitrite Negative (Negative) Urine Bilirubin Negative (Negative) Urine Urobilinogen Normal (Normal) mg/dL Ur Leukocyte Esterase Negative (Negative) Ur Culture Indicated? NO (NO) 02/26/18 02/26/18 02/26/18 Range/Units 12:23 12:23 12:23 WBC (4.3-11.1) K/mcL RBC (4.19-5.50) M/mcL Hgb (12.9-16.9) g/dL Hct (37.5-50.1) % MCV (83.0-100.0) fL MCH (28.0-33.3) pg MCHC (31.6-35.5) g/dL RDW (11.5-14.5) % Plt Count (140-400) K/mcL MPV (9.4-12.4) fL Immature Gran % (0-4) % Seg Neutrophils % % Lymphocytes % % Monocytes % % Eosinophils % % Basophils % % Neutrophils # (1.6-8.9) K/mcL Lymphocytes # (0.6-4.6) K/mcL Monocytes # (0.0-1.3) K/mcL Eosinophils # (0.0-0.6) K/mcL Basophils # (0.0-0.2) K/mcL PT (9.4-12.1) Seconds INR APTT (26.0-36.0) Seconds Sodium 141 (136-145) mEq/L Potassium 3.6 (3.5-5.1) mEq/L Chloride 105 (98-107) mEq/L Carbon Dioxide 26 (23-29) mEq/L BUN 25 H (8-23) mg/dL Creatinine 1.29 (0.70-1.30) mg/dL Est GFR ( Amer) > 60 (> 60) Est GFR (Non-Af Amer) 53 L (> 60) BUN/Creatinine Ratio 19 (6-26) Glucose 153 H (70-105) mg/dL Calculated Osmolality 299 (280-300) Lactic Acid 2.5 H (0.5-2.2) mmol/L Calcium 8.9 (8.6-10.3) mg/dL Troponin I 0.04 H* (< 0.04) ng/mL B-Natriuretic Peptide 188 H (Less than 100) pg/mL Urine Color (Yellow) Urine Clarity (Clear) Urine pH (5.0-8.0) pH Units Ur Specific [place] (1.010-1.025) Urine Protein (Neg-Trace) mg/dL Urine Glucose (UA) (Normal) mg/dL Urine Ketones (Negative) mg/dL Urine Blood (Negative) Urine Nitrite (Negative) Urine Bilirubin (Negative) Urine Urobilinogen (Normal) mg/dL Ur Leukocyte Esterase (Negative) Ur Culture Indicated? (NO) 02/26/18 Range/Units 14:13 WBC (4.3-11.1) K/mcL RBC (4.19-5.50) M/mcL Hgb (12.9-16.9) g/dL Hct (37.5-50.1) % MCV (83.0-100.0) fL MCH (28.0-33.3) pg MCHC (31.6-35.5) g/dL RDW (11.5-14.5) % Plt Count (140-400) K/mcL MPV (9.4-12.4) fL Immature Gran % (0-4) % Seg Neutrophils % % Lymphocytes % % Monocytes % % Eosinophils % % Basophils % % Neutrophils # (1.6-8.9) K/mcL Lymphocytes # (0.6-4.6) K/mcL Monocytes # (0.0-1.3) K/mcL Eosinophils # (0.0-0.6) K/mcL Basophils # (0.0-0.2) K/mcL PT (9.4-12.1) Seconds INR APTT (26.0-36.0) Seconds Sodium (136-145) mEq/L Potassium (3.5-5.1) mEq/L Chloride (98-107) mEq/L Carbon Dioxide (23-29) mEq/L BUN (8-23) mg/dL Creatinine (0.70-1.30) mg/dL Est GFR ( Amer) (> 60) Est GFR (Non-Af Amer) (> 60) BUN/Creatinine Ratio (6-26) Glucose (70-105) mg/dL Calculated Osmolality (280-300) Lactic Acid 1.8 (0.5-2.2) mmol/L Calcium (8.6-10.3) mg/dL Troponin I (< 0.04) ng/mL B-Natriuretic Peptide (Less than 100) pg/mL Urine Color (Yellow) Urine Clarity (Clear) Urine pH (5.0-8.0) pH Units Ur Specific [place] (1.010-1.025) Urine Protein (Neg-Trace) mg/dL Urine Glucose (UA) (Normal) mg/dL Urine Ketones (Negative) mg/dL Urine Blood (Negative) Urine Nitrite (Negative) Urine Bilirubin (Negative) Urine Urobilinogen (Normal) mg/dL Ur Leukocyte Esterase (Negative) Ur Culture Indicated? (NO) Attestation Statement - Attestation Attestation: I examined this patient and my medical decision-making was reviewed with the Resident Physician, Dr. Estevez. I agree with the documented findings, disposition and treatment plan as described except to the extent set forth below. Patient is an 82-year-old white male who presents to the emergency department today with a one-week history of gradually worsening lower extremity edema and over the past 48 hours has developed some mild shortness of breath, patient with a history of prior DE, CHF, and diabetes. Patient states that he does have occasional chest pain with exertion but if he sitting and comfortable he is pain-free. Currently denies any pain at this time. Patient does have some mild conversational dyspnea and was placed on nasal cannula oxygen on arrival. I agree with patient's physical exam findings as documented. Patient's vital signs stable on arrival does have symptoms of mild respiratory distress. Patient's EKG was without acute ischemia. No abnormalities. Chest x-ray shows mild pulmonary edema and cardiomegaly. Patient shows mild elevation in BNP. Patient also with positive troponin but this is chronic. Patient will be admitted for further evaluation and management of acute exacerbation of CHF. Patient was given IV Lasix here in the ED and has remained hemodynamically stable and respiratory status is stable. Case was discussed with hospitalist who accepted patient for admission for further management.
[2018-02-26] MEDS: Furosemide 40 MG/4 ML VIAL IVP SCH (16:01)
[2018-02-26] MEDS ORDERED: Furosemide 40 MG/4 ML VIAL IVP SCH (17:00)
[2018-02-26] MEDS: *HR* HYDROcodone/Acet 5/325 mg TABLET PO PRN ×2 (18:58→23:36)
[2018-02-26] MEDS: Budesonide/Formoterol 160/4.5 MDI IH SCH (20:17)
[2018-02-26] MEDS: Acetaminophen 325 MG TABLET PO PRN (22:39)
[2018-02-27 01:54] LABS: Basophils % 0.3 %; Eosinophils # 0.2 K/mcL (0.0-0.6); Eosinophils % 1.5 %; Hemoglobin 10.6 g/dL (12.9-16.9); Immature Granulocytes % 0.9 % (0-4); Lymphocytes # 1.8 K/mcL (0.6-4.6); Lymphocytes % 15.8 %; Mean Corpuscular HGB Conc 30.3 g/dL (31.6-35.5); Mean Corpuscular Hemoglobin 28.3 pg (28.0-33.3); Mean Corpuscular Volume 93.6 fL (83.0-100.0); Mean Platelet Volume 9.3 fL (9.4-12.4); Monocytes # 0.9 K/mcL (0.0-1.3); Monocytes % 8.3 %; Neutrophils # 8.3 K/mcL (1.6-8.9); Platelet Count 203 K/mcL (140-400); Red Blood Count 3.74 M/mcL (4.19-5.50); Red Cell Distribution Width 14.6 % (11.5-14.5); Segmented Neutrophils % 73.2 %
[2018-02-27 02:14] LABS: Alanine Aminotransferase 13 Units/L (7-52); Albumin 3.5 g/dL (3.5-5.7); Albumin/Globulin Ratio 1.4 (1.1-2.2); Alkaline Phosphatase 45 Units/L (34-104); Aspartate Amino Transferase 14 Units/L (13-39); BUN/Creatinine Ratio 19 (6-26); Bilirubin,Total 0.6 mg/dL (0.3-1.0); Blood Urea Nitrogen 25 mg/dL (8-23); Calcium 8.6 mg/dL (8.6-10.3); Carbon Dioxide 31 mEq/L (23-29); Chloride 102 mEq/L (98-107); Chol/HDL Ratio 3.8 (0-4.9); Cholesterol 105 mg/dL (< 200); Globulin 2.5 g/dL (2.4-3.5); Glucose 166 mg/dL (70-105); HDL Cholesterol 28 mg/dL (40-59); LDL Cholesterol,Calculated 53 mg/dL (0-99); Osmolality,Calculated 300 (280-300); Potassium 3.4 mEq/L (3.5-5.1); Sodium 141 mEq/L (136-145); Triglycerides 122 mg/dL (< 150); eGFR For African Americans > 60 (> 60); eGFR For Non-African Americans 53 (> 60)
[2018-02-27] MEDS: OXYCODONE Oral CONC 10 MG/0.5 ML ORAL.SYG SL PRN ×3 (02:21→17:39)
[2018-02-27 02:22] LABS: INR 5.3; Prothrombin Time 59.4 Seconds (9.4-12.1)
[2018-02-27] MEDS: Budesonide/Formoterol 160/4.5 MDI IH SCH ×2 (08:00→20:34)
[2018-02-27] MEDS: Aspirin Enteric Coated 81 MG Tablet PO SCH (08:18)
[2018-02-27] MEDS: Latanoprost 2.5 ML BOTTLE BOTH EYES SCH (08:18)
[2018-02-27] MEDS: Fenofibrate 54 MG TABLET PO SCH (08:18)
[2018-02-27] MEDS: Multivit/Ca/Min/Fe/FA 1 TAB TABLET PO SCH (08:18)
[2018-02-27] MEDS: Furosemide 40 MG/4 ML VIAL IVP SCH ×3 (08:18→17:38)
[2018-02-27] MEDS: Ascorbic Acid 500 MG TABLET PO SCH (08:18)
--- NOTE | 2018-02-27 11:51 | Internal Med Progress Note ---
Date of Encounter: 02/27/18 Time of Encounter: 11:49 - Assessment and plan (1) Acute on chronic diastolic heart failure Current Visit: Yes Status: Acute Assessment and plan: Echo from 06/2017 showed preserved LVEF at 55-60%. 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 Troponin 0.04-0.05-0.06, no chest pain Follow ECHO Continue other home meds-ASA, ARB, Statin Daily weights I/Os daily Not on BB, hold for now (2) COPD (chronic obstructive pulmonary disease) Current Visit: Yes Status: Chronic Assessment and plan: Not in exacerbation continue home meds duoneb prn Qualifiers: COPD type: unspecified COPD Qualified Code(s): J44.9 - Chronic obstructive pulmonary disease, unspecified (3) DVT (deep venous thrombosis) Current Visit: Yes Status: Chronic Assessment and plan: INR 5.3 No bleeding Continue to monitor INR Hold Coumadin Qualifiers: DVT location: lower extremity Affected thrombotic vein of extremity: unspecified vein of extremity Chronicity: chronic Laterality: right Qualified Code(s): 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 transplanted heart: [place] heart Associated angina: without angina Qualified Code(s): I25.10 - Atherosclerotic heart disease of [place] coronary artery without angina pectoris - Time Spent With Patient Total time spent is greater than 50% in coordination of care (as documented) at patient's floor/unit and/or counseling patient: - Subjective Interval history: 82 M with multiple medical co-morbidities including Pulm fibrosis, CHF, CAD, DM , hx of PE/DVTs, Afib, HTN, diverticulosis, COPD, CRF on 4L home O2 He is admitted and being managed for CHFE He complains of L shoulder pain, Imaging on arrival has been negative for acute findings, showed DJD Pain is worse with movement - Constitutional Vitals: Temp Pulse Resp BP Pulse Ox 97.6 F 60 16 134/83 100 02/27/18 07:06 02/27/18 07:06 02/27/18 09:25 02/27/18 09:25 02/27/18 09:25 General appearance: Present: cooperative, A&O X 3, morbidly obese, no acute distress, answers questions appropriately - Head Head exam: Present: atraumatic, normocephalic - Eye Eye exam: Present: PERRL, conjuntiva pink, sclera anicteric Pupils: Present: PERRL - Neck Neck exam general surgery: Present: supple, trachea midline. Absent: lymphadenopathy - Respiratory Respiratory exam: Absent: accessory muscle use, rales, rhonchi, wheezes Additional comments: bibasila crackles - Cardiovascular Cardiovascular exam: Present: irregular rhythm, +S1, +S2, systolic murmur - GI/Abdominal GI/Abdominal exam: Present: normal bowel sounds, soft, no peritoneal signs. Absent: distended, tenderness - Extremities Exam Extremities exam: Present: pedal edema (3+) - Neurological Exam Neurological exam: Present: alert, CN II-XII intact, oriented X3, no focal deficits. Absent: pronater drift, facial droop, speech deficit - Skin Skin exam: Present: dry, intact Internal Medicine: Result - Labs CBC & Chem 7: 02/27/18 01:20 02/27/18 01:20 Labs: Short CBC 02/27/18 Range/Units 01:20 WBC 11.3 H (4.3-11.1) K/mcL Hgb 10.6 L (12.9-16.9) g/dL Hct 35.0 L (37.5-50.1) % Plt Count 203 (140-400) K/mcL Neutrophils # 8.3 (1.6-8.9) K/mcL BMP 02/27/18 01:20 Sodium 141 Potassium 3.4 L Chloride 102 Carbon Dioxide 31 H BUN 25 H Creatinine 1.30 Glucose 166 H Calcium 8.6 Cardiac Enzymes 02/26/18 02/26/18 02/27/18 Range/Units 16:36 19:13 01:20 Troponin I 0.06 H* 0.05 H* 0.06 H* (< 0.04) ng/mL Liver Function 02/27/18 Range/Units 01:20 Total Bilirubin 0.6 (0.3-1.0) mg/dL AST 14 (13-39) Units/L ALT 13 (7-52) Units/L Alkaline Phosphatase 45 (34-104) Units/L Albumin 3.5 (3.5-5.7) g/dL - ABG Interpretation ABG results: PT/INR, D-dimer PT 59.4 Seconds (9.4-12.1) H* 02/27/18 01:20 - Impressions Impressions Shoulder X-Ray 02/26/18 21:32 IMPRESSION: Degenerative change in the left shoulder with no acute abnormality involving the shoulder or visualized humerus. D/ / Francis Boo MD / Francis Boo MD Interpreting Provider: Francis Boo MD Humerus X-Ray 02/26/18 21:36 IMPRESSION: Degenerative change in the left shoulder with no acute abnormality involving the shoulder or visualized humerus. D/ / Francis Boo MD / Francis Boo MD Interpreting Provider: Francis Boo MD - VTE Documentation of Mechanical Device: Intermittent pneumatic compression device Consult Discharge Plan - Plan Referrals: Jose A Hernandez DO [Primary Care Provider] -
[2018-02-27] MEDS: *HR* HYDROcodone/Acet 5/325 mg TABLET PO PRN (15:29)
[2018-02-28] MEDS: *HR* HYDROcodone/Acet 5/325 mg TABLET PO PRN ×2 (03:10→22:18)
[2018-02-28 06:10] LABS: Basophils % 0.2 %; Eosinophils # 0.3 K/mcL (0.0-0.6); Eosinophils % 2.9 %; Hematocrit 32.6 % (37.5-50.1); Hemoglobin 10.3 g/dL (12.9-16.9); Immature Granulocytes % 0.8 % (0-4); Lymphocytes # 1.3 K/mcL (0.6-4.6); Lymphocytes % 12.1 %; Mean Corpuscular HGB Conc 31.6 g/dL (31.6-35.5); Mean Corpuscular Hemoglobin 29.9 pg (28.0-33.3); Mean Corpuscular Volume 94.5 fL (83.0-100.0); Mean Platelet Volume 9.1 fL (9.4-12.4); Monocytes % 8.9 %; Neutrophils # 8.1 K/mcL (1.6-8.9); Platelet Count 199 K/mcL (140-400); Red Blood Count 3.45 M/mcL (4.19-5.50); Red Cell Distribution Width 14.6 % (11.5-14.5); Segmented Neutrophils % 75.1 %
[2018-02-28 06:26] LABS: INR 5.5; Prothrombin Time 61.2 Seconds (9.4-12.1)
[2018-02-28 07:17] LABS: BUN/Creatinine Ratio 22 (6-26); Blood Urea Nitrogen 27 mg/dL (8-23); Calcium 8.6 mg/dL (8.6-10.3); Carbon Dioxide 31 mEq/L (23-29); Chloride 99 mEq/L (98-107); Glucose 157 mg/dL (70-105); Osmolality,Calculated 294 (280-300); Potassium 3.4 mEq/L (3.5-5.1); Sodium 138 mEq/L (136-145); eGFR For African Americans > 60 (> 60); eGFR For Non-African Americans 56 (> 60)
[2018-02-28] MEDS: Aspirin Enteric Coated 81 MG Tablet PO SCH (09:02)
[2018-02-28] MEDS: Fenofibrate 54 MG TABLET PO SCH (09:02)
[2018-02-28] MEDS: Ascorbic Acid 500 MG TABLET PO SCH (09:02)
[2018-02-28] MEDS: Multivit/Ca/Min/Fe/FA 1 TAB TABLET PO SCH (09:02)
[2018-02-28] MEDS: Furosemide 40 MG/4 ML VIAL IVP SCH ×3 (09:02→16:56)
[2018-02-28] MEDS: OXYCODONE Oral CONC 10 MG/0.5 ML ORAL.SYG SL PRN (09:04)
[2018-02-28] MEDS: Latanoprost 2.5 ML BOTTLE BOTH EYES SCH (09:05)
[2018-02-28] MEDS: Budesonide/Formoterol 160/4.5 MDI IH SCH ×2 (10:28→20:12)
[2018-02-28] MEDS ORDERED: *HR* Dextrose 50 % in Water (Syg) 50 ML SYRINGE IVP PRN (10:49)
[2018-02-28] MEDS ORDERED: Dextrose Gel 15 GM/37.5 ML TUBE PO PRN ×2 (10:49)
[2018-02-28] MEDS ORDERED: D5% in Water 1,000 ML IVC PRN (10:49)
[2018-02-28] MEDS: Insulin LISPRO 300 UNITS/3 ML VIAL SQ SCH ×3 (12:29→20:21)
--- NOTE | 2018-02-28 12:58 | Internal Med Progress Note ---
Date of Encounter: 02/28/18 Time of Encounter: 12:58 - Assessment and plan (1) Acute on chronic diastolic heart failure Current Visit: Yes Status: Acute Assessment and plan: Echo from 06/2017 showed preserved LVEF at 55-60%. 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 Troponin 0.04-0.05-0.06, no chest pain Ordered ECHO,, Follow ECHO Continue other home meds-ASA, ARB, Statin Daily weights I/Os daily (-3210 today) Not on BB, hold for now (2) COPD (chronic obstructive pulmonary disease) Current Visit: Yes Status: Chronic Assessment and plan: Not in exacerbation continue home meds duoneb prn Qualifiers: COPD type: unspecified COPD Qualified Code(s): J44.9 - Chronic obstructive pulmonary disease, unspecified (3) DVT (deep venous thrombosis) Current Visit: Yes Status: Chronic Assessment and plan: INR still supratherapeutic No bleeding Continue to monitor INR Hold Coumadin Qualifiers: DVT location: lower extremity Affected thrombotic vein of extremity: unspecified vein of extremity Chronicity: chronic Laterality: right Qualified Code(s): I82.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 transplanted heart: [place] heart Associated angina: without angina Qualified Code(s): I25.10 - Atherosclerotic heart disease of [place] coronary artery without angina pectoris - Time Spent With Patient Total time spent is greater than 50% in coordination of care (as documented) at patient's floor/unit and/or counseling patient: - Subjective Interval history: 82 M with multiple medical co-morbidities including Pulm fibrosis, CHF, CAD, DM , hx of PE/DVTs, Afib, HTN, diverticulosis, COPD, CRF on 4L home O2 He is admitted and being managed for CHFE He complained of L shoulder pain, Imaging on arrival has been negative for acute findings, showed DJD He states his pain is well managed with tylenol No other complains He still has bibasal crackles as well as 3+ piting edema I/O is -3210 - Constitutional Vitals: Temp Pulse Resp BP Pulse Ox 97.7 F 68 22 124/85 100 02/28/18 11:28 02/28/18 11:28 02/28/18 11:28 02/28/18 11:28 02/28/18 11:28 General appearance: Present: cooperative, A&O X 3, morbidly obese, no acute distress, answers questions appropriately - Head Head exam: Present: atraumatic, normocephalic - Eye Eye exam: Present: PERRL, conjuntiva pink, sclera anicteric Pupils: Present: PERRL - Neck Neck exam general surgery: Present: supple, trachea midline. Absent: lymphadenopathy - Respiratory Respiratory exam: Present: rales - Cardiovascular Cardiovascular exam: Present: irregular rhythm, +S1, +S2. Absent: diastolic murmur, gallop, rubs, systolic murmur - GI/Abdominal GI/Abdominal exam: Present: normal bowel sounds, soft, no peritoneal signs. Absent: distended, tenderness - Extremities Exam Extremities exam: Present: pedal edema (3+ piting pedal edema) - Neurological Exam Neurological exam: Present: alert, CN II-XII intact, oriented X3, no focal deficits. Absent: pronater drift, facial droop, speech deficit - Skin Skin exam: Present: dry, intact Internal Medicine: Result - Labs CBC & Chem 7: 02/28/18 05:37 02/28/18 05:37 Labs: Short CBC 02/28/18 Range/Units 05:37 WBC 10.8 (4.3-11.1) K/mcL Hgb 10.3 L (12.9-16.9) g/dL Hct 32.6 L (37.5-50.1) % Plt Count 199 (140-400) K/mcL Neutrophils # 8.1 (1.6-8.9) K/mcL BMP 02/28/18 05:37 Sodium 138 Potassium 3.4 L Chloride 99 Carbon Dioxide 31 H BUN 27 H Creatinine 1.23 Glucose 157 H Calcium 8.6 - ABG Interpretation ABG results: PT/INR, D-dimer PT 61.2 Seconds (9.4-12.1) H* 02/28/18 05:37 - VTE Documentation of Mechanical Device: Intermittent pneumatic compression device Consult Discharge Plan - Plan Referrals: ColJose A more DO [Primary Care Provider] -
[2018-02-28] MEDS ORDERED: Warfarin perPT PO PRN (18:00)
[2018-02-28] MEDS ORDERED: Perflutren Lipid Microsphere 1.3 ML in 0.9 % Sodium Chloride 8.7 ML IVP ONE (19:33)
[2018-03-01] MEDS: OXYCODONE Oral CONC 10 MG/0.5 ML ORAL.SYG SL PRN (01:51)
[2018-03-01 07:22] LABS: Basophils % 0.5 %; Eosinophils # 0.3 K/mcL (0.0-0.6); Eosinophils % 3.7 %; Hematocrit 32.5 % (37.5-50.1); Hemoglobin 10.1 g/dL (12.9-16.9); Lymphocytes # 1.5 K/mcL (0.6-4.6); Lymphocytes % 17.7 %; Mean Corpuscular HGB Conc 31.1 g/dL (31.6-35.5); Mean Corpuscular Hemoglobin 28.5 pg (28.0-33.3); Mean Corpuscular Volume 91.8 fL (83.0-100.0); Mean Platelet Volume 9.2 fL (9.4-12.4); Monocytes # 0.9 K/mcL (0.0-1.3); Monocytes % 9.7 %; Neutrophils # 5.9 K/mcL (1.6-8.9); Platelet Count 202 K/mcL (140-400); Red Blood Count 3.54 M/mcL (4.19-5.50); Red Cell Distribution Width 14.6 % (11.5-14.5); Segmented Neutrophils % 67.4 %
[2018-03-01 07:27] LABS: INR 4.1
[2018-03-01 07:32] LABS: Prothrombin Time 45.3 Seconds (9.4-12.1)
[2018-03-01 07:42] LABS: BUN/Creatinine Ratio 21 (6-26); Blood Urea Nitrogen 24 mg/dL (8-23); Calcium 8.8 mg/dL (8.6-10.3); Carbon Dioxide 29 mEq/L (23-29); Chloride 98 mEq/L (98-107); Glucose 137 mg/dL (70-105); Osmolality,Calculated 292 (280-300); Potassium 3.3 mEq/L (3.5-5.1); Sodium 138 mEq/L (136-145); eGFR For African Americans > 60 (> 60); eGFR For Non-African Americans > 60 (> 60)
[2018-03-01] MEDS: Budesonide/Formoterol 160/4.5 MDI IH SCH ×2 (07:42→20:12)
[2018-03-01] MEDS: Insulin LISPRO 300 UNITS/3 ML VIAL SQ SCH ×4 (07:59→21:08)
--- NOTE | 2018-03-01 09:44 | Internal Med Progress Note ---
Date of Encounter: 03/01/18 Time of Encounter: 09:40 - Assessment and plan (1) Acute on chronic diastolic heart failure Current Visit: Yes Status: Acute Assessment and plan: Continue lasix IV TID and metolazone. Monitor ins and outs (2) COPD (chronic obstructive pulmonary disease) Current Visit: Yes Status: Chronic Assessment and plan: Not in exacerbation continue home meds duoneb prn Qualifiers: COPD type: unspecified COPD Qualified Code(s): J44.9 - Chronic obstructive pulmonary disease, unspecified (3) DVT (deep venous thrombosis) Current Visit: Yes Status: Chronic Assessment and plan: INR still supratherapeutic No bleeding Continue to monitor INR Hold Coumadin Qualifiers: DVT location: lower extremity Affected thrombotic vein of extremity: unspecified vein of extremity Chronicity: chronic Laterality: right Qualified Code(s): I82.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 transplanted heart: [place] heart Associated angina: without angina Qualified Code(s): I25.10 - Atherosclerotic heart disease of [place] coronary artery without angina pectoris (6) Elevated INR Current Visit: Yes Status: Acute Assessment and plan: As above - Time Spent With Patient Total time spent is greater than 50% in coordination of care (as documented) at patient's floor/unit and/or counseling patient: - Subjective Interval history: No acute events overnight - Constitutional Vitals: Temp Pulse Resp BP Pulse Ox 97.9 F 67 16 106/52 98 03/01/18 06:57 03/01/18 06:57 03/01/18 07:42 03/01/18 06:57 03/01/18 07:42 General appearance: Present: cooperative, A&O X 3, morbidly obese, no acute distress, answers questions appropriately - Head Head exam: Present: atraumatic, normocephalic - Eye Eye exam: Present: PERRL, conjuntiva pink, sclera anicteric Pupils: Present: PERRL - Neck Neck exam general surgery: Present: supple, trachea midline. Absent: lymphadenopathy - Respiratory Respiratory exam: Present: CTAB. Absent: accessory muscle use, rales, rhonchi, wheezes - Cardiovascular Cardiovascular exam: Present: RRR, +S1, +S2. Absent: diastolic murmur, gallop, rubs, systolic murmur - GI/Abdominal GI/Abdominal exam: Present: normal bowel sounds, soft, no peritoneal signs. Absent: distended, tenderness - Extremities Exam Extremities exam: Present: warm, radial pulses palpable and symmetrical. Absent : calf tenderness, cyanotic, pedal edema - Neurological Exam Neurological exam: Present: CN II-XII intact, oriented X3, no focal deficits. Absent: pronater drift, facial droop, speech deficit - Skin Skin exam: Present: dry, intact Internal Medicine: Result - Labs CBC & Chem 7: 03/01/18 06:25 03/01/18 06:25 Labs: Short CBC 03/01/18 Range/Units 06:25 WBC 8.7 (4.3-11.1) K/mcL Hgb 10.1 L (12.9-16.9) g/dL Hct 32.5 L (37.5-50.1) % Plt Count 202 (140-400) K/mcL Neutrophils # 5.9 (1.6-8.9) K/mcL BMP 03/01/18 06:25 Sodium 138 Potassium 3.3 L Chloride 98 Carbon Dioxide 29 BUN 24 H Creatinine 1.16 Glucose 137 H Calcium 8.8 - ABG Interpretation ABG results: PT/INR, D-dimer PT 45.3 Seconds (9.4-12.1) H* 03/01/18 06:25 - VTE Documentation of Mechanical Device: Intermittent pneumatic compression device Consult Discharge Plan - Plan Referrals: Jose A Hernandez DO [Primary Care Provider] -
[2018-03-01] MEDS: Ascorbic Acid 500 MG TABLET PO SCH (10:23)
[2018-03-01] MEDS: Aspirin Enteric Coated 81 MG Tablet PO SCH (10:23)
[2018-03-01] MEDS: Furosemide 40 MG/4 ML VIAL IVP SCH ×3 (10:23→16:27)
[2018-03-01] MEDS: *HR* HYDROcodone/Acet 5/325 mg TABLET PO PRN (10:23)
[2018-03-01] MEDS: Fenofibrate 54 MG TABLET PO SCH (10:23)
[2018-03-01] MEDS: Multivit/Ca/Min/Fe/FA 1 TAB TABLET PO SCH (10:23)
[2018-03-01] MEDS: Latanoprost 2.5 ML BOTTLE BOTH EYES SCH (10:24)
[2018-03-01] MEDS: Potassium Chloride Elixir 20 MEQ/15 ML UDC PO SCH ×2 (10:31→21:05)
--- NOTE | 2018-03-01 16:06 | Electrocardiograph Report ---
[address] [place] [address] Test Date: 2018-02-26 Pat Name: David Sequeira Department: 103 Room: 2A24 Gender: M [employer]: : 1935 Requested By: [id number] Order Number: [id number] Reading MD: Ru Fleming Measurements Intervals [place] Rate: 72 P: IN: 0 QRS: -54 QRSD: 122 T: 23 QT: 351 QTc: 375 Interpretive Statements ATRIAL FIBRILLATION LEFT ANTERIOR FASCICULAR BLOCK Poor R wave progression Electronically Signed On 03-01-2018 16:04:41 EDT by Ru Fleming
--- NOTE | 2018-03-01 16:47 | Electrocardiograph Report ---
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
--- NOTE | 2018-03-01 18:28 | Orthopedic Consult Note ---
Date of Encounter: 03/02/18 Time of Encounter: 18:00 Assessment and Plan (1) Left shoulder pain Current Visit: Yes Status: Acute Xrays showed degenerative changes to the shoulder but no other acute bony abnormalities. This appears to be an acute flair on chronic pain to the shoulder at least in part related to arthritis and muscular strain possibly with adjusting himself in bed during hospital stay. Discussed with patient the possibility of a torn rotator cuff muscle as well but if so this is non-urgent and can be managed on outpatient basis. He expressed understanding. WBC within normal limits for the past 3 days. Does not appear to be a septic joint due to no warmth, erythema or swelling. Will continue with conservative treatment as tylenol is helping currently. Apply ice to left shoulder as needed. He states he already has a sling he can use. Can follow on outpatient basis with sports medicine physician in [facility] office after discharge for further evaluation and management. Qualifiers: Chronicity: acute Qualified Code(s): M25.512 - Pain in left shoulder History of Present Illness Chief complaint: left shoulder pain HPI: Mr. Sequeira is a 82 year old male who is currently admitted to [facility] for increased swelling in legs due to CHF. He is currently also complaining of left shoulder pain which he first stated that this was brand new just since his admission in the past 2 days. Upon further questioning he then states the pain started about a week and a half ago and comes/goes since then. He later admits to having this type of pain in the past as well which comes and goes. Pain is all over shoulder front and back and goes down to elbow. Denies any known injuries recently but then admits to a fall about 2 weeks ago which he states is unrelated. Says he was still able to move his left arm after the fall and the pain with motion started after he was admitted. Overall he appears to be a poor historian as story continued to change throughout exam. He denies any numbness to tingling to upper extremities. Denies any other injuries since fall but admits he has been pushing self up in bed and being assisted in bed with tension on shoulder/arm. He states the pain is much improved with tylenol. He admits to history of arthritis in other joints but denies any previous treatment or surgeries to LUE. Denies h/o gout. Denies any fevers, chest pain or SOB at this time more than baseline. Past Med Surg Social Fam HX - Past Medical History Medical history: atrial fibrillation, CHF, COPD, coronary artery disease, DVT, diabetes, GERD, hyperlipidemia, hypertension, myocardial infarction, pulmonary embolus, renal disease Psychiatric history: no psych history - Past Surgical History Surgical History: appendectomy, colectomy, knee replacement, LE stent(s), sinus surgery Additional surgical history: green field filter, hemorrhoid procedure, 3 cardiac stents - Social History Smoking Status: Never smoker Smokeless Tobacco Status: No Alcohol use: none Drug use: none - Family History Mother Living Status: Hx Family Cardiac Disorders: Yes Hx Family Cancer: Yes Sister Living Status: Hx Family Cancer: Yes Father Living Status: Hx Family Cardiac Disorders: Yes (father, brother,sister,self) Hx Family Respiratory Disorders: Yes (self) Hx Family Cancer: Yes (sister,mother) Hx Family GI Disorders: Yes (brother) Hx Family Endocrine Disorder: Yes (father) Hx Family Neuromuscular Disorders: No Hx Family Neurologic Disorders: No Hx Family HEENT Disorders: No Hx Family Autoimmune Disorders: No Medications and Allergies RX: Ascorbate Calcium [Vitamin C] 500 mg PO QAM 12/23/15 [History] RX: Lovastatin 40 mg PO QPM 12/23/15 [History] RX: Multivit-Min/FA/Lycopen/Lutein [Centrum Silver Tablet] 1 each PO QAM [History] RX: Omeprazole [PriLOSEC] 20 mg PO QAM 12/23/15 [History] RX: Albuterol Sulfate [Ventolin Hfa] 2 puff IH Q4H PRN 01/20/17 [History] RX: Oxygen 2 l NS AD PRN 06/25/17 [History] RX: Acetylcysteine [Nac] 600 mg PO DAILY 08/05/17 [History] RX: Budesonide/Formoterol 160/4.5 [Symbicort 160/4.5] 2 puff IH BIDR 08/05/17 [ History] RX: Fenofibrate 160 mg PO DAILY 08/05/17 [History] RX: Glimepiride [Amaryl] 2 mg PO DAILY 12/27/17 [History] RX: Latanoprost [Xalatan] 1 drop OP DAILY 12/27/17 [History] RX: predniSONE [PredniSONE] 20 mg PO DAILY 12/27/17 [History] RX: Warfarin [Coumadin] 3 mg PO DAILY #30 tablet 02/20/18 [Rx] Aspirin [Lo-Dose Aspirin EC] 81 mg PO DAILY 02/26/18 [History] Furosemide [Lasix] 80 mg PO DAILY 02/26/18 [History] 3 Allergy/AdvReac Type Severity Reaction Status Date / Time No Known Allergies Allergy Verified 02/26/18 13:37 All Systems Reviewed: The remainder of the systems were reviewed and are negative - Constitutional Constitutional: as per HPI - Cardiovascular Cardiovascular: as per HPI - Respiratory Respiratory: as per HPI - Musculoskeletal Musculoskeletal: as per HPI Physical Exam - Constitutional Vitals: Temp Pulse Resp BP Pulse Ox 98.0 F 77 17 115/74 98 03/01/18 15:45 03/01/18 15:45 03/01/18 15:45 03/01/18 15:45 03/01/18 15:45 - Shoulder left Appearance shoulder: normal (No erythema, ecchymosis, swelling or open wounds noted to left shoulder. ecchymosis noted to bilateral forearms. No warmth noted. moderate tenderness to palpation over deltoid and trapezius. Biceps appears intact with positive hook test. full ROM hand/wrist and elbow but had pain in shoulder with full elbow flexion. ROM shoulder restricted secondary to pain. brisk cap refill. grossly NV intact distally.) Results - Labs Result Diagrams: 03/02/18 06:25 03/02/18 06:25 Labs: Abnormal lab results RBC 3.54 M/mcL (4.19-5.50) L 03/01/18 06:25 Hgb 10.1 g/dL (12.9-16.9) L 03/01/18 06:25 Hct 32.5 % (37.5-50.1) L 03/01/18 06:25 MCHC 31.1 g/dL (31.6-35.5) L 03/01/18 06:25 RDW 14.6 % (11.5-14.5) H 03/01/18 06:25 MPV 9.2 fL (9.4-12.4) L 03/01/18 06:25 PT 45.3 Seconds (9.4-12.1) H* 03/01/18 06:25 APTT 64.5 Seconds (26.0-36.0) H 02/26/18 12:23 Potassium 3.3 mEq/L (3.5-5.1) L 03/01/18 06:25 BUN 24 mg/dL (8-23) H 03/01/18 06:25 Glucose 137 mg/dL (70-105) H 03/01/18 06:25 POC Glucose 182 mg/dL (70-99) H 03/01/18 11:13 Troponin I 0.06 ng/mL (< 0.04) H* 02/27/18 01:20 B-Natriuretic Peptide 161 pg/mL (Less than 100) H 02/27/18 01:20 Serum Total Protein 6.0 g/dL (6.4-8.9) L 02/27/18 01:20 HDL Cholesterol 28 mg/dL (40-59) L 02/27/18 01:20 H & H 03/01/18 Range/Units 06:25 Hgb 10.1 L (12.9-16.9) g/dL Hct 32.5 L (37.5-50.1) % All other labs normal. - Diagnostic results Shoulder x-ray: report reviewed, image reviewed Consult Discharge Plan - Plan Referrals: Jose A Hernandez DO [Primary Care Provider] - (patient will call for an appt. per [facility]) - Attending Attestation Case and plan of care discussed with supervising physician who was available for all aspects of care.
[2018-03-01] MEDS: Acetaminophen 325 MG TABLET PO PRN (21:19)
[2018-03-02 06:52] LABS: Basophils % 0.3 %; Eosinophils % 2.9 %; Hemoglobin 9.8 g/dL (12.9-16.9); Immature Granulocytes % 1.1 % (0-4); Lymphocytes % 15.9 %; Mean Corpuscular HGB Conc 30.6 g/dL (31.6-35.5); Mean Corpuscular Hemoglobin 28.2 pg (28.0-33.3); Mean Corpuscular Volume 92.2 fL (83.0-100.0); Mean Platelet Volume 9.1 fL (9.4-12.4); Monocytes % 10.1 %; Platelet Count 211 K/mcL (140-400); Red Blood Count 3.47 M/mcL (4.19-5.50); Red Cell Distribution Width 14.9 % (11.5-14.5); Segmented Neutrophils % 69.7 %
[2018-03-02 06:53] LABS: Eosinophils # 0.3 K/mcL (0.0-0.6); Lymphocytes # 1.5 K/mcL (0.6-4.6); Monocytes # 0.9 K/mcL (0.0-1.3); Neutrophils # 6.5 K/mcL (1.6-8.9)
[2018-03-02 06:54] LABS: INR 3.1
[2018-03-02 07:10] LABS: BUN/Creatinine Ratio 24 (6-26); Blood Urea Nitrogen 28 mg/dL (8-23); Calcium 9.1 mg/dL (8.6-10.3); Carbon Dioxide 32 mEq/L (23-29); Chloride 100 mEq/L (98-107); Glucose 185 mg/dL (70-105); Osmolality,Calculated 296 (280-300); Potassium 3.6 mEq/L (3.5-5.1); Sodium 138 mEq/L (136-145); eGFR For African Americans > 60 (> 60); eGFR For Non-African Americans > 60 (> 60)
[2018-03-02] MEDS: Budesonide/Formoterol 160/4.5 MDI IH SCH ×2 (07:28→22:23)
[2018-03-02] MEDS: Insulin LISPRO 300 UNITS/3 ML VIAL SQ SCH ×4 (09:08→20:31)
[2018-03-02] MEDS: Ascorbic Acid 500 MG TABLET PO SCH (09:11)
[2018-03-02] MEDS: Multivit/Ca/Min/Fe/FA 1 TAB TABLET PO SCH (09:11)
[2018-03-02] MEDS: Fenofibrate 54 MG TABLET PO SCH (09:11)
[2018-03-02] MEDS: Furosemide 40 MG/4 ML VIAL IVP SCH ×3 (09:11→17:02)
[2018-03-02] MEDS: Aspirin Enteric Coated 81 MG Tablet PO SCH (09:11)
--- NOTE | 2018-03-02 09:36 | Internal Med Progress Note ---
Date of Encounter: 03/02/18 Time of Encounter: 09:30 - Assessment and plan (1) Acute on chronic diastolic heart failure Current Visit: Yes Status: Acute Assessment and plan: Continue lasix IV TID and metolazone. Monitor ins and outs. Repeat cxr this am (2) COPD (chronic obstructive pulmonary disease) Current Visit: Yes Status: Chronic Assessment and plan: Not in exacerbation continue home meds duoneb prn Qualifiers: COPD type: unspecified COPD Qualified Code(s): J44.9 - Chronic obstructive pulmonary disease, unspecified (3) DVT (deep venous thrombosis) Current Visit: Yes Status: Chronic Assessment and plan: INR still supratherapeutic. 3.1 today No bleeding Continue to monitor INR Hold Coumadin Qualifiers: DVT location: lower extremity Affected thrombotic vein of extremity: unspecified vein of extremity Chronicity: chronic Laterality: right Qualified Code(s): I82.501 - Chronic embolism and thrombosis of unspecified deep veins of right lower extremity (4) Atrial fibrillation Current Visit: Yes Status: Chronic Assessment and plan: Rate controlled, not on BB, continue to monitor Qualifiers: Atrial fibrillation type: paroxysmal Qualified Code(s): I48.0 - Paroxysmal atrial fibrillation (5) CAD (coronary artery disease) Current Visit: Yes Status: Chronic Assessment and plan: Continue home medications Qualifiers: Coronary Disease-Associated Artery/Lesion type: [place] artery [place] vs. transplanted heart: [place] heart Associated angina: without angina Qualified Code(s): I25.10 - Atherosclerotic heart disease of [place] coronary artery without angina pectoris (6) Left shoulder pain Current Visit: Yes Status: Acute Assessment and plan: xray showed no evidence of fracture. Seen by ortho. Pain control and outpatient follow up Qualifiers: Chronicity: acute Qualified Code(s): M25.512 - Pain in left shoulder - Time Spent With Patient Total time spent is greater than 50% in coordination of care (as documented) at patient's floor/unit and/or counseling patient: - Subjective Interval history: No acute events overnight - Constitutional Vitals: Temp Pulse Resp BP Pulse Ox 97.4 F L 67 17 124/79 99 03/02/18 07:00 03/02/18 07:00 03/02/18 07:29 03/02/18 07:00 03/02/18 07:29 General appearance: Present: cooperative, A&O X 3, morbidly obese, no acute distress, answers questions appropriately - Head Head exam: Present: atraumatic, normocephalic - Eye Eye exam: Present: PERRL, conjuntiva pink, sclera anicteric Pupils: Present: PERRL - Neck Neck exam general surgery: Present: supple, trachea midline. Absent: lymphadenopathy - Respiratory Respiratory exam: Present: CTAB. Absent: accessory muscle use, rales, rhonchi, wheezes - Cardiovascular Cardiovascular exam: Present: RRR, +S1, +S2. Absent: diastolic murmur, gallop, rubs, systolic murmur - GI/Abdominal GI/Abdominal exam: Present: normal bowel sounds, soft, no peritoneal signs. Absent: distended, tenderness - Extremities Exam Extremities exam: Present: warm, radial pulses palpable and symmetrical. Absent : calf tenderness, cyanotic, pedal edema Additional comments: 2+ pitting edema - Neurological Exam Neurological exam: Present: CN II-XII intact, oriented X3, no focal deficits. Absent: pronater drift, facial droop, speech deficit - Skin Skin exam: Present: dry, intact Internal Medicine: Result - Labs CBC & Chem 7: 03/02/18 06:25 03/02/18 06:25 Labs: Short CBC 03/02/18 Range/Units 06:25 WBC 9.3 (4.3-11.1) K/mcL Hgb 9.8 L (12.9-16.9) g/dL Hct 32.0 L (37.5-50.1) % Plt Count 211 (140-400) K/mcL Neutrophils # 6.5 (1.6-8.9) K/mcL BMP 03/02/18 06:25 Sodium 138 Potassium 3.6 Chloride 100 Carbon Dioxide 32 H BUN 28 H Creatinine 1.15 Glucose 185 H Calcium 9.1 - ABG Interpretation ABG results: PT/INR, D-dimer PT 34.0 Seconds (9.4-12.1) H 03/02/18 06:25 - Impressions Impressions Echocardiogram 02/28/18 14:07 Impressions: LVEF 60-65%. Mild concentric left ventricular hypertrophy. Indeterminate diastolic function. Atypical septal motion consistent with bundle branch block. Normal right ventricular structure and function. Mild tricuspid regurgitation. Mild pulmonary hypertension. Left Ventricular Wall Motion: Rest Echo Findings The basal inferior, basal anterior and mid inferior lateral steinberg were not visualized. All other wall segments showed normal motion. Findings: Study Quality * Technically adequate exam. ECG Findings * Atrial fibrillation. Left Ventricle * LVEF 60-65%. * Mild concentric left ventricular hypertrophy. * Indeterminate diastolic function. * Atypical septal motion consistent with bundle branch block. Right Ventricle * Normal right ventricular structure and function. Left Atrium * Mildly dilated left atrium. Right Atrium * Normal right atrial size. Mitral Valve * Normal mitral valve structure. * No mitral stenosis. * No mitral regurgitation. Aortic Valve * No aortic regurgitation. * Aortic valve not well visualized. * No aortic stenosis. Tricuspid Valve * Tricuspid valve not well visualized. * Mild tricuspid regurgitation. * Estimated RA pressure is 3 mmHg. * Estimated RVSP is 35 mmHg. * Mild pulmonary hypertension. Pulmonic Valve * Pulmonic valve is not well visualized. * No pulmonic stenosis. * No pulmonic regurgitation. Pulmonary Artery * Pulmonary artery not well visualized. Aorta * Normally sized aortic root. Pericardium * There is no pericardial effusion present. Interatrial Septum * No evidence of PFO by color Doppler. IVC * Normal IVC dimensions and inspiratory collapse. - VTE Documentation of Mechanical Device: Intermittent pneumatic compression device Consult Discharge Plan - Plan Referrals: Jose A Hernandez DO [Primary Care Provider] - (patient will call for an appt. per [facility])
[2018-03-02] MEDS: Latanoprost 2.5 ML BOTTLE BOTH EYES SCH (12:21)
--- NOTE | 2018-03-02 14:10 | Palliative - Consult Note ---
Date of Encounter: 03/02/18 Time of Encounter: 13:00 - Assessment and Plan (1) Acute renal failure Current Visit: No Status: Acute Assessment and plan: BUN 28 Creatinine 1.15. Primary team monitoring. Qualifiers: Acute renal failure type: unspecified Qualified Code(s): N17.9 - Acute kidney failure, unspecified (2) Elevated INR Current Visit: No Status: Resolved Assessment and plan: INR 3.1. Patient to restart Coumadin this evening per [facility] Pharmacist. (3) Dyspnea Current Visit: No Status: Acute Assessment and plan: Patient having dyspnea post therapy. Reapplied oxygen and with rest patient resumed normal breathing. Continue oxygen therapy. Patient has home oxygen through [facility] and will resume upon return home. Qualifiers: Dyspnea type: dyspnea on exertion Qualified Code(s): R06.09 - Other forms of dyspnea (4) COPD exacerbation Current Visit: No Status: Acute (5) Goals of care, counseling/discussion Current Visit: No Status: Acute Assessment and plan: Spoke with patient regarding goals of care. Patient wishes to continue to get stronger and go home. Discussed potential of SNF for rehab; patient agreeable and desires [facility]. Michael Zavala SW present at bedside when patient expressed desire. Will work to get insurance approval for ECF placement for rehab at discharge. Spoke with [place] ([phone]) regarding plan and expressed concern over medication management upon patient's return home. Patient's is agreeable for their daughter Melinda to come in to town every two weeks to set up and arrange their medications once patient returns home from ECF. Discussed CODE STATUS with patient and patient expressed desire to remain a FULL CODE. (6) Left shoulder pain Current Visit: Yes Status: Acute Assessment and plan: Patient rates pain 10/10, reports medication helps with left shoulder pain. Patient has taken [place] X2, Oxycodone X1, and Tylenol X1 in the last 24 hours. Requested Lina GOMEZ to bring patient PRN medication once available for symptom control. Qualifiers: Chronicity: acute Qualified Code(s): M25.512 - Pain in left shoulder (7) Chronic diastolic heart failure Current Visit: No Status: Chronic Palliative-CN HPI - Data of Consult Patient: new to practice Consult date: 03/02/18 Requesting Physician: Davis Mckenna MD Primary Care Provider: Jose A Hernandez - Consult Narrative Palliative Care/Comfort Measures: Palliative care Reason for consult: Goals of care History of present illness: Mr. Sequeira is a 82 year old male Arrived to [facility] 02/26/18 via EMS for BLE edema. PMH: CHF, COPD, Atrial Fibrillation, CAD, DVT, DM, GERD, Hyperlipidemia , HTN, [place], Pulmonary embolus, and Renal disease. Patient was out of hospital times three days, prior to return for repeat CHF symptoms. Patient had reported taking Lasix BID without relief of edema; increased taxing effect with ambulation due to increased pain. Initial EKG Atrial Fibrillation and left anterior fascicular block and poor R wave progression. Initial Chest X-Ray showed: findings represent mild pulmonary edema. Patient admitted for: Acute on Chronic Diastolic Heart Failure, Elevated INR, Atrial Fibrillation, CAD, and COPD. Coumadin placed on hold. Repeat ECG showed unchanged. Left should Xray showed Degenerative change in the left should with no acute abnormality involving shoulder or humerus. ECHO completed. Orthopedic consult completed: recommend medical management with conservative treatment, recommend follow up with sports medicine physician outpatient. Palliative Care consult for goals of care. Prior to admission, patient has been a patient of [facility]; reported that he does not feel that they did much more than he could do independently. Patient explained that he cares for his and vice versa. Spoke with Lina GOMEZ prior to evaluating patient whom reports daughter had just called and expressed desire to assistance with medication management as patient is having repetitive supratherapeutic INR levels, hence Palliative Consult. Patient performing physical therapy on arrival, taxing effect noted. Patient is alert to person and place, disoriented to time. Patient able to follow commands. Discussed goals of care and discharge planning. Discussed potential problems regarding discharge as medication management and safety at discharge; patient verbalized understanding. Patient reports pain 10/10, described as a dull ache; reports pain is alleviated by PRN pain medication and is worsened by movement. Patient has received Tylenol X1, [place] X2, and Oxycodone X1 in the last 24 hours. Denies nausea or vomiting. Patient reports increased dyspnea with activity; however, alleviates with rest and oxygen. CC: Davis Mckenna MD Past Med Surg Social Fam HX - Past Medical History Medical history: atrial fibrillation, CHF, COPD, coronary artery disease, DVT, diabetes, GERD, hyperlipidemia, hypertension, myocardial infarction, pulmonary embolus, renal disease Psychiatric history: no psych history - Past Surgical History Surgical History: appendectomy, colectomy, knee replacement, LE stent(s), sinus surgery Additional surgical history: green field filter, hemorrhoid procedure, 3 cardiac stents - Social History Smoking Status: Never smoker Smokeless Tobacco Status: No Alcohol use: none Drug use: none - Family History Mother Living Status: Hx Family Cardiac Disorders: Yes Hx Family Cancer: Yes Sister Living Status: Hx Family Cancer: Yes Father Living Status: Hx Family Cardiac Disorders: Yes (father, brother,sister,self) Hx Family Respiratory Disorders: Yes (self) Hx Family Cancer: Yes (sister,mother) Hx Family GI Disorders: Yes (brother) Hx Family Endocrine Disorder: Yes (father) Hx Family Neuromuscular Disorders: No Hx Family Neurologic Disorders: No Hx Family HEENT Disorders: No Hx Family Autoimmune Disorders: No Medications and Allergies Ascorbate Calcium [Vitamin C] 500 mg PO QAM 12/23/15 [History] Lovastatin 40 mg PO QPM 12/23/15 [History] Multivit-Min/FA/Lycopen/Lutein [Centrum Silver Tablet] 1 each PO QAM 12/23/15 [ History] Omeprazole [PriLOSEC] 20 mg PO QAM 12/23/15 [History] Albuterol Sulfate [Ventolin Hfa] 2 puff IH Q4H PRN 01/20/17 [History] Oxygen 2 l NS AD PRN 06/25/17 [History] Acetylcysteine [Nac] 600 mg PO DAILY 08/05/17 [History] Budesonide/Formoterol 160/4.5 [Symbicort 160/4.5] 2 puff IH BIDR 08/05/17 [ History] Fenofibrate 160 mg PO DAILY 08/05/17 [History] Glimepiride [Amaryl] 2 mg PO DAILY 12/27/17 [History] Latanoprost [Xalatan] 1 drop OP DAILY 12/27/17 [History] predniSONE [PredniSONE] 20 mg PO DAILY 12/27/17 [History] Warfarin [Coumadin] 3 mg PO DAILY #30 tablet 02/20/18 [Rx] Aspirin [Lo-Dose Aspirin EC] 81 mg PO DAILY 02/26/18 [History] Furosemide [Lasix] 80 mg PO DAILY 02/26/18 [History] 3 Allergy/AdvReac Type Severity Reaction Status Date / Time No Known Allergies Allergy Verified 02/26/18 13:37 - Constitutional Constitutional ROS PAL: frequent falls - Cardiovascular Cardiovascular ROS: dyspnea on exertion, irregular heart rhythm - Respiratory Respiratory: dyspnea, dyspnea on exertion - Genitourinary Genitourinary ROS male: no difficulty urinating - Musculoskeletal Musculoskeletal ROS IM: joint swelling, myalgias - Integumentary ROS Integumentary: unusual bruising - Psychiatric Psychiatric general PM: no anxiety Palliative Care-Exam - Constitutional Vitals: Temp Pulse Resp BP Pulse Ox 98.3 F 84 16 158/85 94 03/02/18 11:29 03/02/18 11:29 03/02/18 11:29 03/02/18 11:29 03/02/18 11:29 General appearance: Present: cooperative, no acute distress - Head Head Exam: Present: atraumatic, normal inspection - Eye Eye exam: Present: EOMI, normal appearance. Absent: periorbital swelling, periorbital tenderness Pupils: Present: normal accommodation, PERRL - ENT ENT exam: Present: mucous membranes moist, normal external ear exam, normal oropharynx - Neck Neck exam: Present: full ROM, normal inspection - Respiratory Respiratory exam: Present: wheezes - Cardiovascular Cardiovascular exam: Present: irregular rhythm - Expanded Cardiovascular Exam Peripheral pulses: 1+: Radial (L), Radial (R), Posterior Tibialis (L), Posterior Tibialis (R), Dorsalis Pedis (L) PM, Dorsalis Pedis (R) PM - GI/Abdominal Exam GI/Abdominal exam: Present: distended, normal bowel sounds - Rectal Rectal Exam: Present: deferred - Extremities Exam Extremities exam: Present: joint swelling, pedal edema, tenderness - Neurological Exam Neurological exam: Present: alert, strengths equal and symetr throughout. Absent: oriented X3 (disoriented to time.) - Expanded Neurological Exam Patient oriented to: Present: person, place. Absent: time Coma Scale Eye Opening: Spontaneous Coma Scale Motor Response: Obeys Commands Coma Scale Verbal Response: Oriented Coma Scale Total: 15 - Psychiatric Psychiatric exam: Present: normal affect, normal mood. Absent: anxious - Skin Skin exam: Present: dry, intact (Bruising noted to chest and left upper extremities.), normal color Internal Medicine - CN: Reslt - Labs CBC & Chem 7: 03/02/18 06:25 03/02/18 06:25 Labs: Short CBC 03/02/18 Range/Units 06:25 WBC 9.3 (4.3-11.1) K/mcL Hgb 9.8 L (12.9-16.9) g/dL Hct 32.0 L (37.5-50.1) % Plt Count 211 (140-400) K/mcL Neutrophils # 6.5 (1.6-8.9) K/mcL BMP 03/02/18 06:25 Sodium 138 Potassium 3.6 Chloride 100 Carbon Dioxide 32 H BUN 28 H Creatinine 1.15 Glucose 185 H Calcium 9.1 - ABG Interpretation ABG results: PT/INR, D-dimer PT 34.0 Seconds (9.4-12.1) H 03/02/18 06:25 Consult Discharge Plan - Plan Referrals: Jose A Hernandez DO [Primary Care Provider] - (patient will call for an appt. per [facility]) Palliative Quality Palliative Quality: Screen for Code Status: Yes, Screen for Goals of Care: Yes, Screen for Pain: Yes, If Pain Regimen Started, Initiate Bowel Regimen: NA, Screen for Nausea/Vomitting: Yes
[2018-03-02] MEDS ORDERED: *HR* Warfarin 3 MG TABLET PO ONE (18:00)
[2018-03-02] MEDS: Acetaminophen 325 MG TABLET PO PRN (21:38)
[2018-03-03 05:47] LABS: Basophils % 0.5 %; Eosinophils # 0.3 K/mcL (0.0-0.6); Eosinophils % 3.4 %; Hematocrit 33.2 % (37.5-50.1); Immature Granulocytes % 1.4 % (0-4); Lymphocytes # 1.4 K/mcL (0.6-4.6); Lymphocytes % 17.9 %; Mean Corpuscular HGB Conc 30.1 g/dL (31.6-35.5); Mean Corpuscular Hemoglobin 28.5 pg (28.0-33.3); Mean Corpuscular Volume 94.6 fL (83.0-100.0); Mean Platelet Volume 9.3 fL (9.4-12.4); Monocytes # 0.9 K/mcL (0.0-1.3); Monocytes % 11.1 %; Neutrophils # 5.2 K/mcL (1.6-8.9); Platelet Count 224 K/mcL (140-400); Red Blood Count 3.51 M/mcL (4.19-5.50); Red Cell Distribution Width 14.9 % (11.5-14.5); Segmented Neutrophils % 65.7 %
[2018-03-03 05:52] LABS: INR 2.4; Prothrombin Time 26.2 Seconds (9.4-12.1)
[2018-03-03 06:02] LABS: BUN/Creatinine Ratio 22 (6-26); Blood Urea Nitrogen 26 mg/dL (8-23); Calcium 8.9 mg/dL (8.6-10.3); Carbon Dioxide 33 mEq/L (23-29); Chloride 100 mEq/L (98-107); Glucose 167 mg/dL (70-105); Osmolality,Calculated 303 (280-300); Potassium 3.3 mEq/L (3.5-5.1); Sodium 142 mEq/L (136-145); eGFR For African Americans > 60 (> 60); eGFR For Non-African Americans 58 (> 60)
[2018-03-03] MEDS: Budesonide/Formoterol 160/4.5 MDI IH SCH (07:51)
--- NOTE | 2018-03-03 08:24 | Internal Med Progress Note ---
Date of Encounter: 03/03/18 Time of Encounter: 08:25 - Assessment and plan (1) Acute on chronic diastolic heart failure Status: Acute Assessment and plan: Continue lasix IV TID and metolazone. Monitor ins and outs. Pt has shown symptomatic improvement (2) COPD (chronic obstructive pulmonary disease) Status: Chronic Assessment and plan: Not in exacerbation continue home meds duoneb prn Qualifiers: COPD type: unspecified COPD Qualified Code(s): J44.9 - Chronic obstructive pulmonary disease, unspecified (3) DVT (deep venous thrombosis) Status: Chronic Assessment and plan: INR still supratherapeutic. 3.1 today No bleeding Continue to monitor INR Hold Coumadin Qualifiers: DVT location: lower extremity Affected thrombotic vein of extremity: unspecified vein of extremity Chronicity: chronic Laterality: right Qualified Code(s): I82.501 - Chronic embolism and thrombosis of unspecified deep veins of right lower extremity (4) Atrial fibrillation Status: Chronic Assessment and plan: Rate controlled, not on BB, continue to monitor Qualifiers: Atrial fibrillation type: paroxysmal Qualified Code(s): I48.0 - Paroxysmal atrial fibrillation (5) CAD (coronary artery disease) Status: Chronic Assessment and plan: Continue home medications Qualifiers: Coronary Disease-Associated Artery/Lesion type: [place] artery [place] vs. transplanted heart: [place] heart Associated angina: without angina Qualified Code(s): I25.10 - Atherosclerotic heart disease of [place] coronary artery without angina pectoris (6) Left shoulder pain Status: Acute Assessment and plan: xray showed no evidence of fracture. Seen by ortho. Pain control and outpatient follow up Qualifiers: Chronicity: acute Qualified Code(s): M25.512 - Pain in left shoulder - Time Spent With Patient Total time spent is greater than 50% in coordination of care (as documented) at patient's floor/unit and/or counseling patient: - Subjective Interval history: No acute events overnight - Constitutional Vitals: Temp Pulse Resp BP Pulse Ox 97.5 F L 87 26 113/70 96 03/03/18 08:14 03/03/18 08:14 03/03/18 08:14 03/03/18 08:14 03/03/18 08:14 General appearance: Present: cooperative, A&O X 3, morbidly obese, no acute distress, answers questions appropriately - Head Head exam: Present: atraumatic, normocephalic - Eye Eye exam: Present: PERRL, conjuntiva pink, sclera anicteric Pupils: Present: PERRL - Neck Neck exam general surgery: Present: supple, trachea midline. Absent: lymphadenopathy - Respiratory Respiratory exam: Present: CTAB. Absent: accessory muscle use, rales, rhonchi, wheezes - Cardiovascular Cardiovascular exam: Present: RRR, +S1, +S2. Absent: diastolic murmur, gallop, rubs, systolic murmur - GI/Abdominal GI/Abdominal exam: Present: normal bowel sounds, soft, no peritoneal signs. Absent: distended, tenderness - Extremities Exam Extremities exam: Present: warm, radial pulses palpable and symmetrical. Absent : calf tenderness, cyanotic, pedal edema - Neurological Exam Neurological exam: Present: CN II-XII intact, oriented X3, no focal deficits. Absent: pronater drift, facial droop, speech deficit - Skin Skin exam: Present: dry, intact Internal Medicine: Result - Labs CBC & Chem 7: 03/03/18 05:02 03/03/18 05:02 Labs: Short CBC 03/03/18 Range/Units 05:02 WBC 7.9 (4.3-11.1) K/mcL Hgb 10.0 L (12.9-16.9) g/dL Hct 33.2 L (37.5-50.1) % Plt Count 224 (140-400) K/mcL Neutrophils # 5.2 (1.6-8.9) K/mcL BMP 03/03/18 05:02 Sodium 142 Potassium 3.3 L Chloride 100 Carbon Dioxide 33 H BUN 26 H Creatinine 1.20 Glucose 167 H Calcium 8.9 - ABG Interpretation ABG results: PT/INR, D-dimer PT 26.2 Seconds (9.4-12.1) H 03/03/18 05:02 - Impressions Impressions Chest X-Ray 03/02/18 10:32 IMPRESSION: No change from prior examination. Stable coarsened interstitial opacities which likely reflect chronic interstitial lung disease. Superimposed pulmonary edema or atypical infection is difficult to exclude. No definite new focal lung opacity. Stable cardiomegaly. D/ / 03/02/2018 16:29:47 Julio Cesar Amato MD / joanne Interpreting Provider: Julio Cesar Amato MD - VTE Documentation of Mechanical Device: Intermittent pneumatic compression device Consult Discharge Plan - Plan Instructions: Heart Failure (DC), Atrial Fibrillation (DC) Referrals: Jose A Hernandez DO [Primary Care Provider] - (patient will call for an appt. per [facility]) Prescriptions: Furosemide [Lasix] 40 mg PO BID #60 tab
[2018-03-03] MEDS: Insulin LISPRO 300 UNITS/3 ML VIAL SQ SCH ×2 (08:55→13:48)
[2018-03-03] MEDS: Fenofibrate 54 MG TABLET PO SCH (08:57)
[2018-03-03] MEDS: Ascorbic Acid 500 MG TABLET PO SCH (08:57)
[2018-03-03] MEDS: Potassium Chloride Elixir 20 MEQ/15 ML UDC PO SCH ×2 (08:57→14:03)
[2018-03-03] MEDS: Latanoprost 2.5 ML BOTTLE BOTH EYES SCH (08:58)
[2018-03-03] MEDS: Furosemide 40 MG/4 ML VIAL IVP SCH ×2 (08:58→14:03)
[2018-03-03] MEDS: Multivit/Ca/Min/Fe/FA 1 TAB TABLET PO SCH (08:58)
[2018-03-03] MEDS: Aspirin Enteric Coated 81 MG Tablet PO SCH (08:58)
--- NOTE | 2018-03-03 09:42 | Palliative Progress Note ---
Date of Encounter: 03/03/18 Time of Encounter: 09:00 - Assessment and plan (1) Left shoulder pain Current Visit: No Status: Acute Assessment and plan: Patient taking tylenol. Hasn't requested Jelm for over 24 hrs for left shoulder pain. States stiffness and soreness at site. - Position for comfort - Pain meds PRN - PT & OT Qualifiers: Chronicity: acute Qualified Code(s): M25.512 - Pain in left shoulder (2) Dyspnea Current Visit: No Status: Acute Assessment and plan: Patient wearing O2 PRN. On at 2L at present. Sats 94%. - Duonebs - O2 PRN - HOB up - Position for comfort Qualifiers: Dyspnea type: dyspnea on exertion Qualified Code(s): R06.09 - Other forms of dyspnea (3) Goals of care, counseling/discussion Current Visit: No Status: Acute Assessment and plan: Plan is for patient to transition to [facility] at [facility]. FULL CODE in place. Daughter February supports plan. (4) Elevated INR Current Visit: Yes Status: Acute Assessment and plan: INR 2.4 today. Coumadin resumed yesterday. - Time Spent With Patient Total time spent is greater than 50% in coordination of care (as documented) at patient's floor/unit and/or counseling patient: - Subjective Interval history: Patient with no complaints. Consuming meals, +BMs, and states that tylenol is helping pain to left shoulder. Denies dyspnea. - Constitutional Vitals: Abnormal lab results RBC 3.51 M/mcL (4.19-5.50) L 03/03/18 05:02 Hgb 10.0 g/dL (12.9-16.9) L 03/03/18 05:02 Hct 33.2 % (37.5-50.1) L 03/03/18 05:02 MCHC 30.1 g/dL (31.6-35.5) L 03/03/18 05:02 RDW 14.9 % (11.5-14.5) H 03/03/18 05:02 MPV 9.3 fL (9.4-12.4) L 03/03/18 05:02 PT 26.2 Seconds (9.4-12.1) H 03/03/18 05:02 APTT 64.5 Seconds (26.0-36.0) H 02/26/18 12:23 Potassium 3.3 mEq/L (3.5-5.1) L 03/03/18 05:02 Carbon Dioxide 33 mEq/L (23-29) H 03/03/18 05:02 BUN 26 mg/dL (8-23) H 03/03/18 05:02 Est GFR (Non-Af Amer) 58 (> 60) L 03/03/18 05:02 Glucose 167 mg/dL (70-105) H 03/03/18 05:02 POC Glucose 182 mg/dL (70-99) H 03/03/18 08:16 Calculated Osmolality 303 (280-300) H 03/03/18 05:02 Troponin I 0.06 ng/mL (< 0.04) H* 02/27/18 01:20 B-Natriuretic Peptide 161 pg/mL (Less than 100) H 02/27/18 01:20 Serum Total Protein 6.0 g/dL (6.4-8.9) L 02/27/18 01:20 HDL Cholesterol 28 mg/dL (40-59) L 02/27/18 01:20 - Head Head exam: Present: atraumatic, normal inspection - Eye Eye exam: Present: PERRL Pupils: Present: PERRL - Neck Neck exam: Present: normal inspection - Respiratory Respiratory exam: Present: decreased breath sounds, CTAB - Expanded Respiratory Exam Location: decreased breath sounds: Left, Right, Lower - Cardiovascular Cardiovascular exam: Present: RRR, +S1, +S2 - Expanded Cardiovascular Exam Peripheral pulses: 1+: Femoral (L) PM, Femoral (R) PM, Posterior Tibialis (L), Posterior Tibialis (R), 2+: Carotid (L) PM, Carotid (R) PM, Radial (L), Radial ( R), Dorsalis Pedis (L) PM, Dorsalis Pedis (R) PM - GI/Abdominal GI/Abdominal exam: Present: normal bowel sounds, soft - Rectal Rectal exam: Present: deferred - Extremities Exam Extremities exam: Present: tenderness (left shoulder. Tolerating PT) - Neurological Exam Neurological exam: Present: alert - Skin Skin exam: Present: pallor, warm Palliative Quality Palliative Quality: Screen for Code Status: Yes, Screen for Goals of Care: Yes, Screen for Pain: Yes, If Pain Regimen Started, Initiate Bowel Regimen: NA, Screen for Nausea/Vomitting: Yes - Labs CBC & Chem 7: 03/03/18 05:02 03/03/18 05:02 Labs: Laboratory Results - last 24 hr 03/02/18 03/02/18 03/02/18 07:07 11:28 16:28 WBC RBC Hgb Hct MCV MCH MCHC RDW Plt Count MPV Immature Gran % Seg Neutrophils % Lymphocytes % Monocytes % Eosinophils % Basophils % Neutrophils # Lymphocytes # Monocytes # Eosinophils # Basophils # PT INR Sodium Potassium Chloride Carbon Dioxide BUN Creatinine Est GFR ( Amer) Est GFR (Non-Af Amer) BUN/Creatinine Ratio Glucose POC Glucose 160 H 232 H 188 H Calculated Osmolality Calcium 03/02/18 03/03/18 03/03/18 20:29 05:02 05:02 WBC 7.9 RBC 3.51 L Hgb 10.0 L Hct 33.2 L MCV 94.6 MCH 28.5 MCHC 30.1 L RDW 14.9 H Plt Count 224 MPV 9.3 L Immature Gran % 1.4 Seg Neutrophils % 65.7 Lymphocytes % 17.9 Monocytes % 11.1 Eosinophils % 3.4 Basophils % 0.5 Neutrophils # 5.2 Lymphocytes # 1.4 Monocytes # 0.9 Eosinophils # 0.3 Basophils # 0.0 PT 26.2 H INR 2.4 Sodium Potassium Chloride Carbon Dioxide BUN Creatinine Est GFR ( Amer) Est GFR (Non-Af Amer) BUN/Creatinine Ratio Glucose POC Glucose 210 H Calculated Osmolality Calcium 03/03/18 03/03/18 05:02 08:16 WBC RBC Hgb Hct MCV MCH MCHC RDW Plt Count MPV Immature Gran % Seg Neutrophils % Lymphocytes % Monocytes % Eosinophils % Basophils % Neutrophils # Lymphocytes # Monocytes # Eosinophils # Basophils # PT INR Sodium 142 Potassium 3.3 L Chloride 100 Carbon Dioxide 33 H BUN 26 H Creatinine 1.20 Est GFR ( Amer) > 60 Est GFR (Non-Af Amer) 58 L BUN/Creatinine Ratio 22 Glucose 167 H POC Glucose 182 H Calculated Osmolality 303 H Calcium 8.9 - Impressions Impressions Chest X-Ray 03/02/18 10:32 IMPRESSION: No change from prior examination. Stable coarsened interstitial opacities which likely reflect chronic interstitial lung disease. Superimposed pulmonary edema or atypical infection is difficult to exclude. No definite new focal lung opacity. Stable cardiomegaly. D/ / 03/02/2018 16:29:47 Julio Cesar Amato MD / joanne Interpreting Provider: Julio Cesar Amato MD - ABG Interpretation ABG results: PT/INR, D-dimer PT 26.2 Seconds (9.4-12.1) H 03/03/18 05:02 Consult Discharge Plan - Plan Referrals: Jose A Hernandez DO [Primary Care Provider] - (patient will call for an appt. per [facility])
[2018-03-03 12:19] VITALS: BP 120/75
--- NOTE | 2018-03-03 12:22 | Discharge Summary ---
Orders not resulted at time of discharge: Pending orders 03/04/18 04:00 Basic Metabolic Panel AM 0400 CBC [Complete Blood Count] [HEME] AM 0400 PT/INR [Prothrombin Time INR] [COAG] AM 0400 03/05/18 04:00 Basic Metabolic Panel AM 0400 CBC [Complete Blood Count] [HEME] AM 0400 PT/INR [Prothrombin Time INR] [COAG] AM 0400 03/06/18 04:00 Basic Metabolic Panel AM 0400 CBC [Complete Blood Count] [HEME] AM 0400 03/07/18 04:00 Basic Metabolic Panel AM 0400 CBC [Complete Blood Count] [HEME] AM 0400 Date of Encounter: 03/03/18 Time of Encounter: 12:20 - Discharge Diagnosis (1) Acute on chronic diastolic heart failure Priority: Primary Status: Acute Assessment and Plan: 82 year old male with past medical history of hypertension, diverticulitis, DVT , PE, [place], COPD on 4 lit home oxygen dependent, CAD status post stent, chronic atrial fibrillation on Coumadin for anticoagulation, interstitial pulmonary fibrosis and diastolic congestive heart failure who presented to emergency room today complaining about worsening swelling in his bilateral lower extremity's also his INR was elevated. He was assessed with acute diastolic CHF and was started on diuresis with iV lasix and metolazone. He is on coumadin for atrial fibrillation which was held 2/2 to supratherapeutic INR. He imroved considerably with diuresis with reduction in his selling. His INR came down to 2.4 from 5.5 on admission and he safely restarted on coumadin. He was discharged to rehab in a stable condition. He also had left shoulder pain which was seen by orthopedic surgery. Images showed no fracture or dislocation. It was noted to be secondary to degenerative disease and he will continue pain control as needed (2) COPD (chronic obstructive pulmonary disease) Priority: Secondary Status: Chronic Qualifiers: COPD type: unspecified COPD Qualified Code(s): J44.9 - Chronic obstructive pulmonary disease, unspecified (3) DVT (deep venous thrombosis) Priority: Secondary Status: Chronic Qualifiers: DVT location: lower extremity Affected thrombotic vein of extremity: unspecified vein of extremity Chronicity: chronic Laterality: right Qualified Code(s): I82.501 - Chronic embolism and thrombosis of unspecified deep veins of right lower extremity (4) Atrial fibrillation Priority: Secondary Status: Chronic Qualifiers: Atrial fibrillation type: paroxysmal Qualified Code(s): I48.0 - Paroxysmal atrial fibrillation (5) CAD (coronary artery disease) Priority: Secondary Status: Chronic Qualifiers: Coronary Disease-Associated Artery/Lesion type: [place] artery [place] vs. transplanted heart: [place] heart Associated angina: without angina Qualified Code(s): I25.10 - Atherosclerotic heart disease of [place] coronary artery without angina pectoris (6) Left shoulder pain Priority: Secondary Status: Acute Qualifiers: Chronicity: acute Qualified Code(s): M25.512 - Pain in left shoulder Hospital course: Mr. Sequeira is a 82 year old male - Time Spent with Patient Total time spent providing and/or coordinating discharge services: - Discharge Medications Prescriptions: Furosemide [Lasix] 40 mg PO BID #60 tab Home Medications: Ascorbate Calcium [Vitamin C] 500 mg PO QAM 12/23/15 [History] Lovastatin 40 mg PO QPM 12/23/15 [History] Multivit-Min/FA/Lycopen/Lutein [Centrum Silver Tablet] 1 each PO QAM 12/23/15 [ History] Omeprazole [PriLOSEC] 20 mg PO QAM 12/23/15 [History] Albuterol Sulfate [Ventolin Hfa] 2 puff IH Q4H PRN 01/20/17 [History] Oxygen 2 l NS AD PRN 06/25/17 [History] Acetylcysteine [Nac] 600 mg PO DAILY 08/05/17 [History] Budesonide/Formoterol 160/4.5 [Symbicort 160/4.5] 2 puff IH BIDR 08/05/17 [ History] Fenofibrate 160 mg PO DAILY 08/05/17 [History] Glimepiride [Amaryl] 2 mg PO DAILY 12/27/17 [History] Latanoprost [Xalatan] 1 drop OP DAILY 12/27/17 [History] Warfarin [Coumadin] 3 mg PO DAILY #30 tablet 02/20/18 [Rx] Aspirin [Lo-Dose Aspirin EC] 81 mg PO DAILY 02/26/18 [History] Furosemide [Lasix] 40 mg PO BID #60 tab 03/03/18 [Rx] Allergies/Adverse Reactions: 3 Allergy/AdvReac Type Severity Reaction Status Date / Time No Known Allergies Allergy Verified 02/26/18 13:37 Date of admission: 02/26/18 14:15 Primary care physician: Jose A Hernandez Consults: 02/28/18 07:00 Consult to Nurse Navigator [CONS] Routine Comment: CHF 03/01/18 13:59 Consult to Orthopedic Surgery [CONS] Routine Consulting Provider: [facility] Reason for Consult: Left shoulder pain Time Notified: 14:01 Call Completed: Yes 03/02/18 09:32 Consult to Palliative Care [CONS] Routine Comment: Consulting Provider: Palliative Care [facility] Reason for Consult: goals of care. CHF Call Completed: Yes - Constitutional Vitals: Temp Pulse Resp BP Pulse Ox 98.2 F 74 28 120/75 98 03/03/18 12:12 03/03/18 12:12 03/03/18 12:12 03/03/18 12:12 03/03/18 12:12 General appearance: Present: cooperative, A&O X 3, morbidly obese, no acute distress, answers questions appropriately - Head Head exam: Present: atraumatic, normocephalic - Eye Eye exam: Present: PERRL, conjuntiva pink, sclera anicteric Pupils: Present: PERRL - Neck Neck exam general surgery: Present: supple, trachea midline. Absent: lymphadenopathy - Respiratory Respiratory exam: Present: CTAB. Absent: accessory muscle use, rales, rhonchi, wheezes - Cardiovascular Cardiovascular exam: Present: RRR, +S1, +S2. Absent: diastolic murmur, gallop, rubs, systolic murmur - GI/Abdominal GI/Abdominal exam: Present: normal bowel sounds, soft, no peritoneal signs. Absent: distended, tenderness - Extremities Exam Extremities exam: Present: warm, radial pulses palpable and symmetrical. Absent : calf tenderness, cyanotic, pedal edema - Neurological Exam Neurological exam: Present: CN II-XII intact, oriented X3, no focal deficits. Absent: pronater drift, facial droop, speech deficit - Skin Skin exam: Present: dry, intact - Patient Status Disposition: Transfer SNF Condition: Fair - Discharge Instructions Instructions: Heart Failure (DC), Atrial Fibrillation (DC) Follow Up With: Jose A Hernandez DO [Primary Care Provider] - (patient will call for an appt. per [facility]) - VTE Documentation of Mechanical Device: Intermittent pneumatic compression device
--- NOTE | 2018-03-03 12:29 | Physician Discharge Referral ---
- Diagnosis (1) Acute on chronic diastolic heart failure Priority: Primary Status: Acute (2) COPD (chronic obstructive pulmonary disease) Status: Chronic (3) DVT (deep venous thrombosis) Status: Chronic (4) Atrial fibrillation Status: Chronic (5) CAD (coronary artery disease) Status: Chronic (6) Left shoulder pain Status: Acute - Transfer Medications Prescriptions: Furosemide [Lasix] 40 mg PO BID #60 tab Home Medications: Ascorbate Calcium [Vitamin C] 500 mg PO QAM 12/23/15 [History] Lovastatin 40 mg PO QPM 12/23/15 [History] Multivit-Min/FA/Lycopen/Lutein [Centrum Silver Tablet] 1 each PO QAM 12/23/15 [ History] Omeprazole [PriLOSEC] 20 mg PO QAM 12/23/15 [History] Albuterol Sulfate [Ventolin Hfa] 2 puff IH Q4H PRN 01/20/17 [History] Oxygen 2 l NS AD PRN 06/25/17 [History] Acetylcysteine [Nac] 600 mg PO DAILY 08/05/17 [History] Budesonide/Formoterol 160/4.5 [Symbicort 160/4.5] 2 puff IH BIDR 08/05/17 [ History] Fenofibrate 160 mg PO DAILY 08/05/17 [History] Glimepiride [Amaryl] 2 mg PO DAILY 12/27/17 [History] Latanoprost [Xalatan] 1 drop OP DAILY 12/27/17 [History] Warfarin [Coumadin] 3 mg PO DAILY #30 tablet 02/20/18 [Rx] Aspirin [Lo-Dose Aspirin EC] 81 mg PO DAILY 02/26/18 [History] Furosemide [Lasix] 40 mg PO BID #60 tab 03/03/18 [Rx] Allergies/Adverse Reactions: 3 Allergy/AdvReac Type Severity Reaction Status Date / Time No Known Allergies Allergy Verified 02/26/18 13:37 - Respiratory Orders Smoking Cessation: Smoking cessation has been advised. For more information, call the [place] Tobacco Quit Line at 2-970-MZAC-NOW. - Mobility Orders Ambulate - Rehabiliation Orders Rehab Potential: Good - Diet Orders Cardiac CERTIFICATION: I certify that the transfer of the above named patient to an Extended Care Facility is necessary for the continuing treatment of the diagnosis listed. The above information is true and accurate reflection of patient's current condition. Confidential - Redisclosure prohibited without a patient's written consent.
[2018-03-03] MEDS: Acetaminophen 325 MG TABLET PO PRN (14:03)
[2018-03-03] MEDS ORDERED: *HR* Warfarin 3 MG TABLET PO ONE (18:00)
== END 2018-03-03 14:34 | DRG 291 ==
LOC: 2ANU 12:03 → EMEROO 12:03 → 2ANU 15:34
PROVIDERS: ADMIT Family Medicine; ATTEND Family Medicine

== ENCOUNTER 2018-04-04 19:02 | Inpatient (IN) ==
[2018-04-04 19:46] LABS: Basophils % 0.3 %; Eosinophils # 0.3 K/mcL (0.0-0.6); Eosinophils % 2.7 %; Hematocrit 32.1 % (37.5-50.1); Hemoglobin 9.7 g/dL (12.9-16.9); Immature Granulocytes % 0.6 % (0-4); Lymphocytes # 1.4 K/mcL (0.6-4.6); Lymphocytes % 11.7 %; Mean Corpuscular HGB Conc 30.2 g/dL (31.6-35.5); Mean Corpuscular Hemoglobin 27.2 pg (28.0-33.3); Mean Corpuscular Volume 90.2 fL (83.0-100.0); Mean Platelet Volume 8.9 fL (9.4-12.4); Neutrophils # 9.2 K/mcL (1.6-8.9); Platelet Count 296 K/mcL (140-400); Red Blood Count 3.56 M/mcL (4.19-5.50); Red Cell Distribution Width 15.5 % (11.5-14.5); Segmented Neutrophils % 76.7 %
[2018-04-04 19:55] LABS: INR 3.2
[2018-04-04 20:08] LABS: Troponin I 0.03 ng/mL (< 0.04)
[2018-04-04 20:12] LABS: Calcium 9.2 mg/dL (8.6-10.3); Potassium 3.5 mEq/L (3.5-5.1)
[2018-04-04] MEDS ORDERED: Furosemide 80 MG in 0.9 % Sodium Chloride 50 ML IVPB ONE (21:47)
--- NOTE | 2018-04-04 22:02 | Emergency Department Note ---
Disposition Clinical Impression: CHF (congestive heart failure) Qualifiers: Heart failure type: unspecified Heart failure chronicity: acute on chronic Qualified Code(s): I50.9 - Heart failure, unspecified Left leg DVT Qualifiers: Affected thrombotic vein of extremity: popliteal Chronicity: acute Qualified Code(s): I82.432 - Acute embolism and thrombosis of left popliteal vein Disposition: Admitted As Inpatient Condition: Fair Time of Disposition: 22:02 General Adult HPI - General Chief complaint: ED Shortness of Breath/Dyspnea Stated complaint: SOB Time Seen by Provider: 04/04/18 19:12 Source: patient, EMS Mode of arrival: EMS Limitations: age Nursing Notes Reviewed: Yes Vital Signs Reviewed: Yes - History of Present Illness HPI Narrative: Patient is an 82-year-old male with past medical history of atrial fibrillation , CHF, COPD requiring 5 L nasal cannula, CAD, DVT/PE, GERD, HLD, HTN parents for evaluation of shortness of breath as well as bilateral lower extremity swelling with right lower calf pain. Patient was recently admitted to hospital for CHF exacerbation murmurs also found to have a right lower extremity DVT. He denies any fevers, chills, chest pain, flank pain, abdominal pain, or diarrhea. Pain Scale: 0 - Related Data Home Medications Medication Instructions Recorded Confirmed Ascorbate Calcium [Vitamin C] 500 mg PO QAM 12/23/15 02/26/18 Lovastatin 40 mg PO QPM 12/23/15 02/26/18 Multivit-Min/FA/Lycopen/Lutein 1 each PO QAM 12/23/15 02/26/18 [Centrum Silver Tablet] Omeprazole [PriLOSEC] 20 mg PO QAM 12/23/15 02/26/18 Albuterol Sulfate [Ventolin Hfa] 2 puff IH Q4H PRN 01/20/17 02/26/18 Oxygen 2 l NS AD PRN 06/25/17 02/26/18 Acetylcysteine [Nac] 600 mg PO DAILY 08/05/17 02/26/18 Budesonide/Formoterol 160/4.5 2 puff IH BIDR 08/05/17 02/26/18 [Symbicort 160/4.5] Fenofibrate 160 mg PO DAILY 08/05/17 02/26/18 Glimepiride [Amaryl] 2 mg PO DAILY 12/27/17 02/26/18 Latanoprost [Xalatan] 1 drop OP DAILY 12/27/17 02/26/18 Aspirin [Lo-Dose Aspirin EC] 81 mg PO DAILY 02/26/18 02/26/18 Previous Rx's Medication Instructions Recorded Warfarin [Coumadin] 3 mg PO DAILY #30 tablet 02/20/18 Furosemide [Lasix] 40 mg PO BID #60 tab 03/03/18 Allergies Allergy/AdvReac Type Severity Reaction Status Date / Time No Known Allergies Allergy Verified 02/26/18 13:37 All systems ED: reviewed and negative except as stated. Review of Systems: As Per HPI Constitutional: Denies: fever, chills Cardiovascular: Reports: dyspnea on exertion, edema. Denies: chest pain, palpitations, syncope, paroxysmal nocturnal dyspnea Respiratory: Reports: cough, dyspnea. Denies: wheezes, sputum production Gastrointestinal: Denies: abdominal pain, nausea, vomiting Musculoskeletal: Denies: back pain, neck pain Integumentary: Denies: rash Past Medical History - Past Medical History Attestation: Yes The following information was validated with the patient. Medical history: Reports: atrial fibrillation, CHF, COPD, coronary artery disease, DVT, diabetes, GERD, hyperlipidemia, hypertension, myocardial infarction, pulmonary embolus, renal disease Surgical history: Reports: appendectomy, colectomy, knee replacement, LE stent(s ), sinus surgery Psychiatric history: Reports: no psych history - Social History Smoking Status: Never smoker Smokeless Tobacco Status: No Alcohol use: Reports: none Drug use: Reports: none Physical Exam CONSTITUTIONAL: Obese male; A&O X 3, in no apparent distress. Vitals within normal limits and oxygen saturation is 100% on 2LNC. HEAD: Normocephalic; atraumatic EYES: PERRL, no scleral icterus NOSE: The nose is normal in appearance without rhinorrhea NECK: No JVD or distended neck veins RESP: Normal chest excursion with respiration; Rales in the bilateral bases. CARD: Regular rhythm, without murmurs, rub or gallop ABD: Non-distended; non-tender, soft, without rigidity, rebound or guarding,no pulsatile mass CHEST: No pain with palpation SKIN: Normal for age and race; warm and dry without diaphoresis ; no apparent lesions EXTREMITIES: Pulses are 2 plus and equal times 4 extremities, bilateral lower extremity edema 2+, pitting, and right sided calf tenderness. - General Limitations: age General appearance: alert, in no apparent distress Course Course Narrative: Patient's primary complaint today is bilateral lower extremity swelling with right calf pain. States his shortness of breath has been present since being discharged from the hospital and being at [place] for approximately the past 5 weeks. States shortness of breath has not been improving. Takes lasix 40mg BID. Discussed plan to evaluate the patient for CHF given his physical exam findings and will also r/o lower extremity DVT with bilateral doppler. - Reevaluation(s) Reevaluation #1: Patient's creatinine was slightly elevated. His chest x-ray showed pulmonary congestion worse than prior chest x-ray. Patient's ultrasound of his bilateral lower extremities did show DVT of the left lower extremity. He is currently on Coumadin and is in the therapeutic range. Patient will be admitted for CHF. Lasix 80mg IV will be given. Pt will be admitted to the hospital for CHF exacerbation and LLE DVT on anticoagulation. Time: 22:28 Vital Signs Temperature 97.9 F 04/04/18 19: Pulse Rate 89 04/04/18 19: Respiratory Rate 20 04/04/18 19:09 Blood Pressure 139/75 04/04/18 19:09 O2 Sat by Pulse Oximetry 96 04/04/18 19: Temperature 97.9 F 04/04/18 19: Pulse Rate 71 04/04/18 22:23 Respiratory Rate 16 04/04/18 22:23 Blood Pressure 119/68 04/04/18 22:23 O2 Sat by Pulse Oximetry 93 04/04/18 22:23 Oxygen Delivery Oxygen Delivery Nasal Cannula Medical Decision Making - Medical Records Medical records reviewed: Yes I reviewed the patient's medical records. - Lab Data Lab results reviewed: Yes I reviewed the patient's lab results. Result diagrams: 04/04/18 19:29 04/04/18 19:29 Lab Results 04/04/18 04/04/18 04/04/18 Range/Units 19:29 19:29 19:29 WBC 12.0 H (4.3-11.1) K/mcL RBC 3.56 L (4.19-5.50) M/mcL Hgb 9.7 L (12.9-16.9) g/dL Hct 32.1 L (37.5-50.1) % MCV 90.2 (83.0-100.0) fL MCH 27.2 L (28.0-33.3) pg MCHC 30.2 L (31.6-35.5) g/dL RDW 15.5 H (11.5-14.5) % Plt Count 296 (140-400) K/mcL MPV 8.9 L (9.4-12.4) fL Immature Gran % 0.6 (0-4) % Seg Neutrophils % 76.7 % Lymphocytes % 11.7 % Monocytes % 8.0 % Eosinophils % 2.7 % Basophils % 0.3 % Neutrophils # 9.2 H (1.6-8.9) K/mcL Lymphocytes # 1.4 (0.6-4.6) K/mcL Monocytes # 1.0 (0.0-1.3) K/mcL Eosinophils # 0.3 (0.0-0.6) K/mcL Basophils # 0.0 (0.0-0.2) K/mcL PT (9.4-12.1) Seconds INR Sodium 142 (136-145) mEq/L Potassium 3.5 (3.5-5.1) mEq/L Chloride 104 (98-107) mEq/L Carbon Dioxide 30 H (23-29) mEq/L BUN 22 (8-23) mg/dL Creatinine 1.39 H (0.70-1.30) mg/dL Est GFR ( Amer) 59 L (> 60) Est GFR (Non-Af Amer) 49 L (> 60) BUN/Creatinine Ratio 16 (6-26) Glucose 138 H (70-105) mg/dL Calculated Osmolality 300 (280-300) Lactic Acid 1.7 (0.5-2.2) mmol/L Calcium 9.2 (8.6-10.3) mg/dL Troponin I 0.03 (< 0.04) ng/mL B-Natriuretic Peptide (Less than 100) pg/mL 04/04/18 04/04/18 Range/Units 19:29 19:31 WBC (4.3-11.1) K/mcL RBC (4.19-5.50) M/mcL Hgb (12.9-16.9) g/dL Hct (37.5-50.1) % MCV (83.0-100.0) fL MCH (28.0-33.3) pg MCHC (31.6-35.5) g/dL RDW (11.5-14.5) % Plt Count (140-400) K/mcL MPV (9.4-12.4) fL Immature Gran % (0-4) % Seg Neutrophils % % Lymphocytes % % Monocytes % % Eosinophils % % Basophils % % Neutrophils # (1.6-8.9) K/mcL Lymphocytes # (0.6-4.6) K/mcL Monocytes # (0.0-1.3) K/mcL Eosinophils # (0.0-0.6) K/mcL Basophils # (0.0-0.2) K/mcL PT 36.0 H (9.4-12.1) Seconds INR 3.2 Sodium (136-145) mEq/L Potassium (3.5-5.1) mEq/L Chloride (98-107) mEq/L Carbon Dioxide (23-29) mEq/L BUN (8-23) mg/dL Creatinine (0.70-1.30) mg/dL Est GFR ( Amer) (> 60) Est GFR (Non-Af Amer) (> 60) BUN/Creatinine Ratio (6-26) Glucose (70-105) mg/dL Calculated Osmolality (280-300) Lactic Acid (0.5-2.2) mmol/L Calcium (8.6-10.3) mg/dL Troponin I (< 0.04) ng/mL B-Natriuretic Peptide 256 H (Less than 100) pg/mL - Radiology Data Radiology results reviewed: Yes I reviewed the patient's radiology results. Chest X-Ray 04/04/18 19:21 IMPRESSION: 1. Pulmonary edema. Underlying pulmonary fibrosis may be present. 2. Calcific atherosclerosis aorta. 3. Cardiomegaly. D/ / Rodolfo Bynum / Rodolfo Bynum Interpreting Provider: Rodolfo Bynum - EKG Data EKG #1 EKG attestation: Yes I reviewed and interpreted this EKG. EKG results narrative: EKG done at 19:13 shows atrial fibrillation at a rate of 80 bpm. Unchanged EKG from 02/26/18. No signs of ischemia change. Attestation Statement - Attestation Attestation: I, Geoff Burciaga, examined this patient and my medical decision-making was reviewed with the MACHINE OPERATOR TRANSPLANTER/PA/Advanced Practice Nurse/Resident Physician. I agree with the documented findings, disposition and treatment plan as described except to the extent set forth below. 82-year-old male presents emergency Department with increasing shortness of breath and bilateral lower extremity swelling. Patient was recently seen in the hospital for DVT of the right lower extremity. He is discharged with request. Patient is currently residing at a [facility] facility. He has difficulty of breathing with exertion. Chest x-ray shows vascular congestion. Patient has swelling of the bilateral lower show us. Ultrasound in the emergency department shows DVT of the superficial femoral vein of the left lower extremity. Patient will be admitted to the hospital for further care and evaluation of his likely acute congestive heart failure as well as his DVT.
--- NOTE | 2018-04-04 22:13 | Internal Med History&Physical ---
<Manohar Chavez - Last Filed: 04/05/18 00:03> Date of Encounter: 04/05/18 Time of Encounter: 22:12 Internal Medicine - H&P: HPI Chief complaint: SOB Admitted From: [facility]term [facility] Facility ([facility]) History of present illness: Mr. Sequeira is a 82 year old male with a PMH of DVT/PE, atrial fibrillation, CHF , COPD requiring 5L supplemental O2, CAD, HTN, and HLD who presents c/o shortness of breath and bilateral lower extremity swelling. He reports significant right calf pain and was recently admitted for CHF exacerbation and right lower extremity DVT. Patient is on Coumadin at home. He denies any fevers , chills, chest pain, abdominal pain, nausea, vomiting, or diarrhea. Past Med Surg Social Fam HX - Past Medical History Medical history: atrial fibrillation, CHF, COPD, coronary artery disease, DVT, diabetes, GERD, hyperlipidemia, hypertension, myocardial infarction, pulmonary embolus, renal disease Psychiatric history: no psych history - Past Surgical History Surgical History: appendectomy, colectomy, knee replacement, LE stent(s), sinus surgery Additional surgical history: green field filter, hemorrhoid procedure, 3 cardiac stents - Social History Smoking Status: Never smoker Smokeless Tobacco Status: No Alcohol use: none Drug use: none - Family History Mother Living Status: Hx Family Cardiac Disorders: Yes Hx Family Cancer: Yes Sister Living Status: Hx Family Cancer: Yes Father Living Status: Hx Family Cardiac Disorders: Yes (father, brother,sister,self) Hx Family Respiratory Disorders: Yes (self) Hx Family Cancer: Yes (sister,mother) Hx Family GI Disorders: Yes (brother) Hx Family Endocrine Disorder: Yes (father) Hx Family Neuromuscular Disorders: No Hx Family Neurologic Disorders: No Hx Family HEENT Disorders: No Hx Family Autoimmune Disorders: No Internal Medicine - H&P: Meds Ascorbate Calcium [Vitamin C] 500 mg PO QAM 12/23/15 [History] Lovastatin 40 mg PO HS 12/23/15 [History] Multivit-Min/FA/Lycopen/Lutein [Centrum Silver Tablet] 1 each PO QAM 12/23/15 [ History] Omeprazole [PriLOSEC] 20 mg PO QAM 12/23/15 [History] Albuterol Sulfate [Ventolin Hfa] 2 puff IH Q4H PRN 01/20/17 [History] Oxygen 2 l NS AD PRN 06/25/17 [History] Acetylcysteine [Nac] 600 mg PO DAILY 08/05/17 [History] Budesonide/Formoterol 160/4.5 [Symbicort 160/4.5] 2 puff IH BIDR 08/05/17 [ History] Fenofibrate 160 mg PO DAILY 08/05/17 [History] Glimepiride [Amaryl] 2 mg PO DAILY 12/27/17 [History] Latanoprost [Xalatan] 1 drop OP HS 12/27/17 [History] Aspirin [Lo-Dose Aspirin EC] 81 mg PO DAILY 02/26/18 [History] Furosemide [Lasix] 40 mg PO BID #60 tab 03/03/18 [Rx] Acetaminophen [Acetaminophen ER] 650 mg PO BID 04/05/18 [History] Warfarin [Coumadin] 2.5 mg PO DAILY 04/05/18 [History] 3 Allergy/AdvReac Type Severity Reaction Status Date / Time No Known Allergies Allergy Verified 02/26/18 13:37 All Systems PM: A 10-system review of systems was performed and is negative for pertinent findings except as documented above in the HPI. - Constitutional Constitutional: fatigue, malaise, weakness, no chills, no fever(s), no falls, no weight gain, no weight loss - EENT Eyes: no blurry vision, no diplopia Nose, mouth and throat: no sinus pain, no sore throat - Cardiovascular Cardiovascular ROS IM: dyspnea, no chest pain, no palpitations - Respiratory Respiratory: dyspnea on exertion, no cough, no wheezing, no chest congestion - Gastrointestinal Gastrointestinal: no abdominal pain, no diarrhea, no melena, no nausea, no vomiting - Genitourinary Genitourinary ROS male: no dysuria, no hematuria, no urinary frequency, no urinary urgency - Musculoskeletal Musculoskeletal ROS IM: muscle cramps, myalgias, no numbness, no tingling - Integumentary Integumentary IM: no erythema, no rash - Neurological Neurological ROS: weakness, no dizziness, no numbness, no tingling - Psychiatric Psychiatric: no anxiety, no depression - Endocrine Endocrine IM: fatigue, no polydipsia, no polyphagia, no polyuria - Hematologic/Lymphatic Hematologic/Lymphatic: easy bleeding, no easy bruising - Constitutional Vitals: Temp Pulse Resp BP Pulse Ox 97.9 F 78 18 136/84 100 04/04/18 19:09 04/04/18 21:18 04/04/18 21:18 04/04/18 21:18 04/04/18 21:18 General appearance: Present: cooperative, A&O X 3, morbidly obese, pleasant, no acute distress, answers questions appropriately - Head Head exam: Present: atraumatic, normocephalic - Eye Eye exam: Present: EOMI, PERRL, conjuntiva pink, sclera anicteric Pupils: Present: PERRL - ENT ENT exam: Present: mucous membranes moist, normal oropharynx - Neck Neck exam general surgery: Present: supple, trachea midline. Absent: lymphadenopathy - Respiratory Respiratory exam: Present: decreased breath sounds, rales. Absent: accessory muscle use, rhonchi, wheezes - Cardiovascular Cardiovascular exam: Present: irregular rhythm, +S1, +S2. Absent: diastolic murmur, gallop, rubs, systolic murmur - GI/Abdominal GI/Abdominal exam: Present: normal bowel sounds, soft, no peritoneal signs. Absent: distended, tenderness - Extremities Exam Extremities exam: Present: warm, radial pulses palpable and symmetrical. Absent : calf tenderness, cyanotic, pedal edema - Back Exam Back exam: Present: normal inspection. Absent: paraspinal tenderness, tenderness - Neurological Exam Neurological exam: Present: CN II-XII intact, oriented X3, no focal deficits. Absent: pronater drift, facial droop, speech deficit - Psychiatric Psychiatric exam: Present: normal affect, normal mood - Skin Skin exam: Present: dry, intact, pallor, warm Internal Med - H&P Results - Labs CBC & Chem 7: 04/04/18 19:29 04/04/18 19:29 Labs: Short CBC 04/04/18 Range/Units 19:29 WBC 12.0 H (4.3-11.1) K/mcL Hgb 9.7 L (12.9-16.9) g/dL Hct 32.1 L (37.5-50.1) % Plt Count 296 (140-400) K/mcL Neutrophils # 9.2 H (1.6-8.9) K/mcL BMP 04/04/18 19:29 Sodium 142 Potassium 3.5 Chloride 104 Carbon Dioxide 30 H BUN 22 Creatinine 1.39 H Glucose 138 H Calcium 9.2 Cardiac Enzymes 04/04/18 Range/Units 19:29 Troponin I 0.03 (< 0.04) ng/mL - Pulse Oximetry Interpretation Digit-Finger O2 Sat by Pulse Oximetry: 93 (On 2l O2 via NC) - EKG Data -: EKG Interpreted by Myself Rate: tachycardia (A-fib with HR 80 bpm) - EKG Data Prior EKG available for review: yes When compared to previous EKG: there is no significant change - Impressions ITS Impressions Chest X-Ray 04/04/18 19:21 IMPRESSION: 1. Pulmonary edema. Underlying pulmonary fibrosis may be present. 2. Calcific atherosclerosis aorta. 3. Cardiomegaly. D/ / Rodolfo Bynum / Rodolfo Bynum Interpreting Provider: Rodolfo Bynum - Assessment and plan (1) Acute on chronic diastolic heart failure Current Visit: Yes Status: Acute Assessment and plan: Patient with acute on chronic diastolic CHF CXR revealed pulmonary edema and cardiomegaly Echo 02/28/18 revealed LEVF 60-65%, mild concentric LVH, atypical septal motion consistent with BBB, mild tricuspid regurgitation, mild pulmonary HTN. Lasix 80mg IV will be given in ED. Continue Lasix IV Daily weights, monitor I&Os 1800 fluid restriction Continue home meds (2) Left leg DVT Current Visit: Yes Status: Acute Assessment and plan: retirement patient with LLE DVT on anticoagulation. He is currently on Coumadin and is in the therapeutic range. Patient's ultrasound of his bilateral lower extremities did show DVT of the left lower extremity. 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 Qualifiers: Affected thrombotic vein of extremity: popliteal Chronicity: acute Qualified Code(s): I82.432 - Acute embolism and thrombosis of left popliteal vein (3) Presence of IVC filter Current Visit: No Status: Chronic Assessment and plan: Continue current therapy (4) Anemia Current Visit: No Status: Chronic Assessment and plan: No active bleeding Continue monitoring Qualifiers: Anemia type: unspecified type Qualified Code(s): D64.9 - Anemia, unspecified (5) Atrial fibrillation Current Visit: No Status: Chronic Assessment and plan: Continue home meds Qualifiers: Atrial fibrillation type: chronic Qualified Code(s): I48.2 - Chronic atrial fibrillation (6) CAD (coronary artery disease) Current Visit: No Status: Chronic Assessment and plan: Continue home meds Qualifiers: Coronary Disease-Associated Artery/Lesion type: [place] artery [place] vs. transplanted heart: [place] heart Associated angina: without angina Qualified Code(s): I25.10 - Atherosclerotic heart disease of [place] coronary artery without angina pectoris (7) Chronic respiratory failure with hypoxia Current Visit: No Status: Chronic Assessment and plan: Patient is on 5L supplemental O2 at baseline (8) COPD (chronic obstructive pulmonary disease) Current Visit: No Status: Chronic Assessment and plan: Not in exacerbation Continue home meds Qualifiers: COPD type: unspecified COPD Qualified Code(s): J44.9 - Chronic obstructive pulmonary disease, unspecified (9) Hypertension Current Visit: No Status: Chronic Assessment and plan: Continue home meds Qualifiers: Hypertension type: essential hypertension Qualified Code(s): I10 - Essential (primary) hypertension (10) Diabetes mellitus type 2 in obese Current Visit: No Status: Chronic Assessment and plan: Continue accuchecks (11) Morbid obesity with BMI of 40.0-44.9, adult Current Visit: No Status: Chronic Assessment and plan: Lifestyle modification (12) DVT prophylaxis Current Visit: Yes Status: Chronic Assessment and plan: Continue Warfarin (13) HLD (hyperlipidemia) Current Visit: Yes Status: Acute Assessment and plan: Continue home meds Qualifiers: Hyperlipidemia type: unspecified Qualified Code(s): E78.5 - Hyperlipidemia , unspecified - Time Spent With Patient Total time spent is greater than 50% in coordination of care (as documented) at patient's floor/unit and/or counseling patient: <Cortney Garber - Last Filed: 04/05/18 06:03> Date of Encounter: 04/05/18 Internal Medicine - H&P: HPI History of present illness: Mr. Sequeira is a 82 year old male All Systems PM: A 10-system review of systems was performed and is negative for pertinent findings except as documented above in the HPI. - Constitutional Vitals: Temp Pulse Resp BP Pulse Ox 98.5 F 93 18 175/80 94 04/05/18 03:45 04/05/18 03:45 04/05/18 03:45 04/05/18 03:45 04/05/18 03:45 Internal Med - H&P Results - Labs CBC & Chem 7: 04/05/18 05:07 04/04/18 19:29 Labs: Short CBC 04/05/18 Range/Units 05:07 WBC 10.0 (4.3-11.1) K/mcL Hgb 9.8 L (12.9-16.9) g/dL Hct 32.2 L (37.5-50.1) % Plt Count 291 (140-400) K/mcL Neutrophils # 7.0 (1.6-8.9) K/mcL - Attending Attestation I have seen and examined this patient independently. I have discussed with resident physician Dr. Chavez regarding the management plan. Agree with the documentation. - Assessment and plan (1) Anemia Current Visit: No Status: Chronic Qualifiers: Anemia type: unspecified type Qualified Code(s): D64.9 - Anemia, unspecified (2) Atrial fibrillation Current Visit: No Status: Chronic Qualifiers: Atrial fibrillation type: chronic Qualified Code(s): I48.2 - Chronic atrial fibrillation (3) COPD (chronic obstructive pulmonary disease) Current Visit: No Status: Chronic Qualifiers: COPD type: unspecified COPD Qualified Code(s): J44.9 - Chronic obstructive pulmonary disease, unspecified (4) Hypertension Current Visit: No Status: Chronic Qualifiers: Hypertension type: essential hypertension Qualified Code(s): I10 - Essential (primary) hypertension (5) DVT prophylaxis Current Visit: Yes Status: Chronic (6) Acute on chronic diastolic heart failure Current Visit: Yes Status: Acute (7) Presence of IVC filter Current Visit: No Status: Chronic (8) Diabetes mellitus type 2 in obese Current Visit: No Status: Chronic (9) CAD (coronary artery disease) Current Visit: No Status: Chronic Qualifiers: Coronary Disease-Associated Artery/Lesion type: [place] artery [place] vs. transplanted heart: [place] heart Associated angina: without angina Qualified Code(s): I25.10 - Atherosclerotic heart disease of [place] coronary artery without angina pectoris (10) Chronic respiratory failure with hypoxia Current Visit: No Status: Chronic (11) Left leg DVT Current Visit: Yes Status: Acute Qualifiers: Affected thrombotic vein of extremity: popliteal Chronicity: acute Qualified Code(s): I82.432 - Acute embolism and thrombosis of left popliteal vein (12) Morbid obesity with BMI of 40.0-44.9, adult Current Visit: No Status: Chronic (13) HLD (hyperlipidemia) Current Visit: Yes Status: Acute Qualifiers: Hyperlipidemia type: unspecified Qualified Code(s): E78.5 - Hyperlipidemia , unspecified - Time Spent With Patient Total time spent is greater than 50% in coordination of care (as documented) at patient's floor/unit and/or counseling patient:
[2018-04-04] MEDS ORDERED: Naloxone 0.4 MG/ML INJ IVP PRN (23:15)
[2018-04-05] MEDS ORDERED: NON-FORMULARY MEDICATION 1 EACH EACH (Oxygen [Oxygen] 2 L) NS PRN (01:14)
[2018-04-05] MEDS ORDERED: Dextrose Gel 15 GM/37.5 ML TUBE PO PRN ×2 (01:30)
[2018-04-05] MEDS ORDERED: *HR* Dextrose 50 % in Water (Syg) 50 ML SYRINGE IVP PRN (01:30)
[2018-04-05] MEDS ORDERED: D5% in Water 1,000 ML IVC PRN (03:11)
[2018-04-05 05:40] LABS: Basophils % 0.4 %; Eosinophils # 0.4 K/mcL (0.0-0.6); Eosinophils % 3.5 %; Hematocrit 32.2 % (37.5-50.1); Hemoglobin 9.8 g/dL (12.9-16.9); Immature Granulocytes % 0.4 % (0-4); Lymphocytes # 1.5 K/mcL (0.6-4.6); Lymphocytes % 15.2 %; Mean Corpuscular HGB Conc 30.4 g/dL (31.6-35.5); Mean Corpuscular Hemoglobin 27.8 pg (28.0-33.3); Mean Corpuscular Volume 91.5 fL (83.0-100.0); Mean Platelet Volume 9.1 fL (9.4-12.4); Monocytes % 9.9 %; Platelet Count 291 K/mcL (140-400); Red Blood Count 3.52 M/mcL (4.19-5.50); Red Cell Distribution Width 15.6 % (11.5-14.5); Segmented Neutrophils % 70.6 %
[2018-04-05 05:54] LABS: INR 2.9; Prothrombin Time 32.7 Seconds (9.4-12.1)
[2018-04-05 06:04] LABS: Alanine Aminotransferase 9 Units/L (7-52); Albumin 3.4 g/dL (3.5-5.7); Albumin/Globulin Ratio 1.3 (1.1-2.2); Alkaline Phosphatase 54 Units/L (34-104); Aspartate Amino Transferase 21 Units/L (13-39); BUN/Creatinine Ratio 17 (6-26); Bilirubin,Total 0.5 mg/dL (0.3-1.0); Blood Urea Nitrogen 21 mg/dL (8-23); Calcium 9.1 mg/dL (8.6-10.3); Carbon Dioxide 29 mEq/L (23-29); Chloride 106 mEq/L (98-107); Globulin 2.6 g/dL (2.4-3.5); Glucose 97 mg/dL (70-105); Osmolality,Calculated 297 (280-300); Potassium 3.4 mEq/L (3.5-5.1); Sodium 142 mEq/L (136-145); eGFR For African Americans > 60 (> 60); eGFR For Non-African Americans 56 (> 60)
[2018-04-05 06:06] LABS: Troponin I 0.04 ng/mL (< 0.04)
[2018-04-05] MEDS: Budesonide/Formoterol 160/4.5 MDI IH SCH ×2 (07:47→20:02)
[2018-04-05] MEDS: Aspirin Enteric Coated 81 MG Tablet PO SCH (08:36)
[2018-04-05] MEDS: Ascorbic Acid 500 MG TABLET PO SCH (08:37)
[2018-04-05] MEDS: Insulin LISPRO 300 UNITS/3 ML VIAL SQ SCH ×4 (08:37→20:56)
[2018-04-05] MEDS: Fenofibrate 54 MG TABLET PO SCH (08:37)
[2018-04-05] MEDS: Furosemide 40 MG/4 ML VIAL IVP SCH ×2 (08:37→17:51)
[2018-04-05 08:43] LABS: Estimated Average Glucose 137 mg/dl; Hemoglobin A1C 6.4 %
[2018-04-05] MEDS ORDERED: Furosemide 40 MG/4 ML VIAL IVP SCH (09:00)
[2018-04-05] MEDS ORDERED: *HR* Warfarin 1 MG TABLET PO SCH (09:00)
[2018-04-05 10:12] LABS: % Iron Saturation 6 % (20-55); Iron 35 mcg/dL (65-175); Lactate Dehydrogenase 173 Units/L (140-271); Transferrin 396 mg/dL (203-362)
[2018-04-05 10:27] LABS: Ferritin 22 ng/mL (20-250)
[2018-04-05 10:32] LABS: Folate 19.5 ng/mL (3.0-16.0)
--- NOTE | 2018-04-05 11:00 | Oncology Inp Consult Note ---
<Tone Culp - Last Filed: 04/05/18 11:34> Date of Encounter: 04/05/18 Time of Encounter: 09:30 Assessment and Plan (1) Left leg DVT Status: Acute Assessment and plan: Mr. Sequeira 82-year-old male with a history of DVT, PE and Raiford filter placed in 1993 presents with left lower extremity popliteal DVT and superficial thrombosis. Patient is therapeutic on Coumadin at the time of evaluation and states that he is not taking his Coumadin as prescribed. He is on Coumadin with his history of DVT/PE and atrial fibrillation- managed by [facility]. - Patient denies any inciting factors, abnormal sedimentation, surgeries or traumatic events preceding this DVT finding. - Unknown when he last had a DVT, has chronic bilateral lower extremity edema due to diastolic heart failure. - Patient states he is seeing hematology/oncology in the past but unsure when or by whom. - No known blood clotting disorders according to patient. - History of colonoscopy with polyps but no known history of colon cancer. Patient has previous abdominal surgery possible partial colectomy but unsure why. Plan: - Continue current anticoagulation. - Blood clotting workup including factor V Leiden, antiphospholipid antibody - Consider cancer workup, colonoscopy. Qualifiers: Affected thrombotic vein of extremity: popliteal Chronicity: acute Qualified Code(s): I82.432 - Acute embolism and thrombosis of left popliteal vein (2) Anemia Status: Acute Assessment and plan: Normocytic anemia, current hemoglobin 9.8. Iron studies demonstrate iron deficiency anemia. May be secondary to chronic disease but should consider colonoscopy for source of slow bleed. - Patient on chronic anticoagulation with INR of 3.2. - No need to replace PRBCs at this time, PRBC transfusion if hemoglobin 8.0 or below. - Risk-benefit as patient will likely need chronic anticoagulation, depending on source of anemia. Qualifiers: Anemia type: unspecified type Qualified Code(s): D64.9 - Anemia, unspecified - Data of Consult Patient: new to practice Consult date: 04/05/18 Requesting Physician: Ajith Hudson MD Primary Care Provider: Jose A Hernandez - Consult Narrative Reason for consult: DVT History of present illness: Mr. Sequeira is a 82 year old male with significant past neural history of recurrent DVTs, PE with current Raiford filter placed in 1993, coronary artery disease, previous NE and cardiac stenting, atrial fibrillation, diastolic heart failure with LVEF 60-65%, mild tricuspid regurgitation, mild pulmonary hypertension, hypertension, sleep apnea, COPD, pulmonary fibrosis. Patient was admitted from the emergency department with acute CHF exacerbation, Doppler was performed demonstrating a left lower extremity DVT while the patient is therapeutic on Coumadin with an INR of 3.2. Mr. Sequeira is a poor historian and is unable to appropriately stay his medical history and a accurate timeline. From what I gathered he has a history of DVT previous pulmonary embolism and a Dion filter placed several years back. He denies any recent known DVT and had an ultrasound done back in December of his lower extremities that was negative for DVTs. Since December he denies any sedentary activity or change in his activity. He does have limited mobility ambulates with a walker but tries to get up on his feet frequently. He denies any long travel, recent surgeries or traumatic injuries. With his previous DVT/ PE he is unsure if he has had any surgeries that were within appropriate timeline of their occurrence. 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 He denies any known history of cancer states that he had a colonoscopy done several years ago that polyps were found but denies any known history of cancer or any follow-up. He takes a daily aspirin but denies any Plavix use and states that he takes his Coumadin daily. When discussing family history he states his mom had lung cancer, his father of an aneurysm or possibly cancer, his sisters 2 both of cancer but unknown cause/type of cancer. With his current DVT he denies any pain in his lower extremity out of normal. He states that he has had chronic swelling in his lower extremities and he has not noticed any changes. The only new changes was shortness of breath that brought him to be emergency room. He denies any blood per rectum, dark tarry stools or known weight loss. She has maintained his appetite and follows up with cardiology for atrial fibrillation and diastolic heart failure regularly. Past Med Surg Social Fam HX - Past Medical History Medical history: atrial fibrillation, CHF, COPD, coronary artery disease, DVT, diabetes, GERD, hyperlipidemia, hypertension, myocardial infarction, pulmonary embolus, renal disease Psychiatric history: no psych history - Past Surgical History Surgical History: appendectomy, colectomy, knee replacement, LE stent(s), sinus surgery Additional surgical history: [place] filter, hemorrhoid procedure, 3 cardiac stents - Social History Smoking Status: Never smoker Smokeless Tobacco Status: No Alcohol use: none Drug use: none - Family History Mother Living Status: Hx Family Cardiac Disorders: Yes Hx Family Cancer: Yes Sister Living Status: Hx Family Cancer: Yes Father Living Status: Hx Family Cardiac Disorders: Yes (father, brother,sister,self) Hx Family Respiratory Disorders: Yes (self) Hx Family Cancer: Yes (sister,mother) Hx Family GI Disorders: Yes (brother) Hx Family Endocrine Disorder: Yes (father) Hx Family Neuromuscular Disorders: No Hx Family Neurologic Disorders: No Hx Family HEENT Disorders: No Hx Family Autoimmune Disorders: No Medications and Allergies Ascorbate Calcium [Vitamin C] 500 mg PO QAM 12/23/15 [History] Lovastatin 40 mg PO HS 12/23/15 [History] Multivit-Min/FA/Lycopen/Lutein [Centrum Silver Tablet] 1 each PO QAM 12/23/15 [ History] Omeprazole [PriLOSEC] 20 mg PO QAM 12/23/15 [History] Albuterol Sulfate [Ventolin Hfa] 2 puff IH Q4H PRN 01/20/17 [History] Oxygen 2 l NS AD PRN 06/25/17 [History] Acetylcysteine [Nac] 600 mg PO DAILY 08/05/17 [History] Budesonide/Formoterol 160/4.5 [Symbicort 160/4.5] 2 puff IH BIDR 08/05/17 [ History] Fenofibrate 160 mg PO DAILY 08/05/17 [History] Glimepiride [Amaryl] 2 mg PO DAILY 12/27/17 [History] Latanoprost [Xalatan] 1 drop OP HS 12/27/17 [History] Aspirin [Lo-Dose Aspirin EC] 81 mg PO DAILY 02/26/18 [History] Furosemide [Lasix] 40 mg PO BID #60 tab 03/03/18 [Rx] Acetaminophen [Acetaminophen ER] 650 mg PO BID 04/05/18 [History] Warfarin [Coumadin] 2.5 mg PO DAILY 04/05/18 [History] 3 Allergy/AdvReac Type Severity Reaction Status Date / Time No Known Allergies Allergy Verified 02/26/18 13:37 Review of systems: ROS Constitutional: Present: weakness. Absent: excessive sweating, fatigue, fever(s ), lethargy Eyes: Absent: change in vision Ears: Absent: decreased hearing Nose, mouth and throat: Absent: nasal discharge, neck pain, sore throat Cardiovascular: Present: dyspnea, dyspnea on exertion, edema, irregular heart rhythm, orthopnea. Absent: palpitations Respiratory: Present: cough, dyspnea on exertion. Absent: wheezing, pain with cough Gastrointestinal: Absent: abdominal pain, change in bowel habits, cramping, dysphagia, loose stools, melena, nausea, vomiting Musculoskeletal: Absent: atrophy, muscle weakness Neurological: Absent: confusion, dizziness, headache(s), loss of vision Oncology - Exam - Constitutional Vitals: Temp Pulse Resp BP Pulse Ox 98.3 F 74 15 130/78 96 04/05/18 10:35 04/05/18 10:35 04/05/18 10:35 04/05/18 10:35 04/05/18 10:35 Exam: General: Patient alert, awake, oriented 3, interactive, in no acute distress wearing oxygen HEENT: Normocephalic, atraumatic, pupils equal reactive to light, nasal cavity patent and open septum median position, oral mucosa moist, neck supple trachea midline no palpable lymphadenopathy, no thyromegaly. Chest: Symmetric bilateral correlating with respiratory effort, effort nonlabored. Cardiac: Irregularly irregular heart rate and rhythm Respiratory: Diffuse rhonchi Abdomen: Soft, nontender, positive bowel sounds, no palpable masses appreciated on examination Extremities: 2+ bilateral pitting edema Neurologic: No focal deficits appreciated on examination. Face symmetric, muscle strength symmetric bilateral upper and lower extremities. Oncology - Results Labs: 3 04/05/18 04/05/18 09:04 09:04 Iron 35 L % Saturation 6 L Transferrin 396 H Ferritin 22 Lactate Dehydrogenase 173 Vitamin B12 334 Folate 19.5 H Consult Discharge Plan - Plan Referrals: Jose A Hernandez DO [Primary Care Provider] - <Wilber Grover - Last Filed: 04/06/18 08:39> Date of Encounter: 04/06/18 - Data of Consult Requesting Physician: Ajith Hudson MD Primary Care Provider: Jose A Hernandez - Consult Narrative History of present illness: Mr. Sequeira is a 82 year old male Oncology - Exam - Constitutional Vitals: Temp Pulse Resp BP Pulse Ox 98.3 F 68 15 144/78 98 04/05/18 16:11 04/05/18 16:11 04/05/18 16:11 04/05/18 16:11 04/05/18 16:11 Oncology - Results Labs: 3 04/05/18 04/05/18 04/05/18 11:51 10:45 09:04 POC Glucose 148 H Iron % Saturation Transferrin Ferritin Lactate Dehydrogenase Troponin I 0.04 H* Vitamin B12 334 Folate 19.5 H 3 04/05/18 04/05/18 09:04 08:06 POC Glucose 111 H Iron 35 L % Saturation 6 L Transferrin 396 H Ferritin 22 Lactate Dehydrogenase 173 Troponin I Vitamin B12 Folate - Attending Attestation 1. Left lower extremity acute DVT by venous Doppler 04/04/2018. Left femoral and popliteal vein. He is fairly asymptomatic. Right-sided no DVT Previous IVC filter 1993 he had This DVT happened on therapeutic INR of 3.2. His renal function is borderline low with GFR 56 creatinine 1.23 area at He continued to have shortness of breath on diuretics Start heparin drip stop Coumadin Recommend transitioning him to Elequis 5 mg by mouth twice a day Once the blood clot resolves may reduce the dose Elequis to 2.5 mg twice a day. D-dimer normal at 418 04/06/2018 indicating low clot burden Secondary to renal insufficiency we would wait on doing CAT angiogram chest 2. Congestive heart failure. He is admitted with shortness of breath. He has bilateral lower extremity edema. He is getting diuretics. BNP only mildly elevated at 256 on 04/04/2018 3. Iron deficiency anemia hemoglobin around 9.9 with ferritin around 23 and saturation low. His hemoglobin use to B12 on June 2017 B12 folate normal. Check TSH. Venofer 250 mg IV one dose
--- NOTE | 2018-04-05 13:17 | Internal Med Progress Note ---
Date of Encounter: 04/05/18 Time of Encounter: 09:30 - Assessment and plan (1) Acute on chronic diastolic heart failure Current Visit: Yes Status: Acute Assessment and plan: Continue IV Lasix. Monitor input and output. Follow renal function closely. Fluid restriction to 1.5 L per day. Moderate risk for complications (2) Left leg DVT Current Visit: Yes Status: Acute Assessment and plan: Acute recurrent DVT. Consulted hematology for recommendations. For now continue Coumadin. Qualifiers: Affected thrombotic vein of extremity: popliteal Chronicity: acute Qualified Code(s): I82.432 - Acute embolism and thrombosis of left popliteal vein (3) Anemia Current Visit: Yes Status: Chronic Assessment and plan: Chronic anemia. Hemoglobin stable. Qualifiers: Anemia type: unspecified type Qualified Code(s): D64.9 - Anemia, unspecified (4) Atrial fibrillation Current Visit: Yes Status: Chronic Assessment and plan: Rate controlled. On anticoagulation with Coumadin. Qualifiers: Atrial fibrillation type: chronic Qualified Code(s): I48.2 - Chronic atrial fibrillation (5) COPD (chronic obstructive pulmonary disease) Current Visit: Yes Status: Chronic Assessment and plan: On bronchodilators as needed. Qualifiers: COPD type: unspecified COPD Qualified Code(s): J44.9 - Chronic obstructive pulmonary disease, unspecified (6) Hypertension Current Visit: Yes Status: Chronic Assessment and plan: Controlled at this time. Continue current medications Qualifiers: Hypertension type: essential hypertension Qualified Code(s): I10 - Essential (primary) hypertension (7) DVT prophylaxis Current Visit: Yes Status: Chronic Assessment and plan: On Coumadin. INR is therapeutic (8) Presence of IVC filter Current Visit: No Status: Chronic (9) Diabetes mellitus type 2 in obese Current Visit: Yes Status: Chronic Assessment and plan: Controlled. Continue current insulin regimen. Diabetic diet (10) CAD (coronary artery disease) Current Visit: Yes Status: Chronic Assessment and plan: Continue aspirin, statin Qualifiers: Coronary Disease-Associated Artery/Lesion type: [place] artery [place] vs. transplanted heart: [place] heart Associated angina: without angina Qualified Code(s): I25.10 - Atherosclerotic heart disease of [place] coronary artery without angina pectoris (11) Chronic respiratory failure with hypoxia Current Visit: Yes Status: Chronic Assessment and plan: Continue O2 supplementation (12) Morbid obesity with BMI of 40.0-44.9, adult Current Visit: No Status: Chronic (13) HLD (hyperlipidemia) Current Visit: Yes Status: Chronic Assessment and plan: continue Lipitor Qualifiers: Hyperlipidemia type: unspecified Qualified Code(s): E78.5 - Hyperlipidemia , unspecified - Time Spent With Patient Total time spent is greater than 50% in coordination of care (as documented) at patient's floor/unit and/or counseling patient: - Subjective Interval history: Patient is feeling better compared to yesterday. Still has significant swelling in his lower extremities. Denies any fevers or chills overnight. No chest pain or palpitations. - Constitutional Vitals: Temp Pulse Resp BP Pulse Ox 98.3 F 74 15 130/78 96 04/05/18 10:35 04/05/18 10:35 04/05/18 10:35 04/05/18 10:35 04/05/18 10:35 General appearance: Present: cooperative, A&O X 3, morbidly obese, pleasant, no acute distress, answers questions appropriately - Neck Neck exam general surgery: Present: supple, trachea midline. Absent: lymphadenopathy - Respiratory Respiratory exam: Present: decreased breath sounds (At both bases). Absent: accessory muscle use, rales, rhonchi, wheezes - Cardiovascular Cardiovascular exam: Present: RRR, +S1, +S2. Absent: diastolic murmur, gallop, rubs, systolic murmur - GI/Abdominal GI/Abdominal exam: Present: normal bowel sounds, soft, no peritoneal signs. Absent: distended, tenderness - Extremities Exam Extremities exam: Present: pedal edema, warm, radial pulses palpable and symmetrical. Absent: calf tenderness, cyanotic - Skin Skin exam: Present: dry, intact Internal Medicine: Result - Labs CBC & Chem 7: 04/05/18 05:07 04/05/18 05:07 Labs: Cardiac Enzymes 04/05/18 Range/Units 11:51 Troponin I 0.04 H* (< 0.04) ng/mL - ABG Interpretation ABG results: PT/INR, D-dimer PT 32.7 Seconds (9.4-12.1) H 04/05/18 05:07 Consult Discharge Plan - Plan Referrals: Jose A Hernandez DO [Primary Care Provider] -
[2018-04-05] MEDS ORDERED: *HR* Warfarin 1 MG TABLET PO ONE (18:00)
[2018-04-05] MEDS ORDERED: Warfarin perPT PO PRN (18:00)
[2018-04-05] MEDS ORDERED: *HR* Heparin 5,000 UNIT/ML VIAL IVP PRN ×2 (18:51)
[2018-04-05] MEDS ORDERED: *HR* Heparin 5,000 UNIT/ML VIAL IVP ONE (18:51)
[2018-04-05 20:23] LABS: Hematocrit 31.5 % (37.5-50.1); Hemoglobin 9.4 g/dL (12.9-16.9); Mean Corpuscular HGB Conc 29.8 g/dL (31.6-35.5); Mean Corpuscular Hemoglobin 27.2 pg (28.0-33.3); Mean Corpuscular Volume 91.3 fL (83.0-100.0); Mean Platelet Volume 9.1 fL (9.4-12.4); Platelet Count 303 K/mcL (140-400); Red Blood Count 3.45 M/mcL (4.19-5.50); Red Cell Distribution Width 15.6 % (11.5-14.5)
[2018-04-05 20:29] LABS: INR 2.7; Prothrombin Time 29.9 Seconds (9.4-12.1)
[2018-04-05] MEDS: Heparin 25,000 UNIT/500 ML D5W 25,000 UNIT/500 ML BAG IVC SCH (20:55)
[2018-04-06 03:35] LABS: Basophils # 0.1 K/mcL (0.0-0.2); Basophils % 0.5 %; Eosinophils # 0.4 K/mcL (0.0-0.6); Eosinophils % 4.3 %; Hematocrit 29.7 % (37.5-50.1); Immature Granulocytes % 0.4 % (0-4); Immature Platelets 1.5 % (1.1-6.1); Lymphocytes # 1.9 K/mcL (0.6-4.6); Lymphocytes % 19.9 %; Mean Corpuscular HGB Conc 30.3 g/dL (31.6-35.5); Mean Corpuscular Hemoglobin 27.5 pg (28.0-33.3); Mean Corpuscular Volume 90.8 fL (83.0-100.0); Mean Platelet Volume 9.2 fL (9.4-12.4); Monocytes # 0.9 K/mcL (0.0-1.3); Monocytes % 9.6 %; Neutrophils # 6.3 K/mcL (1.6-8.9); Platelet Count 294 K/mcL (140-400); Red Blood Count 3.27 M/mcL (4.19-5.50); Red Cell Distribution Width 15.6 % (11.5-14.5); Segmented Neutrophils % 65.3 %
[2018-04-06 03:48] LABS: Heparin anti-factor XA UFH 0.89 IU/mL (0.30-0.70); INR 2.8; Prothrombin Time 32.1 Seconds (9.4-12.1)
[2018-04-06 03:52] LABS: BUN/Creatinine Ratio 21 (6-26); Blood Urea Nitrogen 27 mg/dL (8-23); Calcium 8.8 mg/dL (8.6-10.3); Carbon Dioxide 27 mEq/L (23-29); Chloride 105 mEq/L (98-107); Glucose 147 mg/dL (70-105); Osmolality,Calculated 302 (280-300); Potassium 3.5 mEq/L (3.5-5.1); Sodium 142 mEq/L (136-145); eGFR For African Americans > 60 (> 60); eGFR For Non-African Americans 53 (> 60)
[2018-04-06] MEDS: Insulin LISPRO 300 UNITS/3 ML VIAL SQ SCH ×4 (07:30→21:33)
[2018-04-06] MEDS: Budesonide/Formoterol 160/4.5 MDI IH SCH ×2 (07:47→20:03)
--- NOTE | 2018-04-06 08:50 | Oncology Inp Progress Note ---
<Jamarilee annTone bonner - Last Filed: 04/07/18 11:10> Date of Encounter: 04/07/18 Time of Encounter: 08:50 (1) Left leg DVT Current Visit: Yes Status: Acute Assessment and plan: Mr. Sequeira 82-year-old male with a history of DVT, PE and Dion filter placed in 1993 presents with left lower extremity popliteal DVT and superficial thrombosis. DVT found while patient was therapeutic on Coumadin. - Patient denies any inciting factors, abnormal sedimentation, surgeries or traumatic events preceding this DVT finding. - Unknown when he last had a DVT, has chronic bilateral lower extremity edema due to diastolic heart failure. - Patient states he is seeing hematology/oncology in the past but unsure when or by whom. - No known blood clotting disorders according to patient. - History of colonoscopy with polyps but no known history of colon cancer. Patient has previous abdominal surgery possible partial colectomy but unsure why. Plan: - Discontinue Coumadin last evening - Continue heparin drip, monitor for any signs of bleeding. - Start Eliquis 5 mg twice a day with plans to follow with hematology in the outpatient setting and after lower extremity Doppler is negative will plan to reduce to 2.5 mg twice a day Qualifiers: Affected thrombotic vein of extremity: popliteal Chronicity: acute Qualified Code(s): I82.432 - Acute embolism and thrombosis of left popliteal vein (2) Anemia Current Visit: No Status: Acute Assessment and plan: Normocytic anemia, current hemoglobin 9.8. Iron studies demonstrate iron deficiency anemia. May be secondary to chronic disease but should consider colonoscopy for source of slow bleed. - Patient was on chronic anticoagulation with INR of 3.2. - No need to replace PRBCs at this time, PRBC transfusion if hemoglobin 8.0 or below. - IV iron sucrose 1 dose. - Risk-benefit as patient will likely need chronic anticoagulation. Qualifiers: Anemia type: unspecified type Qualified Code(s): D64.9 - Anemia, unspecified Oncology: Subj Interval history: Mr. Sequeira has been seen and evaluated up at [place] morning. He is alert awake interactive no acute distress sitting up at bedside. He states that his breathing is much better today and he feels less labored. He continues to have swelling in his lower extremities which she states is chronic. Denies any calf pain, new chest pains or other concerning events overnight. He understands the changes to his anticoagulation after our discussion he has no further questions at this time. - Constitutional Vitals: Vital Signs Temp Pulse Resp BP Pulse Ox 04/06/18 07:48 20 96 04/06/18 06:59 97.9 F 74 20 119/77 92 04/06/18 03:28 98.1 F 66 16 118/72 98 04/06/18 00:16 98.1 F 80 20 117/73 96 04/05/18 20:02 16 97 04/05/18 19:30 98.4 F 73 18 127/79 96 04/05/18 16:11 98.3 F 68 15 144/78 98 04/05/18 10:35 98.3 F 74 15 130/78 96 Intake and Output 04/05/18 04/06/18 04/06/18 23:59 07:59 15:59 Intake Total 452 / 452 360 / 360 Output Total 400 / 400 250 / 250 Balance -400 / -400 202 / 202 360 / 360 Intake: IV Fluids 452 / 452 Heparin 25,000 UNIT/500 ML D5W 452 / 452 25,000 unit In 500 ml @ 14 UNIT /KG/HR 35.601 mls/hr IVC . Q14H3M DAGOBERTO Rx#:[id number] Oral 360 / 360 Output: Urine 400 / 400 250 / 250 Other: Meal Breakfast Percent of Meal Consumed 100% # Voids 1 Weight 128.457 kg Blood Glucose* 159 120 Patient Weight 04/06/18 23:59 Weight 128.457 kg Exam: General: Patient alert, awake, oriented 3, interactive, in no acute distress HEENT: Normocephalic, atraumatic, pupils equal reactive to light, oral mucosa moist, Chest: Symmetric bilateral correlating with respiratory effort, effort nonlabored. Cardiac: Irregularly irregular heart rate and rhythm Respiratory: Crackles appreciated in bilateral lung bases, all other lung quintanilla clear to auscultation. Abdomen: Soft, nontender, positive bowel sounds, no palpable masses appreciated on examination Extremities: Symmetric bilateral, bilateral lower extremities 3+ pitting edema, no calf tenderness. Neurologic: No focal deficits appreciated on examination. Face symmetric, muscle strength symmetric bilateral upper and lower extremities. Oncology: Obj Data - Labs CBC & Chem 7: 04/07/18 05:52 04/07/18 05:52 Labs: Laboratory Results - last 24 hr 04/05/18 04/05/18 04/05/18 08:06 09:04 09:04 WBC RBC Hgb Hct MCV MCH MCHC RDW Plt Count MPV Immature Gran % Seg Neutrophils % Lymphocytes % Monocytes % Eosinophils % Basophils % Neutrophils # Lymphocytes # Monocytes # Eosinophils # Basophils # Immature Plt Fraction PT INR D-Dimer Heparin Anti-Xa, Unfract Sodium Potassium Chloride Carbon Dioxide BUN Creatinine Est GFR ( Amer) Est GFR (Non-Af Amer) BUN/Creatinine Ratio Glucose POC Glucose 111 H Calculated Osmolality Calcium Iron 35 L % Saturation 6 L Transferrin 396 H Ferritin 22 Lactate Dehydrogenase 173 Troponin I Vitamin B12 334 Folate 19.5 H [facility] 04/05/18 04/05/18 04/05/18 10:45 11:51 16:17 WBC RBC Hgb Hct MCV MCH MCHC RDW Plt Count MPV Immature Gran % Seg Neutrophils % Lymphocytes % Monocytes % Eosinophils % Basophils % Neutrophils # Lymphocytes # Monocytes # Eosinophils # Basophils # Immature Plt Fraction PT INR D-Dimer Heparin Anti-Xa, Unfract Sodium Potassium Chloride Carbon Dioxide BUN Creatinine Est GFR ( Amer) Est GFR (Non-Af Amer) BUN/Creatinine Ratio Glucose POC Glucose 148 H 121 H Calculated Osmolality Calcium Iron % Saturation Transferrin Ferritin Lactate Dehydrogenase Troponin I 0.04 H* Vitamin B12 Folate [facility] 04/05/18 04/05/18 04/05/18 19:28 19:51 19:51 WBC 9.1 RBC 3.45 L Hgb 9.4 L Hct 31.5 L MCV 91.3 MCH 27.2 L MCHC 29.8 L RDW 15.6 H Plt Count 303 MPV 9.1 L Immature Gran % Seg Neutrophils % Lymphocytes % Monocytes % Eosinophils % Basophils % Neutrophils # Lymphocytes # Monocytes # Eosinophils # Basophils # Immature Plt Fraction PT 29.9 H INR 2.7 D-Dimer Heparin Anti-Xa, Unfract 0.00 L Sodium Potassium Chloride Carbon Dioxide BUN Creatinine Est GFR ( Amer) Est GFR (Non-Af Amer) BUN/Creatinine Ratio Glucose POC Glucose 159 H Calculated Osmolality Calcium Iron % Saturation Transferrin Ferritin Lactate Dehydrogenase Troponin I Vitamin B12 Folate [facility] 04/06/18 04/06/18 04/06/18 03:13 03:13 03:13 WBC 9.6 RBC 3.27 L Hgb 9.0 L Hct 29.7 L MCV 90.8 MCH 27.5 L MCHC 30.3 L RDW 15.6 H Plt Count 294 MPV 9.2 L Immature Gran % 0.4 Seg Neutrophils % 65.3 Lymphocytes % 19.9 Monocytes % 9.6 Eosinophils % 4.3 Basophils % 0.5 Neutrophils # 6.3 Lymphocytes # 1.9 Monocytes # 0.9 Eosinophils # 0.4 Basophils # 0.1 Immature Plt Fraction 1.5 PT 32.1 H INR 2.8 D-Dimer Heparin Anti-Xa, Unfract Sodium 142 Potassium 3.5 Chloride 105 Carbon Dioxide 27 BUN 27 H Creatinine 1.29 Est GFR ( Amer) > 60 Est GFR (Non-Af Amer) 53 L BUN/Creatinine Ratio 21 Glucose 147 H POC Glucose Calculated Osmolality 302 H Calcium 8.8 Iron % Saturation Transferrin Ferritin Lactate Dehydrogenase Troponin I Vitamin B12 Folate TSH 04/06/18 04/06/18 03:13 03:13 WBC RBC Hgb Hct MCV MCH MCHC RDW Plt Count MPV Immature Gran % Seg Neutrophils % Lymphocytes % Monocytes % Eosinophils % Basophils % Neutrophils # Lymphocytes # Monocytes # Eosinophils # Basophils # Immature Plt Fraction PT INR D-Dimer 418 Heparin Anti-Xa, Unfract 0.89 H Sodium Potassium Chloride Carbon Dioxide BUN Creatinine Est GFR ( Amer) Est GFR (Non-Af Amer) BUN/Creatinine Ratio Glucose POC Glucose Calculated Osmolality Calcium Iron % Saturation Transferrin Ferritin Lactate Dehydrogenase Troponin I Vitamin B12 Folate TSH 5.062 - ABG Interpretation ABG results: PT/INR, D-dimer PT 32.1 Seconds (9.4-12.1) H 04/06/18 03:13 D-Dimer 418 ng/mLFEU (0-500) 04/06/18 03:13 Consult Discharge Plan - Plan Referrals: Jose A Hernandez DO [Primary Care Provider] - <Wilber Grover S - Last Filed: 04/07/18 18:15> Date of Encounter: 04/07/18 - Constitutional Vitals: Vital Signs Temp Pulse Resp BP Pulse Ox 04/07/18 16:14 98.1 F 71 19 160/83 96 04/07/18 11:06 97.7 F 65 18 139/74 95 04/07/18 09:20 98 04/07/18 07:50 16 93 04/07/18 06:30 97.5 F L 64 16 138/79 98 04/07/18 03:28 97.8 F 58 17 144/76 97 04/06/18 23:42 98.1 F 80 17 129/71 94 04/06/18 20:03 18 98 04/06/18 19:16 98.1 F 74 18 147/70 96 Intake and Output 04/07/18 04/07/18 04/07/18 07:59 15:59 23:59 Intake Total 1201 / 1201 240 / 240 Output Total 300 / 300 Balance 901 / 901 240 / 240 Intake: IV Fluids 261 / 261 Heparin 25,000 UNIT/500 ML D5W 261 / 261 25,000 unit In 500 ml @ 14 UNIT /KG/HR 35.601 mls/hr IVC . Q14H3M DAGOBERTO Rx#:[id number] Oral 940 / 940 240 / 240 Output: Urine 300 / 300 Other: Meal Lunch Dinner Percent of Meal Consumed 100% 80% # Voids 1 1 # Bowel Movements 1 Weight 133.4 kg Blood Glucose* 116 182 151 Patient Weight 04/07/18 23:59 Weight 133.4 kg Oncology: Obj Data - Labs CBC & Chem 7: 04/07/18 05:52 04/07/18 05:52 Labs: Laboratory Results - last 24 hr 04/05/18 04/06/18 04/06/18 09:04 07:06 11:18 WBC RBC Hgb Hct MCV MCH MCHC RDW Plt Count MPV Immature Gran % Seg Neutrophils % Lymphocytes % Monocytes % Eosinophils % Basophils % Neutrophils # Lymphocytes # Monocytes # Eosinophils # Basophils # PT INR Heparin Anti-Xa, Unfract Sodium Potassium Chloride Carbon Dioxide BUN Creatinine Est GFR ( Amer) Est GFR (Non-Af Amer) BUN/Creatinine Ratio Glucose POC Glucose 120 H 171 H Calculated Osmolality Calcium Free Clifford LC, Quant 4.28 H Free Lambda LC, Quant 2.91 H Free Clifford/Lambda Ratio 1.47 04/06/18 04/06/18 04/06/18 16:26 19:22 20:35 WBC RBC Hgb Hct MCV MCH MCHC RDW Plt Count MPV Immature Gran % Seg Neutrophils % Lymphocytes % Monocytes % Eosinophils % Basophils % Neutrophils # Lymphocytes # Monocytes # Eosinophils # Basophils # PT INR Heparin Anti-Xa, Unfract 0.34 Sodium Potassium Chloride Carbon Dioxide BUN Creatinine Est GFR ( Amer) Est GFR (Non-Af Amer) BUN/Creatinine Ratio Glucose POC Glucose 153 H 195 H Calculated Osmolality Calcium Free Clifford LC, Quant Free Lambda LC, Quant Free Clifford/Lambda Ratio 04/07/18 04/07/18 04/07/18 05:52 05:52 05:52 WBC 7.9 RBC 3.32 L Hgb 8.9 L Hct 30.0 L MCV 90.4 MCH 26.8 L MCHC 29.7 L RDW 15.9 H Plt Count 288 MPV 9.4 Immature Gran % 0.4 Seg Neutrophils % 59.5 Lymphocytes % 23.6 Monocytes % 9.3 Eosinophils % 6.6 Basophils % 0.6 Neutrophils # 4.7 Lymphocytes # 1.9 Monocytes # 0.7 Eosinophils # 0.5 Basophils # 0.1 PT 28.8 H INR 2.6 Heparin Anti-Xa, Unfract Sodium 141 Potassium 3.4 L Chloride 104 Carbon Dioxide 29 BUN 28 H Creatinine 1.25 Est GFR ( Amer) > 60 Est GFR (Non-Af Amer) 55 L BUN/Creatinine Ratio 22 Glucose 127 H POC Glucose Calculated Osmolality 299 Calcium 8.8 Free Clifford LC, Quant Free Lambda LC, Quant Free Clifford/Lambda Ratio - ABG Interpretation ABG results: PT/INR, D-dimer PT 28.8 Seconds (9.4-12.1) H 04/07/18 05:52 D-Dimer 418 ng/mLFEU (0-500) 04/06/18 03:13 - Attending Attestation I examined this patient and my medical decision-making was reviewed with the Advanced Practice Nurse. I agree with the documented findings, disposition and treatment plan as described except to the extent set forth below. 1. Acute versus subacute DVT left lower extremity. Normal d-dimer. Currently on heparin drip and transition to Eliquis 2. Congestive heart failure with shortness of breath. This is improving. Still has lower extremity edema actually right more than left
[2018-04-06] MEDS ORDERED: Iron Sucrose Complex 250 MG in 0.9 % Sodium Chloride 250 ML IVPB SCH (09:00)
[2018-04-06] MEDS: Aspirin Enteric Coated 81 MG Tablet PO SCH (09:07)
[2018-04-06] MEDS: Ascorbic Acid 500 MG TABLET PO SCH (09:07)
[2018-04-06] MEDS: Fenofibrate 54 MG TABLET PO SCH (09:07)
[2018-04-06] MEDS: Furosemide 40 MG/4 ML VIAL IVP SCH ×2 (09:07→17:20)
[2018-04-06] MEDS ORDERED: Iron Sucrose Complex 250 MG in 0.9 % Sodium Chloride 250 ML IVPB ONE (11:00)
[2018-04-06] MEDS ORDERED: Ferumoxytol 510 MG in 0.9 % Sodium Chloride 100 ML IVPB ONE (11:47)
--- NOTE | 2018-04-06 13:43 | Internal Med Progress Note ---
Date of Encounter: 04/06/18 Time of Encounter: 10:10 - Assessment and plan (1) Acute on chronic diastolic heart failure Current Visit: Yes Status: Acute Assessment and plan: IV Lasix. Improving pedal edema. On fluid restriction. O2 supplementation as needed. (2) Left leg DVT Current Visit: Yes Status: Acute Assessment and plan: On IV heparin per hematology. Possibly transitioning to eliquis. We will follow hematology recommendations. Qualifiers: Affected thrombotic vein of extremity: popliteal Chronicity: acute Qualified Code(s): I82.432 - Acute embolism and thrombosis of left popliteal vein (3) Anemia Current Visit: Yes Status: Chronic Assessment and plan: Ordered intravenous iron supplementation per hematology. Hemoglobin 9 today. Qualifiers: Anemia type: unspecified type Qualified Code(s): D64.9 - Anemia, unspecified (4) Atrial fibrillation Current Visit: Yes Status: Chronic Assessment and plan: Rate controlled. On anticoagulation. Qualifiers: Atrial fibrillation type: chronic Qualified Code(s): I48.2 - Chronic atrial fibrillation (5) COPD (chronic obstructive pulmonary disease) Current Visit: Yes Status: Chronic Assessment and plan: PFTs. Did not have any obstructive disease but did have decreased diffusion capacity suggestive of fibrosis/restrictive lung disease. Continue supportive care with bronchodilators. O2 supplementation. Qualifiers: COPD type: unspecified COPD Qualified Code(s): J44.9 - Chronic obstructive pulmonary disease, unspecified (6) Hypertension Current Visit: Yes Status: Chronic Assessment and plan: Well controlled. No changes to medication regimen at this time Qualifiers: Hypertension type: essential hypertension Qualified Code(s): I10 - Essential (primary) hypertension (7) DVT prophylaxis Current Visit: Yes Status: Chronic (8) Presence of IVC filter Current Visit: No Status: Chronic (9) Diabetes mellitus type 2 in obese Current Visit: Yes Status: Chronic Assessment and plan: Blood glucose fairly controlled. Continue current insulin regimen. (10) CAD (coronary artery disease) Current Visit: Yes Status: Chronic Assessment and plan: On aspirin, statin. Qualifiers: Coronary Disease-Associated Artery/Lesion type: [place] artery Three Aff[place] vs. transplanted heart: [place] heart Associated angina: without angina Qualified Code(s): I25.10 - Atherosclerotic heart disease of [place] coronary artery without angina pectoris (11) Chronic respiratory failure with hypoxia Current Visit: Yes Status: Chronic Assessment and plan: Aorta supplementation. (12) Morbid obesity with BMI of 40.0-44.9, adult Current Visit: Yes Status: Chronic (13) HLD (hyperlipidemia) Current Visit: Yes Status: Chronic Assessment and plan: Continue atorvastatin Qualifiers: Hyperlipidemia type: unspecified Qualified Code(s): E78.5 - Hyperlipidemia , unspecified - Time Spent With Patient Total time spent is greater than 50% in coordination of care (as documented) at patient's floor/unit and/or counseling patient: - Subjective Interval history: Patient reports no significant improvement although she does feel more comfortable. Has been having good urine output. Denies any chest pain or palpitations. No fever or chills reported overnight. No nausea or vomiting. - Constitutional Vitals: Temp Pulse Resp BP Pulse Ox 98.6 F 68 20 130/82 94 04/06/18 11:13 04/06/18 11:13 04/06/18 11:13 04/06/18 11:13 04/06/18 11:13 General appearance: Present: cooperative, A&O X 3, morbidly obese, pleasant, no acute distress, answers questions appropriately - Respiratory Respiratory exam: Present: prolonged expiratory phase, wheezes. Absent: accessory muscle use, rales, rhonchi - Cardiovascular Cardiovascular exam: Present: RRR, +S1, +S2. Absent: diastolic murmur, gallop, rubs, systolic murmur - Extremities Exam Extremities exam: Present: pedal edema, warm, radial pulses palpable and symmetrical. Absent: calf tenderness, cyanotic - Neurological Exam Neurological exam: Present: CN II-XII intact, oriented X3, no focal deficits. Absent: pronater drift, facial droop, speech deficit Internal Medicine: Result - Labs CBC & Chem 7: 04/06/18 03:13 04/06/18 03:13 Labs: Short CBC 04/05/18 04/06/18 Range/Units 19:51 03:13 WBC 9.1 9.6 (4.3-11.1) K/mcL Hgb 9.4 L 9.0 L (12.9-16.9) g/dL Hct 31.5 L 29.7 L (37.5-50.1) % Plt Count 303 294 (140-400) K/mcL Neutrophils # 6.3 (1.6-8.9) K/mcL BMP 04/06/18 03:13 Sodium 142 Potassium 3.5 Chloride 105 Carbon Dioxide 27 BUN 27 H Creatinine 1.29 Glucose 147 H Calcium 8.8 - ABG Interpretation ABG results: PT/INR, D-dimer PT 32.1 Seconds (9.4-12.1) H 04/06/18 03:13 D-Dimer 418 ng/mLFEU (0-500) 04/06/18 03:13 Consult Discharge Plan - Plan Referrals: Jose A Hernandez DO [Primary Care Provider] -
[2018-04-06] MEDS: Acetaminophen 325 MG TABLET PO PRN ×2 (14:02→21:48)
[2018-04-06] MEDS: Heparin 25,000 UNIT/500 ML D5W 25,000 UNIT/500 ML BAG IVC SCH (15:44)
--- NOTE | 2018-04-06 19:00 | Electrocardiograph Report ---
[place] [id number] Test Date: 2018-04-04 Pat Name: David Sequeira Department: 103 Room: 2A43 Gender: M Soap Tender: MEMO : 1935 Requested By: Geoff Burciaga Order Number: [id number] Reading MD: Ru Fleming Measurements Intervals [place] Rate: 80 P: IA: 0 QRS: -53 QRSD: 119 T: 79 QT: 365 QTc: 401 Interpretive Statements ATRIAL FIBRILLATION LEFT ANTERIOR FASCICULAR BLOCK Poor R wave progression INFERIOR MYOCARDIAL INFARCTION, PROBABLY OLD Electronically Signed On 04-06-2018 18:58:58 EDT by Ru Fleming
[2018-04-06 20:45] LABS: Kappa Qnt Free Light Chains 4.28 mg/dL (0.33-1.94); Lambda Qnt Free Light Chains 2.91 mg/dL (0.57-2.63)
[2018-04-07 06:25] LABS: Basophils # 0.1 K/mcL (0.0-0.2); Basophils % 0.6 %; Eosinophils # 0.5 K/mcL (0.0-0.6); Eosinophils % 6.6 %; Hemoglobin 8.9 g/dL (12.9-16.9); Immature Granulocytes % 0.4 % (0-4); Lymphocytes # 1.9 K/mcL (0.6-4.6); Lymphocytes % 23.6 %; Mean Corpuscular HGB Conc 29.7 g/dL (31.6-35.5); Mean Corpuscular Hemoglobin 26.8 pg (28.0-33.3); Mean Corpuscular Volume 90.4 fL (83.0-100.0); Mean Platelet Volume 9.4 fL (9.4-12.4); Monocytes # 0.7 K/mcL (0.0-1.3); Monocytes % 9.3 %; Neutrophils # 4.7 K/mcL (1.6-8.9); Platelet Count 288 K/mcL (140-400); Red Blood Count 3.32 M/mcL (4.19-5.50); Red Cell Distribution Width 15.9 % (11.5-14.5); Segmented Neutrophils % 59.5 %
[2018-04-07 06:29] LABS: INR 2.6; Prothrombin Time 28.8 Seconds (9.4-12.1)
[2018-04-07 06:39] LABS: BUN/Creatinine Ratio 22 (6-26); Blood Urea Nitrogen 28 mg/dL (8-23); Calcium 8.8 mg/dL (8.6-10.3); Carbon Dioxide 29 mEq/L (23-29); Chloride 104 mEq/L (98-107); Glucose 127 mg/dL (70-105); Osmolality,Calculated 299 (280-300); Potassium 3.4 mEq/L (3.5-5.1); Sodium 141 mEq/L (136-145); eGFR For African Americans > 60 (> 60); eGFR For Non-African Americans 55 (> 60)
[2018-04-07] MEDS: Insulin LISPRO 300 UNITS/3 ML VIAL SQ SCH ×4 (07:46→20:45)
[2018-04-07] MEDS: Budesonide/Formoterol 160/4.5 MDI IH SCH ×2 (07:50→20:28)
[2018-04-07] MEDS: Furosemide 40 MG/4 ML VIAL IVP SCH (08:58)
[2018-04-07] MEDS: Fenofibrate 54 MG TABLET PO SCH (08:59)
[2018-04-07] MEDS: Ascorbic Acid 500 MG TABLET PO SCH (09:00)
[2018-04-07] MEDS: Aspirin Enteric Coated 81 MG Tablet PO SCH (09:00)
[2018-04-07] MEDS: Acetaminophen 325 MG TABLET PO PRN (09:00)
[2018-04-07] MEDS: Heparin 25,000 UNIT/500 ML D5W 25,000 UNIT/500 ML BAG IVC SCH (09:20)
--- NOTE | 2018-04-07 11:08 | Oncology Inp Progress Note ---
<Tone Culp Fly - Last Filed: 04/07/18 11:04> Date of Encounter: 04/07/18 Time of Encounter: 09:45 (1) Left leg DVT Current Visit: Yes Status: Acute Assessment and plan: Mr. Sequeira 82-year-old male with a history of DVT, PE and Dion filter placed in 1993 presents with left lower extremity popliteal DVT and superficial thrombosis. DVT found while patient was therapeutic on Coumadin. - Patient denies any inciting factors, abnormal sedimentation, surgeries or traumatic events preceding this DVT finding. - Unknown when he last had a DVT, has chronic bilateral lower extremity edema due to diastolic heart failure. - Patient states he is seeing hematology/oncology in the past but unsure when or by whom. - No known blood clotting disorders according to patient. - History of colonoscopy with polyps but no known history of colon cancer. Patient has previous abdominal surgery possible partial colectomy but unsure why. Coumadin has been discontinued. INR 2.6 today trending down from 3.2 at admission. Plan: - Continue heparin drip, monitor for any signs of bleeding. - Start Eliquis 5 mg twice a day with plans to follow with hematology in the outpatient setting and after lower extremity Doppler is negative will plan to reduce to 2.5 mg twice a day Qualifiers: Affected thrombotic vein of extremity: popliteal Chronicity: acute Qualified Code(s): I82.432 - Acute embolism and thrombosis of left popliteal vein (2) Anemia Current Visit: No Status: Acute Assessment and plan: Normocytic anemia, current hemoglobin 9.8. Iron studies demonstrate iron deficiency anemia. May be secondary to chronic disease but should consider colonoscopy for source of slow bleed. - Patient was on chronic anticoagulation with INR of 3.2. - No need to replace PRBCs at this time, PRBC transfusion if hemoglobin 8.0 or below. - IV iron sucrose 1 dose. - Risk-benefit as patient will likely need chronic anticoagulation. Qualifiers: Anemia type: unspecified type Qualified Code(s): D64.9 - Anemia, unspecified Oncology: Subj Interval history: Mr. Sequeira has been seen and evaluated this morning. He is stable with improvement in his breathing. No acute events over night and tolerating heparin drip, agrees with plan for long-term anticoagulation. No further concerns from patient at this time. - Constitutional Vitals: Vital Signs Temp Pulse Resp BP Pulse Ox 07/12/18 09:20 98 04/07/18 06:30 97.5 F L 64 16 138/79 98 04/07/18 03:28 97.8 F 58 17 144/76 97 04/06/18 23:42 98.1 F 80 17 129/71 94 04/06/18 20:03 18 98 04/06/18 19:16 98.1 F 74 18 147/70 96 04/06/18 16:44 98.8 F 75 20 130/70 94 04/06/18 15:43 20 130/82 94 04/06/18 11:13 98.6 F 68 20 130/82 94 Intake and Output 04/06/18 04/07/18 04/07/18 23:59 07:59 15:59 Intake Total 599 / 599 361 / 361 Output Total 500 / 500 0 / 0 Balance 99 / 99 361 / 361 Intake: IV Fluids 239 / 239 261 / 261 Heparin 25,000 UNIT/500 ML D5W 239 / 239 261 / 261 25,000 unit In 500 ml @ 14 UNIT /KG/HR 35.601 mls/hr IVC . Q14H3M [facility] Rx#:[id number] Oral 360 / 360 100 / 100 Output: Urine 500 / 500 0 / 0 Other: Meal Dinner Percent of Meal Consumed 100% # Voids 1 # Bowel Movements 1 Weight 133.4 kg Blood Glucose* 195 116 Patient Weight 04/07/18 23:59 Weight 133.4 kg Exam: eneral: Patient alert, awake, oriented 3, interactive, in no acute distress HEENT: Normocephalic, atraumatic, pupils equal reactive to light, oral mucosa moist, Chest: Symmetric bilateral correlating with respiratory effort, effort nonlabored. Cardiac: Irregularly irregular heart rate and rhythm Respiratory: Crackles appreciated in bilateral lung bases, all other lung quintanilla clear to auscultation. Abdomen: Soft, nontender, positive bowel sounds, no palpable masses appreciated on examination Extremities: Symmetric bilateral, bilateral lower extremities 3+ pitting edema, no calf tenderness. Neurologic: No focal deficits appreciated on examination. Face symmetric, muscle strength symmetric bilateral upper and lower extremities. Oncology: Obj Data - Labs CBC & Chem 7: 04/07/18 05:52 04/07/18 05:52 Labs: Laboratory Results - last 24 hr 04/05/18 04/06/18 04/06/18 09:04 07:06 11:18 WBC RBC Hgb Hct MCV MCH MCHC RDW Plt Count MPV Immature Gran % Seg Neutrophils % Lymphocytes % Monocytes % Eosinophils % Basophils % Neutrophils # Lymphocytes # Monocytes # Eosinophils # Basophils # PT INR Heparin Anti-Xa, Unfract Sodium Potassium Chloride Carbon Dioxide BUN Creatinine Est GFR ( Amer) Est GFR (Non-Af Amer) BUN/Creatinine Ratio Glucose POC Glucose 120 H 171 H Calculated Osmolality Calcium Free [place] LC, Quant 4.28 H Free Lambda LC, Quant 2.91 H Free [place]/Lambda Ratio 1.47 04/06/18 04/06/18 04/06/18 12:23 16:26 19:22 WBC RBC Hgb Hct MCV MCH MCHC RDW Plt Count MPV Immature Gran % Seg Neutrophils % Lymphocytes % Monocytes % Eosinophils % Basophils % Neutrophils # Lymphocytes # Monocytes # Eosinophils # Basophils # PT INR Heparin Anti-Xa, Unfract 0.38 0.34 Sodium Potassium Chloride Carbon Dioxide BUN Creatinine Est GFR ( Amer) Est GFR (Non-Af Amer) BUN/Creatinine Ratio Glucose POC Glucose 153 H Calculated Osmolality Calcium Free [place] LC, Quant Free Lambda LC, Quant Free [place]/Lambda Ratio 04/06/18 04/07/18 04/07/18 20:35 05:52 05:52 WBC 7.9 RBC 3.32 L Hgb 8.9 L Hct 30.0 L MCV 90.4 MCH 26.8 L MCHC 29.7 L RDW 15.9 H Plt Count 288 MPV 9.4 Immature Gran % 0.4 Seg Neutrophils % 59.5 Lymphocytes % 23.6 Monocytes % 9.3 Eosinophils % 6.6 Basophils % 0.6 Neutrophils # 4.7 Lymphocytes # 1.9 Monocytes # 0.7 Eosinophils # 0.5 Basophils # 0.1 PT 28.8 H INR 2.6 Heparin Anti-Xa, Unfract Sodium Potassium Chloride Carbon Dioxide BUN Creatinine Est GFR ( Amer) Est GFR (Non-Af Amer) BUN/Creatinine Ratio Glucose POC Glucose 195 H Calculated Osmolality Calcium Free [place] LC, Quant Free Lambda LC, Quant Free [place]/Lambda Ratio 04/07/18 05:52 WBC RBC Hgb Hct MCV MCH MCHC RDW Plt Count MPV Immature Gran % Seg Neutrophils % Lymphocytes % Monocytes % Eosinophils % Basophils % Neutrophils # Lymphocytes # Monocytes # Eosinophils # Basophils # PT INR Heparin Anti-Xa, Unfract Sodium 141 Potassium 3.4 L Chloride 104 Carbon Dioxide 29 BUN 28 H Creatinine 1.25 Est GFR ( Amer) > 60 Est GFR (Non-Af Amer) 55 L BUN/Creatinine Ratio 22 Glucose 127 H POC Glucose Calculated Osmolality 299 Calcium 8.8 Free [place] LC, Quant Free Lambda LC, Quant Free [place]/Lambda Ratio - ABG Interpretation ABG results: PT/INR, D-dimer PT 28.8 Seconds (9.4-12.1) H 04/07/18 05:52 D-Dimer 418 ng/mLFEU (0-500) 04/06/18 03:13 Consult Discharge Plan - Plan Referrals: Jose A Hernandez DO [Primary Care Provider] - <Wilber Grover - Last Filed: 04/08/18 08:56> Date of Encounter: 04/08/18 - Constitutional Vitals: Vital Signs Temp Pulse Resp BP Pulse Ox 04/08/18 08:16 94 04/08/18 07:29 18 94 04/08/18 07:21 98.2 F 76 19 128/76 96 04/08/18 03:49 98.2 F 71 16 126/71 96 04/07/18 23:42 98.3 F 76 17 125/68 94 04/07/18 20:29 20 94 04/07/18 19:08 99.1 F 76 16 146/80 95 04/07/18 16:14 98.1 F 71 19 160/83 96 04/07/18 11:06 97.7 F 65 18 139/74 95 04/07/18 09:20 98 Intake and Output 04/07/18 04/08/18 04/08/18 23:59 07:59 15:59 Intake Total 560 / 560 300 / 300 104 / 104 Output Total 440 / 440 440 / 440 0 / 0 Balance 120 / 120 -140 / -140 104 / 104 Intake: IV Fluids 200 / 200 300 / 300 104 / 104 Heparin 25,000 UNIT/500 ML D5W 200 / 200 300 / 300 104 / 104 25,000 unit In 500 ml @ 14 UNIT /KG/HR 35.601 mls/hr IVC . Q14H3M [facility] Rx#:[id number] Oral 360 / 360 0 / 0 Output: Urine 440 / 440 440 / 440 0 / 0 Other: Meal Dinner Percent of Meal Consumed 80% Weight 133.4 kg Blood Glucose* 196 130 Oncology: Obj Data - Labs CBC & Chem 7: 04/08/18 03:12 04/08/18 03:12 Labs: Laboratory Results - last 24 hr 04/05/18 04/07/18 04/07/18 09:04 07:33 11:09 WBC RBC Hgb Hct MCV MCH MCHC RDW Plt Count MPV Immature Gran % Seg Neutrophils % Lymphocytes % Monocytes % Eosinophils % Basophils % Neutrophils # Lymphocytes # Monocytes # Eosinophils # Basophils # Nucleated RBCs/100 WBC Immature Plt Fraction PT INR Heparin Anti-Xa, Unfract Sodium Potassium Chloride Carbon Dioxide BUN Creatinine Est GFR ( Amer) Est GFR (Non-Af Amer) BUN/Creatinine Ratio Glucose POC Glucose 116 H 182 H Calculated Osmolality Calcium Prot Electrophor EER SEE NOTE Total Protein (PEP) 6.60 Albumin Albumin (PEP) 3.29 L Ehxhk-7-Rpbjqkxbx 0.41 Otrud-4-Dlklylrpg 1.00 Beta Globulins 1.00 Gamma Globulins 0.90 PEP Interpretation SEE NOTE Serum Immunofix Reflex NOT DONE IgG TNP IgA TNP IgM TNP 04/07/18 04/07/18 04/07/18 16:12 19:50 20:54 WBC RBC Hgb Hct MCV MCH MCHC RDW Plt Count MPV Immature Gran % Seg Neutrophils % Lymphocytes % Monocytes % Eosinophils % Basophils % Neutrophils # Lymphocytes # Monocytes # Eosinophils # Basophils # Nucleated RBCs/100 WBC Immature Plt Fraction PT INR Heparin Anti-Xa, Unfract 0.36 Sodium Potassium Chloride Carbon Dioxide BUN Creatinine Est GFR ( Amer) Est GFR (Non-Af Amer) BUN/Creatinine Ratio Glucose POC Glucose 151 H 196 H Calculated Osmolality Calcium Prot Electrophor EER Total Protein (PEP) Albumin Albumin (PEP) Orpyk-6-Ykxdmgyrn Igsnl-2-Oqyxkcyjd Beta Globulins Gamma Globulins PEP Interpretation Serum Immunofix Reflex IgG IgA IgM 04/08/18 04/08/18 04/08/18 03:12 03:12 03:12 WBC 9.4 RBC 3.36 L Hgb 9.2 L Hct 30.5 L MCV 90.8 MCH 27.4 L MCHC 30.2 L RDW 15.8 H Plt Count 303 MPV 9.1 L Immature Gran % 0.9 Seg Neutrophils % 69.6 Lymphocytes % 14.7 Monocytes % 7.5 Eosinophils % 7.0 Basophils % 0.3 Neutrophils # 6.5 Lymphocytes # 1.4 Monocytes # 0.7 Eosinophils # 0.7 H Basophils # 0.0 Nucleated RBCs/100 WBC 0.2 H Immature Plt Fraction 1.6 PT 27.9 H INR 2.5 Heparin Anti-Xa, Unfract Sodium 142 Potassium 3.8 Chloride 106 Carbon Dioxide 28 BUN 27 H Creatinine 1.38 H Est GFR ( Amer) 60 Est GFR (Non-Af Amer) 49 L BUN/Creatinine Ratio 20 Glucose 166 H POC Glucose Calculated Osmolality 303 H Calcium 8.9 Prot Electrophor EER Total Protein (PEP) Albumin Albumin (PEP) Fgbuw-3-Fzcwumwjt Qgsif-7-Mmqerlxkh Beta Globulins Gamma Globulins PEP Interpretation Serum Immunofix Reflex IgG IgA IgM 04/08/18 03:12 WBC RBC Hgb Hct MCV MCH MCHC RDW Plt Count MPV Immature Gran % Seg Neutrophils % Lymphocytes % Monocytes % Eosinophils % Basophils % Neutrophils # Lymphocytes # Monocytes # Eosinophils # Basophils # Nucleated RBCs/100 WBC Immature Plt Fraction PT INR Heparin Anti-Xa, Unfract Sodium Potassium Chloride Carbon Dioxide BUN Creatinine Est GFR ( Amer) Est GFR (Non-Af Amer) BUN/Creatinine Ratio Glucose POC Glucose Calculated Osmolality Calcium Prot Electrophor EER Total Protein (PEP) Albumin 3.2 L Albumin (PEP) Hhjop-0-Zbzlgdgep Kydsq-5-Sxzyusuax Beta Globulins Gamma Globulins PEP Interpretation Serum Immunofix Reflex IgG IgA IgM - ABG Interpretation ABG results: PT/INR, D-dimer PT 27.9 Seconds (9.4-12.1) H 04/08/18 03:12 D-Dimer 418 ng/mLFEU (0-500) 04/06/18 03:13 - Attending Attestation I examined this patient and my medical decision-making was reviewed with the Advanced Practice Nurse. I agree with the documented findings, disposition and treatment plan as described except to the extent set forth below. 1. Left lower activity DVT. Started on Elequis 5 mg by mouth twice a day. He will INR 2.5 and he is off Coumadin. Creatinine mildly increased to 1.3 at probably secondary to diuretics and we will continue to monitor that 2. CHF improving on medical management
[2018-04-07] MEDS ORDERED: Furosemide 40 MG/4 ML VIAL IVP SCH (16:35)
--- NOTE | 2018-04-07 16:44 | Internal Med Progress Note ---
Date of Encounter: 04/07/18 Time of Encounter: 11:20 - Assessment and plan (1) Acute on chronic diastolic heart failure Current Visit: Yes Status: Acute Assessment and plan: Patient having good urine output but still does have significant pedal edema. We will increase Lasix dose tonight. Monitor renal function closely. Advised to follow with restriction diet as prescribed. (2) Left leg DVT Current Visit: Yes Status: Acute Assessment and plan: Currently on IV heparin. Hematology plans to transition patient deny tomorrow. Qualifiers: Affected thrombotic vein of extremity: popliteal Chronicity: acute Qualified Code(s): I82.432 - Acute embolism and thrombosis of left popliteal vein (3) Anemia Current Visit: Yes Status: Chronic Assessment and plan: Hemoglobin 8.9 today. Stable. We will continue to follow. Qualifiers: Anemia type: unspecified type Qualified Code(s): D64.9 - Anemia, unspecified (4) Atrial fibrillation Current Visit: Yes Status: Chronic Assessment and plan: rate controlled. On anticoagulation with Coumadin. INR 2.6. Qualifiers: Atrial fibrillation type: chronic Qualified Code(s): I48.2 - Chronic atrial fibrillation (5) COPD (chronic obstructive pulmonary disease) Current Visit: Yes Status: Chronic Assessment and plan: Continue bronchodilators as needed. Qualifiers: COPD type: unspecified COPD Qualified Code(s): J44.9 - Chronic obstructive pulmonary disease, unspecified (6) Hypertension Current Visit: Yes Status: Chronic Assessment and plan: Blood pressure is elevated today. Will place patient on lisinopril. Qualifiers: Hypertension type: essential hypertension Qualified Code(s): I10 - Essential (primary) hypertension (7) DVT prophylaxis Current Visit: Yes Status: Chronic Assessment and plan: On Coumadin. INR is therapeutic (8) Presence of IVC filter Current Visit: No Status: Chronic (9) Diabetes mellitus type 2 in obese Current Visit: Yes Status: Chronic Assessment and plan: Sugars are well controlled. Continue current insulin regimen (10) CAD (coronary artery disease) Current Visit: Yes Status: Chronic Assessment and plan: Patient is on aspirin and statin. Qualifiers: Coronary Disease-Associated Artery/Lesion type: [place] artery [place] vs. transplanted heart: [place] heart Associated angina: without angina Qualified Code(s): I25.10 - Atherosclerotic heart disease of [place] coronary artery without angina pectoris (11) Chronic respiratory failure with hypoxia Current Visit: Yes Status: Chronic Assessment and plan: Continue O2 supplementation (12) Morbid obesity with BMI of 40.0-44.9, adult Current Visit: Yes Status: Chronic (13) HLD (hyperlipidemia) Current Visit: Yes Status: Chronic Assessment and plan: Continue tricor. Qualifiers: Hyperlipidemia type: unspecified Qualified Code(s): E78.5 - Hyperlipidemia , unspecified - Time Spent With Patient Total time spent is greater than 50% in coordination of care (as documented) at patient's floor/unit and/or counseling patient: - Subjective Interval history: Patient doing well. He denies any chest pain. Shortness of breath is improving. He just feels tired. Having good urine output. - Constitutional Vitals: Temp Pulse Resp BP Pulse Ox 98.1 F 71 19 160/83 96 04/07/18 16:14 04/07/18 16:14 04/07/18 16:14 04/07/18 16:14 04/07/18 16:14 General appearance: Present: cooperative, A&O X 3, morbidly obese, pleasant, no acute distress, answers questions appropriately - Respiratory Respiratory exam: Present: CTAB. Absent: accessory muscle use, rales, rhonchi, wheezes - Cardiovascular Cardiovascular exam: Present: RRR, +S1, +S2. Absent: diastolic murmur, gallop, rubs, systolic murmur - GI/Abdominal GI/Abdominal exam: Present: normal bowel sounds, soft, no peritoneal signs. Absent: distended, tenderness - Extremities Exam Extremities exam: Present: pedal edema, warm, radial pulses palpable and symmetrical. Absent: calf tenderness, cyanotic - Neurological Exam Neurological exam: Present: alert, oriented X3, no focal deficits. Absent: facial droop, speech deficit Internal Medicine: Result - Labs CBC & Chem 7: 04/07/18 05:52 04/07/18 05:52 Labs: Short CBC 04/07/18 Range/Units 05:52 WBC 7.9 (4.3-11.1) K/mcL Hgb 8.9 L (12.9-16.9) g/dL Hct 30.0 L (37.5-50.1) % Plt Count 288 (140-400) K/mcL Neutrophils # 4.7 (1.6-8.9) K/mcL BMP 04/07/18 05:52 Sodium 141 Potassium 3.4 L Chloride 104 Carbon Dioxide 29 BUN 28 H Creatinine 1.25 Glucose 127 H Calcium 8.8 - ABG Interpretation ABG results: PT/INR, D-dimer PT 28.8 Seconds (9.4-12.1) H 04/07/18 05:52 D-Dimer 418 ng/mLFEU (0-500) 04/06/18 03:13 Consult Discharge Plan - Plan Referrals: Jose A Hernandez DO [Primary Care Provider] -
[2018-04-08 03:24] LABS: Basophils % 0.3 %; Eosinophils # 0.7 K/mcL (0.0-0.6); Hematocrit 30.5 % (37.5-50.1); Hemoglobin 9.2 g/dL (12.9-16.9); Immature Granulocytes % 0.9 % (0-4); Immature Platelets 1.6 % (1.1-6.1); Lymphocytes # 1.4 K/mcL (0.6-4.6); Lymphocytes % 14.7 %; Mean Corpuscular HGB Conc 30.2 g/dL (31.6-35.5); Mean Corpuscular Hemoglobin 27.4 pg (28.0-33.3); Mean Corpuscular Volume 90.8 fL (83.0-100.0); Mean Platelet Volume 9.1 fL (9.4-12.4); Monocytes # 0.7 K/mcL (0.0-1.3); Monocytes % 7.5 %; Neutrophils # 6.5 K/mcL (1.6-8.9); Nucleated Red Blood Cells 0.2 /100 WBC (0); Platelet Count 303 K/mcL (140-400); Red Blood Count 3.36 M/mcL (4.19-5.50); Red Cell Distribution Width 15.8 % (11.5-14.5); Segmented Neutrophils % 69.6 %
[2018-04-08 03:40] LABS: Calcium 8.9 mg/dL (8.6-10.3); Potassium 3.8 mEq/L (3.5-5.1)
[2018-04-08] MEDS: Heparin 25,000 UNIT/500 ML D5W 25,000 UNIT/500 ML BAG IVC SCH ×2 (03:49→03:58)
[2018-04-08 04:28] LABS: INR 2.5; Prothrombin Time 27.9 Seconds (9.4-12.1)
[2018-04-08] MEDS: Budesonide/Formoterol 160/4.5 MDI IH SCH (07:29)
[2018-04-08] MEDS ORDERED: Furosemide 40 MG TABLET PO SCH (08:00)
[2018-04-08 08:02] LABS: IFE Reflexed NOT DONE
[2018-04-08] MEDS: Insulin LISPRO 300 UNITS/3 ML VIAL SQ SCH ×2 (08:04→12:15)
[2018-04-08] MEDS: Fenofibrate 54 MG TABLET PO SCH (08:08)
[2018-04-08] MEDS: Ascorbic Acid 500 MG TABLET PO SCH (08:08)
[2018-04-08] MEDS: Aspirin Enteric Coated 81 MG Tablet PO SCH (08:08)
[2018-04-08] MEDS: Acetaminophen 325 MG TABLET PO PRN (08:09)
--- NOTE | 2018-04-08 08:55 | Oncology Inp Progress Note ---
<Tone Culp - Last Filed: 04/08/18 09:40> Date of Encounter: 04/08/18 Time of Encounter: 08:47 (1) Left leg DVT Status: Acute Assessment and plan: Mr. Sequeira 82-year-old male with a history of DVT, PE and [place] filter placed in 1993 presents with left lower extremity popliteal DVT and superficial thrombosis. DVT found while patient was therapeutic on Coumadin. - Patient denies any inciting factors, abnormal sedimentation, surgeries or traumatic events preceding this DVT finding. - Unknown when he last had a DVT, has chronic bilateral lower extremity edema due to diastolic heart failure. - No known blood clotting disorders according to patient. - History of colonoscopy with polyps but no known history of colon cancer. Patient has previous abdominal surgery possible partial colectomy but unsure why. Plan: - Start Eliquis 5 mg twice a day (started 04/08) with plans to follow with hematology in the outpatient setting and after lower extremity Doppler is negative will plan to reduce to 2.5 mg twice a day Qualifiers: Affected thrombotic vein of extremity: popliteal Chronicity: acute Qualified Code(s): I82.432 - Acute embolism and thrombosis of left popliteal vein (2) Anemia Status: Acute Assessment and plan: Normocytic anemia, current hemoglobin 9.8. Iron studies demonstrate iron deficiency anemia. May be secondary to chronic disease but should consider colonoscopy for source of slow bleed. - Patient was on chronic anticoagulation with INR of 3.2 at admission, INR 2.5 today. - No need to replace PRBCs at this time, PRBC transfusion if hemoglobin 8.0 or below. - Risk-benefit as patient will likely need chronic anticoagulation. Qualifiers: Anemia type: unspecified type Qualified Code(s): D64.9 - Anemia, unspecified Oncology: Subj Interval history: Mr. Sequeira has been seen and evaluated this morning. He is doing well, tolerated Eliquis 5mg this morning without complaint. He states he is feeling improved and looking forward to discharge. Denies any acute events or concerns over night. - Constitutional Vitals: Vital Signs Temp Pulse Resp BP Pulse Ox 04/08/18 08:16 94 04/08/18 07:29 18 94 04/08/18 07:21 98.2 F 76 19 128/76 96 04/08/18 03:49 98.2 F 71 16 126/71 96 07/12/18 23:42 98.3 F 76 17 125/68 94 04/07/18 20:29 20 94 04/07/18 19:08 99.1 F 76 16 146/80 95 04/07/18 16:14 98.1 F 71 19 160/83 96 04/07/18 11:06 97.7 F 65 18 139/74 95 04/07/18 09:20 98 Intake and Output 04/07/18 04/08/18 04/08/18 23:59 07:59 15:59 Intake Total 560 / 560 300 / 300 104 / 104 Output Total 440 / 440 440 / 440 0 / 0 Balance 120 / 120 -140 / -140 104 / 104 Intake: IV Fluids 200 / 200 300 / 300 104 / 104 Heparin 25,000 UNIT/500 ML D5W 200 / 200 300 / 300 104 / 104 25,000 unit In 500 ml @ 14 UNIT /KG/HR 35.601 mls/hr IVC . Q14H3M [facility] Rx#:[id number] Oral 360 / 360 0 / 0 Output: Urine 440 / 440 440 / 440 0 / 0 Other: Meal Dinner Percent of Meal Consumed 80% Weight 133.4 kg Blood Glucose* 196 130 Exam: General: Patient alert, awake, oriented 3, interactive, in no acute distress HEENT: Normocephalic, atraumatic, pupils equal reactive to light, oral mucosa moist, Chest: Symmetric bilateral correlating with respiratory effort, effort nonlabored. Cardiac: Irregularly irregular heart rate and rhythm Respiratory:CTABL Abdomen: Soft, nontender, positive bowel sounds, no palpable masses appreciated on examination Extremities: Symmetric bilateral, bilateral lower extremities 2+ pitting edema, no calf tenderness. anasarca Neurologic: No focal deficits appreciated on examination. Face symmetric, muscle strength symmetric bilateral upper and lower extremities. Oncology: Obj Data - Labs CBC & Chem 7: 04/08/18 03:12 04/08/18 03:12 Labs: Laboratory Results - last 24 hr 04/05/18 04/07/18 04/07/18 09:04 07:33 11:09 WBC RBC Hgb Hct MCV MCH MCHC RDW Plt Count MPV Immature Gran % Seg Neutrophils % Lymphocytes % Monocytes % Eosinophils % Basophils % Neutrophils # Lymphocytes # Monocytes # Eosinophils # Basophils # Nucleated RBCs/100 WBC Immature Plt Fraction PT INR Heparin Anti-Xa, Unfract Sodium Potassium Chloride Carbon Dioxide BUN Creatinine Est GFR ( Amer) Est GFR (Non-Af Amer) BUN/Creatinine Ratio Glucose POC Glucose 116 H 182 H Calculated Osmolality Calcium Prot Electrophor EER SEE NOTE Total Protein (PEP) 6.60 Albumin Albumin (PEP) 3.29 L Yltwz-5-Wfufywkqn 0.41 Agupd-3-Yzcxsxzwx 1.00 Beta Globulins 1.00 Gamma Globulins 0.90 PEP Interpretation SEE NOTE Serum Immunofix Reflex NOT DONE IgG TNP IgA TNP IgM TNP 04/07/18 04/07/18 04/07/18 16:12 19:50 20:54 WBC RBC Hgb Hct MCV MCH MCHC RDW Plt Count MPV Immature Gran % Seg Neutrophils % Lymphocytes % Monocytes % Eosinophils % Basophils % Neutrophils # Lymphocytes # Monocytes # Eosinophils # Basophils # Nucleated RBCs/100 WBC Immature Plt Fraction PT INR Heparin Anti-Xa, Unfract 0.36 Sodium Potassium Chloride Carbon Dioxide BUN Creatinine Est GFR ( Amer) Est GFR (Non-Af Amer) BUN/Creatinine Ratio Glucose POC Glucose 151 H 196 H Calculated Osmolality Calcium Prot Electrophor EER Total Protein (PEP) Albumin Albumin (PEP) Lpwug-2-Rgukkxalm Przmh-0-Dnibywdxo Beta Globulins Gamma Globulins PEP Interpretation Serum Immunofix Reflex IgG IgA IgM 04/08/18 04/08/18 04/08/18 03:12 03:12 03:12 WBC 9.4 RBC 3.36 L Hgb 9.2 L Hct 30.5 L MCV 90.8 MCH 27.4 L MCHC 30.2 L RDW 15.8 H Plt Count 303 MPV 9.1 L Immature Gran % 0.9 Seg Neutrophils % 69.6 Lymphocytes % 14.7 Monocytes % 7.5 Eosinophils % 7.0 Basophils % 0.3 Neutrophils # 6.5 Lymphocytes # 1.4 Monocytes # 0.7 Eosinophils # 0.7 H Basophils # 0.0 Nucleated RBCs/100 WBC 0.2 H Immature Plt Fraction 1.6 PT 27.9 H INR 2.5 Heparin Anti-Xa, Unfract Sodium 142 Potassium 3.8 Chloride 106 Carbon Dioxide 28 BUN 27 H Creatinine 1.38 H Est GFR ( Amer) 60 Est GFR (Non-Af Amer) 49 L BUN/Creatinine Ratio 20 Glucose 166 H POC Glucose Calculated Osmolality 303 H Calcium 8.9 Prot Electrophor EER Total Protein (PEP) Albumin Albumin (PEP) Azuhd-9-Gmjdnefjz Lbnvq-2-Kqtalgfkx Beta Globulins Gamma Globulins PEP Interpretation Serum Immunofix Reflex IgG IgA IgM 04/08/18 03:12 WBC RBC Hgb Hct MCV MCH MCHC RDW Plt Count MPV Immature Gran % Seg Neutrophils % Lymphocytes % Monocytes % Eosinophils % Basophils % Neutrophils # Lymphocytes # Monocytes # Eosinophils # Basophils # Nucleated RBCs/100 WBC Immature Plt Fraction PT INR Heparin Anti-Xa, Unfract Sodium Potassium Chloride Carbon Dioxide BUN Creatinine Est GFR ( Amer) Est GFR (Non-Af Amer) BUN/Creatinine Ratio Glucose POC Glucose Calculated Osmolality Calcium Prot Electrophor EER Total Protein (PEP) Albumin 3.2 L Albumin (PEP) Yeegn-7-Arxwwfwrd Xwhxn-3-Dozthtxbp Beta Globulins Gamma Globulins PEP Interpretation Serum Immunofix Reflex IgG IgA IgM - ABG Interpretation ABG results: PT/INR, D-dimer PT 27.9 Seconds (9.4-12.1) H 04/08/18 03:12 D-Dimer 418 ng/mLFEU (0-500) 04/06/18 03:13 Consult Discharge Plan - Plan Instructions: Heart Failure (DC), Peripheral Vascular Disorders (DC), Anemia ( GEN) Referrals: Jose A Heranndez DO [Primary Care Provider] - (In one to 2 weeks) Wilber Grover MD [Partnered Physician] - (In one to 2 weeks) George Olvera DO [Partnered Physician] - (Follow-up within 1 week ) Prescriptions: Apixaban [Eliquis] 5 mg PO BID #60 tablet <Wilber Grover - Last Filed: 04/08/18 17:25> Date of Encounter: 04/08/18 - Constitutional Vitals: Vital Signs Temp Pulse Resp BP Pulse Ox 04/08/18 11:06 98.3 F 72 16 113/72 89 04/08/18 08:16 94 04/08/18 07:29 18 94 04/08/18 07:21 98.2 F 76 19 128/76 96 04/08/18 03:49 98.2 F 71 16 126/71 96 04/07/18 23:42 98.3 F 76 17 125/68 94 04/07/18 20:29 20 94 04/07/18 19:08 99.1 F 76 16 146/80 95 Intake and Output 04/08/18 04/08/18 04/08/18 07:59 15:59 23:59 Intake Total 300 / 300 714 / 714 Output Total 440 / 440 0 / 0 Balance -140 / -140 714 / 714 Intake: IV Fluids 300 / 300 354 / 354 ALBURX 5% 12.5 gm In 250 ml @ 250 / 250 60 mls/hr IVC .Q4H10M [facility] Rx#: [id number] Heparin 25,000 UNIT/500 ML D5W 300 / 300 104 / 104 25,000 unit In 500 ml @ 14 UNIT /KG/HR 35.601 mls/hr IVC . Q14H3M [facility] Rx#:[id number] Oral 360 / 360 Output: Urine 440 / 440 0 / 0 Other: Meal Lunch Percent of Meal Consumed 100% Stool Size Moderate Stool Consistency formed Stool Color Brown # Voids 1 Blood Glucose* 130 159 Oncology: Obj Data - Labs CBC & Chem 7: 04/08/18 03:12 04/08/18 03:12 Labs: Laboratory Results - last 24 hr 04/05/18 04/07/18 04/07/18 09:04 07:33 11:09 WBC RBC Hgb Hct MCV MCH MCHC RDW Plt Count MPV Immature Gran % Seg Neutrophils % Lymphocytes % Monocytes % Eosinophils % Basophils % Neutrophils # Lymphocytes # Monocytes # Eosinophils # Basophils # Nucleated RBCs/100 WBC Immature Plt Fraction PT INR Heparin Anti-Xa, Unfract Sodium Potassium Chloride Carbon Dioxide BUN Creatinine Est GFR ( Amer) Est GFR (Non-Af Amer) BUN/Creatinine Ratio Glucose POC Glucose 116 H 182 H Calculated Osmolality Calcium Prot Electrophor EER SEE NOTE Total Protein (PEP) 6.60 Albumin Albumin (PEP) 3.29 L Lwjia-1-Pcbueqdcy 0.41 Qjrgn-9-Kklpyocia 1.00 Beta Globulins 1.00 Gamma Globulins 0.90 PEP Interpretation SEE NOTE Serum Immunofix Reflex NOT DONE IgG TNP IgA TNP IgM TNP 04/07/18 04/07/18 04/07/18 16:12 19:50 20:54 WBC RBC Hgb Hct MCV MCH MCHC RDW Plt Count MPV Immature Gran % Seg Neutrophils % Lymphocytes % Monocytes % Eosinophils % Basophils % Neutrophils # Lymphocytes # Monocytes # Eosinophils # Basophils # Nucleated RBCs/100 WBC Immature Plt Fraction PT INR Heparin Anti-Xa, Unfract 0.36 Sodium Potassium Chloride Carbon Dioxide BUN Creatinine Est GFR ( Amer) Est GFR (Non-Af Amer) BUN/Creatinine Ratio Glucose POC Glucose 151 H 196 H Calculated Osmolality Calcium Prot Electrophor EER Total Protein (PEP) Albumin Albumin (PEP) Rfnvd-6-[place] Evjfl-0-Mjkcbzwsq Beta Globulins Gamma Globulins PEP Interpretation Serum Immunofix Reflex IgG IgA IgM 04/08/18 04/08/18 04/08/18 03:12 03:12 03:12 WBC 9.4 RBC 3.36 L Hgb 9.2 L Hct 30.5 L MCV 90.8 MCH 27.4 L MCHC 30.2 L RDW 15.8 H Plt Count 303 MPV 9.1 L Immature Gran % 0.9 Seg Neutrophils % 69.6 Lymphocytes % 14.7 Monocytes % 7.5 Eosinophils % 7.0 Basophils % 0.3 Neutrophils # 6.5 Lymphocytes # 1.4 Monocytes # 0.7 Eosinophils # 0.7 H Basophils # 0.0 Nucleated RBCs/100 WBC 0.2 H Immature Plt Fraction 1.6 PT 27.9 H INR 2.5 Heparin Anti-Xa, Unfract Sodium 142 Potassium 3.8 Chloride 106 Carbon Dioxide 28 BUN 27 H Creatinine 1.38 H Est GFR ( Amer) 60 Est GFR (Non-Af Amer) 49 L BUN/Creatinine Ratio 20 Glucose 166 H POC Glucose Calculated Osmolality 303 H Calcium 8.9 Prot Electrophor EER Total Protein (PEP) Albumin Albumin (PEP) Tvbdq-1-Tomqavyyl Wqmuz-2-Trmjctjwo Beta Globulins Gamma Globulins PEP Interpretation Serum Immunofix Reflex IgG IgA IgM 04/08/18 04/08/18 03:12 11:31 WBC RBC Hgb Hct MCV MCH MCHC RDW Plt Count MPV Immature Gran % Seg Neutrophils % Lymphocytes % Monocytes % Eosinophils % Basophils % Neutrophils # Lymphocytes # Monocytes # Eosinophils # Basophils # Nucleated RBCs/100 WBC Immature Plt Fraction PT INR Heparin Anti-Xa, Unfract Sodium Potassium Chloride Carbon Dioxide BUN Creatinine Est GFR ( Amer) Est GFR (Non-Af Amer) BUN/Creatinine Ratio Glucose POC Glucose 159 H Calculated Osmolality Calcium Prot Electrophor EER Total Protein (PEP) Albumin 3.2 L Albumin (PEP) Regui-6-Iwhjugajb Zfsqe-4-Fpsyvtofk Beta Globulins Gamma Globulins PEP Interpretation Serum Immunofix Reflex IgG IgA IgM - ABG Interpretation ABG results: PT/INR, D-dimer PT 27.9 Seconds (9.4-12.1) H 04/08/18 03:12 D-Dimer 418 ng/mLFEU (0-500) 04/06/18 03:13 - Attending Attestation I examined this patient and my medical decision-making was reviewed with the Advanced Practice Nurse. I agree with the documented findings, disposition and treatment plan as described except to the extent set forth below. 1. Left lower activity DVT acute versus subacute. D-dimer normal. He was on heparin drip and transitioned to Elequis 5 mg by mouth twice a day before discharge. We will follow him as an outpatient 2.Congestive heart failure improved with diuretics. Serum albumin 3.2 on 2017 . He got 1 dose of IV albumin today
[2018-04-08] MEDS ORDERED: Apixaban 5 MG TABLET PO SCH (09:00)
[2018-04-08 11:08] VITALS: BP 113/72
--- NOTE | 2018-04-08 12:20 | Discharge Summary ---
- NOTES TO OUTPATIENT PROVIDER Notes to Outpatient Provider: Patient hospitalized here with acute on chronic diastolic heart failure and left lower extremity DVT. Patient was on Coumadin and his INR was therapeutic but he still developed DVT. As such he is now being transitioned to eliquis. He was also given intravenous Lasix for his congestive heart failure with improvement in his overall symptoms. He does continue to have pedal edema although it is much improved. He will be discharged back to skilled rehabilitation later today on oral Lasix and he will follow up with cardiology for further management as outpatient. Orders not resulted at time of discharge: Pending orders 04/08/18 19:50 Heparin anti-factor XA UFH [COAG] Timed 04/09/18 04:00 PT/INR [Prothrombin Time INR] [COAG] AM 0400 Date of Encounter: 04/08/18 Time of Encounter: 12:13 - Discharge Diagnosis (1) Acute on chronic diastolic heart failure Priority: Primary Status: Acute (2) Left leg DVT Priority: Secondary Status: Acute Qualifiers: Affected thrombotic vein of extremity: popliteal Chronicity: acute Qualified Code(s): I82.432 - Acute embolism and thrombosis of left popliteal vein (3) Anemia Priority: Secondary Status: Chronic Qualifiers: Anemia type: iron deficiency Iron deficiency anemia type: unspecified iron deficiency Qualified Code(s): D50.9 - Iron deficiency anemia, unspecified (4) Atrial fibrillation Priority: Secondary Status: Chronic Qualifiers: Atrial fibrillation type: chronic Qualified Code(s): I48.2 - Chronic atrial fibrillation (5) COPD (chronic obstructive pulmonary disease) Priority: Secondary Status: Chronic Qualifiers: COPD type: unspecified COPD Qualified Code(s): J44.9 - Chronic obstructive pulmonary disease, unspecified (6) Hypertension Priority: Secondary Status: Chronic Qualifiers: Hypertension type: essential hypertension Qualified Code(s): I10 - Essential (primary) hypertension (7) DVT prophylaxis Priority: Secondary Status: Chronic (8) Presence of IVC filter Priority: Secondary Status: Chronic (9) Diabetes mellitus type 2 in obese Priority: Secondary Status: Chronic (10) CAD (coronary artery disease) Priority: Secondary Status: Chronic Qualifiers: Coronary Disease-Associated Artery/Lesion type: [place] artery [place] vs. transplanted heart: solomon heart Associated angina: without angina Qualified Code(s): I25.10 - Atherosclerotic heart disease of solomon coronary artery without angina pectoris (11) Chronic respiratory failure with hypoxia Priority: Secondary Status: Chronic (12) Morbid obesity with BMI of 40.0-44.9, adult Priority: Secondary Status: Chronic (13) HLD (hyperlipidemia) Priority: Secondary Status: Chronic Qualifiers: Hyperlipidemia type: unspecified Qualified Code(s): E78.5 - Hyperlipidemia , unspecified Hospital course: Mr. Sequeira is a 82 year old male Patient with history of atrial fibrillation, PVD, coronary artery disease, diabetes, hypertension who was hospitalized here with acute on chronic diastolic heart failure and left lower extremity DVT. Patient was on Coumadin and his INR was therapeutic but he still developed DVT. As such he is now being transitioned to eliquis. He was also given intravenous Lasix for his congestive heart failure with improvement in his overall symptoms. He does continue to have pedal edema although it is much improved. He will be discharged back to skilled rehabilitation later today on oral Lasix and he will follow up with cardiology for further management as outpatient. Discharge discussed with: patient, nurse, case management - Time Spent with Patient Total time spent providing and/or coordinating discharge services: Greater than 30 minutes (40 min) - Discharge Medications Prescriptions: Apixaban [Eliquis] 5 mg PO BID #60 tablet Home Medications: Ascorbate Calcium [Vitamin C] 500 mg PO QAM 12/23/15 [History] Lovastatin 40 mg PO HS 12/23/15 [History] Multivit-Min/FA/Lycopen/Lutein [Centrum Silver Tablet] 1 each PO QAM 12/23/15 [ History] Omeprazole [PriLOSEC] 20 mg PO QAM 12/23/15 [History] Albuterol Sulfate [Ventolin Hfa] 2 puff IH Q4H PRN 01/20/17 [History] Oxygen 2 l NS AD PRN 06/25/17 [History] Acetylcysteine [Nac] 600 mg PO DAILY 08/05/17 [History] Budesonide/Formoterol 160/4.5 [Symbicort 160/4.5] 2 puff IH BIDR 08/05/17 [ History] Fenofibrate 160 mg PO DAILY 08/05/17 [History] Glimepiride [Amaryl] 2 mg PO DAILY 12/27/17 [History] Latanoprost [Xalatan] 1 drop OP HS 12/27/17 [History] Aspirin [Lo-Dose Aspirin EC] 81 mg PO DAILY 02/26/18 [History] Acetaminophen [Acetaminophen ER] 650 mg PO BID 04/05/18 [History] Warfarin [Coumadin] 2.5 mg PO DAILY 04/05/18 [History] Apixaban [Eliquis] 5 mg PO BID #60 tablet 04/08/18 [Rx] Furosemide [Lasix] 40 mg PO BIDDIURETIC tablet 04/08/18 [Rx] Potassium Chloride 20 meq PO BIDWM tab.er.prt 04/08/18 [Rx] Allergies/Adverse Reactions: 3 Allergy/AdvReac Type Severity Reaction Status Date / Time No Known Allergies Allergy Verified 02/26/18 13:37 Date of admission: 04/05/18 06:14 Primary care physician: Jose A Hernandez Consults: 04/05/18 09:52 Consult to Comic Writer [CONS] Routine Reason for Consult: n [facility] Discharging clinician: Ajith Hudson Anticipated date of discharge: 04/08/18 - Constitutional Vitals: Temp Pulse Resp BP Pulse Ox 98.3 F 72 16 113/72 89 04/08/18 11:06 04/08/18 11:06 04/08/18 11:06 04/08/18 11:06 04/08/18 11:06 General appearance: Present: cooperative, A&O X 3, morbidly obese, pleasant, no acute distress, answers questions appropriately - Respiratory Respiratory exam: Present: prolonged expiratory phase. Absent: accessory muscle use, rales, rhonchi, wheezes - Cardiovascular Cardiovascular exam: Present: RRR, +S1, +S2. Absent: diastolic murmur, gallop, rubs, systolic murmur - GI/Abdominal GI/Abdominal exam: Present: normal bowel sounds, soft, no peritoneal signs. Absent: distended, tenderness - Extremities Exam Extremities exam: Present: pedal edema, warm, radial pulses palpable and symmetrical. Absent: calf tenderness, cyanotic - Patient Status Disposition: Transfer SNF Condition: Good Functional capacity at discharge: bed bound Overall status at discharge: patient is progressing back to baseline - Discharge Instructions Instructions: Heart Failure (DC), Peripheral Vascular Disorders (DC), Anemia ( GEN) Follow Up With: Jose A Hernandez, DO [Primary Care Provider] - (In one to 2 weeks) George Olvera DO [Partnered Physician] - (Follow-up within 1 week ) Wilber Grover MD [Partnered Physician] - (In one to 2 weeks) Forms: ED Satisfaction Letter - Diet and Activity Activity: increase activity as tolerated, wear oxygen at all times Diet: diabetic diet, low salt diet, other (Fluid restriction to 1.5 L per day)
--- NOTE | 2018-04-08 12:38 | Physician Discharge Referral ---
ExtendedCare Referral Info Provider in Charge after Transfer: PCP Institutional Level of Care: Skilled - Diagnosis (1) Acute on chronic diastolic heart failure Priority: Primary Status: Acute (2) Left leg DVT Priority: Secondary Status: Acute (3) Anemia Priority: Secondary Status: Chronic (4) Atrial fibrillation Priority: Secondary Status: Chronic (5) COPD (chronic obstructive pulmonary disease) Priority: Secondary Status: Chronic (6) Hypertension Priority: Secondary Status: Chronic (7) DVT prophylaxis Priority: Secondary Status: Chronic (8) Presence of IVC filter Priority: Secondary Status: Chronic (9) Diabetes mellitus type 2 in obese Priority: Secondary Status: Chronic (10) CAD (coronary artery disease) Priority: Secondary Status: Chronic (11) Chronic respiratory failure with hypoxia Priority: Secondary Status: Chronic (12) Morbid obesity with BMI of 40.0-44.9, adult Priority: Secondary Status: Chronic (13) HLD (hyperlipidemia) Priority: Secondary Status: Chronic Prognosis: Fair Aware of Diagnosis: Patient Aware of Prognosis: Patient - Transfer Medications Prescriptions: Apixaban [Eliquis] 5 mg PO BID #60 tablet Home Medications: Ascorbate Calcium [Vitamin C] 500 mg PO QAM 12/23/15 [History] Lovastatin 40 mg PO HS 12/23/15 [History] Multivit-Min/FA/Lycopen/Lutein [Centrum Silver Tablet] 1 each PO QAM 12/23/15 [ History] Omeprazole [PriLOSEC] 20 mg PO QAM 12/23/15 [History] Albuterol Sulfate [Ventolin Hfa] 2 puff IH Q4H PRN 01/20/17 [History] Oxygen 2 l NS AD PRN 06/25/17 [History] Acetylcysteine [Nac] 600 mg PO DAILY 08/05/17 [History] Budesonide/Formoterol 160/4.5 [Symbicort 160/4.5] 2 puff IH BIDR 08/05/17 [ History] Fenofibrate 160 mg PO DAILY 08/05/17 [History] Glimepiride [Amaryl] 2 mg PO DAILY 12/27/17 [History] Latanoprost [Xalatan] 1 drop OP HS 12/27/17 [History] Aspirin [Lo-Dose Aspirin EC] 81 mg PO DAILY 02/26/18 [History] Acetaminophen [Acetaminophen ER] 650 mg PO BID 04/05/18 [History] Warfarin [Coumadin] 2.5 mg PO DAILY 04/05/18 [History] Apixaban [Eliquis] 5 mg PO BID #60 tablet 04/08/18 [Rx] Furosemide [Lasix] 40 mg PO BIDDIURETIC tablet 04/08/18 [Rx] Potassium Chloride 20 meq PO BIDWM tab.er.prt 04/08/18 [Rx] Allergies/Adverse Reactions: 3 Allergy/AdvReac Type Severity Reaction Status Date / Time No Known Allergies Allergy Verified 02/26/18 13:37 - Respiratory Orders Oxygen / L per min (Keep sat >90%) Smoking Cessation: Smoking cessation has been advised. For more information, call the [place] Tobacco Quit Line at 4-880-BUMP-NOW. - Ancillary Orders May consult with Dentist, Snuff Container Inspector, Recreation Therapy Aide PRN - Advance Directives Code Status: Full Code - Mobility Orders Other (Per PT eval) - Rehabiliation Orders Rehab Potential: Fair Rehab Orders: Evaluation for Physical Therapy, Evaluation for Occupational Therapy - Treatments Skin tear care topically daily PRN per policy - Diet Orders Cardiac (October restriction to 1.5 L per day) CERTIFICATION: I certify that the transfer of the above named patient to an Extended Care Facility is necessary for the continuing treatment of the diagnosis listed. The above information is true and accurate reflection of patient's current condition. Confidential - Redisclosure prohibited without a patient's written consent.
== END 2018-04-08 14:50 | DRG 299 ==
LOC: EMEROO 19:02 → 2ANU 19:02 → SUATTDRO 04-05 06:14
PROVIDERS: ADMIT Internal Medicine; ATTEND Internal Medicine

== ENCOUNTER 2018-05-31 15:41 | Inpatient (IN) ==
--- NOTE | 2018-05-31 16:08 | Emergency Department Note ---
Disposition Clinical Impression: Acute and chronic respiratory failure Qualifiers: Respiratory failure complication: hypoxia Qualified Code(s): J96.21 - Acute and chronic respiratory failure with hypoxia Acute exacerbation of CHF (congestive heart failure) Qualifiers: Heart failure type: unspecified Qualified Code(s): I50.9 - Heart failure, unspecified Disposition: Admitted As Inpatient Condition: Fair Time of Disposition: 20:52 General Adult HPI - General Chief complaint: ED Shortness of Breath/Dyspnea Stated complaint: SOB Time Seen by Provider: 05/31/18 16:01 Source: patient, EMS Mode of arrival: EMS Limitations: no limitations Nursing Notes Reviewed: Yes Vital Signs Reviewed: Yes - History of Present Illness HPI Narrative: Patient is an 82-year-old male with a past medical history of CHF, COPD, interstitial lung disease, DVT, IVC filter presents to the emergency Department by squad from [facility] for evaluation of dyspnea that started today. The patient was brought in by squad in which they stay upon arrival to the [facility] the patient's oxygen saturation was 85% on 4 L nasal cannula. They state they placed him immediately on 6 L nasal cannula and the patient's oxygen saturation came up to the low 90s. The patient states that his dyspnea has been gradual in onset and most notable today. He states that he has had a nonproductive cough, however this is chronic for him and denies any changes to the cough. He denies any fevers, nausea, vomiting, diaphoresis, chest pain, back pain or abdominal pain. Denies any lower extremity swelling. States that he has been compliant with his home medications is unsure of his dosage of Lasix. States he is on blood thinners Eliquis and he has an IVC filter. Pain Scale: 0 - Related Data Home Medications Medication Instructions Recorded Confirmed Lovastatin 40 mg PO HS 12/23/15 05/31/18 Multivit-Min/FA/Lycopen/Lutein 1 each PO QAM 12/23/15 05/31/18 [Centrum Silver Tablet] Omeprazole [PriLOSEC] 20 mg PO QAM 12/23/15 05/31/18 Acetylcysteine [Nac] 600 mg PO DAILY 08/05/17 05/31/18 Budesonide/Formoterol 160/4.5 2 puff IH BIDR 08/05/17 05/31/18 [Symbicort 160/4.5] Fenofibrate 160 mg PO DAILY 08/05/17 05/31/18 Glimepiride [Amaryl] 2 mg PO DAILY 12/27/17 05/31/18 Latanoprost [Xalatan] 1 drop OP HS 12/27/17 05/31/18 Acetaminophen [Non-Aspirin] 650 mg PO BID 04/09/18 05/31/18 Aspirin 81 mg PO DAILY 04/09/18 05/31/18 Previous Rx's Medication Instructions Recorded Apixaban [Eliquis] 5 mg PO BID #60 tablet 04/08/18 Potassium Chloride 20 meq PO BIDWM tab.er.prt 04/08/18 Furosemide [Lasix] 40 mg PO DAILY 30 Days #90 tablet 04/15/18 Oxygen 4 l NS AD PRN #0 04/15/18 predniSONE [PredniSONE] 40 mg PO DAILY tablet 04/15/18 Allergies Allergy/AdvReac Type Severity Reaction Status Date / Time No Known Allergies Allergy Verified 04/09/18 11:34 All systems ED: reviewed and negative except as stated. Review of Systems: As Per HPI Constitutional: Denies: fever, chills Cardiovascular: Reports: dyspnea on exertion. Denies: chest pain, palpitations Respiratory: Reports: cough, dyspnea. Denies: wheezes, hemoptysis Gastrointestinal: Denies: abdominal pain, nausea, vomiting Genitourinary: Denies: urgency, dysuria Musculoskeletal: Denies: back pain, neck pain Past Medical History - Past Medical History Attestation: Yes The following information was validated with the patient. Medical history: Reports: atrial fibrillation, CHF, COPD, coronary artery disease, DVT, diabetes, GERD, hyperlipidemia, hypertension, myocardial infarction, pulmonary embolus, renal disease Surgical history: Reports: appendectomy, colectomy, knee replacement, LE stent(s ), sinus surgery Psychiatric history: Reports: no psych history - Social History Smoking Status: Never smoker Smokeless Tobacco Status: No Alcohol use: Reports: none Drug use: Reports: none Physical Exam CONSTITUTIONAL: A&O X 3, mild respiratory distress requiring 5 L nasal cannula at 92%. HEAD: Normocephalic; atraumatic EYES: PERRL, no scleral icterus NOSE: The nose is normal in appearance without rhinorrhea NECK: No JVD or distended neck veins RESP: Tachypnea; rales in bilateral bases. CARD: Regular rhythm, without murmurs, rub or gallop ABD: Non-distended; non-tender, soft, without rigidity, rebound or guarding,no pulsatile mass CHEST: No pain with palpation SKIN: Normal for age and race; warm and dry without diaphoresis ; no apparent lesions EXTREMITIES: Pulses are 2 plus and equal times 4 extremities, no peripheral edema or calf muscle pain - General Limitations: no limitations General appearance: alert, in no apparent distress Course Course Narrative: Patient was recently discharged from the hospital on 04/15/18 which she was treated for acute and chronic respiratory failure. At that time he had his oxygen requirements increased from 2 L to 4 L. Is also treated with IV steroids and discharged home on a taper for what appears to be CHF on top of interstitial lung disease.during that stay he was also found to be in acute on chronic kidney injury with an elevated creatinine. Patient did have rales in bilateral bases on lung exam however no lower extremity edema. Patient signed symptoms are not consistent with a COPD exacerbation at this time. Plan at this times to rule out ACS versus acute CHF exacerbation. According to patient' s chart in the squad patient takes 120 mg of Lasix daily 80 mg in the morning and 40 mg in the evening. We will wait for patient's metabolic panel to return to evaluate kidney function order to give the patient additional dose of IV Lasix. Patient agrees with this plan. - Reevaluation(s) Reevaluation #1: Patient's lab work and imaging has returned. Troponin was 0.05 which is consistent with patient's prior troponins. Kidney function was normal on labs. The patient's chest x-ray did show signs of mild edema on top of interstitial lung disease. Discussed plan with the patient at this time is to give him an IV dose of his nighttime Lasix and then reevaluate and determine disposition. Time: 18:01 Reevaluation #2: Patient received 40 mg of Lasix IV in the emergency department had a mild amount of urine shortly after administration. However, the patient's symptoms have not improved back to his baseline. I discussed the patient's family plan to admit him to the hospital for CHF exacerbation. Patient and patient's family agree with the plan. Also had a code discussion with the patient's and patient's states that she he is a Full Code. Patient accepted by Dr. Crenshaw. Time: 20:53 Vital Signs Temperature 98.4 F 05/31/18 15:57 Pulse Rate 84 05/31/18 15:57 Respiratory Rate 24 05/31/18 15:57 Blood Pressure 131/72 05/31/18 15:57 O2 Sat by Pulse Oximetry 93 05/31/18 15:57 Temperature 98.8 F 05/31/18 22:28 Pulse Rate 81 05/31/18 22:28 Respiratory Rate 21 05/31/18 23:00 Blood Pressure 105/39 05/31/18 22:28 O2 Sat by Pulse Oximetry 96 05/31/18 23:00 Oxygen Delivery Oxygen Delivery Nasal Cannula Medical Decision Making - Medical Records Medical records reviewed: Yes I reviewed the patient's medical records. - Lab Data Lab results reviewed: Yes I reviewed the patient's lab results. Result diagrams: 06/01/18 00:26 06/01/18 00:26 Lab Results 05/31/18 05/31/18 05/31/18 Range/Units 16:35 16:35 16:35 WBC 13.5 H (4.3-11.1) K/mcL RBC 4.23 (4.19-5.50) M/mcL Hgb 11.5 L (12.9-16.9) g/dL Hct 37.5 (37.5-50.1) % MCV 88.7 (83.0-100.0) fL MCH 27.2 L (28.0-33.3) pg MCHC 30.7 L (31.6-35.5) g/dL RDW 18.4 H (11.5-14.5) % Plt Count 385 (140-400) K/mcL MPV 9.1 L (9.4-12.4) fL Immature Gran % 1.9 (0-4) % Seg Neutrophils % 79.4 % Lymphocytes % 10.5 % Monocytes % 6.0 % Eosinophils % 1.9 % Basophils % 0.3 % Neutrophils # 10.7 H (1.6-8.9) K/mcL Lymphocytes # 1.4 (0.6-4.6) K/mcL Monocytes # 0.8 (0.0-1.3) K/mcL Eosinophils # 0.3 (0.0-0.6) K/mcL Basophils # 0.0 (0.0-0.2) K/mcL Nucleated RBCs/100 WBC 0.1 H (0) /100 WBC Sodium 139 (136-145) mEq/L Potassium 3.7 (3.5-5.1) mEq/L Chloride 98 (98-107) mEq/L Carbon Dioxide 30 H (23-29) mEq/L BUN 34 H (8-23) mg/dL Creatinine 1.28 (0.70-1.30) mg/dL Est GFR ( Amer) > 60 (> 60) Est GFR (Non-Af Amer) 54 L (> 60) BUN/Creatinine Ratio 27 H (6-26) Glucose 96 (70-105) mg/dL Calculated Osmolality 295 (280-300) Calcium 9.4 (8.6-10.3) mg/dL Troponin I 0.05 H* (< 0.04) ng/mL B-Natriuretic Peptide 135 H (Less than 100) pg/mL - Radiology Data Radiology results reviewed: Yes I reviewed the patient's radiology results. Chest X-Ray 05/31/18 16:01 IMPRESSION: Mild interstitial edema suspected superimposed on chronic findings of pulmonary fibrosis. Stable mild cardiomegaly. D/ / Kumar Bob MD / Kumar Bob MD Interpreting Provider: Kumar Bob MD - EKG Data EKG #1 EKG attestation: Yes I reviewed and interpreted this EKG. EKG results narrative: EKG done at 16:100 shows atrial fibrillation at a rate of 86 bpm. Left bundle- branch block. Unchanged from old EKG done on April 092017.
[2018-05-31 17:06] LABS: Basophils % 0.3 %; Eosinophils # 0.3 K/mcL (0.0-0.6); Eosinophils % 1.9 %; Hematocrit 37.5 % (37.5-50.1); Hemoglobin 11.5 g/dL (12.9-16.9); Immature Granulocytes % 1.9 % (0-4); Lymphocytes # 1.4 K/mcL (0.6-4.6); Lymphocytes % 10.5 %; Mean Corpuscular HGB Conc 30.7 g/dL (31.6-35.5); Mean Corpuscular Hemoglobin 27.2 pg (28.0-33.3); Mean Corpuscular Volume 88.7 fL (83.0-100.0); Mean Platelet Volume 9.1 fL (9.4-12.4); Monocytes # 0.8 K/mcL (0.0-1.3); Neutrophils # 10.7 K/mcL (1.6-8.9); Nucleated Red Blood Cells 0.1 /100 WBC (0); Platelet Count 385 K/mcL (140-400); Red Blood Count 4.23 M/mcL (4.19-5.50); Red Cell Distribution Width 18.4 % (11.5-14.5); Segmented Neutrophils % 79.4 %
[2018-05-31] MEDS ORDERED: Aspirin 325 MG TABLET PO ONE (17:22)
[2018-05-31 17:27] LABS: Troponin I 0.05 ng/mL (< 0.04)
--- NOTE | 2018-05-31 17:42 | Emergency Department Note ---
Disposition Clinical Impression: Acute and chronic respiratory failure Qualifiers: Respiratory failure complication: hypoxia Qualified Code(s): J96.21 - Acute and chronic respiratory failure with hypoxia Acute exacerbation of CHF (congestive heart failure) Qualifiers: Heart failure type: unspecified Qualified Code(s): I50.9 - Heart failure, unspecified Disposition: Admitted As Inpatient Condition: Fair General Adult HPI - General Chief complaint: ED Shortness of Breath/Dyspnea Stated complaint: SOB Time Seen by Provider: 05/31/18 16:01 Source: patient, EMS Mode of arrival: EMS Limitations: no limitations - History of Present Illness Pain Scale: 0 - Related Data Home Medications Medication Instructions Recorded Confirmed Lovastatin 40 mg PO HS 12/23/15 05/31/18 Multivit-Min/FA/Lycopen/Lutein 1 each PO QAM 12/23/15 05/31/18 [Centrum Silver Tablet] Omeprazole [PriLOSEC] 20 mg PO QAM 12/23/15 05/31/18 Acetylcysteine [Nac] 600 mg PO DAILY 08/05/17 05/31/18 Budesonide/Formoterol 160/4.5 2 puff IH BIDR 08/05/17 05/31/18 [Symbicort 160/4.5] Fenofibrate 160 mg PO DAILY 08/05/17 05/31/18 Glimepiride [Amaryl] 2 mg PO DAILY 12/27/17 05/31/18 Latanoprost [Xalatan] 1 drop OP HS 12/27/17 05/31/18 Acetaminophen [Non-Aspirin] 650 mg PO BID 04/09/18 05/31/18 Aspirin 81 mg PO DAILY 04/09/18 05/31/18 Previous Rx's Medication Instructions Recorded Apixaban [Eliquis] 5 mg PO BID #60 tablet 04/08/18 Potassium Chloride 20 meq PO BIDWM tab.er.prt 04/08/18 Furosemide [Lasix] 40 mg PO DAILY 30 Days #90 tablet 04/15/18 Oxygen 4 l NS AD PRN #0 04/15/18 predniSONE [PredniSONE] 40 mg PO DAILY tablet 04/15/18 Azithromycin [Zithromax] 250 mg PO DAILY 2 Days #2 tablet 06/03/18 predniSONE [PredniSONE] 60 mg PO NOW 3 Days #3 tablet 06/03/18 Allergies Allergy/AdvReac Type Severity Reaction Status Date / Time No Known Allergies Allergy Verified 04/09/18 11:34 Constitutional: Denies: fever, chills Cardiovascular: Reports: dyspnea on exertion. Denies: chest pain, palpitations Respiratory: Reports: cough, dyspnea. Denies: wheezes, hemoptysis Gastrointestinal: Denies: abdominal pain, nausea, vomiting Genitourinary: Denies: urgency, dysuria Musculoskeletal: Denies: back pain, neck pain Past Medical History - Past Medical History Medical history: Reports: atrial fibrillation, CHF, COPD, coronary artery disease, DVT, diabetes, GERD, hyperlipidemia, hypertension, myocardial infarction, pulmonary embolus, renal disease Surgical history: Reports: appendectomy, colectomy, knee replacement, LE stent(s ), sinus surgery Psychiatric history: Reports: no psych history - Social History Smoking Status: Never smoker Smokeless Tobacco Status: No Alcohol use: Reports: none Drug use: Reports: none Physical Exam - General Limitations: no limitations General appearance: alert, in no apparent distress Course Vital Signs Temperature 98.4 F 05/31/18 15:57 Pulse Rate 84 05/31/18 15:57 Respiratory Rate 24 05/31/18 15:57 Blood Pressure 131/72 05/31/18 15:57 O2 Sat by Pulse Oximetry 93 05/31/18 15:57 Temperature 98.0 F 06/03/18 11:22 Pulse Rate 80 06/03/18 11:22 Respiratory Rate 18 06/03/18 15:29 Blood Pressure 113/73 06/03/18 11:22 O2 Sat by Pulse Oximetry 96 06/03/18 15:29 Oxygen Delivery Oxygen Delivery Nasal Cannula Medical Decision Making - Lab Data Result diagrams: 06/01/18 00:26 06/01/18 00:26 Lab Results 05/31/18 05/31/18 05/31/18 Range/Units 16:35 16:35 16:35 WBC 13.5 H (4.3-11.1) K/mcL RBC 4.23 (4.19-5.50) M/mcL Hgb 11.5 L (12.9-16.9) g/dL Hct 37.5 (37.5-50.1) % MCV 88.7 (83.0-100.0) fL MCH 27.2 L (28.0-33.3) pg MCHC 30.7 L (31.6-35.5) g/dL RDW 18.4 H (11.5-14.5) % Plt Count 385 (140-400) K/mcL MPV 9.1 L (9.4-12.4) fL Immature Gran % 1.9 (0-4) % Seg Neutrophils % 79.4 % Lymphocytes % 10.5 % Monocytes % 6.0 % Eosinophils % 1.9 % Basophils % 0.3 % Neutrophils # 10.7 H (1.6-8.9) K/mcL Lymphocytes # 1.4 (0.6-4.6) K/mcL Monocytes # 0.8 (0.0-1.3) K/mcL Eosinophils # 0.3 (0.0-0.6) K/mcL Basophils # 0.0 (0.0-0.2) K/mcL Nucleated RBCs/100 WBC 0.1 H (0) /100 WBC Sodium 139 (136-145) mEq/L Potassium 3.7 (3.5-5.1) mEq/L Chloride 98 (98-107) mEq/L Carbon Dioxide 30 H (23-29) mEq/L BUN 34 H (8-23) mg/dL Creatinine 1.28 (0.70-1.30) mg/dL Est GFR ( Amer) > 60 (> 60) Est GFR (Non-Af Amer) 54 L (> 60) BUN/Creatinine Ratio 27 H (6-26) Glucose 96 (70-105) mg/dL POC Glucose (70-99) mg/dL Calculated Osmolality 295 (280-300) Calcium 9.4 (8.6-10.3) mg/dL Troponin I 0.05 H* (< 0.04) ng/mL B-Natriuretic Peptide 135 H (Less than 100) pg/mL 05/31/18 06/01/18 06/01/18 Range/Units 22:33 00:18 00:26 WBC (4.3-11.1) K/mcL RBC (4.19-5.50) M/mcL Hgb (12.9-16.9) g/dL Hct (37.5-50.1) % MCV (83.0-100.0) fL MCH (28.0-33.3) pg MCHC (31.6-35.5) g/dL RDW (11.5-14.5) % Plt Count (140-400) K/mcL MPV (9.4-12.4) fL Immature Gran % (0-4) % Seg Neutrophils % % Lymphocytes % % Monocytes % % Eosinophils % % Basophils % % Neutrophils # (1.6-8.9) K/mcL Lymphocytes # (0.6-4.6) K/mcL Monocytes # (0.0-1.3) K/mcL Eosinophils # (0.0-0.6) K/mcL Basophils # (0.0-0.2) K/mcL Nucleated RBCs/100 WBC (0) /100 WBC Sodium (136-145) mEq/L Potassium (3.5-5.1) mEq/L Chloride (98-107) mEq/L Carbon Dioxide (23-29) mEq/L BUN (8-23) mg/dL Creatinine (0.70-1.30) mg/dL Est GFR ( Amer) (> 60) Est GFR (Non-Af Amer) (> 60) BUN/Creatinine Ratio (6-26) Glucose (70-105) mg/dL POC Glucose 63 L 95 (70-99) mg/dL Calculated Osmolality (280-300) Calcium (8.6-10.3) mg/dL Troponin I 0.05 H* (< 0.04) ng/mL B-Natriuretic Peptide (Less than 100) pg/mL 06/01/18 06/01/18 06/01/18 Range/Units 00:26 00:26 06:24 WBC 10.9 (4.3-11.1) K/mcL RBC 4.16 L (4.19-5.50) M/mcL Hgb 11.2 L (12.9-16.9) g/dL Hct 36.6 L (37.5-50.1) % MCV 88.0 (83.0-100.0) fL MCH 26.9 L (28.0-33.3) pg MCHC 30.6 L (31.6-35.5) g/dL RDW 18.5 H (11.5-14.5) % Plt Count 347 (140-400) K/mcL MPV 9.3 L (9.4-12.4) fL Immature Gran % 2.7 (0-4) % Seg Neutrophils % 72.8 % Lymphocytes % 14.4 % Monocytes % 6.3 % Eosinophils % 3.2 % Basophils % 0.6 % Neutrophils # 7.9 (1.6-8.9) K/mcL Lymphocytes # 1.6 (0.6-4.6) K/mcL Monocytes # 0.7 (0.0-1.3) K/mcL Eosinophils # 0.4 (0.0-0.6) K/mcL Basophils # 0.1 (0.0-0.2) K/mcL Nucleated RBCs/100 WBC 0.5 H (0) /100 WBC Sodium 138 (136-145) mEq/L Potassium 3.5 (3.5-5.1) mEq/L Chloride 98 (98-107) mEq/L Carbon Dioxide 30 H (23-29) mEq/L BUN 34 H (8-23) mg/dL Creatinine 1.26 (0.70-1.30) mg/dL Est GFR ( Amer) > 60 (> 60) Est GFR (Non-Af Amer) 55 L (> 60) BUN/Creatinine Ratio 27 H (6-26) Glucose 97 (70-105) mg/dL POC Glucose (70-99) mg/dL Calculated Osmolality 294 (280-300) Calcium 9.3 (8.6-10.3) mg/dL Troponin I 0.04 H* (< 0.04) ng/mL B-Natriuretic Peptide (Less than 100) pg/mL 06/01/18 Range/Units 08:01 WBC (4.3-11.1) K/mcL RBC (4.19-5.50) M/mcL Hgb (12.9-16.9) g/dL Hct (37.5-50.1) % MCV (83.0-100.0) fL MCH (28.0-33.3) pg MCHC (31.6-35.5) g/dL RDW (11.5-14.5) % Plt Count (140-400) K/mcL MPV (9.4-12.4) fL Immature Gran % (0-4) % Seg Neutrophils % % Lymphocytes % % Monocytes % % Eosinophils % % Basophils % % Neutrophils # (1.6-8.9) K/mcL Lymphocytes # (0.6-4.6) K/mcL Monocytes # (0.0-1.3) K/mcL Eosinophils # (0.0-0.6) K/mcL Basophils # (0.0-0.2) K/mcL Nucleated RBCs/100 WBC (0) /100 WBC Sodium (136-145) mEq/L Potassium (3.5-5.1) mEq/L Chloride (98-107) mEq/L Carbon Dioxide (23-29) mEq/L BUN (8-23) mg/dL Creatinine (0.70-1.30) mg/dL Est GFR ( Amer) (> 60) Est GFR (Non-Af Amer) (> 60) BUN/Creatinine Ratio (6-26) Glucose (70-105) mg/dL POC Glucose 236 H (70-99) mg/dL Calculated Osmolality (280-300) Calcium (8.6-10.3) mg/dL Troponin I (< 0.04) ng/mL B-Natriuretic Peptide (Less than 100) pg/mL Attestation Statement - Attestation Attestation: I examined this patient and my medical decision-making was reviewed with the Resident Physician. I agree with the documented findings, disposition and treatment plan as described except to the extent set forth below. Patient is currently in pulmonary rehabilitation and is on 4 L of oxygen by nasal cannula at baseline who was found to be saturating at 85% on 4 L after complaining of shortness of breath throughout the day today. He has a little bit of a cough, but shortness of breath is most prominent symptom. No chest pain. He has chronic orthopnea, cannot lie flat without becoming short of breath. This is not a change for him. No changes lower extremity edema. He has a thick neck, but I do not appreciate any JVD on my assessment. He has bibasilar rales. Not currently in respiratory distress on 6 L of oxygen. Suspect volume overload, await workup.
[2018-05-31 17:44] LABS: BUN/Creatinine Ratio 27 (6-26); Blood Urea Nitrogen 34 mg/dL (8-23); Calcium 9.4 mg/dL (8.6-10.3); Carbon Dioxide 30 mEq/L (23-29); Chloride 98 mEq/L (98-107); Glucose 96 mg/dL (70-105); Osmolality,Calculated 295 (280-300); Potassium 3.7 mEq/L (3.5-5.1); Sodium 139 mEq/L (136-145); eGFR For Non-African Americans 54 (> 60)
[2018-05-31] MEDS ORDERED: Furosemide 40 MG/4 ML VIAL IVP ONE (18:00)
[2018-05-31] MEDS ORDERED: Ipratropium/Albuterol Neb 3 ML IH PRN (22:01)
[2018-05-31] MEDS ORDERED: Naloxone 0.4 MG/ML INJ IVP PRN (22:08)
--- NOTE | 2018-05-31 22:10 | Internal Med History&Physical ---
<Jessica Ramon - Last Filed: 06/01/18 02:04> Date of Encounter: 06/01/18 Time of Encounter: 21:59 Internal Medicine - H&P: HPI Chief complaint: short of breath Admitted From: Long-term Nursing Facility Plans for Post Hospital Care: [facility] History of present illness: Mr. Sequeira is a 82 year old male hx of CHF, COPD and interstitial pulmonary fibrosis presented to ED with dyspnea. He came from [facility] by EMS found to be hypoxic 85% on home oxygen of 4 L. In ED, saturation at 93% on 6 L - given 40 mg IV Lasix ans aspirin. He describes incrased shortness of breath and increased nonproductive cough over last few weeks. He has occcasional sharp chest pain while at rest that has not changes recently. He notes that pedal edeam has been less in last month. He also complains of headache that is intermittent, face swelling, and bilateral ear pain. He has not been using Bipap overnight. Recently discharged on 04-15 after treated acute respiratory failure due to worsening diastolic heart failure and interstitial pulmonary fibrosis. Last echo was 02-28-18 with Ef 60-65 and wall motion abnormalities consistent with bundle branch blood and mild valvular disease. Last stress test was also indicated wall defect buy no acute ischemia. PMHx includes A fib f on . Surgical history includes IVC green filter placed on 1995. FMhx of lung disease in sister. Past Med Surg Social Fam HX - Past Medical History Medical history: atrial fibrillation, CHF, COPD, coronary artery disease, DVT, diabetes, GERD, hyperlipidemia, hypertension, myocardial infarction, pulmonary embolus, renal disease Psychiatric history: no psych history - Past Surgical History Surgical History: appendectomy, colectomy, knee replacement, LE stent(s), sinus surgery Additional surgical history: green field filter, hemorrhoid procedure, 3 cardiac stents - Social History Smoking Status: Never smoker Smokeless Tobacco Status: No Alcohol use: none Drug use: none - Family History Mother Living Status: Hx Family Cardiac Disorders: Yes Hx Family Cancer: Yes (Unknown type) Sister Living Status: Hx Family Cancer: Yes Father Living Status: Hx Family Cardiac Disorders: Yes (father, brother,sister,self) Hx Family Respiratory Disorders: Yes (self) Hx Family Cancer: Yes (sister,mother) Hx Family GI Disorders: Yes (brother) Hx Family Endocrine Disorder: Yes (father) Hx Family Neuromuscular Disorders: No Hx Family Neurologic Disorders: No Hx Family HEENT Disorders: No Hx Family Autoimmune Disorders: No Internal Medicine - H&P: Meds Lovastatin 40 mg PO HS 12/23/15 [History] Multivit-Min/FA/Lycopen/Lutein [Centrum Silver Tablet] 1 each PO QAM 12/23/15 [ History] Omeprazole [PriLOSEC] 20 mg PO QAM 12/23/15 [History] Acetylcysteine [Nac] 600 mg PO DAILY 08/05/17 [History] Budesonide/Formoterol 160/4.5 [Symbicort 160/4.5] 2 puff IH BIDR 08/05/17 [ History] Fenofibrate 160 mg PO DAILY 08/05/17 [History] Glimepiride [Amaryl] 2 mg PO DAILY 12/27/17 [History] Latanoprost [Xalatan] 1 drop OP HS 12/27/17 [History] Apixaban [Eliquis] 5 mg PO BID #60 tablet 04/08/18 [Rx] Potassium Chloride 20 meq PO BIDWM tab.er.prt 04/08/18 [Rx] Acetaminophen [Non-Aspirin] 650 mg PO BID 04/09/18 [History] Aspirin 81 mg PO DAILY 04/09/18 [History] Furosemide [Lasix] 40 mg PO DAILY 30 Days #90 tablet 04/15/18 [Rx] Oxygen 4 l NS AD PRN #0 04/15/18 [Rx] predniSONE [PredniSONE] 40 mg PO DAILY tablet 04/15/18 [Rx] 3 Allergy/AdvReac Type Severity Reaction Status Date / Time No Known Allergies Allergy Verified 04/09/18 11:34 All Systems PM: A 10-system review of systems was performed and is negative for pertinent findings except as documented above in the HPI. - Constitutional Constitutional: fatigue, weight gain, no falls - EENT Eyes: change in vision, no blurry vision Additional comments: cataract worsening Ears: decreased hearing, ear pain, no ear discharge Nose, mouth and throat: no nasal congestion, no post-nasal drip - Cardiovascular Cardiovascular ROS IM: chest pain, dyspnea, edema, irregular heart rhythm, no diaphoresis, no syncope - Respiratory Respiratory: cough, dyspnea, no wheezing, no excessive phlegm production - Gastrointestinal Gastrointestinal: no constipation, no cramping, no diarrhea, no vomiting - Genitourinary Genitourinary ROS male: no dysuria, no urinary frequency, no urinary incontinence - Integumentary Integumentary IM: no new lesions, no rash - Neurological Neurological ROS: headache(s), tremor(s), no confusion, no focal weakness - Constitutional Vitals: Temp Pulse Resp BP Pulse Ox 98.4 F 79 26 125/93 94 05/31/18 15:57 05/31/18 20:34 05/31/18 20:34 05/31/18 20:34 05/31/18 20:34 General appearance: Present: mild distress, A&O X 3, obese, answers questions appropriately Exam: conversational dyspenea - Head Head exam: Present: atraumatic, normocephalic - ENT ENT exam: Present: mucous membranes moist, normal oropharynx. Absent: TM's normal bilaterally Additional comments: unable to visualize due to impaction - Respiratory Respiratory exam: Present: accessory muscle use, wheezes, tachypnea. Absent: rales - Cardiovascular Cardiovascular exam: Present: irregular rhythm, tachycardia - GI/Abdominal GI/Abdominal exam: Present: normal bowel sounds. Absent: guarding, mass, tenderness - Extremities Exam Extremities exam: Present: full ROM, pedal edema, radial pulses palpable and symmetrical. Absent: calf tenderness Additional comments: edema +1/4 - Psychiatric Psychiatric exam: Present: normal affect, normal mood Internal Med - H&P Results - Labs CBC & Chem 7: 06/01/18 00:26 06/01/18 00:26 - Assessment and plan (1) Acute hypoxemic respiratory failure Current Visit: No Status: Acute Assessment and plan: Likely due to combination of COPD exacerbation and interstitial lung disease more than acute CHF He has re-admit every other month with decline, fpc prognosis is poor- consider goals of care conversation or palliative consult if patient is willing. -consult PT/OT/social work (2) Acute exacerbation of chronic obstructive pulmonary disease Current Visit: No Status: Acute Assessment and plan: Suspected primary cause of hypoxia based on history - increase steroids to IV 80mg q 8 - continue duenebs q6 scheduled and q4 PRN - start azithromax - continue acetylcystine PO (3) Interstitial lung disease Current Visit: No Status: Chronic (4) Congestive heart failure Current Visit: No Status: Chronic Assessment and plan: I am not convinced that acute worsening diastolic heart failure is primary cause of hypoxia. BNP of 135 is lower than previous admits. Elevated troponin of 0.05 is chronic -Echo on 02-28-18 EF 60-65% with atypical wall motion and valvular disease - trend troponins - Lasix 40 po Qualifiers: Heart failure type: diastolic Heart failure chronicity: acute on chronic Qualified Code(s): I50.33 - Acute on chronic diastolic (congestive) heart failure (5) Anemia Current Visit: No Status: Chronic Assessment and plan: HgB 11.5 with baseline 9-10 - monitor Qualifiers: Anemia type: iron deficiency Iron deficiency anemia type: unspecified iron deficiency Qualified Code(s): D50.9 - Iron deficiency anemia, unspecified (6) Diabetes Current Visit: No Status: Acute Assessment and plan: hold glimepiride - ISS - cardiac and diabetic diet Qualifiers: Diabetes mellitus type: type 2 Diabetes mellitus mcfp insulin use: unspecified mcfp insulin use status Diabetes mellitus complication status : with unspecified complications Qualified Code(s): E11.8 - Type 2 diabetes mellitus with unspecified complications (7) DVT prophylaxis Current Visit: No Status: Chronic Assessment and plan: continue eliquis (8) Atrial fibrillation Current Visit: No Status: Chronic Qualifiers: Atrial fibrillation type: paroxysmal Qualified Code(s): I48.0 - Paroxysmal atrial fibrillation - Time Spent With Patient Total time spent is greater than 50% in coordination of care (as documented) at patient's floor/unit and/or counseling patient: <Meek Crenshaw - Last Filed: 06/01/18 04:35> Date of Encounter: 06/01/18 Time of Encounter: 02:50 - Constitutional Constitutional: fatigue, weight gain - EENT Nose, mouth and throat: no sore throat - Cardiovascular Cardiovascular ROS IM: chest pain, dyspnea, edema, no orthopnea, no paroxysmal nocturnal dyspnea - Respiratory Respiratory: cough, dyspnea - Gastrointestinal Gastrointestinal: no abdominal pain, no diarrhea, no vomiting - Genitourinary Genitourinary ROS male: no dysuria, no flank pain - Musculoskeletal Musculoskeletal ROS IM: no atrophy, no back pain - Integumentary Integumentary IM: no rash - Neurological Neurological ROS: no dizziness, no focal weakness, no frequent falls - Psychiatric Psychiatric: no anxiety, no depression - Endocrine Endocrine IM: no polydipsia, no polyuria - Hematologic/Lymphatic Hematologic/Lymphatic: easy bruising - Allergic/Immunologic Allergic/Immunologic: wheezing - Constitutional Vitals: Temp Pulse Resp BP Pulse Ox 98.2 F 79 18 108/74 89 06/01/18 04:08 06/01/18 04:08 06/01/18 04:08 06/01/18 04:08 06/01/18 04:08 General appearance: Present: cooperative, mild distress, A&O X 3, pleasant - Head Head exam: Present: normal inspection - Eye Eye exam: Present: EOMI, PERRL. Absent: scleral icterus Pupils: Present: normal accommodation - ENT ENT exam: Present: mucous membranes dry, normal oropharynx - Respiratory Respiratory exam: Present: rales (dry crckles L > R base), respiratory distress (mild), wheezes, tachypnea. Absent: chest wall tenderness - Cardiovascular Cardiovascular exam: Present: distant heart sounds, irregular rhythm, tachycardia. Absent: diastolic murmur, systolic murmur - GI/Abdominal GI/Abdominal exam: Present: soft. Absent: tenderness - Extremities Exam Extremities exam: Present: full ROM. Absent: calf tenderness - Back Exam Back exam: Absent: CVA tenderness (L), CVA tenderness (R) - Neurological Exam Neurological exam: Present: alert, CN II-XII intact, oriented X3 - Psychiatric Psychiatric exam: Present: normal affect, normal mood - Skin Skin exam: Present: dry, warm. Absent: rash Internal Med - H&P Results - Labs CBC & Chem 7: 06/01/18 00:26 06/01/18 00:26 Labs: Short CBC 06/01/18 Range/Units 00:26 WBC 10.9 (4.3-11.1) K/mcL Hgb 11.2 L (12.9-16.9) g/dL Hct 36.6 L (37.5-50.1) % Plt Count 347 (140-400) K/mcL Neutrophils # 7.9 (1.6-8.9) K/mcL BMP 06/01/18 00:26 Sodium 138 Potassium 3.5 Chloride 98 Carbon Dioxide 30 H BUN 34 H Creatinine 1.26 Glucose 97 Calcium 9.3 Cardiac Enzymes 06/01/18 Range/Units 00:26 Troponin I 0.05 H* (< 0.04) ng/mL - Time Spent With Patient Total time spent is greater than 50% in coordination of care (as documented) at patient's floor/unit and/or counseling patient: - Attending Attestation I discussed the patient [place], past medical history, review of systems, exam findings, and lab findings with Dr. Ramon. I then saw and examined patient independently. I reviewed his x-ray personally and compared images to prior x- rays. History and exam do not suggest acute CHF. Rather, however, I suspect symptoms are secondary to COPD flareup and likely pulmonary fibrosis. I agree with the steroids, aerosols, and antibiotics for respiratory issues noted above. He did receive some Lasix in the ER with some noted improvement. However, on exam, I suspect this is more secondary to his lung pathology. Given his frequent readmissions and lung problems, I suspect he has a poor long- term prognosis. He follows locally with pulmonary. It appears, based upon history, patient has not had a good understanding and/or discussion about the severity of his lung disease given his history of pulmonary fibrosis. I encouraged him to follow-up with pulmonary and pursue such discussions. Patient does not have any interest in discussing goals of care or a palliative care consult at this time. Other than my comments above and noted physical exam findings, I agree with Dr. Ramon's assessment and plan.
[2018-05-31] MEDS: Budesonide/Formoterol 160/4.5 1 PUFF INH IH SCH (22:37)
[2018-05-31] MEDS: Ipratropium/Albuterol Neb 3 ML IH SCH (22:37)
[2018-05-31] MEDS ORDERED: D5% in Water 1,000 ML IVC PRN (23:31)
[2018-05-31] MEDS ORDERED: Dextrose Gel 15 GM/37.5 ML TUBE PO PRN ×2 (23:31)
[2018-05-31] MEDS ORDERED: *HR* Dextrose 50 % in Water (Syg) 50 ML SYRINGE IVP PRN (23:31)
[2018-05-31] MEDS ORDERED: Azithromycin 250 MG TABLET PO ONE (23:35)
[2018-05-31] MEDS: Acetaminophen 325 MG TABLET PO SCH (23:41)
[2018-06-01 00:52] LABS: Basophils # 0.1 K/mcL (0.0-0.2); Basophils % 0.6 %; Eosinophils # 0.4 K/mcL (0.0-0.6); Eosinophils % 3.2 %; Hematocrit 36.6 % (37.5-50.1); Hemoglobin 11.2 g/dL (12.9-16.9); Immature Granulocytes % 2.7 % (0-4); Lymphocytes # 1.6 K/mcL (0.6-4.6); Lymphocytes % 14.4 %; Mean Corpuscular HGB Conc 30.6 g/dL (31.6-35.5); Mean Corpuscular Hemoglobin 26.9 pg (28.0-33.3); Mean Platelet Volume 9.3 fL (9.4-12.4); Monocytes # 0.7 K/mcL (0.0-1.3); Monocytes % 6.3 %; Neutrophils # 7.9 K/mcL (1.6-8.9); Nucleated Red Blood Cells 0.5 /100 WBC (0); Platelet Count 347 K/mcL (140-400); Red Blood Count 4.16 M/mcL (4.19-5.50); Red Cell Distribution Width 18.5 % (11.5-14.5); Segmented Neutrophils % 72.8 %
[2018-06-01] MEDS: Apixaban 5 MG TABLET PO SCH ×3 (01:04→20:32)
[2018-06-01] MEDS: methylPREDNISolone 125 MG/2 ML VIAL IVP SCH ×3 (01:04→16:39)
[2018-06-01 01:28] LABS: BUN/Creatinine Ratio 27 (6-26); Blood Urea Nitrogen 34 mg/dL (8-23); Calcium 9.3 mg/dL (8.6-10.3); Carbon Dioxide 30 mEq/L (23-29); Chloride 98 mEq/L (98-107); Glucose 97 mg/dL (70-105); Osmolality,Calculated 294 (280-300); Potassium 3.5 mEq/L (3.5-5.1); Sodium 138 mEq/L (136-145); eGFR For Non-African Americans 55 (> 60)
[2018-06-01] MEDS: Ipratropium/Albuterol Neb 3 ML IH SCH ×4 (03:26→21:57)
[2018-06-01] MEDS: Insulin LISPRO 300 UNITS/3 ML VIAL SQ SCH ×3 (08:06→16:39)
[2018-06-01] MEDS: *HR* Acetylcysteine 20% 600 MG/3 ML ORAL SYRINGE PO SCH (08:06)
[2018-06-01] MEDS: Fenofibrate 54 MG TABLET PO SCH (08:06)
[2018-06-01] MEDS: Aspirin 81 MG TAB.CHEW PO SCH (08:06)
[2018-06-01] MEDS: Furosemide 40 MG TABLET PO SCH (08:07)
[2018-06-01] MEDS: Acetaminophen 325 MG TABLET PO SCH ×2 (08:07→20:32)
--- NOTE | 2018-06-01 08:46 | Internal Med Progress Note ---
Hospitalist Progress Note - Encounter Date of Encounter: 06/01/18 Time of Encounter: 08:36 - Subjective Interval History: Patient seen and examined this morning. Admitted overnight for SOB. Reports some improvement in breathing. - Exam Vitals: Temp Pulse Resp BP Pulse Ox 97.9 F 86 18 152/84 87 06/01/18 08:02 06/01/18 08:02 06/01/18 08:02 06/01/18 08:02 06/01/18 08:02 Exam: Const: Vital signs listed above. On nasal cannula. Alert and oriented Xs 3. Obese Eyes: Sclera white, conjunctiva clear, lids are without lag. PERRLA. Pupils and irises are equal and round without defect. ENT: grossly normal hearing. Oropharanx clear and moist without erythema. Gums pink, good dentition. Lymph/Neck: No masses, thyromegaly, or abnormal cervical notes. No bruit. Tracheal midline. Cardio: Irregular, Normal S1, S2 w/o murmurs, rubs or gallops. Skin warm and dry. No peripheral edema. Respiratory: Chest symmetrical. non-labored. No dullness or flatness. Occasional wheezing. Musculo: No deformity or scoliosis noted. No gene gait disturbance noted. No cyanosis or edema. Pulses normal in all 4 extremities. Neurologic: No focal deficits, cranial nerves II-XII grossly intact with normal sensation, reflexes. GI/Abdomen: Soft, non tender, non distended, no hepatosplemomegaly, normal bowel sounds, no masses noted. - Summary of Assessment and Plan Summary of Assessment and Plan: Acute hypoxemic respiratory failure - Likely due to combination of COPD exacerbation and interstitial lung disease more than acute CHF - Recurrent admissions. [facility] prognosis looks poor given pulmonary fibrosis- Will discuss goals of care conversation or palliative consult if patient is willing. - consult PT/OT/social work - c/w Bipap overnight. Acute exacerbation of chronic obstructive pulmonary disease - increase steroids to IV 80mg q 8(on steroids at home) - continue duenebs q6 scheduled and q4 PRN - c/w azithromax - continue home acetylcystine PO Interstitial lung disease - as above - Business Technology Analyst consulted. Recommendations appreciated. Congestive heart failure - appears evulomeic. less likely cause of current admission - Echo on 02-28-18 EF 60-65% with atypical wall motion and valvular disease - elevated troponins however indeterminate without chest pain. - c/w home Lasix 40 po Atrial fibrillation - c/w apixaban Anemia - at baseline. Monitor for now Diabetes - hold glimepiride - Levemir 5 HS and ISS - diabetic diet DVT prophylaxis -continue eliquis - Time Spent with Patient Total time spent is greater than 50% in coordination of care (as documented) at patient's floor/unit and/or counseling patient: Internal Medicine: Result - Labs CBC & Chem 7: 06/01/18 00:26 06/01/18 00:26 Labs: Short CBC 06/01/18 Range/Units 00:26 WBC 10.9 (4.3-11.1) K/mcL Hgb 11.2 L (12.9-16.9) g/dL Hct 36.6 L (37.5-50.1) % Plt Count 347 (140-400) K/mcL Neutrophils # 7.9 (1.6-8.9) K/mcL BMP 06/01/18 00:26 Sodium 138 Potassium 3.5 Chloride 98 Carbon Dioxide 30 H BUN 34 H Creatinine 1.26 Glucose 97 Calcium 9.3 Cardiac Enzymes 06/01/18 06/01/18 Range/Units 00:26 06:24 Troponin I 0.05 H* 0.04 H* (< 0.04) ng/mL Consult Discharge Plan - Plan Referrals: Jose A Hernandez DO [Primary Care Provider] -
[2018-06-01] MEDS ORDERED: *HR* Glimepiride 2 MG TABLET PO SCH (09:00)
[2018-06-01] MEDS: Budesonide/Formoterol 160/4.5 1 PUFF INH IH SCH ×2 (09:42→21:57)
--- NOTE | 2018-06-01 16:17 | Pulmonology Consult Note ---
Date of Encounter: 06/01/18 Time of Encounter: 14:00 Assessment and Plan (1) Pulmonary interstitial fibrosis Current Visit: Yes Status: Chronic Patient with pulmonary fibrosis and his disease I believe is progressing and that is why he is having more trouble breathing and worsening of his symptoms and this was explained to patient as outpatient and I have reiterated that to him today. This carries a poor prognosis and palliative care is recommended for this patient. Patient is on systemic steroids and empiric antibiotic, however there are no data to support patient with pulmonary fibrosis benefit from such treatment, however short course is acceptable as a trial. Thank you for the consultation and will continue to see patient. Please call for any questions. (2) Acute and chronic respiratory failure with hypoxia Current Visit: Yes Status: Acute Titrate FiO2 to keep SPO2 around 90%, if possible History of Present Illness Consult date: 06/01/18 Requesting physician: Wilian Obregon Reason for consult: pulmonary fibrosis Chief complaint: Dyspnea History of present illness: This is a very pleasant 82-year-old male with UIP and underlying CHF who presented to emergency room with worsening dyspnea. Recently has seen patient in the office and they have explained to him and his family that it appears that his pulmonary fibrosis is progressing and its expected in some patient the course of the disease will worsen which has poor prognosis. Patient is on long- term oxygen therapy and he is requiring higher FiO2 and he stated he is feeling somewhat better at this time, however his nonproductive cough has worsened in the last few weeks. Patient denies any hemoptysis and he has no significant wheezing. He is being treated with N-acetylcysteine and he was not a candidate for anti-fibrotic treatment. Patient use noninvasive ventilation. He has history of respiratory failure and diastolic heart failure and he has fatigue and denies any significant fever or chills. Past Med Surg Social Fam HX - Past Medical History Medical history: atrial fibrillation, CHF, COPD, coronary artery disease, DVT, diabetes, GERD, hyperlipidemia, hypertension, myocardial infarction, pulmonary embolus, renal disease Psychiatric history: no psych history - Past Surgical History Surgical History: appendectomy, colectomy, knee replacement, LE stent(s), sinus surgery Additional surgical history: green field filter, hemorrhoid procedure, 3 cardiac stents - Social History Smoking Status: Never smoker Smokeless Tobacco Status: No Alcohol use: none Drug use: none - Family History Mother Living Status: Hx Family Cardiac Disorders: Yes Hx Family Cancer: Yes (Unknown type) Sister Living Status: Hx Family Cancer: Yes Father Living Status: Hx Family Cardiac Disorders: Yes (father, brother,sister,self) Hx Family Respiratory Disorders: Yes (self) Hx Family Cancer: Yes (sister,mother) Hx Family GI Disorders: Yes (brother) Hx Family Endocrine Disorder: Yes (father) Hx Family Neuromuscular Disorders: No Hx Family Neurologic Disorders: No Hx Family HEENT Disorders: No Hx Family Autoimmune Disorders: No Medications and Allergies Lovastatin 40 mg PO HS 12/23/15 [History] Multivit-Min/FA/Lycopen/Lutein [Centrum Silver Tablet] 1 each PO QAM 12/23/15 [ History] Omeprazole [PriLOSEC] 20 mg PO QAM 12/23/15 [History] Acetylcysteine [Nac] 600 mg PO DAILY 08/05/17 [History] Budesonide/Formoterol 160/4.5 [Symbicort 160/4.5] 2 puff IH BIDR 08/05/17 [ History] Fenofibrate 160 mg PO DAILY 08/05/17 [History] Glimepiride [Amaryl] 2 mg PO DAILY 12/27/17 [History] Latanoprost [Xalatan] 1 drop OP HS 12/27/17 [History] Apixaban [Eliquis] 5 mg PO BID #60 tablet 04/08/18 [Rx] Potassium Chloride 20 meq PO BIDWM tab.er.prt 04/08/18 [Rx] Acetaminophen [Non-Aspirin] 650 mg PO BID 04/09/18 [History] Aspirin 81 mg PO DAILY 04/09/18 [History] Furosemide [Lasix] 40 mg PO DAILY 30 Days #90 tablet 04/15/18 [Rx] Oxygen 4 l NS AD PRN #0 04/15/18 [Rx] predniSONE [PredniSONE] 40 mg PO DAILY tablet 04/15/18 [Rx] 3 Allergy/AdvReac Type Severity Reaction Status Date / Time No Known Allergies Allergy Verified 04/09/18 11:34 All Systems: The remainder of the systems were reviewed and are negative Physical Examination Vital Signs: Vital Signs, Last 4 Hours Resp Pulse Ox 06/01/18 15:45 15 95 General: Patient is in no acute distress. HEENT: Normocephalic atraumatic, pupils are equal round and reactive to light and accommodation, anicteric sclera, nares is patent, mucous membranes moist, no JVD, trachea is midline Cardiovascular: Normal sinus rhythm, S1 and S2 audible, no murmur or rubs Respiratory: Basilar crackles to auscultation bilaterally. Mild respiratory distress. No wheezing. Patient not using accessory muscles. Abdomen: Soft, nontender, nondistended, positive bowel sounds in all 4 quadrants Extremities: Warm, dry, trace lower extremity edema. Normal capillary refill. Neuro: Alert and oriented and follows commands. Grossly no neuro deficits. Skin: Warm to touch : No obvious abnormalities. Psych: Normal Results - Laboratory Findings CBC and BMP: 06/01/18 00:26 06/01/18 00:26 Abnormal lab findings: Abnormal lab results RBC 4.16 M/mcL (4.19-5.50) L 06/01/18 00:26 Hgb 11.2 g/dL (12.9-16.9) L 06/01/18 00:26 Hct 36.6 % (37.5-50.1) L 06/01/18 00:26 MCH 26.9 pg (28.0-33.3) L 06/01/18 00:26 MCHC 30.6 g/dL (31.6-35.5) L 06/01/18 00:26 RDW 18.5 % (11.5-14.5) H 06/01/18 00:26 MPV 9.3 fL (9.4-12.4) L 06/01/18 00:26 Nucleated RBCs/100 WBC 0.5 /100 WBC (0) H 06/01/18 00:26 Carbon Dioxide 30 mEq/L (23-29) H 06/01/18 00:26 BUN 34 mg/dL (8-23) H 06/01/18 00:26 Est GFR (Non-Af Amer) 55 (> 60) L 06/01/18 00:26 BUN/Creatinine Ratio 27 (6-26) H 06/01/18 00:26 POC Glucose 236 mg/dL (70-99) H 06/01/18 08:01 Troponin I 0.04 ng/mL (< 0.04) H* 06/01/18 06:24 B-Natriuretic Peptide 135 pg/mL (Less than 100) H 05/31/18 16:35 - Diagnostic Findings Chest x-ray: report reviewed, image reviewed Consult Discharge Plan - Plan Referrals: ColJose A more DO [Primary Care Provider] -
[2018-06-01] MEDS: Insulin DETEMIR 100 UNIT/ML X5UNITS SQ SCH (20:31)
[2018-06-01] MEDS ORDERED: Insulin DETEMIR 100 UNIT/ML X5UNITS SQ SCH (21:00)
[2018-06-02] MEDS: methylPREDNISolone 125 MG/2 ML VIAL IVP SCH ×3 (00:47→17:04)
[2018-06-02] MEDS: Ipratropium/Albuterol Neb 3 ML IH SCH ×4 (03:39→21:25)
[2018-06-02] MEDS: Insulin LISPRO 300 UNITS/3 ML VIAL SQ SCH ×3 (08:31→17:04)
[2018-06-02] MEDS: Fenofibrate 54 MG TABLET PO SCH (08:32)
[2018-06-02] MEDS: Azithromycin 250 MG TABLET PO SCH (08:32)
[2018-06-02] MEDS: Acetaminophen 325 MG TABLET PO SCH ×2 (08:32→21:39)
[2018-06-02] MEDS: Apixaban 5 MG TABLET PO SCH ×2 (08:32→21:39)
[2018-06-02] MEDS: Aspirin 81 MG TAB.CHEW PO SCH (08:32)
[2018-06-02] MEDS: Furosemide 40 MG TABLET PO SCH (08:32)
[2018-06-02] MEDS: *HR* Acetylcysteine 20% 600 MG/3 ML ORAL SYRINGE PO SCH (08:34)
--- NOTE | 2018-06-02 08:39 | Pulmonology Progress Note ---
<Randall Macias - Last Filed: 06/02/18 13:46> Date of Encounter: 06/02/18 Time of Encounter: 10:50 Assessment and Plan (1) Pulmonary interstitial fibrosis Current Visit: Yes Status: Chronic Poor prognosis Continue N-acetylcysteine Not a candidate for anti-fibrotic treatments Continue steroids and azithromycin for now since pt improving clinically Appreciate pallative consult for progressive disease with poor prognosis (2) Acute and chronic respiratory failure with hypoxia Current Visit: Yes Status: Acute Successfully weaned to 4lpm NC without difficulty s Subjective Principal diagnosis: COPD and ILD Interval history: No acute events overnight. Pt states his shortness of breath has improved some. Denies any fever, chills, increased cough, change in sputum production or character, abdominal pain, nausea, vomiting, numbness, weakness, or headache. Objective PUL Vital signs: Last Vital Signs Temp 98.6 F 06/02/18 07:38 Pulse 82 06/02/18 07:38 Resp 15 06/02/18 07:38 BP 121/66 06/02/18 07:38 Pulse Ox 90 06/02/18 07:38 General appearance: no acute distress, alert Eyes: nonicteric ENT: oropharynx moist Neck: supple, no lymphadenopathy, no JVD Effort: mildly labored Auscultation: bilateral: diminished breath sounds, wheezes Percussion: bilateral: not dull Tactile fremitus: bilateral: normal Cardiovascular: regular rate and rhythm Gastrointestinal: soft, non-tender, non-distended Integumentary: normal Extremities: no cyanosis, no edema, no clubbing, pink and warm Musculoskeletal: no deformities Gait: normal posture normal mental status, non-focal exam mood appropriate, affect normal Results - Laboratory Findings CBC and BMP: 06/01/18 00:26 06/01/18 00:26 Abnormal lab findings: Abnormal lab results RBC 4.16 M/mcL (4.19-5.50) L 06/01/18 00:26 Hgb 11.2 g/dL (12.9-16.9) L 06/01/18 00:26 Hct 36.6 % (37.5-50.1) L 06/01/18 00:26 MCH 26.9 pg (28.0-33.3) L 06/01/18 00:26 MCHC 30.6 g/dL (31.6-35.5) L 06/01/18 00:26 RDW 18.5 % (11.5-14.5) H 06/01/18 00:26 MPV 9.3 fL (9.4-12.4) L 06/01/18 00:26 Nucleated RBCs/100 WBC 0.5 /100 WBC (0) H 06/01/18 00:26 Carbon Dioxide 30 mEq/L (23-29) H 06/01/18 00:26 BUN 34 mg/dL (8-23) H 06/01/18 00:26 Est GFR (Non-Af Amer) 55 (> 60) L 06/01/18 00:26 BUN/Creatinine Ratio 27 (6-26) H 06/01/18 00:26 POC Glucose 236 mg/dL (70-99) H 06/01/18 08:01 Troponin I 0.04 ng/mL (< 0.04) H* 06/01/18 06:24 B-Natriuretic Peptide 135 pg/mL (Less than 100) H 05/31/18 16:35 - Clinical Findings Intake & Output: Intake & Output 06/01/18 06/02/18 06/02/18 23:59 07:59 15:59 Output Total 650 / 650 Balance -650 / -650 Weight 106.3 kg Consult Discharge Plan - Plan Referrals: Jose A Hernandez DO [Primary Care Provider] - <Bonnie Guallpa - Last Filed: 06/02/18 14:55> Date of Encounter: 06/02/18 Assessment and Plan (1) Pulmonary interstitial fibrosis Current Visit: Yes Status: Chronic (2) Acute and chronic respiratory failure with hypoxia Current Visit: Yes Status: Acute Objective PUL Vital signs: Last Vital Signs Temp 97.9 F 06/02/18 10:51 Pulse 72 06/02/18 10:51 Resp 18 06/02/18 11:09 BP 122/69 06/02/18 10:51 Pulse Ox 99 06/02/18 11:09 Results - Laboratory Findings CBC and BMP: 06/01/18 00:26 06/01/18 00:26 Abnormal lab findings: Abnormal lab results RBC 4.16 M/mcL (4.19-5.50) L 06/01/18 00:26 Hgb 11.2 g/dL (12.9-16.9) L 06/01/18 00:26 Hct 36.6 % (37.5-50.1) L 06/01/18 00:26 MCH 26.9 pg (28.0-33.3) L 06/01/18 00:26 MCHC 30.6 g/dL (31.6-35.5) L 06/01/18 00:26 RDW 18.5 % (11.5-14.5) H 06/01/18 00:26 MPV 9.3 fL (9.4-12.4) L 06/01/18 00:26 Nucleated RBCs/100 WBC 0.5 /100 WBC (0) H 06/01/18 00:26 Carbon Dioxide 30 mEq/L (23-29) H 06/01/18 00:26 BUN 34 mg/dL (8-23) H 06/01/18 00:26 Est GFR (Non-Af Amer) 55 (> 60) L 06/01/18 00:26 BUN/Creatinine Ratio 27 (6-26) H 06/01/18 00:26 POC Glucose 301 mg/dL (70-99) H 06/02/18 11:11 Troponin I 0.04 ng/mL (< 0.04) H* 06/01/18 06:24 B-Natriuretic Peptide 135 pg/mL (Less than 100) H 05/31/18 16:35 - Clinical Findings Intake & Output: Intake & Output 06/01/18 06/02/18 06/02/18 23:59 07:59 15:59 Intake Total 120 / 120 Output Total 650 / 650 400 / 400 Balance -650 / -650 -280 / -280 Weight 106.3 kg - Attending Attestation I examined this patient and my medical decision-making was reviewed with the Resident Physician. I agree with the documented findings, disposition and treatment plan as described except to the extent set forth below. Patient seen and examined. Labs, radiology, chart personally reviewed. 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 Overall patient is stable and as I indicated before prognosis is poor with pulmonary fibrosis. Supportive care and palliative care is recommended.
[2018-06-02] MEDS: Budesonide/Formoterol 160/4.5 1 PUFF INH IH SCH ×2 (11:09→21:23)
--- NOTE | 2018-06-02 12:38 | Internal Med Progress Note ---
Hospitalist Progress Note - Encounter Date of Encounter: 06/02/18 Time of Encounter: 09:12 - Subjective Interval History: Patient seen and examined this morning. some improvement in breathing. - Exam Vitals: Temp Pulse Resp BP Pulse Ox 97.9 F 72 18 122/69 99 06/02/18 10:51 06/02/18 10:51 06/02/18 11:09 06/02/18 10:51 06/02/18 11:09 Exam: Const: Vital signs listed above. On nasal cannula. Alert and oriented Xs 3. Obese Eyes: Sclera white, conjunctiva clear, lids are without lag. PERRLA. Pupils and irises are equal and round without defect. ENT: grossly normal hearing. Oropharanx clear and moist without erythema. Gums pink, good dentition. Lymph/Neck: No masses, thyromegaly, or abnormal cervical notes. No bruit. Tracheal midline. Cardio: Irregular, Normal S1, S2 w/o murmurs, rubs or gallops. Skin warm and dry. No peripheral edema. Respiratory: Chest symmetrical. non-labored. No dullness or flatness. Bilateral crackles. Musculo: No deformity or scoliosis noted. No gene gait disturbance noted. No cyanosis or edema. Pulses normal in all 4 extremities. Neurologic: No focal deficits, cranial nerves II-XII grossly intact with normal sensation, reflexes. GI/Abdomen: Soft, non tender, non distended, no hepatosplemomegaly, normal bowel sounds, no masses noted. - Summary of Assessment and Plan Summary of Assessment and Plan: Acute hypoxemic respiratory failure - Likely due to combination of COPD exacerbation and interstitial lung disease - Recurrent admissions. [facility] prognosis looks poor given pulmonary fibrosis - Palliative care consulted. - consult PT/OT/social work - c/w Bipap overnight. Acute exacerbation of chronic obstructive pulmonary disease - decreased steroids to IV 60 bid. (on steroids at home) - continue duenebs q6 scheduled and q4 PRN - c/w azithromax for 3 more days. - continue home acetylcystine PO Interstitial lung disease - as above - Medical Device Sales Consultant consulted. Recommendations appreciated. Congestive heart failure - appears evulomeic. less likely cause of current admission - Echo on 02-28-18 EF 60-65% with atypical wall motion and valvular disease - elevated troponins however indeterminate without chest pain. - c/w home Lasix 40 po Atrial fibrillation - c/w apixaban Anemia - at baseline. Monitor for now Diabetes - hold glimepiride - Levemir increased to 15 HS and ISS. Monitor for now. - diabetic diet DVT prophylaxis -continue eliquis - Time Spent with Patient Total time spent is greater than 50% in coordination of care (as documented) at patient's floor/unit and/or counseling patient: Internal Medicine: Result - Labs CBC & Chem 7: 06/01/18 00:26 06/01/18 00:26 Consult Discharge Plan - Plan Referrals: Jose A Hernandez DO [Primary Care Provider] -
--- NOTE | 2018-06-02 14:01 | Palliative - Consult Note ---
Date of Encounter: 06/02/18 Time of Encounter: 13:00 - Assessment and Plan (1) Dyspnea Current Visit: No Status: Acute Assessment and plan: Patient on continuous bedside SPO2 monitoring. Sats 97% on NC 4L. He uses 4L at baseline. Pulmonology note reviewed. Patient with progressive pulmonary fibrosis. Plan to facilitate breathing: - Supplemental O2 & Bipap as needed - Duonebs - Lasix - Solumedrol - Position for comfort - IS 10x hour as tolerated Qualifiers: Dyspnea type: dyspnea on exertion Qualified Code(s): R06.09 - Other forms of dyspnea (2) Goals of care, counseling/discussion Current Visit: Yes Status: Acute Assessment and plan: Bedside discussion with patient for goals of care. Patient with progressive pulmonary fibrosis. Patient aware of poor prognosis but still desires FULL CODE and short term intubation. Explained that patient might not fair well having to be intubated and mechanically ventilated. Explained that given his extensive lung disease that he might never come off mechanical ventilation. Patient states he is "ok" with short term intubation but would not desire to live [facility] on ventilator. Discussed comfort care as patient has progressing lung disease. Discussed hospice care but patient states he is just no ready for that. Patient consented to me calling his Dianne. [id number] - Called Dianne and she verbalized that she has chronic health issues and lives alone as patient is in ECF. She states that she will discuss with patient his wishes. Dianne to visit sometime today and I will make attempt to touch base with her in the room with the patient. (3) Pulmonary interstitial fibrosis Current Visit: Yes Status: Chronic Assessment and plan: Progressing disease state. Dr. Posey note reviewed. Supportive care in place. Palliative-CN HPI - Data of Consult Patient: known to practice within the last 3 years Consult date: 06/02/18 Requesting Physician: Wilian Obregon MD Primary Care Provider: Jose A Hernandez - Consult Narrative Palliative Care/Comfort Measures: Palliative care Reason for consult: Goals of care History of present illness: Mr. Sequeira is a 82 year old male with progressing pulmonary fibrosis. The patient is in bed. He consumed 100% of his lunch. He denies SOB. CC: Wilian Obregon MD Past Med Surg Social Fam HX - Past Medical History Source: patient, old records reviewed, obtained from family Medical history: atrial fibrillation, CHF, COPD, coronary artery disease, DVT, diabetes, GERD, hyperlipidemia, hypertension, myocardial infarction, pulmonary embolus, renal disease Psychiatric history: no psych history - Past Surgical History Surgical History: appendectomy, colectomy, knee replacement, LE stent(s), sinus surgery Additional surgical history: green field filter, hemorrhoid procedure, 3 cardiac stents - Social History Smoking Status: Never smoker Smokeless Tobacco Status: No Alcohol use: none Drug use: none Occupational status: retired Current living situation: F Activity Level: Bed bound Recent Out of Country Travel Within the Last 8 Weeks: No Exposure or Possible Exposure to Illness During Travel: No - Family History Mother Living Status: Hx Family Cardiac Disorders: Yes Hx Family Cancer: Yes (Unknown type) Sister Living Status: Hx Family Cancer: Yes Father Living Status: Hx Family Cardiac Disorders: Yes (father, brother,sister,self) Hx Family Respiratory Disorders: Yes (self) Hx Family Cancer: Yes (sister,mother) Hx Family GI Disorders: Yes (brother) Hx Family Endocrine Disorder: Yes (father) Hx Family Neuromuscular Disorders: No Hx Family Neurologic Disorders: No Hx Family HEENT Disorders: No Hx Family Autoimmune Disorders: No Medications and Allergies Lovastatin 40 mg PO HS 12/23/15 [History] Multivit-Min/FA/Lycopen/Lutein [Centrum Silver Tablet] 1 each PO QAM 12/23/15 [ History] Omeprazole [PriLOSEC] 20 mg PO QAM 12/23/15 [History] Acetylcysteine [Nac] 600 mg PO DAILY 08/05/17 [History] Budesonide/Formoterol 160/4.5 [Symbicort 160/4.5] 2 puff IH BIDR 08/05/17 [ History] Fenofibrate 160 mg PO DAILY 08/05/17 [History] Glimepiride [Amaryl] 2 mg PO DAILY 12/27/17 [History] Latanoprost [Xalatan] 1 drop OP HS 12/27/17 [History] Apixaban [Eliquis] 5 mg PO BID #60 tablet 04/08/18 [Rx] Potassium Chloride 20 meq PO BIDWM tab.er.prt 04/08/18 [Rx] Acetaminophen [Non-Aspirin] 650 mg PO BID 04/09/18 [History] Aspirin 81 mg PO DAILY 04/09/18 [History] Furosemide [Lasix] 40 mg PO DAILY 30 Days #90 tablet 04/15/18 [Rx] Oxygen 4 l NS AD PRN #0 04/15/18 [Rx] predniSONE [PredniSONE] 40 mg PO DAILY tablet 04/15/18 [Rx] 3 Allergy/AdvReac Type Severity Reaction Status Date / Time No Known Allergies Allergy Verified 04/09/18 11:34 All systems: reviewed and no additional remarkable complaints except as stated Review of systems: SOB, exertional dyspnea - EENT Eyes: requires corrective lenses Ears: decreased hearing - Cardiovascular Cardiovascular ROS: edema (1+ pitting) - Respiratory Respiratory: dyspnea - Musculoskeletal Musculoskeletal ROS IM: muscle weakness - Integumentary ROS Integumentary: skin ulcer - Neurological Neurological ROS: weakness Palliative Care-Exam - Constitutional Vitals: Temp Pulse Resp BP Pulse Ox 97.9 F 72 18 122/69 99 06/02/18 10:51 06/02/18 10:51 06/02/18 11:09 06/02/18 10:51 06/02/18 11:09 General appearance: Present: cooperative, no acute distress - Head Head Exam: Present: atraumatic, normal inspection, normocephalic - Eye Eye exam: Present: PERRL - ENT ENT exam: Present: mucous membranes moist - Expanded ENT Exam Mouth Exam: Present: moist - Neck Neck exam: Present: full ROM - Respiratory Respiratory exam: Present: decreased breath sounds - Expanded Respiratory Exam Location: decreased breath sounds: Left, Right, Lower, dullness to percussion: Left - Cardiovascular Cardiovascular exam: Present: RRR, +S1, +S2 - Expanded Cardiovascular Exam Peripheral pulses: 1+: Femoral (L) PM, Femoral (R) PM, Posterior Tibialis (L), Posterior Tibialis (R), 2+: Carotid (L) PM, Carotid (R) PM, Radial (L), Radial ( R), Dorsalis Pedis (L) PM, Dorsalis Pedis (R) PM - GI/Abdominal Exam GI/Abdominal exam: Present: normal bowel sounds, soft additional comments: + BMs - Rectal Rectal Exam: Present: deferred - Additional comments: voids per urinal - Extremities Exam Extremities exam: Present: full ROM - Expanded Upper Extremities Exam Shoulder exam: Present: full ROM Upper Arm exam: Present: full ROM Elbow exam: Present: full ROM Hand wrist exam: Present: full ROM Vascular: Present: pallor - Neurological Exam Neurological exam: Present: alert, oriented X3 - Psychiatric Psychiatric exam: Present: normal affect - Skin Skin exam: Present: pallor, warm Internal Medicine - CN: Reslt - Labs CBC & Chem 7: 06/01/18 00:26 06/01/18 00:26 Consult Discharge Plan - Plan Referrals: Jose A Hernandez DO [Primary Care Provider] - Palliative Quality Palliative Quality: Screen for Code Status: Yes, Screen for Goals of Care: Yes, Screen for Pain: Yes, If Pain Regimen Started, Initiate Bowel Regimen: No, Screen for Nausea/Vomitting: No Code Status: Full Code
--- NOTE | 2018-06-02 15:48 | Event Note ---
Date of Encounter: 06/02/18 Time of Encounter: 15:00 Dianne and patients Sister arrived. Conducted bedside meeting. Explained patients chronic pulmonary fibrosis progression. Patient with multiple admissions. Patient still desires treatment for dyspnea and respiratory distress. Patient has one daughter Melinda. She lives in [place] and is busy with her job but does call and check in on them. 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 agrees and understands patients frail state and supports patients desires for treatment as needed. DC plan is patient will return to ECF. Actively participating in PT & OT. Bedside sats 97% and back to baseline O2 at 4L NC. Patient has bipap at ECF as confirmed by patient and .
[2018-06-02] MEDS: Insulin DETEMIR 100 UNIT/ML X5UNITS SQ SCH (21:39)
[2018-06-03] MEDS: Ipratropium/Albuterol Neb 3 ML IH SCH ×3 (03:30→15:29)
[2018-06-03] MEDS: methylPREDNISolone 125 MG/2 ML VIAL IVP SCH (06:02)
[2018-06-03] MEDS: Aspirin 81 MG TAB.CHEW PO SCH (08:57)
[2018-06-03] MEDS: Azithromycin 250 MG TABLET PO SCH (08:57)
[2018-06-03] MEDS: Fenofibrate 54 MG TABLET PO SCH (08:57)
[2018-06-03] MEDS: Apixaban 5 MG TABLET PO SCH (08:57)
[2018-06-03] MEDS: Acetaminophen 325 MG TABLET PO SCH (08:57)
[2018-06-03] MEDS: Insulin LISPRO 300 UNITS/3 ML VIAL SQ SCH ×2 (08:58→12:03)
[2018-06-03] MEDS: Furosemide 40 MG TABLET PO SCH (08:58)
[2018-06-03] MEDS: *HR* Acetylcysteine 20% 600 MG/3 ML ORAL SYRINGE PO SCH (08:58)
--- NOTE | 2018-06-03 10:08 | Discharge Summary ---
- NOTES TO OUTPATIENT PROVIDER Notes to Outpatient Provider: Patient has poor prognosis given progressive pulmonary fibrosis. Patient still full code. This is short-term intubation if needed. Date of Encounter: 06/03/18 Time of Encounter: 10:02 Hospital course: Mr. Sequeira is a 82 year old male past medical history of CHF, COPD and idiopathic pulmonary fibrosis presented with shortness of breath from alf facility. Patient was admitted for acute respiratory failure secondary to pulmonary fibrosis with combination of COPD. Patient did not have CHF exacerbation. Pulmonary consult was obtained. Symptoms were more likely from his progressing pulmonary fibrosis. Patient had some improvement with trial of azithromycin and IV steroids. Patient would be discharged to alf home facility to continue BiPAP and finish course of 5 days of steroids and antibiotic. Patient will continue home dose of steroids and continue to use BiPAP at SNF. Palliative consult was obtained. Discussion with sister and occurred and patient stated once full code with short-term intubation if needed. He does not want tracheostomy tube if needed. He does not want long- term intubation. - Time Spent with Patient Total time spent providing and/or coordinating discharge services: Greater than 30 minutes - Discharge Medications Prescriptions: Azithromycin [Zithromax] 250 mg PO DAILY 2 Days #2 tablet predniSONE [PredniSONE] 60 mg PO NOW 3 Days #3 tablet Home Medications: Lovastatin 40 mg PO HS 12/23/15 [History] Multivit-Min/FA/Lycopen/Lutein [Centrum Silver Tablet] 1 each PO QAM 12/23/15 [ History] Omeprazole [PriLOSEC] 20 mg PO QAM 12/23/15 [History] Acetylcysteine [Nac] 600 mg PO DAILY 08/05/17 [History] Budesonide/Formoterol 160/4.5 [Symbicort 160/4.5] 2 puff IH BIDR 08/05/17 [ History] Fenofibrate 160 mg PO DAILY 08/05/17 [History] Glimepiride [Amaryl] 2 mg PO DAILY 12/27/17 [History] Latanoprost [Xalatan] 1 drop OP HS 12/27/17 [History] Apixaban [Eliquis] 5 mg PO BID #60 tablet 04/08/18 [Rx] Potassium Chloride 20 meq PO BIDWM tab.er.prt 04/08/18 [Rx] Acetaminophen [Non-Aspirin] 650 mg PO BID 04/09/18 [History] Aspirin 81 mg PO DAILY 04/09/18 [History] Furosemide [Lasix] 40 mg PO DAILY 30 Days #90 tablet 04/15/18 [Rx] Oxygen 4 l NS AD PRN #0 04/15/18 [Rx] predniSONE [PredniSONE] 40 mg PO DAILY tablet 04/15/18 [Rx] Azithromycin [Zithromax] 250 mg PO DAILY 2 Days #2 tablet 06/03/18 [Rx] predniSONE [PredniSONE] 60 mg PO NOW 3 Days #3 tablet 06/03/18 [Rx] Allergies/Adverse Reactions: 3 Allergy/AdvReac Type Severity Reaction Status Date / Time No Known Allergies Allergy Verified 04/09/18 11:34 Date of admission: 06/01/18 08:26 Primary care physician: Jose A Kelly Colopy Consults: 06/01/18 12:30 Consult to Pulmonology [CONS] Routine Consulting Provider: [facility] Reason for Consult: Pulmonary fibrosis Call Completed: Yes 06/02/18 07:17 Consult to Palliative Care [CONS] Routine Comment: Consulting Provider: Palliative Care Veda Reason for Consult: Progressing IPF Call Completed: Yes - Constitutional Vitals: Temp Pulse Resp BP Pulse Ox 97.9 F 74 15 146/73 98 06/03/18 07:40 06/03/18 07:40 06/03/18 07:40 06/03/18 07:40 06/03/18 07:40 General appearance: Present: cooperative, mild distress, A&O X 3, pleasant Exam: Const: Vital signs listed above. On nasal cannula. Alert and oriented Xs 3. Obese Eyes: Sclera white, conjunctiva clear, lids are without lag. PERRLA. Pupils and irises are equal and round without defect. ENT: grossly normal hearing. Oropharanx clear and moist without erythema. Gums pink, good dentition. Lymph/Neck: No masses, thyromegaly, or abnormal cervical notes. No bruit. Tracheal midline. Cardio: Irregular, Normal S1, S2 w/o murmurs, rubs or gallops. Skin warm and dry. No peripheral edema. Respiratory: Chest symmetrical. non-labored. No dullness or flatness. Bilateral crackles. Musculo: No deformity or scoliosis noted. No gene gait disturbance noted. No cyanosis or edema. Pulses normal in all 4 extremities. Neurologic: No focal deficits, cranial nerves II-XII grossly intact with normal sensation, reflexes. GI/Abdomen: Soft, non tender, non distended, no hepatosplemomegaly, normal bowel sounds, no masses noted. - Patient Status Disposition: Transfer SNF Functional capacity at discharge: uses cane/walker Overall status at discharge: patient is not back to baseline - Discharge Instructions Follow Up With: Jose A Hernandez DO [Primary Care Provider] -
[2018-06-03] MEDS: Budesonide/Formoterol 160/4.5 1 PUFF INH IH SCH (10:19)
--- NOTE | 2018-06-03 10:43 | Pulmonology Progress Note ---
<Randall Macias - Last Filed: 06/03/18 10:40> Date of Encounter: 06/03/18 Time of Encounter: 10:40 Assessment and Plan (1) Pulmonary interstitial fibrosis Current Visit: Yes Status: Chronic Poor prognosis Continue N-acetylcysteine Not a candidate for anti-fibrotic treatments Continue steroids and azithromycin for now since pt improving clinically Appreciate pallative consult for progressive disease with poor prognosis Thank you for the consult. Pulm will sign off at this time, but please call if any questions arise (2) Acute and chronic respiratory failure with hypoxia Current Visit: Yes Status: Acute Successfully weaned to 4lpm NC without difficulty Subjective Principal diagnosis: COPD and ILD Interval history: No acute events overnight. Pt states he feels "about the same". Denies any fever , chills, increased cough, change in sputum production or character, abdominal pain, nausea, vomiting, numbness, weakness, or headache. Objective PUL Vital signs: Last Vital Signs Temp 97.9 F 06/03/18 07:40 Pulse 74 06/03/18 07:40 Resp 16 06/03/18 10:21 BP 146/73 06/03/18 07:40 Pulse Ox 94 06/03/18 10:21 General appearance: no acute distress Eyes: nonicteric ENT: oropharynx moist Neck: supple, no lymphadenopathy, no JVD Effort: normal Auscultation: bilateral: diminished breath sounds Percussion: bilateral: not dull Tactile fremitus: bilateral: normal Cardiovascular: regular rate and rhythm Gastrointestinal: soft, non-tender, non-distended Integumentary: normal Extremities: no cyanosis, no edema, no clubbing, pink and warm Musculoskeletal: no deformities Gait: normal posture normal mental status, non-focal exam mood appropriate, affect normal Results - Laboratory Findings CBC and BMP: 06/01/18 00:26 06/01/18 00:26 Abnormal lab findings: Abnormal lab results RBC 4.16 M/mcL (4.19-5.50) L 06/01/18 00:26 Hgb 11.2 g/dL (12.9-16.9) L 06/01/18 00:26 Hct 36.6 % (37.5-50.1) L 06/01/18 00:26 MCH 26.9 pg (28.0-33.3) L 06/01/18 00:26 MCHC 30.6 g/dL (31.6-35.5) L 06/01/18 00:26 RDW 18.5 % (11.5-14.5) H 06/01/18 00:26 MPV 9.3 fL (9.4-12.4) L 06/01/18 00:26 Nucleated RBCs/100 WBC 0.5 /100 WBC (0) H 06/01/18 00:26 Carbon Dioxide 30 mEq/L (23-29) H 06/01/18 00:26 BUN 34 mg/dL (8-23) H 06/01/18 00:26 Est GFR (Non-Af Amer) 55 (> 60) L 06/01/18 00:26 BUN/Creatinine Ratio 27 (6-26) H 06/01/18 00:26 POC Glucose 317 mg/dL (70-99) H 06/02/18 16:33 Troponin I 0.04 ng/mL (< 0.04) H* 06/01/18 06:24 B-Natriuretic Peptide 135 pg/mL (Less than 100) H 05/31/18 16:35 - Clinical Findings Intake & Output: Intake & Output 06/02/18 06/03/18 06/03/18 23:59 07:59 15:59 Intake Total 240 / 240 Output Total 380 / 380 Balance -380 / -380 240 / 240 Weight 105.9 kg Consult Discharge Plan - Plan Referrals: Jose A Hernandez DO [Primary Care Provider] - (patient is going back to [employer]) Prescriptions: Azithromycin [Zithromax] 250 mg PO DAILY 2 Days #2 tablet predniSONE [PredniSONE] 60 mg PO NOW 3 Days #3 tablet <Bonnie Guallpa - Last Filed: 06/03/18 13:44> Date of Encounter: 06/03/18 Assessment and Plan (1) Pulmonary interstitial fibrosis Current Visit: Yes Status: Chronic (2) Acute and chronic respiratory failure with hypoxia Current Visit: Yes Status: Acute Objective PUL Vital signs: Last Vital Signs Temp 98.0 F 06/03/18 11:22 Pulse 80 06/03/18 11:22 Resp 16 06/03/18 11:22 BP 113/73 06/03/18 11:22 Pulse Ox 97 06/03/18 11:22 Results - Laboratory Findings CBC and BMP: 06/01/18 00:26 06/01/18 00:26 Abnormal lab findings: Abnormal lab results RBC 4.16 M/mcL (4.19-5.50) L 06/01/18 00:26 Hgb 11.2 g/dL (12.9-16.9) L 06/01/18 00:26 Hct 36.6 % (37.5-50.1) L 06/01/18 00:26 MCH 26.9 pg (28.0-33.3) L 06/01/18 00:26 MCHC 30.6 g/dL (31.6-35.5) L 06/01/18 00:26 RDW 18.5 % (11.5-14.5) H 06/01/18 00:26 MPV 9.3 fL (9.4-12.4) L 06/01/18 00:26 Nucleated RBCs/100 WBC 0.5 /100 WBC (0) H 06/01/18 00:26 Carbon Dioxide 30 mEq/L (23-29) H 06/01/18 00:26 BUN 34 mg/dL (8-23) H 06/01/18 00:26 Est GFR (Non-Af Amer) 55 (> 60) L 06/01/18 00:26 BUN/Creatinine Ratio 27 (6-26) H 06/01/18 00:26 POC Glucose 317 mg/dL (70-99) H 06/02/18 16:33 Troponin I 0.04 ng/mL (< 0.04) H* 06/01/18 06:24 B-Natriuretic Peptide 135 pg/mL (Less than 100) H 05/31/18 16:35 - Clinical Findings Intake & Output: Intake & Output 06/02/18 06/03/18 06/03/18 23:59 07:59 15:59 Intake Total 720 / 720 Output Total 380 / 380 Balance -380 / -380 720 / 720 Weight 105.9 kg - Attending Attestation I examined this patient and my medical decision-making was reviewed with the Resident Physician. I agree with the documented findings, disposition and treatment plan as described except to the extent set forth below. Patient seen and examined. Labs, radiology, chart personally reviewed. Agree with resident's history and physical, assessment, plan with following comments: [employer]: Patient follows commands, Pulmonary: Acceptable oxygenation and ventilation and systemic recommendation as dictated in the past. Poor prognosis. Please call for any questions. Patient can follow-up as outpatient after his discharge from hospital. Taper steroid is recommended.
--- NOTE | 2018-06-03 10:48 | Event Note ---
Date of Encounter: 06/03/18 Time of Encounter: 10:30 Followed up with patient this morning after meeting yesterday. Patient sitting up at bedside; alert and oriented times 3. No family present at bedside. Patient denies needs at this time. Re-iterated if needed any questions answered about hospice. Patient refused any questions being answered at this time. Patient's discharge order is written. Discharge plan in place. Palliative care to sign off.
[2018-06-03 11:28] VITALS: BP 113/73
--- NOTE | 2018-06-03 12:02 | Physician Discharge Referral ---
ExtendedCare Referral Info Institutional Level of Care: Skilled Prognosis: Poor - Transfer Medications Prescriptions: Azithromycin [Zithromax] 250 mg PO DAILY 2 Days #2 tablet predniSONE [PredniSONE] 60 mg PO NOW 3 Days #3 tablet Home Medications: Lovastatin 40 mg PO HS 12/23/15 [History] Multivit-Min/FA/Lycopen/Lutein [Centrum Silver Tablet] 1 each PO QAM 12/23/15 [ History] Omeprazole [PriLOSEC] 20 mg PO QAM 12/23/15 [History] Acetylcysteine [Nac] 600 mg PO DAILY 08/05/17 [History] Budesonide/Formoterol 160/4.5 [Symbicort 160/4.5] 2 puff IH BIDR 08/05/17 [ History] Fenofibrate 160 mg PO DAILY 08/05/17 [History] Glimepiride [Amaryl] 2 mg PO DAILY 12/27/17 [History] Latanoprost [Xalatan] 1 drop OP HS 12/27/17 [History] Apixaban [Eliquis] 5 mg PO BID #60 tablet 04/08/18 [Rx] Potassium Chloride 20 meq PO BIDWM tab.er.prt 04/08/18 [Rx] Acetaminophen [Non-Aspirin] 650 mg PO BID 04/09/18 [History] Aspirin 81 mg PO DAILY 04/09/18 [History] Furosemide [Lasix] 40 mg PO DAILY 30 Days #90 tablet 04/15/18 [Rx] Oxygen 4 l NS AD PRN #0 04/15/18 [Rx] predniSONE [PredniSONE] 40 mg PO DAILY tablet 04/15/18 [Rx] Azithromycin [Zithromax] 250 mg PO DAILY 2 Days #2 tablet 06/03/18 [Rx] predniSONE [PredniSONE] 60 mg PO NOW 3 Days #3 tablet 06/03/18 [Rx] Allergies/Adverse Reactions: 3 Allergy/AdvReac Type Severity Reaction Status Date / Time No Known Allergies Allergy Verified 04/09/18 11:34 - Respiratory Orders Oxygen / L per min (4) Smoking Cessation: Smoking cessation has been advised. For more information, call the [place] Tobacco Quit Line at 1-909-IQLZ-NOW. - Advance Directives Code Status: Full Code - Mobility Orders Chair, Ambulate - Rehabiliation Orders Rehab Orders: Evaluation for Physical Therapy CERTIFICATION: I certify that the transfer of the above named patient to an Extended Care Facility is necessary for the continuing treatment of the diagnosis listed. The above information is true and accurate reflection of patient's current condition. Confidential - Redisclosure prohibited without a patient's written consent.
--- NOTE | 2018-06-04 12:32 | Electrocardiograph Report ---
[address] [address] Test Date: 2018-05-31 Pat Name: David Sequeira Department: EXAM3 Room: 2A Gender: M [employer]: : [id number] Requested By: Villa Hernandez Order Number: [id number] Reading MD: Jaimee Sweet Measurements Intervals [place] Rate: 86 P: OK: QRS: -46 QRSD: 122 T: 49 QT: 373 QTc: 447 Interpretive Statements Atrial fibrillation Left axis deviation Left bundle branch block Electronically Signed On 06-04-2018 12:31:07 EDT by Jaimee Sweet
== END 2018-06-03 16:29 | DRG 196 ==
LOC: 2ANU 15:41 → EMEROOARM 15:41 → SUATTDRO 21:44 → 2ANU 22:21
PROVIDERS: ADMIT Pediatrics; ATTEND Internal Medicine